=== PATIENT | female | born 1940 | race Caucasian/White ===

== ENCOUNTER → 2018-04-24 07:30 | Outpatient (CLI) | payer MEDICARE, OTHER, SELFPAY ==
[2018-04-24 08:28] LABS: Albumin 4.3 g/dL (3.5-5.0); BUN Creatinine Ratio 18.9 (6-22); Blood Urea Nitrogen 17 mg/dL (7-17); Calcium 8.9 mg/dL (8.4-10.2); Carbon Dioxide 27 mmol/L (22-32); Chloride 102 mmol/L (98-107); Cholesterol 194 mg/dL (140-199); Estimated Glomerular Filt Rate > 60.0 mL/min (>60); Glucose 95 mg/dL (80-110); HDL Cholesterol 60 mg/dL (40-60); LDL Cholesterol Calculated 120 mg/dL (<100); Potassium 3.6 mmol/L (3.4-5.1); Sodium 139 mmol/L (137-145); Triglycerides 71 mg/dL (35-150)
[2018-04-24 08:37] LABS: HEMOLYSIS < 15 (0-50); Prealbumin 23.7 mg/dL (17.6-36.0)
[2018-04-24 08:45] LABS: Free T4, Direct Thyroxine 1.16 ng/dL (0.78-2.19)
[2018-04-24 08:51] LABS: Vitamin D 25 Hydroxy (D3) 19.6 ng/mL (30.0-100.0)
[2018-04-24 08:59] LABS: Thyroid Stimulating Hormone 3.78 uIU/mL (0.47-4.68)
[2018-04-27 13:47] LABS: Fecal Immunochemical Test NOT DETECTED (NOT DETECTED)
== END ==
PROVIDERS: PCP Student in an Organized Health Care Education/Training Program; Visit Provider Student in an Organized Health Care Education/Training Program
DX: E03.9 Hypothyroidism, unspecified (principal); E55.9 Vitamin D deficiency, unspecified; Z91.89 Other specified personal risk factors, not elsewhere classified; E78.2 Mixed hyperlipidemia; R63.6 Underweight
CPT/HCPCS: 36415; 80048; 80061; 82040; 82274; 82306; 84134; 84439; 84443

== ENCOUNTER → 2018-05-12 09:43 | Outpatient (CLI) | payer MEDICARE, OTHER, SELFPAY | PROVIDERS: PCP Student in an Organized Health Care Education/Training Program; Visit Provider Student in an Organized Health Care Education/Training Program | DX: Z13.820 Encounter for screening for osteoporosis (principal); M81.0 Age-related osteoporosis without current pathological fracture; Z78.0 Asymptomatic menopausal state; E07.9 Disorder of thyroid, unspecified; Z82.62 Family history of osteoporosis | CPT/HCPCS: 77080 ==

== ENCOUNTER 2018-07-24 09:00 | Outpatient (RCR) | payer MEDICARE, OTHER, SELFPAY ==
--- NOTE | 2018-05-27 12:33 | PT.OTN ---
Current Diagnoses Stiffness of unspecified joint, not elsewhere classified (05/27/18) Low back pain (05/27/18) Muscle weakness (generalized) (05/27/18) Physical Therapy Treatment Note PT-OP-A Visit Information Start: 05/27/18 12:08 Freq: Status: Active Protocol: Document 05/27/18 11:15 DCW (Rec: 05/27/18 12:33 DCW [id number]) Out-Patient Physical Therapy Visit Information Visit Information Visit Type Initial Evaluation Visit Start Time 11:15 Visit Stop Time 12:00 Total Visit Minutes 45 Visit Number 1 Number of DANCE TEACHER Visits 0 Evaluation Information Evaluation Date 05/27/18 PT-OP-B Current Condition Start: 05/27/18 12:08 Freq: Status: Active Protocol: Document 05/27/18 11:15 DCW (Rec: 05/27/18 12:33 DCW [id number]) Current Condition History of Current Condition Onset Date Several year history Current Complaints Low back pain and stiffness, worsening with extended standing History of Current Condition Pt is a 77 year old female presenting with complaints of low back pain, particularly after an extended time standing or walking. 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 Pt notes no radicular symptoms, and reports that her pain reduces greatly when she is able to sit down and let her back flex forward a little. 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 choir PT-OP-C Subjective Start: 05/27/18 12:08 Freq: Status: Active Protocol: Document 05/27/18 11:15 DCW (Rec: 05/27/18 12:33 DCW [id number]) Patient Questionnaires Oswestry Low Back Index Oswestry Score 32% Oswestry Impairment 20 to 39% Impaired (Score 20- 39) OP-PT Pain Assessment Pain Assessment Grid Paper Pain Assessment Grid Completed Yes Location Bilateral Lower Back Intensity 8 Scale Used Numeric (1 - 10) Pain Aggravating Factors Standing Walking Pain Alleviating Factors Sitting PT-OP-F Manual Assessment Start: 05/27/18 12:08 Freq: Status: Active Protocol: Document 05/27/18 11:15 DCW (Rec: 05/27/18 12:33 DCW [id number]) Manual Assessments Joint Mobility Assessment Joint Mobility Assessment Minimal to no joint mobility along T10-L5 vertebrae in prone PT-OP-K Range of Motion Start: 05/27/18 12:08 Freq: Status: Active Protocol: Document 05/27/18 11:15 DCW (Rec: 05/27/18 12:33 DCW [id number]) Lumbar Spine Range of Motion Lumbar Spine Active Degrees Testing Position Standing Flexion 32 Extension 5 Lateral Flexion Left 44 Lateral Flexion Right 50 ROM Limitations Bony Restriction Pain Comments Lateral flexion measured in cm from fingertips to floor PT-OP-L Special Tests Start: 05/27/18 12:08 Freq: Status: Active Protocol: Document 05/27/18 11:15 DCW (Rec: 05/27/18 12:33 DCW [id number]) Special Tests Lumbar Spine Special Tests Slump Test Results Negative Vertical Spine Loading Test Results Negative Lateral SI compression Test Results Negative LENNY Test Results Negative Straight Leg Raise Test Results HS tightness at 80? L, 74? R PT-OP-M Strength Start: 05/27/18 12:08 Freq: Status: Active Protocol: Document 05/27/18 11:15 DCW (Rec: 05/27/18 12:33 DCW [id number]) Trunk Strength Trunk Manual Muscle Testing Core Stabilization TrA strength poor, 3-/5: Pt unable to voluntarily contract abdominal muscles in PPT position Hip Strength Hip Manual Muscle Testing Right Flexion (L2) 5 Normal Abduction 4+ Good+ Adduction 5 Normal External Rotation 5 Normal Internal Rotation 5 Normal Left Flexion (L2) 5 Normal Abduction 4+ Good+ Adduction 5 Normal External Rotation 5 Normal Internal Rotation 5 Normal Knee Strength Knee Manual Muscle Testing Right Flexion (S2) 5 Normal Extension (L3) 5 Normal Left Flexion (S2) 4+ Good+ Extension (L3) 5 Normal PT-OP-Q Treatments Start: 05/27/18 12:08 Freq: Status: Active Protocol: Document 05/27/18 11:15 DCW (Rec: 05/27/18 12:33 DC [id number]) Therapeutic Exercises Supine Exercises PPT /c TrA Supine Exercise Name PPT /c TrA activation Reps/Minutes 5 hold Comments verbal and tactile cues for core contraction Hamstring Stretch Supine Exercise Name HS stretch /c strap Side bilateral PT-OP-T Assessment and Plan Start: 05/27/18 12:08 Freq: Status: Active Protocol: Document 05/27/18 11:15 DCW (Rec: 05/27/18 12:33 [facility] [id number]) Physical Therapy Assessment Rehab Potential Rehabilitation Potential Excellent Evaluation Complexity Number of Personal Factors/Comorbidities 1-2 Number of Body Systems Impaired 3 Clinical Presentation at Evaluation Stable Impairments Impairments Activity Tolerance Functional Activities Pain Posture ROM Strength Goals Four Impairment Core weakness Short Term Goal (STG) Pt to properly perform TrA contraction with no verbal or tactile cues STG Duration 06/26/18 Fdc Goal (LTG) Pt core MMT to 4/5 LTG Duration 07/27/18 Three Impairment Lumbar spine ROM limited Short Term Goal (STG) Active lumbar lateral flexion to 40 cm fingertips->floor bilaterally STG Duration 06/26/18 Advisory Application Developer Goal (LTG) Active lumbar ROM to 50? flexion and 15? 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 Pt will likely experience decrease in pain when standing and walking with improving hamstring flexibility, increasing lumbar mobility, and strengthening her core musculature. Pt given an initial HEP in order to begin to work toward improving flexibility and strength, and during the course of her rehab, should benefit from building on these techniques. Pt may also benefit from pain-control modalities to limit negative reaction to increased activity levels. Physical Therapy Plan Frequency and Duration Frequency of Treatment 2x/Week Duration of Treatment 8 weeks Plan of Care Start Date 05/27/18 Plan of Care End Date 07/22/18 Therapeutic Interventions Therapeutic Interventions Aquatic Therapy Home Exercise Program Joint Mobilizations Manual Therapy Patient/Caregiver Education Self-Care/Home Management Soft Tissue Mobilization Therapeutic Activities Therapeutic Exercises Modalities Cold Pack/Ice Massage Electric Stimulation Hot Packs Next Visit Focus/Plan Next Note Type Treatment Note Next Visit Plan Core strengthening, lumbar joint mobilizations, hamstring stretching
--- NOTE | 2018-05-27 12:34 | PT.OPPOC ---
Current Diagnoses Stiffness of unspecified joint, not elsewhere classified (05/27/18) Low back pain (05/27/18) Muscle weakness (generalized) (05/27/18) Provider Visit Care Team Role Provider Type Mateusz Bonilla MD Attending Provider Physician Primary Care Provider Specialty: Internal Medicine Address: [address] [place] [address], [id number] Email: Plan Of Care PT-OP-T Assessment and Plan Start: 05/27/18 12:08 Freq: Status: Active Protocol: Document 05/27/18 11:15 DCW (Rec: 05/27/18 12:33 DCW [id number]) Physical Therapy Assessment Rehab Potential Rehabilitation Potential Excellent Evaluation Complexity Number of Personal Factors/Comorbidities 1-2 Number of Body Systems Impaired 3 Clinical Presentation at Evaluation Stable Impairments Impairments Activity Tolerance Functional Activities Pain Posture ROM Strength Goals Four Impairment Core weakness Short Term Goal (STG) Pt to properly perform TrA contraction with no verbal or tactile cues STG Duration 06/26/18 Tactical Debriefer Goal (LTG) Pt core MMT to 4/5 LTG Duration 07/27/18 Three Impairment Lumbar spine ROM limited Short Term Goal (STG) Active lumbar lateral flexion to 40 cm fingertips->floor bilaterally STG Duration 06/26/18 Fci Goal (LTG) Active lumbar ROM to 50? flexion and 15? extension LTG Duration 07/27/18 Two Impairment Pt unable to participate in ADLs and hobbies Short Term Goal (STG) Pt to tolerate cleaning house (vacuuming, sweeping, or mopping) for 20 minutes without increase in pain STG Duration 06/26/18 Tactical Debriefer Goal (LTG) Pt able to tolerate standing for require time while singing with [employer] choir LTG Duration 07/27/18 One Impairment Pt does not have an appropriate home exercise program Short Term Goal (STG) Pt to be independent and complaint with an appropriate HEP STG Duration 06/26/18 Assessment Summary Assessment Pt presents with signs and symptoms 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 Pt will likely experience decrease in pain when standing and walking with improving hamstring flexibility, increasing lumbar mobility, and strengthening her core musculature. Pt given an initial HEP in order to begin to work toward improving flexibility and strength, and during the course of her rehab, should benefit from building on these techniques. Pt may also benefit from pain- control modalities to limit negative reaction to increased activity levels. Physical Therapy Plan Frequency and Duration Frequency of Treatment 2x/Week Duration of Treatment 8 weeks Plan of Care Start Date 05/27/18 Plan of Care End Date 07/22/18 Therapeutic Interventions Therapeutic Interventions Aquatic Therapy Home Exercise Program Joint Mobilizations Manual Therapy Patient/Caregiver Education Self-Care/Home Management Soft Tissue Mobilization Therapeutic Activities Therapeutic Exercises Modalities Cold Pack/Ice Massage Electric Stimulation Hot Packs Next Visit Focus/Plan Next Note Type Treatment Note Next Visit Plan Core strengthening, lumbar joint mobilizations, hamstring stretching Plan of Care Dates Plan of Care Start Date 05/27/18 Plan of Care End Date 07/22/18 Please Sign and Return: I have reviewed this Plan of Care and certify that the skilled therapy services above are required to meet the patient?s needs. Physician Signature Date Printed Name and Credentials Clinical Instructor Signature Printed Name and Credentials
--- NOTE | 2018-05-29 14:34 | PT.OTN ---
Current Diagnoses Low back pain (05/29/18) Physical Therapy Treatment Note PT-OP-A Visit Information Start: 05/27/18 12:08 Freq: Status: Active Protocol: Document 05/29/18 14:22 SA (Rec: 05/29/18 14:34 [email or web address]) Out-Patient Physical Therapy Visit Information Visit Information Visit Type Treatment Note Visit Start Time 10:30 Visit Stop Time 11:15 Total Visit Minutes 45 Visit Number 2 PT-OP-B Current Condition Start: 05/27/18 12:08 Freq: Status: Active Protocol: Document 05/27/18 11:15 DCW (Rec: 05/27/18 12:33 DCW [id number]) Current Condition History of Current Condition Onset Date Several year history Current Complaints Low back pain and stiffness, worsening with extended standing History of Current Condition Pt is a 77 year old female presenting with complaints of low back pain, particularly after an extended time standing or walking. 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 Pt notes no radicular symptoms, and reports that her pain reduces greatly when she is able to sit down and let her back flex forward a little. 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 PT-OP-F Manual Assessment Start: 05/27/18 12:08 Freq: Status: Active Protocol: Document 05/27/18 11:15 DCW (Rec: 05/27/18 12:33 DCW [id number]) Manual Assessments Joint Mobility Assessment Joint Mobility Assessment Minimal to no joint mobility along T10-L5 vertebrae in prone PT-OP-K Range of Motion Start: 05/27/18 12:08 Freq: Status: Active Protocol: Document 05/27/18 11:15 DCW (Rec: 05/27/18 12:33 DCW [id number]) Lumbar Spine Range of Motion Lumbar Spine Active Degrees Testing Position Standing Flexion 32 Extension 5 Lateral Flexion Left 44 Lateral Flexion Right 50 ROM Limitations Bony Restriction Pain Comments Lateral flexion measured in cm from fingertips to floor PT-OP-L Special Tests Start: 05/27/18 12:08 Freq: Status: Active Protocol: Document 05/27/18 11:15 DCW (Rec: 05/27/18 12:33 DCW [id number]) Special Tests Lumbar Spine Special Tests Slump Test Results Negative Vertical Spine Loading Test Results Negative Lateral SI compression Test Results Negative LENNY Test Results Negative Straight Leg Raise Test Results HS tightness at 80? L, 74? R PT-OP-M Strength Start: 05/27/18 12:08 Freq: Status: Active Protocol: Document 05/27/18 11:15 DCW (Rec: 05/27/18 12:33 DCW [id number]) Trunk Strength Trunk Manual Muscle Testing Core Stabilization TrA strength poor, 3-/5: Pt unable to voluntarily contract abdominal muscles in PPT position Hip Strength Hip Manual Muscle Testing Right Flexion (L2) 5 Normal Abduction 4+ Good+ Adduction 5 Normal External Rotation 5 Normal Internal Rotation 5 Normal Left Flexion (L2) 5 Normal Abduction 4+ Good+ Adduction 5 Normal External Rotation 5 Normal Internal Rotation 5 Normal Knee Strength Knee Manual Muscle Testing Right Flexion (S2) 5 Normal Extension (L3) 5 Normal Left Flexion (S2) 4+ Good+ Extension (L3) 5 Normal PT-OP-Q Treatments Start: 05/27/18 12:08 Freq: Status: Active Protocol: Document 05/29/18 14:22 SA (Rec: 05/29/18 14:34 SA [email or web address]) Therapeutic Exercises Supine Exercises Piriformis stretch Side bilateral Reps/Minutes 30 x 2 bridging Side bilateral Reps/Minutes 15x Comments focus on engaging core PPT /c TrA Supine Exercise Name PPT /c TrA activation Reps/Minutes 5 x 10 Hamstring Stretch Supine Exercise Name HS stretch /c strap Side bilateral Reps/Minutes 30 x 3 Sidelying Exercises Clamshells Side bilateral Reps/Minutes 15 x each Comments core engagement Manual Therapy Treatment Soft Tissue Mobilization STM/MFR Body Location Lumbar paraspinals Mobilization Type Myofascial Release Rolling Sustained Pressure Intensity/Depth Moderate Body Position Sidelying Comments Pt tolerated well PT-OP-R Modalities Start: 05/27/18 12:08 Freq: Status: Active Protocol: Document 05/29/18 14:22 SA (Rec: 05/29/18 14:34 [email or web address]) Electric Stimulation Electric Stimulation IFC Body Location lumbar spine Duration (Minutes) 15 Intensity 12 Patient Position Sidelying Combined With Heat/Cold Hot Pack Comments Pt prefers heat vs cold PT-OP-T Assessment and Plan Start: 05/27/18 12:08 Freq: Status: Active Protocol: Document 05/29/18 14:22 SA (Rec: 05/29/18 14:34 [email or web address]) Physical Therapy Assessment Assessment Summary Assessment Focused on core engagement and TrA activation with PPT, bridging and clamshells. Pt with initial difficulty activating but was able to perform by end of session. Directions for self stretching HS at home. Physical Therapy Plan Next Visit Focus/Plan Next Note Type Treatment Note Next Visit Plan Core strengthening, lumbar joint mobilizations, hamstring stretching
--- NOTE | 2018-06-03 16:15 | PT.OTN ---
Current Diagnoses Low back pain (06/03/18) Physical Therapy Treatment Note PT-OP-A Visit Information Start: 05/27/18 12:08 Freq: Status: Active Protocol: Document 06/03/18 14:00 BS (Rec: 06/03/18 15:42 BS [id number]) Out-Patient Physical Therapy Visit Information Visit Information Visit Type Treatment Note Visit Start Time 13:00 Visit Stop Time 13:55 Total Visit Minutes 55 Visit Number 3 PT-OP-B Current Condition Start: 05/27/18 12:08 Freq: Status: Active Protocol: Document 05/27/18 11:15 DCW (Rec: 05/27/18 12:33 DCW [id number]) Current Condition History of Current Condition Onset Date Several year history Current Complaints Low back pain and stiffness, worsening with extended standing History of Current Condition Pt is a 77 year old female presenting with complaints of low back pain, particularly after an extended time standing or walking. 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 Pt notes no radicular symptoms, and reports that her pain reduces greatly when she is able to sit down and let her back flex forward a little. Treatment Goals Patient/Caregiver Goals Reduce back pain, allow her to stand to better participate in her shinto choir Prior Functional Status Baseline Function- ADL's Independent Baseline Function- Mobility Independent Current Functional Impairments (Reported) Functional Limitations- ADL's Limited ability to clean due to low back pain Functional Limitations- Mobility/Gait Requires a cart to lean on while walking around [employer] Functional Limitations- Recreation/ Unable to remain standing as Hobbies long as required while singing in her shinto choir PT-OP-C Subjective Start: 05/27/18 12:08 Freq: Status: Active Protocol: Document 06/03/18 14:00 BS (Rec: 06/03/18 15:42 BS [id number]) OP-PT Subjective Patient Comments Patient Comments Pt states that bending over increases her central low back pain. She denies any problems with HEP for hamstring stretch and bridges. PT-OP-F Manual Assessment Start: 05/27/18 12:08 Freq: Status: Active Protocol: Document 05/27/18 11:15 DCW (Rec: 05/27/18 12:33 DCW [id number]) Manual Assessments Joint Mobility Assessment Joint Mobility Assessment Minimal to no joint mobility along T10-L5 vertebrae in prone PT-OP-K Range of Motion Start: 05/27/18 12:08 Freq: Status: Active Protocol: Document 05/27/18 11:15 DCW (Rec: 05/27/18 12:33 DCW [id number]) Lumbar Spine Range of Motion Lumbar Spine Active Degrees Testing Position Standing Flexion 32 Extension 5 Lateral Flexion Left 44 Lateral Flexion Right 50 ROM Limitations Bony Restriction Pain Comments Lateral flexion measured in cm from fingertips to floor PT-OP-L Special Tests Start: 05/27/18 12:08 Freq: Status: Active Protocol: Document 05/27/18 11:15 DCW (Rec: 05/27/18 12:33 DCW [id number]) Special Tests Lumbar Spine Special Tests Slump Test Results Negative Vertical Spine Loading Test Results Negative Lateral SI compression Test Results Negative LENNY Test Results Negative Straight Leg Raise Test Results HS tightness at 80? L, 74? R PT-OP-M Strength Start: 05/27/18 12:08 Freq: Status: Active Protocol: Document 05/27/18 11:15 DCW (Rec: 05/27/18 12:33 DCW [id number]) Trunk Strength Trunk Manual Muscle Testing Core Stabilization TrA strength poor, 3-/5: Pt unable to voluntarily contract abdominal muscles in PPT position Hip Strength Hip Manual Muscle Testing Right Flexion (L2) 5 Normal Abduction 4+ Good+ Adduction 5 Normal External Rotation 5 Normal Internal Rotation 5 Normal Left Flexion (L2) 5 Normal Abduction 4+ Good+ Adduction 5 Normal External Rotation 5 Normal Internal Rotation 5 Normal Knee Strength Knee Manual Muscle Testing Right Flexion (S2) 5 Normal Extension (L3) 5 Normal Left Flexion (S2) 4+ Good+ Extension (L3) 5 Normal PT-OP-Q Treatments Start: 05/27/18 12:08 Freq: Status: Active Protocol: Document 06/03/18 14:00 BS (Rec: 06/03/18 15:42 BS [id number]) Therapeutic Exercises Supine Exercises 1 Supine Exercise Name Roll in/out Equipment Used #2 band, small ball between knees Reps/Minutes x15 each Comments VCs for TA contraction Piriformis stretch Side bilateral Reps/Minutes 30 x 2 Comments manual assistance for stretch. bridging Side bilateral Reps/Minutes 15x Comments focus on engaging core Hamstring Stretch Supine Exercise Name HS stretch /c strap Side bilateral Reps/Minutes 30 x 3 Comments VCs to maintain knee ext. Sidelying Exercises Clamshells Side bilateral Reps/Minutes 15 x each Comments performed supine today Manual Therapy Treatment Joint Mobilizations 1 Joint L1-L5 Central PAs Direction PA Grade III Body Position Rsidelying Comments grade II progressing to grade III. PT-OP-R Modalities Start: 05/27/18 12:08 Freq: Status: Active Protocol: Document 06/03/18 14:00 BS (Rec: 06/03/18 15:42 BS [id number]) Electric Stimulation Electric Stimulation IFC Body Location lumbar spine Duration (Minutes) 15 Intensity 16 Patient Position Sidelying Combined With Heat/Cold Hot Pack Comments Pt prefers heat vs cold PT-OP-T Assessment and Plan Start: 05/27/18 12:08 Freq: Status: Active Protocol: Document 06/03/18 14:00 BS (Rec: 06/03/18 15:42 BS [id number]) Physical Therapy Assessment Assessment Summary Assessment Added supine roll in/out with theraband and ball between knees with emphasis on TA contraction. Continued with HS and piriformis stretch. No exercises added to HEP today. Physical Therapy Plan Next Visit Focus/Plan Next Note Type Treatment Note Next Visit Plan Lumbar and core stabilization exercises, continue with alligator shear operator to lumbar spine and HS/ piriformis stretching. Addition of roll in/out to HEP .
--- NOTE | 2018-06-05 12:37 | PT.OTN ---
Current Diagnoses Low back pain (06/05/18) Physical Therapy Treatment Note PT-OP-A Visit Information Start: 05/27/18 12:08 Freq: Status: Active Protocol: Document 06/05/18 12:00 DCW (Rec: 06/05/18 12:37 DCW [id number]) Out-Patient Physical Therapy Visit Information Visit Information Visit Type Treatment Note Visit Start Time 12:00 Visit Stop Time 12:50 Total Visit Minutes 50 Visit Number 4 Evaluation Information Evaluation Date 05/27/18 PT-OP-B Current Condition Start: 05/27/18 12:08 Freq: Status: Active Protocol: Document 05/27/18 11:15 DCW (Rec: 05/27/18 12:33 DCW [id number]) Current Condition History of Current Condition Onset Date Several year history Current Complaints Low back pain and stiffness, worsening with extended standing History of Current Condition Pt is a 77 year old female presenting with complaints of low back pain, particularly after an extended time standing or walking. 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 Pt notes no radicular symptoms, and reports that her pain reduces greatly when she is able to sit down and let her back flex forward a little. 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 PT-OP-F Manual Assessment Start: 05/27/18 12:08 Freq: Status: Active Protocol: Document 05/27/18 11:15 DCW (Rec: 05/27/18 12:33 DCW [id number]) Manual Assessments Joint Mobility Assessment Joint Mobility Assessment Minimal to no joint mobility along T10-L5 vertebrae in prone PT-OP-K Range of Motion Start: 05/27/18 12:08 Freq: Status: Active Protocol: Document 05/27/18 11:15 DCW (Rec: 05/27/18 12:33 DCW [id number]) Lumbar Spine Range of Motion Lumbar Spine Active Degrees Testing Position Standing Flexion 32 Extension 5 Lateral Flexion Left 44 Lateral Flexion Right 50 ROM Limitations Bony Restriction Pain Comments Lateral flexion measured in cm from fingertips to floor PT-OP-L Special Tests Start: 05/27/18 12:08 Freq: Status: Active Protocol: Document 05/27/18 11:15 DCW (Rec: 05/27/18 12:33 DCW [id number]) Special Tests Lumbar Spine Special Tests Slump Test Results Negative Vertical Spine Loading Test Results Negative Lateral SI compression Test Results Negative LENNY Test Results Negative Straight Leg Raise Test Results HS tightness at 80? L, 74? R PT-OP-M Strength Start: 05/27/18 12:08 Freq: Status: Active Protocol: Document 05/27/18 11:15 DCW (Rec: 05/27/18 12:33 DCW [id number]) Trunk Strength Trunk Manual Muscle Testing Core Stabilization TrA strength poor, 3-/5: Pt unable to voluntarily contract abdominal muscles in PPT position Hip Strength Hip Manual Muscle Testing Right Flexion (L2) 5 Normal Abduction 4+ Good+ Adduction 5 Normal External Rotation 5 Normal Internal Rotation 5 Normal Left Flexion (L2) 5 Normal Abduction 4+ Good+ Adduction 5 Normal External Rotation 5 Normal Internal Rotation 5 Normal Knee Strength Knee Manual Muscle Testing Right Flexion (S2) 5 Normal Extension (L3) 5 Normal Left Flexion (S2) 4+ Good+ Extension (L3) 5 Normal PT-OP-Q Treatments Start: 05/27/18 12:08 Freq: Status: Active Protocol: Document 06/05/18 12:00 DCW (Rec: 06/05/18 12:37 DCW [id number]) Therapeutic Exercises Supine Exercises PPT /c Marching Supine Exercise Name PPT /c TrA - Marching Side bilateral Piriformis stretch Side bilateral Reps/Minutes 30 x 2 Comments manual assistance for stretch. bridging Side bilateral Reps/Minutes x10 Comments focus on engaging core PPT /c TrA Supine Exercise Name PPT /c TrA activation Reps/Minutes 5 x 10 Hamstring Stretch Supine Exercise Name HS stretch Side bilateral Reps/Minutes 30 x 3 Comments manual stretch Sidelying Exercises Clamshells Side bilateral Resistance Lv 2 Equipment Used T-band Reps/Minutes 15 x each Comments performed supine today Manual Therapy Treatment Soft Tissue Mobilization STM/MFR Body Location Lumbar paraspinals Mobilization Type Myofascial Release Rolling Sustained Pressure Intensity/Depth Moderate Body Position Sidelying Comments Pt tolerated well Joint Mobilizations 1 Joint L1-L5 Central PAs Direction PA Grade III Body Position Rsidelying Comments grade II progressing to grade III. PT-OP-R Modalities Start: 05/27/18 12:08 Freq: Status: Active Protocol: Document 06/05/18 12:00 DCW (Rec: 06/05/18 12:37 DCW [id number]) Electric Stimulation Electric Stimulation IFC Body Location lumbar spine Duration (Minutes) 15 Intensity 14 Patient Position Sidelying Combined With Heat/Cold Hot Pack Comments Pt prefers heat vs cold PT-OP-T Assessment and Plan Start: 05/27/18 12:08 Freq: Status: Active Protocol: Document 06/05/18 12:00 DCW (Rec: 06/05/18 12:37 DCW [id number]) Physical Therapy Assessment Impairments Impairments Activity Tolerance Functional Activities Pain Posture ROM Strength Goals Four Impairment Core weakness Short Term Goal (STG) Pt to properly perform TrA contraction with no verbal or tactile cues STG Duration 06/26/18 Online Content Developer Goal (LTG) Pt core MMT to 4/5 LTG Duration 07/27/18 Three Impairment Lumbar spine ROM limited Short Term Goal (STG) Active lumbar lateral flexion to 40 cm fingertips->floor bilaterally STG Duration 06/26/18 Online Content Developer Goal (LTG) Active lumbar ROM to 50? flexion and 15? extension LTG Duration 07/27/18 Two Impairment Pt unable to participate in ADLs and hobbies Short Term Goal (STG) Pt to tolerate cleaning house (vacuuming, sweeping, or mopping) for 20 minutes without increase in pain STG Duration 06/26/18 Fpc Goal (LTG) Pt able to tolerate standing for require time while singing with [employer] LTG Duration 07/27/18 One Impairment Pt does not have an appropriate home exercise program Short Term Goal (STG) Pt to be independent and complaint with an appropriate HEP STG Duration 06/26/18 Assessment Summary Assessment Pt continues to struggle to properly contract TrA during PPT, even with verbal and tactile cues, however was able to contract it much better with addition of supine marching. Physical Therapy Plan Frequency and Duration Frequency of Treatment 2x/Week Duration of Treatment 8 weeks Plan of Care Start Date 05/27/18 Plan of Care End Date 07/22/18 Therapeutic Interventions Therapeutic Interventions Aquatic Therapy Home Exercise Program Joint Mobilizations Manual Therapy Patient/Caregiver Education Self-Care/Home Management Soft Tissue Mobilization Therapeutic Activities Therapeutic Exercises Modalities Cold Pack/Ice Massage Electric Stimulation Hot Packs Next Visit Focus/Plan Next Note Type Treatment Note Next Visit Plan Lumbar and core stabilization exercises, continue with oil program compliance specialist to lumbar spine and HS/ piriformis stretching. Addition of roll in/out to HEP .
--- NOTE | 2018-06-09 11:34 | PT.OTN ---
Current Diagnoses Low back pain (06/09/18) Physical Therapy Treatment Note PT-OP-A Visit Information Start: 05/27/18 12:08 Freq: Status: Active Protocol: Document 06/09/18 11:29 SA (Rec: 06/09/18 11:34 SA [id number]) Out-Patient Physical Therapy Visit Information Visit Information Visit Type Treatment Note Visit Start Time 10:30 Visit Stop Time 11:19 Total Visit Minutes 49 Visit Number 5 Number of ORACLE TECHNICAL ARCHITECT Visits 1 PT-OP-B Current Condition Start: 05/27/18 12:08 Freq: Status: Active Protocol: Document 05/27/18 11:15 DCW (Rec: 05/27/18 12:33 DCW [id number]) Current Condition History of Current Condition Onset Date Several year history Current Complaints Low back pain and stiffness, worsening with extended standing History of Current Condition Pt is a 77 year old female presenting with complaints of low back pain, particularly after an extended time standing or walking. 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 Pt notes no radicular symptoms, and reports that her pain reduces greatly when she is able to sit down and let her back flex forward a little. 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 PT-OP-F Manual Assessment Start: 05/27/18 12:08 Freq: Status: Active Protocol: Document 05/27/18 11:15 DCW (Rec: 05/27/18 12:33 DCW [id number]) Manual Assessments Joint Mobility Assessment Joint Mobility Assessment Minimal to no joint mobility along T10-L5 vertebrae in prone PT-OP-K Range of Motion Start: 05/27/18 12:08 Freq: Status: Active Protocol: Document 05/27/18 11:15 DCW (Rec: 05/27/18 12:33 DCW [id number]) Lumbar Spine Range of Motion Lumbar Spine Active Degrees Testing Position Standing Flexion 32 Extension 5 Lateral Flexion Left 44 Lateral Flexion Right 50 ROM Limitations Bony Restriction Pain Comments Lateral flexion measured in cm from fingertips to floor PT-OP-L Special Tests Start: 05/27/18 12:08 Freq: Status: Active Protocol: Document 05/27/18 11:15 DCW (Rec: 05/27/18 12:33 DCW [id number]) Special Tests Lumbar Spine Special Tests Slump Test Results Negative Vertical Spine Loading Test Results Negative Lateral SI compression Test Results Negative LENNY Test Results Negative Straight Leg Raise Test Results HS tightness at 80? L, 74? R PT-OP-M Strength Start: 05/27/18 12:08 Freq: Status: Active Protocol: Document 05/27/18 11:15 DCW (Rec: 05/27/18 12:33 DCW [id number]) Trunk Strength Trunk Manual Muscle Testing Core Stabilization TrA strength poor, 3-/5: Pt unable to voluntarily contract abdominal muscles in PPT position Hip Strength Hip Manual Muscle Testing Right Flexion (L2) 5 Normal Abduction 4+ Good+ Adduction 5 Normal External Rotation 5 Normal Internal Rotation 5 Normal Left Flexion (L2) 5 Normal Abduction 4+ Good+ Adduction 5 Normal External Rotation 5 Normal Internal Rotation 5 Normal Knee Strength Knee Manual Muscle Testing Right Flexion (S2) 5 Normal Extension (L3) 5 Normal Left Flexion (S2) 4+ Good+ Extension (L3) 5 Normal PT-OP-Q Treatments Start: 05/27/18 12:08 Freq: Status: Active Protocol: Document 06/09/18 11:29 SA (Rec: 06/09/18 11:34 SA [id number]) Therapeutic Exercises Supine Exercises PPT /c Marching Supine Exercise Name PPT /c TrA - Marching Side bilateral Reps/Minutes 15x each 1 Supine Exercise Name Roll in/out Equipment Used #2 band, small ball between knees Reps/Minutes x15 each Comments VCs for TA contraction Piriformis stretch Side bilateral Reps/Minutes 30 x 2 Comments manual assistance for stretch. bridging Side bilateral Reps/Minutes 3 x 12 Comments focus on engaging core PPT /c TrA Supine Exercise Name PPT /c TrA activation Reps/Minutes 5 x 10 Hamstring Stretch Supine Exercise Name HS stretch Side bilateral Reps/Minutes 30 x 3 Comments manual stretch Sidelying Exercises Clamshells Side bilateral Resistance Lv 2 Equipment Used T-band Reps/Minutes 15 x each Manual Therapy Treatment Soft Tissue Mobilization STM/MFR Body Location Lumbar paraspinals Mobilization Type Myofascial Release Rolling Sustained Pressure Intensity/Depth Moderate Body Position Sidelying Comments Pt tolerated well PT-OP-R Modalities Start: 05/27/18 12:08 Freq: Status: Active Protocol: Document 06/09/18 11:29 SA (Rec: 06/09/18 11:34 SA [id number]) Electric Stimulation Electric Stimulation IFC Body Location lumbar spine Duration (Minutes) 15 Intensity 15 Patient Position Sidelying Combined With Heat/Cold Hot Pack Comments Pt prefers heat vs cold PT-OP-T Assessment and Plan Start: 05/27/18 12:08 Freq: Status: Active Protocol: Document 06/09/18 11:29 SA (Rec: 06/09/18 11:34 SA [email or web address]) Physical Therapy Assessment Assessment Summary Assessment Pt with improving PPT and able to engage TRA with verbal/ tactile cues, decreasing LB sx overall. Physical Therapy Plan Next Visit Focus/Plan Next Note Type Treatment Note Next Visit Plan Lumbar and core stabilization exercises, continue with commercial development manager to lumbar spine and HS/ piriformis stretching.
--- NOTE | 2018-06-12 11:54 | PT.OTN ---
Current Diagnoses Low back pain (06/12/18) Physical Therapy Treatment Note PT-OP-A Visit Information Start: 05/27/18 12:08 Freq: Status: Active Protocol: Document 06/12/18 11:15 DCW (Rec: 06/12/18 11:54 DCW [id number]) Out-Patient Physical Therapy Visit Information Visit Information Visit Type Treatment Note Visit Start Time 11:15 Visit Stop Time 12:05 Total Visit Minutes 50 Visit Number 6 Number of ROUTEMAN Visits 0 Evaluation Information Evaluation Date 05/27/18 PT-OP-B Current Condition Start: 05/27/18 12:08 Freq: Status: Active Protocol: Document 05/27/18 11:15 DCW (Rec: 05/27/18 12:33 DCW [id number]) Current Condition History of Current Condition Onset Date Several year history Current Complaints Low back pain and stiffness, worsening with extended standing History of Current Condition Pt is a 77 year old female presenting with complaints of low back pain, particularly after an extended time standing or walking. 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 Pt notes no radicular symptoms, and reports that her pain reduces greatly when she is able to sit down and let her back flex forward a little. 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 PT-OP-F Manual Assessment Start: 05/27/18 12:08 Freq: Status: Active Protocol: Document 05/27/18 11:15 DCW (Rec: 05/27/18 12:33 DCW [id number]) Manual Assessments Joint Mobility Assessment Joint Mobility Assessment Minimal to no joint mobility along T10-L5 vertebrae in prone PT-OP-K Range of Motion Start: 05/27/18 12:08 Freq: Status: Active Protocol: Document 05/27/18 11:15 DCW (Rec: 05/27/18 12:33 DCW [id number]) Lumbar Spine Range of Motion Lumbar Spine Active Degrees Testing Position Standing Flexion 32 Extension 5 Lateral Flexion Left 44 Lateral Flexion Right 50 ROM Limitations Bony Restriction Pain Comments Lateral flexion measured in cm from fingertips to floor PT-OP-L Special Tests Start: 05/27/18 12:08 Freq: Status: Active Protocol: Document 05/27/18 11:15 DCW (Rec: 05/27/18 12:33 DCW [id number]) Special Tests Lumbar Spine Special Tests Slump Test Results Negative Vertical Spine Loading Test Results Negative Lateral SI compression Test Results Negative LENNY Test Results Negative Straight Leg Raise Test Results HS tightness at 80? L, 74? R PT-OP-M Strength Start: 05/27/18 12:08 Freq: Status: Active Protocol: Document 05/27/18 11:15 DCW (Rec: 05/27/18 12:33 DCW [id number]) Trunk Strength Trunk Manual Muscle Testing Core Stabilization TrA strength poor, 3-/5: Pt unable to voluntarily contract abdominal muscles in PPT position Hip Strength Hip Manual Muscle Testing Right Flexion (L2) 5 Normal Abduction 4+ Good+ Adduction 5 Normal External Rotation 5 Normal Internal Rotation 5 Normal Left Flexion (L2) 5 Normal Abduction 4+ Good+ Adduction 5 Normal External Rotation 5 Normal Internal Rotation 5 Normal Knee Strength Knee Manual Muscle Testing Right Flexion (S2) 5 Normal Extension (L3) 5 Normal Left Flexion (S2) 4+ Good+ Extension (L3) 5 Normal PT-OP-Q Treatments Start: 05/27/18 12:08 Freq: Status: Active Protocol: Document 06/12/18 11:15 DCW (Rec: 06/12/18 11:54 DCW [id number]) Gym Equipment Shuttle Recovery Unilateral Squats Resistance 25# Shuttle Recovery Platform Stable Bilateral Squats Resistance 50# Shuttle Recovery Platform Stable Therapeutic Ball Bridging Exercise Details Bridging /c feet on T-ball Ball Size/Color Blue - 45 cm Low Trunk Rotations Exercise Details Trunk Rotations /c feet on T- ball Ball Size/Color Blue - 45 cm Therapeutic Exercises Supine Exercises PPT /c SLR Supine Exercise Name PPT /c SLR Side bilateral Reps/Minutes 5 hold PPT /c Marching Supine Exercise Name PPT /c TrA - Marching Side bilateral Reps/Minutes 15x each Piriformis stretch Side bilateral Reps/Minutes 30 x 2 Comments manual assistance for stretch. bridging Side bilateral Reps/Minutes 3 x 12 Comments focus on engaging core PPT /c TrA Supine Exercise Name PPT /c TrA activation Reps/Minutes 5 x 10 Hamstring Stretch Supine Exercise Name HS stretch Side bilateral Reps/Minutes 30 x 3 Comments manual stretch PT-OP-R Modalities Start: 05/27/18 12:08 Freq: Status: Active Protocol: Document 06/12/18 11:15 DCW (Rec: 06/12/18 11:54 DCW [id number]) Electric Stimulation Electric Stimulation IFC Body Location lumbar spine Duration (Minutes) 15 Intensity 22 Patient Position Sidelying Combined With Heat/Cold Hot Pack Comments Pt prefers heat vs cold PT-OP-T Assessment and Plan Start: 05/27/18 12:08 Freq: Status: Active Protocol: Document 06/12/18 11:15 DCW (Rec: 06/12/18 11:54 DCW [id number]) Physical Therapy Assessment Impairments Impairments Activity Tolerance Functional Activities Pain Posture ROM Strength Goals Four Impairment Core weakness Short Term Goal (STG) Pt to properly perform TrA contraction with no verbal or tactile cues STG Duration 06/26/18 Snf Goal (LTG) Pt core MMT to 4/5 LTG Duration 07/27/18 Three Impairment Lumbar spine ROM limited Short Term Goal (STG) Active lumbar lateral flexion to 40 cm fingertips->floor bilaterally STG Duration 06/26/18 Snf Goal (LTG) Active lumbar ROM to 50? flexion and 15? extension LTG Duration 07/27/18 Two Impairment Pt unable to participate in ADLs and hobbies Short Term Goal (STG) Pt to tolerate cleaning house (vacuuming, sweeping, or mopping) for 20 minutes without increase in pain STG Duration 06/26/18 Snf Goal (LTG) Pt able to tolerate standing for require time while singing with scientologist choir LTG Duration 07/27/18 One Impairment Pt does not have an appropriate home exercise program Short Term Goal (STG) Pt to be independent and complaint with an appropriate HEP STG Duration 06/26/18 Assessment Summary Assessment Pt performing HEP regularly, beginning to show improved contraction of TrA and increased LE strength. Pt tolerated new exercises well today. Physical Therapy Plan Frequency and Duration Frequency of Treatment 2x/Week Duration of Treatment 8 weeks Plan of Care Start Date 05/27/18 Plan of Care End Date 07/22/18 Therapeutic Interventions Therapeutic Interventions Aquatic Therapy Home Exercise Program Joint Mobilizations Manual Therapy Patient/Caregiver Education Self-Care/Home Management Soft Tissue Mobilization Therapeutic Activities Therapeutic Exercises Modalities Cold Pack/Ice Massage Electric Stimulation Hot Packs Next Visit Focus/Plan Next Note Type Treatment Note Next Visit Plan Lumbar and core stabilization exercises, continue with security guard supervisor to lumbar spine and HS/ piriformis stretching. Addition of roll in/out to HEP .
--- NOTE | 2018-06-16 11:37 | PT.OTN ---
Current Diagnoses Low back pain (06/16/18) Physical Therapy Treatment Note PT-OP-A Visit Information Start: 05/27/18 12:08 Freq: Status: Active Protocol: Document 06/16/18 11:21 SA (Rec: 06/16/18 11:37 SA [id number]) Out-Patient Physical Therapy Visit Information Visit Information Visit Type Treatment Note Visit Start Time 10:25 Visit Stop Time 11:19 Total Visit Minutes 54 Visit Number 7 Number of STORE STOCK HELP Visits 1 PT-OP-B Current Condition Start: 05/27/18 12:08 Freq: Status: Active Protocol: Document 05/27/18 11:15 DCW (Rec: 05/27/18 12:33 DCW [id number]) Current Condition History of Current Condition Onset Date Several year history Current Complaints Low back pain and stiffness, worsening with extended standing History of Current Condition Pt is a 77 year old female presenting with complaints of low back pain, particularly after an extended time standing or walking. 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 Pt notes no radicular symptoms, and reports that her pain reduces greatly when she is able to sit down and let her back flex forward a little. 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 Patient Reported Progress Improving PT-OP-F Manual Assessment Start: 05/27/18 12:08 Freq: Status: Active Protocol: Document 05/27/18 11:15 DCW (Rec: 05/27/18 12:33 DCW [id number]) Manual Assessments Joint Mobility Assessment Joint Mobility Assessment Minimal to no joint mobility along T10-L5 vertebrae in prone PT-OP-K Range of Motion Start: 05/27/18 12:08 Freq: Status: Active Protocol: Document 05/27/18 11:15 DCW (Rec: 05/27/18 12:33 DCW [id number]) Lumbar Spine Range of Motion Lumbar Spine Active Degrees Testing Position Standing Flexion 32 Extension 5 Lateral Flexion Left 44 Lateral Flexion Right 50 ROM Limitations Bony Restriction Pain Comments Lateral flexion measured in cm from fingertips to floor PT-OP-L Special Tests Start: 05/27/18 12:08 Freq: Status: Active Protocol: Document 05/27/18 11:15 DCW (Rec: 05/27/18 12:33 DCW [id number]) Special Tests Lumbar Spine Special Tests Slump Test Results Negative Vertical Spine Loading Test Results Negative Lateral SI compression Test Results Negative LENNY Test Results Negative Straight Leg Raise Test Results HS tightness at 80? L, 74? R PT-OP-M Strength Start: 05/27/18 12:08 Freq: Status: Active Protocol: Document 05/27/18 11:15 DCW (Rec: 05/27/18 12:33 DCW [id number]) Trunk Strength Trunk Manual Muscle Testing Core Stabilization TrA strength poor, 3-/5: Pt unable to voluntarily contract abdominal muscles in PPT position Hip Strength Hip Manual Muscle Testing Right Flexion (L2) 5 Normal Abduction 4+ Good+ Adduction 5 Normal External Rotation 5 Normal Internal Rotation 5 Normal Left Flexion (L2) 5 Normal Abduction 4+ Good+ Adduction 5 Normal External Rotation 5 Normal Internal Rotation 5 Normal Knee Strength Knee Manual Muscle Testing Right Flexion (S2) 5 Normal Extension (L3) 5 Normal Left Flexion (S2) 4+ Good+ Extension (L3) 5 Normal PT-OP-Q Treatments Start: 05/27/18 12:08 Freq: Status: Active Protocol: Document 06/16/18 11:21 SA (Rec: 06/16/18 11:37 SA [email or web address]) Gym Equipment Shuttle Recovery Unilateral Squats Resistance 25# Shuttle Recovery Platform Stable Bilateral Squats Resistance 62# Shuttle Recovery Platform Stable Therapeutic Ball Bridging Exercise Details Bridging /c feet on T-ball Ball Size/Color Blue - 45 cm Reps/Duration 20x Comments Cues for control Low Trunk Rotations Exercise Details Trunk Rotations /c feet on T- ball Ball Size/Color Blue - 45 cm Reps/Duration 20x Comments Cues for control Therapeutic Exercises Supine Exercises PPT /c SLR Supine Exercise Name PPT /c SLR Side bilateral Reps/Minutes 5 hold PPT /c Marching Supine Exercise Name PPT /c TrA - Marching Side bilateral Reps/Minutes 15x each Piriformis stretch Side bilateral Reps/Minutes 30 x 2 Comments manual assistance for stretch. PPT /c TrA Supine Exercise Name PPT /c TrA activation Reps/Minutes 5 x 10 Hamstring Stretch Supine Exercise Name HS stretch Side bilateral Reps/Minutes 30 x 3 Comments manual stretch Sidelying Exercises Clamshells Side bilateral Resistance Lv 2 Equipment Used T-band Reps/Minutes 20 x each Manual Therapy Treatment Soft Tissue Mobilization STM/MFR Body Location Lumbar paraspinals Mobilization Type Myofascial Release Rolling Sustained Pressure Intensity/Depth Moderate Body Position Sidelying Comments Pt tolerated well Joint Mobilizations 1 Joint L1-L5 Central PAs Direction PA Grade III Body Position Rsidelying Comments grade II progressing to grade III. PT-OP-R Modalities Start: 05/27/18 12:08 Freq: Status: Active Protocol: Document 06/16/18 11:21 SA (Rec: 06/16/18 11:37 SA [email or web address]) Electric Stimulation Electric Stimulation IFC Body Location lumbar spine Duration (Minutes) 12 Intensity 22 Patient Position Sidelying Combined With Heat/Cold Hot Pack Comments Pt prefers heat vs cold PT-OP-T Assessment and Plan Start: 05/27/18 12:08 Freq: Status: Active Protocol: Document 06/16/18 11:21 SA (Rec: 06/16/18 11:37 SA [email or web address]) Physical Therapy Assessment Assessment Summary Assessment Pt tolerating ther ex progressions wel with improving standing tolerance, consistent with HEP, improving core awareness and engagement . Physical Therapy Plan Next Visit Focus/Plan Next Note Type Treatment Note Next Visit Plan Cont to progress core stability and hip flexibility.
--- NOTE | 2018-06-19 11:49 | PT.OTN ---
Current Diagnoses Low back pain (06/19/18) Physical Therapy Treatment Note PT-OP-A Visit Information Start: 05/27/18 12:08 Freq: Status: Active Protocol: Document 06/19/18 11:15 DCW (Rec: 06/19/18 11:49 DCW [id number]) Out-Patient Physical Therapy Visit Information Visit Information Visit Type Treatment Note Visit Start Time 11:15 Visit Stop Time 12:05 Total Visit Minutes 50 Visit Number 8 Number of FORDER OPERATOR Visits 0 Evaluation Information Evaluation Date 05/27/18 PT-OP-B Current Condition Start: 05/27/18 12:08 Freq: Status: Active Protocol: Document 05/27/18 11:15 DCW (Rec: 05/27/18 12:33 DCW [id number]) Current Condition History of Current Condition Onset Date Several year history Current Complaints Low back pain and stiffness, worsening with extended standing History of Current Condition Pt is a 77 year old female presenting with complaints of low back pain, particularly after an extended time standing or walking. 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 Pt notes no radicular symptoms, and reports that her pain reduces greatly when she is able to sit down and let her back flex forward a little. Treatment Goals Patient/Caregiver Goals Reduce back pain, allow her to stand to better participate in her [employer]oro[employer]rian choir Prior Functional Status Baseline Function- ADL's Independent Baseline Function- Mobility Independent Current Functional Impairments (Reported) Functional Limitations- ADL's Limited ability to clean due to low back pain Functional Limitations- Mobility/Gait Requires a cart to lean on while walking around [employer] Functional Limitations- Recreation/ Unable to remain standing as Hobbies long as required while singing in her [employer]oro[employer]rian choir PT-OP-C Subjective Start: 05/27/18 12:08 Freq: Status: Active Protocol: Document 06/19/18 11:15 DCW (Rec: 06/19/18 11:49 DCW [id number]) OP-PT Subjective Patient Comments Patient Comments Pt feels like her back is continuing to improve. Patient Reported Progress Improving PT-OP-F Manual Assessment Start: 05/27/18 12:08 Freq: Status: Active Protocol: Document 05/27/18 11:15 DCW (Rec: 05/27/18 12:33 DCW [id number]) Manual Assessments Joint Mobility Assessment Joint Mobility Assessment Minimal to no joint mobility along T10-L5 vertebrae in prone PT-OP-K Range of Motion Start: 05/27/18 12:08 Freq: Status: Active Protocol: Document 05/27/18 11:15 DCW (Rec: 05/27/18 12:33 DCW [id number]) Lumbar Spine Range of Motion Lumbar Spine Active Degrees Testing Position Standing Flexion 32 Extension 5 Lateral Flexion Left 44 Lateral Flexion Right 50 ROM Limitations Bony Restriction Pain Comments Lateral flexion measured in cm from fingertips to floor PT-OP-L Special Tests Start: 05/27/18 12:08 Freq: Status: Active Protocol: Document 05/27/18 11:15 DCW (Rec: 05/27/18 12:33 DCW [id number]) Special Tests Lumbar Spine Special Tests Slump Test Results Negative Vertical Spine Loading Test Results Negative Lateral SI compression Test Results Negative LENNY Test Results Negative Straight Leg Raise Test Results HS tightness at 80? L, 74? R PT-OP-M Strength Start: 05/27/18 12:08 Freq: Status: Active Protocol: Document 05/27/18 11:15 DCW (Rec: 05/27/18 12:33 DCW [id number]) Trunk Strength Trunk Manual Muscle Testing Core Stabilization TrA strength poor, 3-/5: Pt unable to voluntarily contract abdominal muscles in PPT position Hip Strength Hip Manual Muscle Testing Right Flexion (L2) 5 Normal Abduction 4+ Good+ Adduction 5 Normal External Rotation 5 Normal Internal Rotation 5 Normal Left Flexion (L2) 5 Normal Abduction 4+ Good+ Adduction 5 Normal External Rotation 5 Normal Internal Rotation 5 Normal Knee Strength Knee Manual Muscle Testing Right Flexion (S2) 5 Normal Extension (L3) 5 Normal Left Flexion (S2) 4+ Good+ Extension (L3) 5 Normal PT-OP-Q Treatments Start: 05/27/18 12:08 Freq: Status: Active Protocol: Document 06/19/18 11:15 DCW (Rec: 06/19/18 11:49 DCW [id number]) Gym Equipment Shuttle Recovery Unilateral Squats Resistance 37# Shuttle Recovery Platform Stable Bilateral Squats Resistance 62# Shuttle Recovery Platform Stable Therapeutic Exercises Supine Exercises PPT /c SLR Supine Exercise Name PPT /c SLR Side bilateral Reps/Minutes 5 hold PPT /c Marching Supine Exercise Name PPT /c TrA - Marching Side bilateral Reps/Minutes 15x each Piriformis stretch Side bilateral Reps/Minutes 30 x 2 Comments manual assistance for stretch. Hamstring Stretch Supine Exercise Name HS stretch Side bilateral Reps/Minutes 30 x 3 Comments manual stretch Other Exercises Resister Side-stepping Other Exercise Name Resister Side-stepping Resistance Yellow Equipment Used T-band Reps/Minutes x1 lap Manual Therapy Treatment Soft Tissue Mobilization STM/MFR Body Location Lumbar paraspinals Mobilization Type Myofascial Release Rolling Sustained Pressure Intensity/Depth Moderate Body Position Sidelying Comments Pt tolerated well Joint Mobilizations 1 Joint L1-L5 Central PAs Direction PA Grade III Body Position Rsidelying Comments grade II progressing to grade III. PT-OP-R Modalities Start: 05/27/18 12:08 Freq: Status: Active Protocol: Document 06/19/18 11:15 DCW (Rec: 06/19/18 11:49 DCW [id number]) Electric Stimulation Electric Stimulation IFC Body Location lumbar spine Duration (Minutes) 15 Patient Position Sidelying Combined With Heat/Cold Hot Pack Comments Pt prefers heat vs cold PT-OP-T Assessment and Plan Start: 05/27/18 12:08 Freq: Status: Active Protocol: Document 06/19/18 11:15 DCW (Rec: 06/19/18 11:49 DCW [id number]) Physical Therapy Assessment Impairments Impairments Activity Tolerance Functional Activities Pain Posture ROM Strength Goals Four Impairment Core weakness Short Term Goal (STG) Pt to properly perform TrA contraction with no verbal or tactile cues STG Duration 06/26/18 Fdc Goal (LTG) Pt core MMT to 4/5 LTG Duration 07/27/18 Three Impairment Lumbar spine ROM limited Short Term Goal (STG) Active lumbar lateral flexion to 40 cm fingertips->floor bilaterally STG Duration 06/26/18 Cash Accounting Clerk Goal (LTG) Active lumbar ROM to 50? flexion and 15? extension LTG Duration 07/27/18 Two Impairment Pt unable to participate in ADLs and hobbies Short Term Goal (STG) Pt to tolerate cleaning house (vacuuming, sweeping, or mopping) for 20 minutes without increase in pain STG Duration 06/26/18 Cash Accounting Clerk Goal (LTG) Pt able to tolerate standing for require time while singing with zoro[employer]rian choir LTG Duration 07/27/18 One Impairment Pt does not have an appropriate home exercise program Short Term Goal (STG) Pt to be independent and complaint with an appropriate HEP STG Duration 06/26/18 Assessment Summary Assessment Pt continuing to show improvement, reporting increased ability to stand for extended periods of time, including during long hymns at [employer]. Physical Therapy Plan Frequency and Duration Frequency of Treatment 2x/Week Duration of Treatment 8 weeks Plan of Care Start Date 05/27/18 Plan of Care End Date 07/22/18 Therapeutic Interventions Therapeutic Interventions Aquatic Therapy Home Exercise Program Joint Mobilizations Manual Therapy Patient/Caregiver Education Self-Care/Home Management Soft Tissue Mobilization Therapeutic Activities Therapeutic Exercises Modalities Cold Pack/Ice Massage Electric Stimulation Hot Packs Next Visit Focus/Plan Next Note Type Treatment Note Next Visit Plan Cont to progress core stability and hip flexibility.
--- NOTE | 2018-06-23 11:12 | PT.OTN ---
Current Diagnoses Low back pain (06/23/18) Physical Therapy Treatment Note PT-OP-A Visit Information Start: 05/27/18 12:08 Freq: Status: Active Protocol: Document 06/23/18 10:30 DCW (Rec: 06/23/18 11:12 DCW [id number]) Out-Patient Physical Therapy Visit Information Visit Information Visit Type Treatment Note Visit Start Time 10:30 Visit Stop Time 11:25 Total Visit Minutes 55 Visit Number 9 Number of PIPE CONNECTOR Visits 0 Evaluation Information Evaluation Date 05/27/18 PT-OP-B Current Condition Start: 05/27/18 12:08 Freq: Status: Active Protocol: Document 05/27/18 11:15 DCW (Rec: 05/27/18 12:33 DCW [id number]) Current Condition History of Current Condition Onset Date Several year history Current Complaints Low back pain and stiffness, worsening with extended standing History of Current Condition Pt is a 77 year old female presenting with complaints of low back pain, particularly after an extended time standing or walking. Pt reports pain limits her ability to walk around [employer], do house cleaning like vacuuming, sweeping, or mopping, and she struggles to remain standing while singing in her [employer]. Pt notes no radicular symptoms, and reports that her pain reduces greatly when she is able to sit down and let her back flex forward a little. Treatment Goals Patient/Caregiver Goals Reduce back pain, allow her to stand to better participate in her [employer] choir Prior Functional Status Baseline Function- ADL's Independent Baseline Function- Mobility Independent Current Functional Impairments (Reported) Functional Limitations- ADL's Limited ability to clean due to low back pain Functional Limitations- Mobility/Gait Requires a cart to lean on while walking around [employer] Functional Limitations- Recreation/ Unable to remain standing as Hobbies long as required while singing in her [employer] PT-OP-C Subjective Start: 05/27/18 12:08 Freq: Status: Active Protocol: Document 06/23/18 10:30 DCW (Rec: 06/23/18 11:12 DCW [id number]) OP-PT Subjective Patient Comments Patient Comments Pt notes she is doing a bit better. PT-OP-F Manual Assessment Start: 05/27/18 12:08 Freq: Status: Active Protocol: Document 05/27/18 11:15 DCW (Rec: 05/27/18 12:33 DCW [id number]) Manual Assessments Joint Mobility Assessment Joint Mobility Assessment Minimal to no joint mobility along T10-L5 vertebrae in prone PT-OP-K Range of Motion Start: 05/27/18 12:08 Freq: Status: Active Protocol: Document 05/27/18 11:15 DCW (Rec: 05/27/18 12:33 DCW [id number]) Lumbar Spine Range of Motion Lumbar Spine Active Degrees Testing Position Standing Flexion 32 Extension 5 Lateral Flexion Left 44 Lateral Flexion Right 50 ROM Limitations Bony Restriction Pain Comments Lateral flexion measured in cm from fingertips to floor PT-OP-L Special Tests Start: 05/27/18 12:08 Freq: Status: Active Protocol: Document 05/27/18 11:15 DCW (Rec: 05/27/18 12:33 DCW [id number]) Special Tests Lumbar Spine Special Tests Slump Test Results Negative Vertical Spine Loading Test Results Negative Lateral SI compression Test Results Negative LENNY Test Results Negative Straight Leg Raise Test Results HS tightness at 80? L, 74? R PT-OP-M Strength Start: 05/27/18 12:08 Freq: Status: Active Protocol: Document 05/27/18 11:15 DCW (Rec: 05/27/18 12:33 DCW [id number]) Trunk Strength Trunk Manual Muscle Testing Core Stabilization TrA strength poor, 3-/5: Pt unable to voluntarily contract abdominal muscles in PPT position Hip Strength Hip Manual Muscle Testing Right Flexion (L2) 5 Normal Abduction 4+ Good+ Adduction 5 Normal External Rotation 5 Normal Internal Rotation 5 Normal Left Flexion (L2) 5 Normal Abduction 4+ Good+ Adduction 5 Normal External Rotation 5 Normal Internal Rotation 5 Normal Knee Strength Knee Manual Muscle Testing Right Flexion (S2) 5 Normal Extension (L3) 5 Normal Left Flexion (S2) 4+ Good+ Extension (L3) 5 Normal PT-OP-Q Treatments Start: 05/27/18 12:08 Freq: Status: Active Protocol: Document 06/23/18 10:30 DCW (Rec: 06/23/18 11:12 DCW [id number]) Gym Equipment Shuttle Recovery Unilateral Squats Resistance 37# Shuttle Recovery Platform Stable Bilateral Squats Resistance 62# Shuttle Recovery Platform Stable Therapeutic Ball Bridging Exercise Details Bridging /c feet on T-ball Ball Size/Color Blue - 45 cm Reps/Duration 20x Comments Cues for control Low Trunk Rotations Exercise Details Trunk Rotations /c feet on T- ball Ball Size/Color Blue - 45 cm Reps/Duration 20x Comments Cues for control Therapeutic Exercises Supine Exercises Piriformis stretch Side bilateral Reps/Minutes 30 x 2 Comments manual assistance for stretch. Hamstring Stretch Supine Exercise Name HS stretch Side bilateral Reps/Minutes 30 x 3 Comments manual stretch Sitting Exercises Long Arc Quads Sitting Exercise Name LAQ Side bilateral Resistance 4# Standing Exercises Squats Standing Exercise Name Chair Squats Manual Therapy Treatment Soft Tissue Mobilization STM/MFR Body Location Lumbar paraspinals Mobilization Type Myofascial Release Rolling Sustained Pressure Intensity/Depth Moderate Body Position Sidelying Comments Pt tolerated well Joint Mobilizations 1 Joint L1-L5 Central PAs Direction PA Grade III Body Position Rsidelying Comments grade II progressing to grade III. PT-OP-R Modalities Start: 05/27/18 12:08 Freq: Status: Active Protocol: Document 06/23/18 10:30 DCW (Rec: 06/23/18 11:12 DCW [id number]) Electric Stimulation Electric Stimulation IFC Body Location lumbar spine Duration (Minutes) 15 Patient Position Sidelying Combined With Heat/Cold Hot Pack Comments Pt prefers heat vs cold PT-OP-T Assessment and Plan Start: 05/27/18 12:08 Freq: Status: Active Protocol: Document 06/23/18 10:30 DCW (Rec: 06/23/18 11:12 DCW [id number]) Physical Therapy Assessment Impairments Impairments Activity Tolerance Functional Activities Pain Posture ROM Strength Goals Four Impairment Core weakness Short Term Goal (STG) Pt to properly perform TrA contraction with no verbal or tactile cues STG Duration 06/26/18 Yard Caller Goal (LTG) Pt core MMT to 4/5 LTG Duration 07/27/18 Three Impairment Lumbar spine ROM limited Short Term Goal (STG) Active lumbar lateral flexion to 40 cm fingertips->floor bilaterally STG Duration 06/26/18 Correction Goal (LTG) Active lumbar ROM to 50? flexion and 15? extension LTG Duration 07/27/18 Two Impairment Pt unable to participate in ADLs and hobbies Short Term Goal (STG) Pt to tolerate cleaning house (vacuuming, sweeping, or mopping) for 20 minutes without increase in pain STG Duration 06/26/18 Yard Caller Goal (LTG) Pt able to tolerate standing for require time while singing with [employer] LTG Duration 07/27/18 One Impairment Pt does not have an appropriate home exercise program Short Term Goal (STG) Pt to be independent and complaint with an appropriate HEP STG Duration 06/26/18 Assessment Summary Assessment Pt worried about how long Medicare will approve therapy, because she would also like to work on stopping my knees from wobbling so much. Pt does have some quad weakness that is likely impacting her standing tolerance and mobility, and it would be appropriate to include some LE strengthening with her current POC. Physical Therapy Plan Frequency and Duration Frequency of Treatment 2x/Week Duration of Treatment 8 weeks Plan of Care Start Date 05/27/18 Plan of Care End Date 07/22/18 Therapeutic Interventions Therapeutic Interventions Aquatic Therapy Home Exercise Program Joint Mobilizations Manual Therapy Patient/Caregiver Education Self-Care/Home Management Soft Tissue Mobilization Therapeutic Activities Therapeutic Exercises Modalities Cold Pack/Ice Massage Electric Stimulation Hot Packs Next Visit Focus/Plan Next Note Type Treatment Note Next Visit Plan Cont to progress core stability and hip flexibility.
--- NOTE | 2018-06-26 11:45 | PT.OTN ---
Current Diagnoses Low back pain (06/26/18) Physical Therapy Treatment Note PT-OP-A Visit Information Start: 05/27/18 12:08 Freq: Status: Active Protocol: Document 06/26/18 11:39 SA (Rec: 06/26/18 11:45 SA [email or web address]) Out-Patient Physical Therapy Visit Information Visit Information Visit Type Treatment Note Visit Start Time 10:30 Visit Stop Time 11:20 Total Visit Minutes 50 Visit Number 10 Number of CONTROL OPERATOR FLOW COAT Visits 1 PT-OP-B Current Condition Start: 05/27/18 12:08 Freq: Status: Active Protocol: Document 05/27/18 11:15 DCW (Rec: 05/27/18 12:33 DCW [id number]) Current Condition History of Current Condition Onset Date Several year history Current Complaints Low back pain and stiffness, worsening with extended standing History of Current Condition Pt is a 77 year old female presenting with complaints of low back pain, particularly after an extended time standing or walking. Pt reports pain limits her ability to walk around [place], do house cleaning like vacuuming, sweeping, or mopping, and she struggles to remain standing while singing in her [employer] choir. Pt notes no radicular symptoms, and reports that her pain reduces greatly when she is able to sit down and let her back flex forward a little. Treatment Goals Patient/Caregiver Goals Reduce back pain, allow her to stand to better participate in her [employer] choir Prior Functional Status Baseline Function- ADL's Independent Baseline Function- Mobility Independent Current Functional Impairments (Reported) Functional Limitations- ADL's Limited ability to clean due to low back pain Functional Limitations- Mobility/Gait Requires a cart to lean on while walking around [place] Functional Limitations- Recreation/ Unable to remain standing as Hobbies long as required while singing in her [employer] choir PT-OP-C Subjective Start: 05/27/18 12:08 Freq: Status: Active Protocol: Document 06/26/18 11:39 SA (Rec: 06/26/18 11:45 SA [email or web address]) OP-PT Subjective Patient Comments Patient Comments Pt reports tolerating prolonged standing better. PT-OP-F Manual Assessment Start: 05/27/18 12:08 Freq: Status: Active Protocol: Document 05/27/18 11:15 DCW (Rec: 05/27/18 12:33 DCW [id number]) Manual Assessments Joint Mobility Assessment Joint Mobility Assessment Minimal to no joint mobility along T10-L5 vertebrae in prone PT-OP-K Range of Motion Start: 05/27/18 12:08 Freq: Status: Active Protocol: Document 05/27/18 11:15 DCW (Rec: 05/27/18 12:33 DCW [id number]) Lumbar Spine Range of Motion Lumbar Spine Active Degrees Testing Position Standing Flexion 32 Extension 5 Lateral Flexion Left 44 Lateral Flexion Right 50 ROM Limitations Bony Restriction Pain Comments Lateral flexion measured in cm from fingertips to floor PT-OP-L Special Tests Start: 05/27/18 12:08 Freq: Status: Active Protocol: Document 05/27/18 11:15 DCW (Rec: 05/27/18 12:33 DCW [id number]) Special Tests Lumbar Spine Special Tests Slump Test Results Negative Vertical Spine Loading Test Results Negative Lateral SI compression Test Results Negative LENNY Test Results Negative Straight Leg Raise Test Results HS tightness at 80? L, 74? R PT-OP-M Strength Start: 05/27/18 12:08 Freq: Status: Active Protocol: Document 05/27/18 11:15 DCW (Rec: 05/27/18 12:33 DCW [id number]) Trunk Strength Trunk Manual Muscle Testing Core Stabilization TrA strength poor, 3-/5: Pt unable to voluntarily contract abdominal muscles in PPT position Hip Strength Hip Manual Muscle Testing Right Flexion (L2) 5 Normal Abduction 4+ Good+ Adduction 5 Normal External Rotation 5 Normal Internal Rotation 5 Normal Left Flexion (L2) 5 Normal Abduction 4+ Good+ Adduction 5 Normal External Rotation 5 Normal Internal Rotation 5 Normal Knee Strength Knee Manual Muscle Testing Right Flexion (S2) 5 Normal Extension (L3) 5 Normal Left Flexion (S2) 4+ Good+ Extension (L3) 5 Normal PT-OP-Q Treatments Start: 05/27/18 12:08 Freq: Status: Active Protocol: Document 06/26/18 11:39 SA (Rec: 06/26/18 11:45 SA [email or web address]) Gym Equipment Shuttle Recovery Unilateral Squats Resistance 37# Shuttle Recovery Platform Stable Reps/Time 30x Bilateral Squats Resistance 62# Shuttle Recovery Platform Stable Reps/Time 30x Therapeutic Ball Bridging Exercise Details Bridging /c feet on T-ball Ball Size/Color Blue - 45 cm Reps/Duration 20x Comments Cues for control Low Trunk Rotations Exercise Details Trunk Rotations /c feet on T- ball Ball Size/Color Blue - 45 cm Reps/Duration 20x Comments Cues for control Therapeutic Exercises Supine Exercises PPT /c SLR Supine Exercise Name PPT /c SLR Side bilateral Reps/Minutes 5 hold PPT /c Marching Supine Exercise Name PPT /c TrA - Marching Side bilateral Reps/Minutes 15x each Piriformis stretch Side bilateral Reps/Minutes 30 x 2 Comments manual assistance for stretch. Hamstring Stretch Supine Exercise Name HS stretch Side bilateral Reps/Minutes 30 x 3 Comments manual stretch Sidelying Exercises Clamshells Side bilateral Resistance Lv 2 Equipment Used T-band Reps/Minutes 20 x each Sitting Exercises Long Arc Quads Sitting Exercise Name LAQ Side bilateral Resistance 4# Standing Exercises Squats Standing Exercise Name Chair Squats Manual Therapy Treatment Soft Tissue Mobilization STM/MFR Body Location Lumbar paraspinals Mobilization Type Myofascial Release Rolling Sustained Pressure Intensity/Depth Moderate Body Position Sidelying Comments Pt tolerated well PT-OP-R Modalities Start: 05/27/18 12:08 Freq: Status: Active Protocol: Document 06/26/18 11:39 SA (Rec: 06/26/18 11:45 SA [email or web address]) Electric Stimulation Electric Stimulation IFC Body Location lumbar spine Duration (Minutes) 15 Intensity 22 Patient Position Sidelying Combined With Heat/Cold Hot Pack Comments Pt prefers heat vs cold PT-OP-T Assessment and Plan Start: 05/27/18 12:08 Freq: Status: Active Protocol: Document 06/26/18 11:39 SA (Rec: 06/26/18 11:45 SA [email or web address]) Physical Therapy Assessment Assessment Summary Assessment Pt tolerating quad strengthening well, fatigues rapidly, consistant with HEP and overall decreasing symptoms. Physical Therapy Plan Next Visit Focus/Plan Next Note Type Treatment Note Next Visit Plan Cont to progress core stability and hip flexibility. Assess tolerance and quad/LE strengthening.
--- NOTE | 2018-06-30 11:19 | PT.OTN ---
Current Diagnoses Low back pain (06/30/18) Physical Therapy Treatment Note PT-OP-A Visit Information Start: 05/27/18 12:08 Freq: Status: Active Protocol: Document 06/30/18 10:30 DCW (Rec: 06/30/18 11:18 DCW [id number]) Out-Patient Physical Therapy Visit Information Visit Information Visit Type Treatment Note Visit Start Time 10:30 Visit Stop Time 11:20 Total Visit Minutes 50 Visit Number 11 Number of ELECTRICIAN MAINTENANCE Visits 0 Evaluation Information Evaluation Date 05/27/18 PT-OP-B Current Condition Start: 05/27/18 12:08 Freq: Status: Active Protocol: Document 05/27/18 11:15 DCW (Rec: 05/27/18 12:33 DCW [id number]) Current Condition History of Current Condition Onset Date Several year history Current Complaints Low back pain and stiffness, worsening with extended standing History of Current Condition Pt is a 77 year old female presenting with complaints of low back pain, particularly after an extended time standing or walking. Pt reports pain limits her ability to walk around [place], do house cleaning like vacuuming, sweeping, or mopping, and she struggles to remain standing while singing in her [employer] choir. Pt notes no radicular symptoms, and reports that her pain reduces greatly when she is able to sit down and let her back flex forward a little. 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 PT-OP-F Manual Assessment Start: 05/27/18 12:08 Freq: Status: Active Protocol: Document 05/27/18 11:15 DCW (Rec: 05/27/18 12:33 DCW [id number]) Manual Assessments Joint Mobility Assessment Joint Mobility Assessment Minimal to no joint mobility along T10-L5 vertebrae in prone PT-OP-K Range of Motion Start: 05/27/18 12:08 Freq: Status: Active Protocol: Document 05/27/18 11:15 DCW (Rec: 05/27/18 12:33 DCW [id number]) Lumbar Spine Range of Motion Lumbar Spine Active Degrees Testing Position Standing Flexion 32 Extension 5 Lateral Flexion Left 44 Lateral Flexion Right 50 ROM Limitations Bony Restriction Pain Comments Lateral flexion measured in cm from fingertips to floor PT-OP-L Special Tests Start: 05/27/18 12:08 Freq: Status: Active Protocol: Document 05/27/18 11:15 DCW (Rec: 05/27/18 12:33 DCW [id number]) Special Tests Lumbar Spine Special Tests Slump Test Results Negative Vertical Spine Loading Test Results Negative Lateral SI compression Test Results Negative LENNY Test Results Negative Straight Leg Raise Test Results HS tightness at 80? L, 74? R PT-OP-M Strength Start: 05/27/18 12:08 Freq: Status: Active Protocol: Document 05/27/18 11:15 DCW (Rec: 05/27/18 12:33 DCW [id number]) Trunk Strength Trunk Manual Muscle Testing Core Stabilization TrA strength poor, 3-/5: Pt unable to voluntarily contract abdominal muscles in PPT position Hip Strength Hip Manual Muscle Testing Right Flexion (L2) 5 Normal Abduction 4+ Good+ Adduction 5 Normal External Rotation 5 Normal Internal Rotation 5 Normal Left Flexion (L2) 5 Normal Abduction 4+ Good+ Adduction 5 Normal External Rotation 5 Normal Internal Rotation 5 Normal Knee Strength Knee Manual Muscle Testing Right Flexion (S2) 5 Normal Extension (L3) 5 Normal Left Flexion (S2) 4+ Good+ Extension (L3) 5 Normal PT-OP-Q Treatments Start: 05/27/18 12:08 Freq: Status: Active Protocol: Document 06/30/18 10:30 DCW (Rec: 06/30/18 11:18 DCW [id number]) Gym Equipment Shuttle Recovery Unilateral Squats Resistance 37# Shuttle Recovery Platform Stable Bilateral Squats Resistance 75# Shuttle Recovery Platform Stable Therapeutic Ball Bridging Exercise Details Bridging /c feet on T-ball Ball Size/Color Blue - 45 cm Reps/Duration 20x Comments Cues for control Low Trunk Rotations Exercise Details Trunk Rotations /c feet on T- ball Ball Size/Color Blue - 45 cm Reps/Duration 20x Comments Cues for control Therapeutic Exercises Supine Exercises Piriformis stretch Side bilateral Reps/Minutes 30 x 2 Comments manual assistance for stretch. Hamstring Stretch Supine Exercise Name HS stretch Side bilateral Reps/Minutes 30 x 3 Comments manual stretch Other Exercises Resister Side-stepping Other Exercise Name Resisted Side-stepping Resistance Yellow Equipment Used T-band Reps/Minutes x1 lap Manual Therapy Treatment Soft Tissue Mobilization STM/MFR Body Location Lumbar paraspinals Mobilization Type Myofascial Release Rolling Sustained Pressure Intensity/Depth Moderate Body Position Sidelying Comments Pt tolerated well Joint Mobilizations 1 Joint L1-L5 Central PAs Direction PA Grade III Body Position Rsidelying Comments grade II progressing to grade III. PT-OP-R Modalities Start: 05/27/18 12:08 Freq: Status: Active Protocol: Document 06/30/18 10:30 DCW (Rec: 06/30/18 11:18 DCW [id number]) Electric Stimulation Electric Stimulation IFC Body Location lumbar spine Duration (Minutes) 15 Intensity 24 Patient Position Sidelying Combined With Heat/Cold Hot Pack Comments Pt prefers heat vs cold PT-OP-T Assessment and Plan Start: 05/27/18 12:08 Freq: Status: Active Protocol: Document 06/30/18 10:30 DCW (Rec: 06/30/18 11:18 DCW [id number]) Physical Therapy Assessment Impairments Impairments Activity Tolerance Functional Activities Pain Posture ROM Strength Goals Four Impairment Core weakness Short Term Goal (STG) Pt to properly perform TrA contraction with no verbal or tactile cues STG Duration 06/26/18 Long-Term Goal (LTG) Pt core MMT to 4/5 LTG Duration 07/27/18 Three Impairment Lumbar spine ROM limited Short Term Goal (STG) Active lumbar lateral flexion to 40 cm fingertips->floor bilaterally STG Duration 06/26/18 Long-Term Goal (LTG) Active lumbar ROM to 50? flexion and 15? 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 Physical Therapy Plan Frequency and Duration Frequency of Treatment 2x/Week Duration of Treatment 8 weeks Plan of Care Start Date 05/27/18 Plan of Care End Date 07/22/18 Therapeutic Interventions Therapeutic Interventions Aquatic Therapy Home Exercise Program Joint Mobilizations Manual Therapy Patient/Caregiver Education Self-Care/Home Management Soft Tissue Mobilization Therapeutic Activities Therapeutic Exercises Modalities Cold Pack/Ice Massage Electric Stimulation Hot Packs Next Visit Focus/Plan Next Note Type Treatment Note Next Visit Plan Cont to progress core stability and hip flexibility.
--- NOTE | 2018-07-03 11:40 | PT.OTN ---
Current Diagnoses Low back pain (07/03/18) Physical Therapy Treatment Note PT-OP-A Visit Information Start: 05/27/18 12:08 Freq: Status: Active Protocol: Document 07/03/18 11:34 SA (Rec: 07/03/18 11:40 SA [email or web address]) Out-Patient Physical Therapy Visit Information Visit Information Visit Type Treatment Note Visit Start Time 10:30 Visit Stop Time 11:24 Total Visit Minutes 54 Visit Number 12 Number of BLUE SPLIT TRIMMER Visits 1 PT-OP-B Current Condition Start: 05/27/18 12:08 Freq: Status: Active Protocol: Document 05/27/18 11:15 DCW (Rec: 05/27/18 12:33 DCW [id number]) Current Condition History of Current Condition Onset Date Several year history Current Complaints Low back pain and stiffness, worsening with extended standing History of Current Condition Pt is a 77 year old female presenting with complaints of low back pain, particularly after an extended time standing or walking. Pt reports pain limits her ability to walk around [place], do house cleaning like vacuuming, sweeping, or mopping, and she struggles to remain standing while singing in her [employer] choir. Pt notes no radicular symptoms, and reports that her pain reduces greatly when she is able to sit down and let her back flex forward a little. Treatment Goals Patient/Caregiver Goals Reduce back pain, allow her to stand to better participate in her [employer] choir Prior Functional Status Baseline Function- ADL's Independent Baseline Function- Mobility Independent Current Functional Impairments (Reported) Functional Limitations- ADL's Limited ability to clean due to low back pain Functional Limitations- Mobility/Gait Requires a cart to lean on while walking around [place] Functional Limitations- Recreation/ Unable to remain standing as Hobbies long as required while singing in her [employer] choir PT-OP-C Subjective Start: 05/27/18 12:08 Freq: Status: Active Protocol: Document 07/03/18 11:34 SA (Rec: 07/03/18 11:40 SA [email or web address]) OP-PT Subjective Patient Comments Patient Comments Pt reports LE muscle soreness from exercise but also that she is tolerating standing in [employer] for longer periods. PT-OP-F Manual Assessment Start: 05/27/18 12:08 Freq: Status: Active Protocol: Document 05/27/18 11:15 DCW (Rec: 05/27/18 12:33 DCW [id number]) Manual Assessments Joint Mobility Assessment Joint Mobility Assessment Minimal to no joint mobility along T10-L5 vertebrae in prone PT-OP-K Range of Motion Start: 05/27/18 12:08 Freq: Status: Active Protocol: Document 05/27/18 11:15 DCW (Rec: 05/27/18 12:33 DCW [id number]) Lumbar Spine Range of Motion Lumbar Spine Active Degrees Testing Position Standing Flexion 32 Extension 5 Lateral Flexion Left 44 Lateral Flexion Right 50 ROM Limitations Bony Restriction Pain Comments Lateral flexion measured in cm from fingertips to floor PT-OP-L Special Tests Start: 05/27/18 12:08 Freq: Status: Active Protocol: Document 05/27/18 11:15 DCW (Rec: 05/27/18 12:33 DCW [id number]) Special Tests Lumbar Spine Special Tests Slump Test Results Negative Vertical Spine Loading Test Results Negative Lateral SI compression Test Results Negative LENNY Test Results Negative Straight Leg Raise Test Results HS tightness at 80? L, 74? R PT-OP-M Strength Start: 05/27/18 12:08 Freq: Status: Active Protocol: Document 05/27/18 11:15 DCW (Rec: 05/27/18 12:33 DCW [id number]) Trunk Strength Trunk Manual Muscle Testing Core Stabilization TrA strength poor, 3-/5: Pt unable to voluntarily contract abdominal muscles in PPT position Hip Strength Hip Manual Muscle Testing Right Flexion (L2) 5 Normal Abduction 4+ Good+ Adduction 5 Normal External Rotation 5 Normal Internal Rotation 5 Normal Left Flexion (L2) 5 Normal Abduction 4+ Good+ Adduction 5 Normal External Rotation 5 Normal Internal Rotation 5 Normal Knee Strength Knee Manual Muscle Testing Right Flexion (S2) 5 Normal Extension (L3) 5 Normal Left Flexion (S2) 4+ Good+ Extension (L3) 5 Normal PT-OP-Q Treatments Start: 05/27/18 12:08 Freq: Status: Active Protocol: Document 07/03/18 11:34 SA (Rec: 07/03/18 11:40 SA [email or web address]) Gym Equipment Shuttle Recovery Unilateral Squats Resistance 37# Shuttle Recovery Platform Stable Reps/Time to fatigue Bilateral Squats Resistance 75# Shuttle Recovery Platform Stable Reps/Time to fatigue Therapeutic Ball Bridging Exercise Details Bridging /c feet on T-ball Ball Size/Color Blue - 45 cm Reps/Duration 20x Comments Cues for control Low Trunk Rotations Exercise Details Trunk Rotations /c feet on T- ball Ball Size/Color Blue - 45 cm Reps/Duration 20x Comments Cues for control Therapeutic Exercises Supine Exercises PPT /c SLR Supine Exercise Name PPT /c SLR Side bilateral Equipment Used 2 # cuff Reps/Minutes 5 hold PPT /c Marching Supine Exercise Name PPT /c TrA - Marching Side bilateral Reps/Minutes 15x each Piriformis stretch Side bilateral Reps/Minutes 30 x 2 Comments manual assistance for stretch. Hamstring Stretch Supine Exercise Name HS stretch Side bilateral Reps/Minutes 30 x 3 Comments manual stretch Sidelying Exercises Clamshells Side bilateral Resistance Lv 2 Equipment Used T-band Reps/Minutes 20 x each Sitting Exercises Long Arc Quads Sitting Exercise Name LAQ Side bilateral Resistance 4# Standing Exercises Squats Standing Exercise Name Chair Squats Equipment Used Yellow TB at thighs Reps/Minutes 15x Other Exercises Resister Side-stepping Other Exercise Name Resisted Side-stepping Resistance Yellow Equipment Used T-band Reps/Minutes x1 lap Manual Therapy Treatment Soft Tissue Mobilization STM/MFR Body Location Lumbar paraspinals Mobilization Type Myofascial Release Rolling Sustained Pressure Intensity/Depth Moderate Body Position Sidelying Comments Pt tolerated well Joint Mobilizations 1 Joint L1-L5 Central PAs Direction PA Grade III Body Position Rsidelying Comments grade II progressing to grade III. PT-OP-R Modalities Start: 05/27/18 12:08 Freq: Status: Active Protocol: Document 07/03/18 11:34 (Rec: 07/03/18 11:40 [email or web address]) Electric Stimulation Electric Stimulation IFC Body Location lumbar spine Duration (Minutes) 15 Intensity 24 Patient Position Sidelying Combined With Heat/Cold Hot Pack Comments Pt prefers heat vs cold PT-OP-T Assessment and Plan Start: 05/27/18 12:08 Freq: Status: Active Protocol: Document 07/03/18 11:34 SA (Rec: 07/03/18 11:40 SA [email or web address]) Physical Therapy Assessment Assessment Summary Assessment Pt making gains with standing and walking tolerance, gradual LE strength gains. Physical Therapy Plan Next Visit Focus/Plan Next Note Type Treatment Note Next Visit Plan Cont to progress core stability and hip flexibility and LE strengthening.
--- NOTE | 2018-07-07 10:35 | PT.OTN ---
Current Diagnoses Low back pain (07/07/18) Physical Therapy Treatment Note PT-OP-A Visit Information Start: 05/27/18 12:08 Freq: Status: Active Protocol: Document 07/07/18 10:35 DLM (Rec: 07/07/18 13:33 DLM [id number]) Out-Patient Physical Therapy Visit Information Visit Information Visit Type Treatment Note Visit Start Time 10:35 Visit Stop Time 11:30 Total Visit Minutes 55 Number of FILTERER Visits 0 Evaluation Information Evaluation Date 05/27/18 PT-OP-B Current Condition Start: 05/27/18 12:08 Freq: Status: Active Protocol: Document 05/27/18 11:15 DCW (Rec: 05/27/18 12:33 DCW [id number]) Current Condition History of Current Condition Onset Date Several year history Current Complaints Low back pain and stiffness, worsening with extended standing History of Current Condition Pt is a 77 year old female presenting with complaints of low back pain, particularly after an extended time standing or walking. 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 Pt notes no radicular symptoms, and reports that her pain reduces greatly when she is able to sit down and let her back flex forward a little. 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 Her knees start to shake with extended standing. She gets a little sore after walking 10 laps in the [place]. OP-PT Pain Assessment Location Bilateral Lower Back Intensity 0 Scale Used Numeric (1 - 10) PT-OP-F Manual Assessment Start: 05/27/18 12:08 Freq: Status: Active Protocol: Document 05/27/18 11:15 DCW (Rec: 05/27/18 12:33 DCW [id number]) Manual Assessments Joint Mobility Assessment Joint Mobility Assessment Minimal to no joint mobility along T10-L5 vertebrae in prone PT-OP-K Range of Motion Start: 05/27/18 12:08 Freq: Status: Active Protocol: Document 05/27/18 11:15 DCW (Rec: 05/27/18 12:33 DCW [id number]) Lumbar Spine Range of Motion Lumbar Spine Active Degrees Testing Position Standing Flexion 32 Extension 5 Lateral Flexion Left 44 Lateral Flexion Right 50 ROM Limitations Bony Restriction Pain Comments Lateral flexion measured in cm from fingertips to floor PT-OP-L Special Tests Start: 05/27/18 12:08 Freq: Status: Active Protocol: Document 05/27/18 11:15 DCW (Rec: 05/27/18 12:33 DCW [id number]) Special Tests Lumbar Spine Special Tests Slump Test Results Negative Vertical Spine Loading Test Results Negative Lateral SI compression Test Results Negative LENNY Test Results Negative Straight Leg Raise Test Results HS tightness at 80? L, 74? R PT-OP-M Strength Start: 05/27/18 12:08 Freq: Status: Active Protocol: Document 05/27/18 11:15 DCW (Rec: 05/27/18 12:33 DCW [id number]) Trunk Strength Trunk Manual Muscle Testing Core Stabilization TrA strength poor, 3-/5: Pt unable to voluntarily contract abdominal muscles in PPT position Hip Strength Hip Manual Muscle Testing Right Flexion (L2) 5 Normal Abduction 4+ Good+ Adduction 5 Normal External Rotation 5 Normal Internal Rotation 5 Normal Left Flexion (L2) 5 Normal Abduction 4+ Good+ Adduction 5 Normal External Rotation 5 Normal Internal Rotation 5 Normal Knee Strength Knee Manual Muscle Testing Right Flexion (S2) 5 Normal Extension (L3) 5 Normal Left Flexion (S2) 4+ Good+ Extension (L3) 5 Normal PT-OP-Q Treatments Start: 05/27/18 12:08 Freq: Status: Active Protocol: Document 07/07/18 10:35 DLM (Rec: 07/07/18 13:33 DLM [id number]) Gym Equipment Shuttle Recovery Unilateral Squats Resistance 37# Shuttle Recovery Platform Stable Reps/Time to fatigue, cuing for full knee extension Bilateral Squats Resistance 75# Shuttle Recovery Platform Stable Reps/Time to fatigue Therapeutic Ball Bridging Exercise Details Bridging /c feet on T-ball Ball Size/Color Blue - 45 cm Reps/Duration 20x Comments Cues for control Low Trunk Rotations Exercise Details Trunk Rotations /c feet on T- ball Ball Size/Color Blue - 45 cm Reps/Duration 20x Comments Cues for control Therapeutic Exercises Supine Exercises PPT /c SLR Supine Exercise Name PPT /c SLR Side bilateral Reps/Minutes 5 hold Comments cuing to decrease extensor lag PPT /c Marching Supine Exercise Name PPT /c TrA - Marching Side bilateral Reps/Minutes 15x each Piriformis stretch Side bilateral Reps/Minutes 30 x 2 Hamstring Stretch Supine Exercise Name HS stretch Side bilateral Reps/Minutes 30 x 3 Comments manual stretch Sidelying Exercises Clamshells Side bilateral Resistance Level 2 Equipment Used T-band Reps/Minutes 20 x each PT-OP-R Modalities Start: 05/27/18 12:08 Freq: Status: Active Protocol: Document 07/07/18 10:35 DLM (Rec: 07/07/18 13:33 [facility] [id number]) Electric Stimulation Electric Stimulation IFC Body Location lumbar spine Duration (Minutes) 15 Intensity 24 Patient Position Sidelying Combined With Heat/Cold Hot Pack Comments Pt prefers heat vs cold PT-OP-T Assessment and Plan Start: 05/27/18 12:08 Freq: Status: Active Protocol: Document 07/07/18 10:35 DLM (Rec: 07/07/18 13:33 [facility] [id number]) Physical Therapy Assessment Goals Four Impairment Core weakness Short Term Goal (STG) Pt to properly perform TrA contraction with no verbal or tactile cues STG Duration 06/26/18 Defense Attorney Goal (LTG) Pt core MMT to 4/5 LTG Duration 07/27/18 Three Impairment Lumbar spine ROM limited Short Term Goal (STG) Active lumbar lateral flexion to 40 cm fingertips->floor bilaterally STG Duration 06/26/18 Defense Attorney Goal (LTG) Active lumbar ROM to 50? flexion and 15? extension LTG Duration 07/27/18 Two Impairment Pt unable to participate in ADLs and hobbies Short Term Goal (STG) Pt to tolerate cleaning house (vacuuming, sweeping, or mopping) for 20 minutes without increase in pain STG Duration 06/26/18 Mcfp Goal (LTG) Pt able to tolerate standing for require time while singing with spiritism choir LTG Duration 07/27/18 One Impairment Pt does not have an appropriate home exercise program Short Term Goal (STG) Pt to be independent and complaint with an appropriate HEP STG Duration 06/26/18 Progress Towards Goals Progress Towards Goals Progressing Toward Goals Assessment Summary Assessment She reports she is tolerating her exercises well. Her pain has improved. She feels the Estim is still helping her. Noted decreased quad control during her exercises that may be contributing to her LE fatigue during standing. Physical Therapy Plan Frequency and Duration Frequency of Treatment 2x/Week Duration of Treatment 8 weeks Plan of Care Start Date 05/27/18 Plan of Care End Date 07/22/18 Therapeutic Interventions Therapeutic Interventions Home Exercise Program Joint Mobilizations Manual Therapy Patient/Caregiver Education Self-Care/Home Management Soft Tissue Mobilization Therapeutic Activities Therapeutic Exercises Modalities Electric Stimulation Hot Packs Next Visit Focus/Plan Next Note Type Treatment Note Next Visit Plan progress core stabilization, focus on full knee extension during ex for improved quad control
--- NOTE | 2018-07-09 11:16 | PT.OTN ---
Current Diagnoses Low back pain (07/09/18) Physical Therapy Treatment Note PT-OP-A Visit Information Start: 05/27/18 12:08 Freq: Status: Active Protocol: Document 07/09/18 10:30 DCW (Rec: 07/09/18 11:16 DCW [id number]) Out-Patient Physical Therapy Visit Information Visit Information Visit Type Treatment Note Visit Start Time 10:30 Visit Stop Time 11:20 Total Visit Minutes 50 Visit Number 14 Number of FUR MIXER OPERATOR Visits 0 Evaluation Information Evaluation Date 05/27/18 PT-OP-B Current Condition Start: 05/27/18 12:08 Freq: Status: Active Protocol: Document 05/27/18 11:15 DCW (Rec: 05/27/18 12:33 DCW [id number]) Current Condition History of Current Condition Onset Date Several year history Current Complaints Low back pain and stiffness, worsening with extended standing History of Current Condition Pt is a 77 year old female presenting with complaints of low back pain, particularly after an extended time standing or walking. 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 Pt notes no radicular symptoms, and reports that her pain reduces greatly when she is able to sit down and let her back flex forward a little. 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 PT-OP-F Manual Assessment Start: 05/27/18 12:08 Freq: Status: Active Protocol: Document 05/27/18 11:15 DCW (Rec: 05/27/18 12:33 DCW [id number]) Manual Assessments Joint Mobility Assessment Joint Mobility Assessment Minimal to no joint mobility along T10-L5 vertebrae in prone PT-OP-K Range of Motion Start: 05/27/18 12:08 Freq: Status: Active Protocol: Document 05/27/18 11:15 DCW (Rec: 05/27/18 12:33 DCW [id number]) Lumbar Spine Range of Motion Lumbar Spine Active Degrees Testing Position Standing Flexion 32 Extension 5 Lateral Flexion Left 44 Lateral Flexion Right 50 ROM Limitations Bony Restriction Pain Comments Lateral flexion measured in cm from fingertips to floor PT-OP-L Special Tests Start: 05/27/18 12:08 Freq: Status: Active Protocol: Document 05/27/18 11:15 DCW (Rec: 05/27/18 12:33 DCW [id number]) Special Tests Lumbar Spine Special Tests Slump Test Results Negative Vertical Spine Loading Test Results Negative Lateral SI compression Test Results Negative LENNY Test Results Negative Straight Leg Raise Test Results HS tightness at 80? L, 74? R PT-OP-M Strength Start: 05/27/18 12:08 Freq: Status: Active Protocol: Document 05/27/18 11:15 DCW (Rec: 05/27/18 12:33 DCW [id number]) Trunk Strength Trunk Manual Muscle Testing Core Stabilization TrA strength poor, 3-/5: Pt unable to voluntarily contract abdominal muscles in PPT position Hip Strength Hip Manual Muscle Testing Right Flexion (L2) 5 Normal Abduction 4+ Good+ Adduction 5 Normal External Rotation 5 Normal Internal Rotation 5 Normal Left Flexion (L2) 5 Normal Abduction 4+ Good+ Adduction 5 Normal External Rotation 5 Normal Internal Rotation 5 Normal Knee Strength Knee Manual Muscle Testing Right Flexion (S2) 5 Normal Extension (L3) 5 Normal Left Flexion (S2) 4+ Good+ Extension (L3) 5 Normal PT-OP-Q Treatments Start: 05/27/18 12:08 Freq: Status: Active Protocol: Document 07/09/18 10:30 DCW (Rec: 07/09/18 11:16 DCW [id number]) Gym Equipment Shuttle Recovery Unilateral Squats Resistance 37# Shuttle Recovery Platform Stable Reps/Time to fatigue, cuing for full knee extension Bilateral Squats Resistance 75# Shuttle Recovery Platform Stable Reps/Time to fatigue Therapeutic Ball Bridging Exercise Details Bridging /c feet on T-ball Ball Size/Color Blue - 45 cm Reps/Duration 20x Low Trunk Rotations Exercise Details Trunk Rotations /c feet on T- ball Ball Size/Color Blue - 45 cm Reps/Duration 20x Comments Cues for control Therapeutic Exercises Supine Exercises PPT /c Marching Supine Exercise Name PPT /c TrA - Marching Side bilateral Reps/Minutes 15x each Piriformis stretch Side bilateral Reps/Minutes 30 x 2 Comments manual assistance for stretch. Hamstring Stretch Supine Exercise Name HS stretch Side bilateral Reps/Minutes 30 x 3 Comments manual stretch Other Exercises Resister Side-stepping Other Exercise Name Resisted Side-stepping Resistance Green Equipment Used T-band Reps/Minutes x1 lap Manual Therapy Treatment Soft Tissue Mobilization STM/MFR Body Location Lumbar paraspinals Mobilization Type Myofascial Release Rolling Sustained Pressure Intensity/Depth Moderate Body Position Sidelying Comments Pt tolerated well Joint Mobilizations 1 Joint L1-L5 Central PAs Direction PA Grade III Body Position Rsidelying Comments grade II progressing to grade III. PT-OP-R Modalities Start: 05/27/18 12:08 Freq: Status: Active Protocol: Document 07/09/18 10:30 DCW (Rec: 07/09/18 11:16 DCW [id number]) Electric Stimulation Electric Stimulation IFC Body Location lumbar spine Duration (Minutes) 15 Patient Position Sidelying Combined With Heat/Cold Hot Pack Comments Pt prefers heat vs cold PT-OP-T Assessment and Plan Start: 05/27/18 12:08 Freq: Status: Active Protocol: Document 07/09/18 10:30 DCW (Rec: 07/09/18 11:16 DCW [id number]) Physical Therapy Assessment Impairments Impairments Activity Tolerance Functional Activities Pain Posture ROM Strength Goals Four Impairment Core weakness Short Term Goal (STG) Pt to properly perform TrA contraction with no verbal or tactile cues STG Duration 06/26/18 Appointment Scheduler Goal (LTG) Pt core MMT to 4/5 LTG Duration 07/27/18 Three Impairment Lumbar spine ROM limited Short Term Goal (STG) Active lumbar lateral flexion to 40 cm fingertips->floor bilaterally STG Duration 06/26/18 Half-Way Goal (LTG) Active lumbar ROM to 50? flexion and 15? extension LTG Duration 07/27/18 Two Impairment Pt unable to participate in ADLs and hobbies Short Term Goal (STG) Pt to tolerate cleaning house (vacuuming, sweeping, or mopping) for 20 minutes without increase in pain STG Duration 06/26/18 Half-Way Goal (LTG) Pt able to tolerate standing for require time while singing with druze choir LTG Duration 07/27/18 One Impairment Pt does not have an appropriate home exercise program Short Term Goal (STG) Pt to be independent and complaint with an appropriate HEP STG Duration 06/26/18 Assessment Summary Assessment Pt continuing to improve with skilled therapy, tolerates treatment and standing for extended time better than she had been earlier in therapy. Physical Therapy Plan Frequency and Duration Frequency of Treatment 2x/Week Duration of Treatment 8 weeks Plan of Care Start Date 05/27/18 Plan of Care End Date 07/22/18 Therapeutic Interventions Therapeutic Interventions Home Exercise Program Joint Mobilizations Manual Therapy Patient/Caregiver Education Self-Care/Home Management Soft Tissue Mobilization Therapeutic Activities Therapeutic Exercises Modalities Electric Stimulation Hot Packs Next Visit Focus/Plan Next Note Type Treatment Note Next Visit Plan progress core stabalization, focus on full knee extension during ex for improved quad control
--- NOTE | 2018-07-14 12:31 | PT.OTN ---
Current Diagnoses Low back pain (07/14/18) Physical Therapy Treatment Note PT-OP-A Visit Information Start: 05/27/18 12:08 Freq: Status: Active Protocol: Document 07/14/18 12:24 [facility] (Rec: 07/14/18 12:31 [facility] [id number]) Out-Patient Physical Therapy Visit Information Visit Information Visit Type Treatment Note Visit Start Time 09:45 Visit Stop Time 10:30 Total Visit Minutes 45 Visit Number 15 Number of CHARGE LOADER Visits 0 PT-OP-B Current Condition Start: 05/27/18 12:08 Freq: Status: Active Protocol: Document 05/27/18 11:15 DCW (Rec: 05/27/18 12:33 DCW [id number]) Current Condition History of Current Condition Onset Date Several year history Current Complaints Low back pain and stiffness, worsening with extended standing History of Current Condition Pt is a 77 year old female presenting with complaints of low back pain, particularly after an extended time standing or walking. 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 Pt notes no radicular symptoms, and reports that her pain reduces greatly when she is able to sit down and let her back flex forward a little. 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 choir PT-OP-C Subjective Start: 05/27/18 12:08 Freq: Status: Active Protocol: Document 07/14/18 12:24 [facility] (Rec: 07/14/18 12:31 [facility] [id number]) OP-PT Subjective Patient Comments Patient Comments pt reports she gets pain with long standing duration PT-OP-F Manual Assessment Start: 05/27/18 12:08 Freq: Status: Active Protocol: Document 05/27/18 11:15 DCW (Rec: 05/27/18 12:33 DCW [id number]) Manual Assessments Joint Mobility Assessment Joint Mobility Assessment Minimal to no joint mobility along T10-L5 vertebrae in prone PT-OP-K Range of Motion Start: 05/27/18 12:08 Freq: Status: Active Protocol: Document 05/27/18 11:15 DCW (Rec: 05/27/18 12:33 DCW [id number]) Lumbar Spine Range of Motion Lumbar Spine Active Degrees Testing Position Standing Flexion 32 Extension 5 Lateral Flexion Left 44 Lateral Flexion Right 50 ROM Limitations Bony Restriction Pain Comments Lateral flexion measured in cm from fingertips to floor PT-OP-L Special Tests Start: 05/27/18 12:08 Freq: Status: Active Protocol: Document 05/27/18 11:15 DCW (Rec: 05/27/18 12:33 DCW [id number]) Special Tests Lumbar Spine Special Tests Slump Test Results Negative Vertical Spine Loading Test Results Negative Lateral SI compression Test Results Negative LENNY Test Results Negative Straight Leg Raise Test Results HS tightness at 80? L, 74? R PT-OP-M Strength Start: 05/27/18 12:08 Freq: Status: Active Protocol: Document 05/27/18 11:15 DCW (Rec: 05/27/18 12:33 DCW [id number]) Trunk Strength Trunk Manual Muscle Testing Core Stabilization TrA strength poor, 3-/5: Pt unable to voluntarily contract abdominal muscles in PPT position Hip Strength Hip Manual Muscle Testing Right Flexion (L2) 5 Normal Abduction 4+ Good+ Adduction 5 Normal External Rotation 5 Normal Internal Rotation 5 Normal Left Flexion (L2) 5 Normal Abduction 4+ Good+ Adduction 5 Normal External Rotation 5 Normal Internal Rotation 5 Normal Knee Strength Knee Manual Muscle Testing Right Flexion (S2) 5 Normal Extension (L3) 5 Normal Left Flexion (S2) 4+ Good+ Extension (L3) 5 Normal PT-OP-Q Treatments Start: 05/27/18 12:08 Freq: Status: Active Protocol: Document 07/14/18 12:24 [facility] (Rec: 07/14/18 12:31 [facility] [id number]) Gym Equipment Shuttle Recovery Unilateral Squats Resistance 37# Shuttle Recovery Platform Stable Reps/Time to fatigue, cuing for full knee extension Bilateral Squats Resistance 75# Shuttle Recovery Platform Stable Reps/Time to fatigue Therapeutic Ball Bridging Exercise Details Bridging /c feet on T-ball Ball Size/Color Blue - 45 cm Reps/Duration 20x Low Trunk Rotations Exercise Details Trunk Rotations /c feet on T- ball Ball Size/Color Blue - 45 cm Reps/Duration 20x Comments Cues for control Therapeutic Exercises Supine Exercises 2 Supine Exercise Name pectoralis stretch with active arm movement sliding arms up the table Reps/Minutes x 10 reps PPT /c Marching Supine Exercise Name PPT /c TrA - Marching Side bilateral Reps/Minutes 15x each Hamstring Stretch Supine Exercise Name HS stretch Side bilateral Reps/Minutes 30 x 3 Comments manual stretch Sidelying Exercises Clamshells Side bilateral Resistance Lv 2 Equipment Used T-band Reps/Minutes 20 x each Standing Exercises 1 Standing Exercise Name standing wall slides for posture Reps/Minutes x 10 reps PT-OP-R Modalities Start: 05/27/18 12:08 Freq: Status: Active Protocol: Document 07/14/18 12:24 [facility] (Rec: 07/14/18 12:31 [facility] [id number]) Electric Stimulation Electric Stimulation IFC Body Location lumbar spine Duration (Minutes) 15 Patient Position Sidelying Combined With Heat/Cold Hot Pack Comments Pt prefers heat vs cold PT-OP-T Assessment and Plan Start: 05/27/18 12:08 Freq: Status: Active Protocol: Document 07/14/18 12:24 [facility] (Rec: 07/14/18 12:31 [facility] [id number]) Physical Therapy Assessment Assessment Summary Assessment added in wall postural exercises including wall slides and supine arm slides to help with anterior chest as she tends to lean forward from the waist. Improved knee extension today, still tends to roll her hips into hip IR Physical Therapy Plan Frequency and Duration Frequency of Treatment 2x/Week Duration of Treatment 8 weeks Plan of Care Start Date 05/27/18 Plan of Care End Date 07/22/18 Therapeutic Interventions Therapeutic Interventions Home Exercise Program Joint Mobilizations Manual Therapy Patient/Caregiver Education Self-Care/Home Management Soft Tissue Mobilization Therapeutic Activities Therapeutic Exercises Modalities Electric Stimulation Hot Packs Next Visit Focus/Plan Next Note Type Treatment Note Next Visit Plan continue to progress core, work on hip abduction and anterior chest flexibility to decrease forward lean in standing
--- NOTE | 2018-07-21 11:15 | PT.OTN ---
Current Diagnoses Low back pain (07/21/18) Physical Therapy Treatment Note PT-OP-A Visit Information Start: 05/27/18 12:08 Freq: Status: Active Protocol: Document 07/21/18 11:15 DLM (Rec: 07/21/18 18:28 DLM [id number]) Out-Patient Physical Therapy Visit Information Visit Information Visit Type Treatment Note Visit Start Time 11:15 Visit Stop Time 12:10 Total Visit Minutes 55 Visit Number 16 Number of METAL SPRAYER Visits 0 Evaluation Information Evaluation Date 05/27/18 PT-OP-B Current Condition Start: 05/27/18 12:08 Freq: Status: Active Protocol: Document 05/27/18 11:15 DCW (Rec: 05/27/18 12:33 DCW [id number]) Current Condition History of Current Condition Onset Date Several year history Current Complaints Low back pain and stiffness, worsening with extended standing History of Current Condition Pt is a 77 year old female presenting with complaints of low back pain, particularly after an extended time standing or walking. Pt reports pain limits her ability to walk around [employer], do house cleaning like vacuuming, sweeping, or mopping, and she struggles to remain standing while singing in her [employer] choir. Pt notes no radicular symptoms, and reports that her pain reduces greatly when she is able to sit down and let her back flex forward a little. Treatment Goals Patient/Caregiver Goals Reduce back pain, allow her to stand to better participate in her [employer] choir Prior Functional Status Baseline Function- ADL's Independent Baseline Function- Mobility Independent Current Functional Impairments (Reported) Functional Limitations- ADL's Limited ability to clean due to low back pain Functional Limitations- Mobility/Gait Requires a cart to lean on while walking around [employer] Functional Limitations- Recreation/ Unable to remain standing as Hobbies long as required while singing in her [employer] choir PT-OP-C Subjective Start: 05/27/18 12:08 Freq: Status: Active Protocol: Document 07/21/18 11:15 DLM (Rec: 07/21/18 13:02 DLM [id number]) OP-PT Subjective Patient Comments Patient Comments She can stand for about 10 min then her right leg starts to shake. She reports fatigue makes her sit before the back pain does. She has back pain when bending over to towel off after the shower. She continues to have back pain with extended walking. Patient Reported Progress Improving Patient Questionnaires Oswestry Low Back Index Oswestry Score 24% Oswestry Impairment 20 to 39% Impaired (Score 20- 39) OP-PT Pain Assessment Location Bilateral Lower Back Intensity 6 Scale Used Numeric (1 - 10) Description Aching Frequency Intermittent Pain Alleviating Factors Heat Rest PT-OP-F Manual Assessment Start: 05/27/18 12:08 Freq: Status: Active Protocol: Document 05/27/18 11:15 DCW (Rec: 05/27/18 12:33 DCW [id number]) Manual Assessments Joint Mobility Assessment Joint Mobility Assessment Minimal to no joint mobility along T10-L5 vertebrae in prone PT-OP-K Range of Motion Start: 05/27/18 12:08 Freq: Status: Active Protocol: Document 05/27/18 11:15 DCW (Rec: 05/27/18 12:33 DCW [id number]) Lumbar Spine Range of Motion Lumbar Spine Active Degrees Testing Position Standing Flexion 32 Extension 5 Lateral Flexion Left 44 Lateral Flexion Right 50 ROM Limitations Bony Restriction Pain Comments Lateral flexion measured in cm from fingertips to floor PT-OP-L Special Tests Start: 05/27/18 12:08 Freq: Status: Active Protocol: Document 05/27/18 11:15 DCW (Rec: 05/27/18 12:33 DCW [id number]) Special Tests Lumbar Spine Special Tests Slump Test Results Negative Vertical Spine Loading Test Results Negative Lateral SI compression Test Results Negative LENNY Test Results Negative Straight Leg Raise Test Results HS tightness at 80? L, 74? R PT-OP-M Strength Start: 05/27/18 12:08 Freq: Status: Active Protocol: Document 05/27/18 11:15 DCW (Rec: 05/27/18 12:33 DCW [id number]) Trunk Strength Trunk Manual Muscle Testing Core Stabilization 4-/5 Hip Strength Hip Manual Muscle Testing Right Flexion (L2) 5 Normal Abduction 4+ Good+ Adduction 5 Normal External Rotation 5 Normal Internal Rotation 5 Normal Left Flexion (L2) 5 Normal Abduction 4+ Good+ Adduction 5 Normal External Rotation 5 Normal Internal Rotation 5 Normal Knee Strength Knee Manual Muscle Testing Right Flexion (S2) 5 Normal Extension (L3) 5 Normal Left Flexion (S2) 4+ Good+ Extension (L3) 5 Normal PT-OP-Q Treatments Start: 05/27/18 12:08 Freq: Status: Active Protocol: Document 07/21/18 11:15 DLM (Rec: 07/21/18 18:28 DLM [id number]) Gym Equipment Shuttle Recovery Unilateral Squats Resistance 37# Shuttle Recovery Platform Stable Reps/Time to fatigue, cuing for full knee extension Bilateral Squats Resistance 75# Shuttle Recovery Platform Stable Reps/Time to fatigue Therapeutic Ball Bridging Exercise Details Bridging /c feet on T-ball Ball Size/Color Blue - 45 cm Body Position Hooklying Reps/Duration 20x Low Trunk Rotations Exercise Details Trunk Rotations /c feet on T- ball Ball Size/Color Blue - 45 cm Body Position Hooklying Reps/Duration 20x Comments Cues for control Therapeutic Exercises Supine Exercises PPT /c Marching Supine Exercise Name PPT /c TrA - Marching Side bilateral Reps/Minutes 15 reps each 1 Supine Exercise Name hip ABduction Side bilateral Resistance L2 exercise band Reps/Minutes x 15 reps Comments hooklying Piriformis stretch Supine Exercise Name hooklying Side bilateral Reps/Minutes 30 x 2 reps Comments manual assistance for stretch. Hamstring Stretch Supine Exercise Name HS stretch Side bilateral Reps/Minutes 30 x 3 Comments active Standing Exercises 4 Standing Exercise Name hands behind head and elbows back Side bilateral Reps/Minutes 30 sec hold x 2 Comments standing w/back to wall 3 Standing Exercise Name scapular retraction with back to wall Side bilateral Reps/Minutes 10 reps 2 Standing Exercise Name chin tucks with back to wall Reps/Minutes 10 reps 1 Standing Exercise Name standing wall slides for posture Reps/Minutes x 10 reps Squats Standing Exercise Name Chair Squats Reps/Minutes 15 reps Comments no UE support PT-OP-R Modalities Start: 05/27/18 12:08 Freq: Status: Active Protocol: Document 07/21/18 11:15 DLM (Rec: 07/21/18 18:28 DLM [id number]) Electric Stimulation Electric Stimulation IFC Body Location lumbar spine Duration (Minutes) 15 Patient Position Hooklying Combined With Heat/Cold Hot Pack Comments Pt prefers heat vs cold PT-OP-T Assessment and Plan Start: 05/27/18 12:08 Freq: Status: Active Protocol: Document 07/21/18 11:15 DLM (Rec: 07/21/18 18:28 DLM [id number]) Physical Therapy Assessment Goals Four Impairment Core weakness Short Term Goal (STG) Met- Pt to properly perform TrA contraction with no verbal or tactile cues STG Duration 06/26/18 Detention Goal (LTG) Progressed- Pt core MMT to 4/5 LTG Duration 07/27/18 Three Impairment Lumbar spine ROM limited Short Term Goal (STG) Met- Active lumbar lateral flexion to 40 cm fingertips-> floor bilaterally STG Duration 06/26/18 Detention Goal (LTG) Progressing- Active lumbar ROM to 50? flexion and 15? extension LTG Duration 07/27/18 Two Impairment Pt unable to participate in ADLs and hobbies Short Term Goal (STG) Met- Pt to tolerate cleaning house (vacuuming, sweeping, or mopping) for 20 minutes without increase in pain STG Duration 06/26/18 Equipment Processor Goal (LTG) Not Met- Pt able to tolerate standing for require time while singing with [employer] choir LTG Duration 07/27/18 One Impairment Pt does not have an appropriate home exercise program Short Term Goal (STG) Progressing- Pt to be independent and complaint with an appropriate HEP STG Duration 06/26/18 Progress Towards Goals Progress Towards Goals Progressing Toward Goals Progress Comments pt has not returned to singing in the choir. Her ROM and strength have improved. Assessment Summary Assessment Pt likes the new postural exercises against the wall. She tolerated her exercises well today. She feels the Estim helps with her pain. She feels she needs one more visit to go over her HEP before discharge. Physical Therapy Plan Frequency and Duration Frequency of Treatment one more visit Duration of Treatment 1 week Plan of Care Start Date 07/21/18 Plan of Care End Date 07/31/18 Therapeutic Interventions Therapeutic Interventions Home Exercise Program Patient/Caregiver Education Self-Care/Home Management Therapeutic Exercises Modalities Electric Stimulation Hot Packs Next Visit Focus/Plan Next Note Type Treatment Note Next Visit Plan Finalize HEP then discharge
--- NOTE | 2018-07-21 12:00 | PT.OPPOC ---
Current Diagnoses Low back pain (07/21/18) Provider Visit Care Team Role Provider Type Mateusz Bonilla MD Attending Provider Physician Primary Care Provider Specialty: Internal Medicine Address: [address] [place] [address], [id number] Email: Plan Of Care PT-OP-T Assessment and Plan Start: 05/27/18 12:08 Freq: Status: Active Protocol: Document 07/21/18 11:15 DLM (Rec: 07/21/18 18:28 DLM [id number]) Physical Therapy Assessment Goals Four Impairment Core weakness Short Term Goal (STG) Met- Pt to properly perform TrA contraction with no verbal or tactile cues STG Duration 06/26/18 Forest Examiner Goal (LTG) Progressed- Pt core MMT to 4/5 LTG Duration 07/27/18 Three Impairment Lumbar spine ROM limited Short Term Goal (STG) Met- Active lumbar lateral flexion to 40 cm fingertips-> floor bilaterally STG Duration 06/26/18 Longterm Goal (LTG) Progressing- Active lumbar ROM to 50? flexion and 15? extension LTG Duration 07/27/18 Two Impairment Pt unable to participate in ADLs and hobbies Short Term Goal (STG) Met- Pt to tolerate cleaning house (vacuuming, sweeping, or mopping) for 20 minutes without increase in pain STG Duration 06/26/18 Longterm Goal (LTG) Not Met- Pt able to tolerate standing for require time while singing with [employer] choir LTG Duration 07/27/18 One Impairment Pt does not have an appropriate home exercise program Short Term Goal (STG) Progressing- Pt to be independent and complaint with an appropriate HEP STG Duration 06/26/18 Progress Towards Goals Progress Towards Goals Progressing Toward Goals Progress Comments pt has not returned to singing in the choir. Her ROM and strength have improved. Assessment Summary Assessment Over-all she shows good progress in therapy. She has met some goals and has made progress with the remaining goals. She feels she needs another visit to finalize her HEP before discharge. Will extend her physical therapy one more visit. Physical Therapy Plan Frequency and Duration Frequency of Treatment one more visit Duration of Treatment 1 week Plan of Care Start Date 07/21/18 Plan of Care End Date 07/31/18 Therapeutic Interventions Therapeutic Interventions Home Exercise Program Patient/Caregiver Education Self-Care/Home Management Therapeutic Exercises Modalities Electric Stimulation Hot Packs Next Visit Focus/Plan Next Note Type Treatment Note Next Visit Plan Finalize HEP then discharge Plan of Care Dates Plan of Care Start Date 07/21/18 Plan of Care End Date 07/31/18 Please Sign and Return: I have reviewed this Plan of Care and certify that the skilled therapy services above are required to meet the patient?s needs. Physician Signature Date Printed Name and Credentials
--- NOTE | 2018-07-21 12:00 | PT.OPPN ---
Current Diagnoses Low back pain (07/21/18) Physical Therapy Progress Note PT-OP-A Visit Information Start: 05/27/18 12:08 Freq: Status: Active Protocol: Document 07/21/18 11:15 DLM (Rec: 07/21/18 18:28 DLM [id number]) Out-Patient Physical Therapy Visit Information Visit Information Visit Type Treatment Note/Progress Note Visit Start Time 11:15 Visit Stop Time 12:10 Total Visit Minutes 55 Visit Number 16 Number of LOCKSMITH HELPER Visits 0 Evaluation Information Evaluation Date 05/27/18 PT-OP-B Current Condition Start: 05/27/18 12:08 Freq: Status: Active Protocol: Document 05/27/18 11:15 DCW (Rec: 05/27/18 12:33 DCW [id number]) Current Condition History of Current Condition Onset Date Several year history Current Complaints Low back pain and stiffness, worsening with extended standing History of Current Condition Pt is a 77 year old female presenting with complaints of low back pain, particularly after an extended time standing or walking. 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 Pt notes no radicular symptoms, and reports that her pain reduces greatly when she is able to sit down and let her back flex forward a little. 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 She reports fatigue makes her sit before the back pain does. She has back pain when bending over to towel off after the shower. She continues to have back pain with extended walking. Patient Reported Progress Improving Patient Questionnaires Oswestry Low Back Index Oswestry Score 24% Oswestry Impairment 20 to 39% Impaired (Score 20- 39) OP-PT Pain Assessment Location Bilateral Lower Back Intensity 6 Scale Used Numeric (1 - 10) Description Aching Frequency Intermittent Pain Alleviating Factors Heat Rest PT-OP-F Manual Assessment Start: 05/27/18 12:08 Freq: Status: Active Protocol: Document 05/27/18 11:15 DCW (Rec: 05/27/18 12:33 DCW [id number]) Manual Assessments Joint Mobility Assessment Joint Mobility Assessment Minimal to no joint mobility along T10-L5 vertebrae in prone PT-OP-K Range of Motion Start: 05/27/18 12:08 Freq: Status: Active Protocol: Document 07/21/18 12:00 DLM (Rec: 07/21/18 18:34 DLM [id number]) Lumbar Spine Range of Motion Lumbar Spine Active Degrees Testing Position Standing Extension 8 Comments flexion- 40 cm fingers to floor PT-OP-L Special Tests Start: 05/27/18 12:08 Freq: Status: Active Protocol: Document 05/27/18 11:15 DCW (Rec: 05/27/18 12:33 DCW [id number]) Special Tests Lumbar Spine Special Tests Slump Test Results Negative Vertical Spine Loading Test Results Negative Lateral SI compression Test Results Negative LENNY Test Results Negative Straight Leg Raise Test Results HS tightness at 80? L, 74? R PT-OP-M Strength Start: 05/27/18 12:08 Freq: Status: Active Protocol: Document 07/21/18 12:00 DLM (Rec: 07/21/18 18:34 DLM [id number]) Trunk Strength Trunk Manual Muscle Testing Core Stabilization 4-/5, able to contract abdominal muscles in PPT position PT-OP-T Assessment and Plan Start: 05/27/18 12:08 Freq: Status: Active Protocol: Document 07/21/18 11:15 DLM (Rec: 07/21/18 18:28 DLM [id number]) Physical Therapy Assessment Goals Four Impairment Core weakness Short Term Goal (STG) Met- Pt to properly perform TrA contraction with no verbal or tactile cues STG Duration 06/26/18 Halfway Goal (LTG) Progressed- Pt core MMT to 4/5 LTG Duration 07/27/18 Three Impairment Lumbar spine ROM limited Short Term Goal (STG) Met- Active lumbar lateral flexion to 40 cm fingertips-> floor bilaterally STG Duration 06/26/18 Lead Java Programmer Goal (LTG) Progressing- Active lumbar ROM to 50? flexion and 15? extension LTG Duration 07/27/18 Two Impairment Pt unable to participate in ADLs and hobbies Short Term Goal (STG) Met- Pt to tolerate cleaning house (vacuuming, sweeping, or mopping) for 20 minutes without increase in pain STG Duration 06/26/18 Lead Java Programmer Goal (LTG) Not Met- Pt able to tolerate standing for require time while singing with gnosticist choir LTG Duration 07/27/18 One Impairment Pt does not have an appropriate home exercise program Short Term Goal (STG) Progressing- Pt to be independent and complaint with an appropriate HEP STG Duration 06/26/18 Progress Towards Goals Progress Towards Goals Progressing Toward Goals Progress Comments pt has not returned to singing in the choir. Her ROM and strength have improved. Assessment Summary Assessment Over-all she shows good progress in therapy. She has met some goals and has made progress with the remaining goals. She feels she needs another visit to finalize her HEP before discharge. Will extend her physical therapy one more visit. Physical Therapy Plan Frequency and Duration Frequency of Treatment one more visit Duration of Treatment 1 week Plan of Care Start Date 07/21/18 Plan of Care End Date 07/31/18 Therapeutic Interventions Therapeutic Interventions Home Exercise Program Patient/Caregiver Education Self-Care/Home Management Therapeutic Exercises Modalities Electric Stimulation Hot Packs Next Visit Focus/Plan Next Note Type Treatment Note Next Visit Plan Finalize HEP then discharge
--- NOTE | 2018-07-24 11:25 | PT.OTN ---
Current Diagnoses Low back pain (07/24/18) Physical Therapy Treatment Note PT-OP-A Visit Information Start: 05/27/18 12:08 Freq: Status: Active Protocol: Document 07/24/18 11:18 SA (Rec: 07/24/18 11:25 SA [id number]) Out-Patient Physical Therapy Visit Information Visit Information Visit Type Treatment Note Visit Start Time 09:00 Visit Stop Time 09:45 Total Visit Minutes 45 Visit Number 17 Number of STAFF APPRAISER Visits 1 PT-OP-B Current Condition Start: 05/27/18 12:08 Freq: Status: Active Protocol: Document 05/27/18 11:15 DCW (Rec: 05/27/18 12:33 DCW [id number]) Current Condition History of Current Condition Onset Date Several year history Current Complaints Low back pain and stiffness, worsening with extended standing History of Current Condition Pt is a 77 year old female presenting with complaints of low back pain, particularly after an extended time standing or walking. 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 Pt notes no radicular symptoms, and reports that her pain reduces greatly when she is able to sit down and let her back flex forward a little. 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 Doing HEP fairly consistently. PT-OP-F Manual Assessment Start: 05/27/18 12:08 Freq: Status: Active Protocol: Document 05/27/18 11:15 DCW (Rec: 05/27/18 12:33 DCW [id number]) Manual Assessments Joint Mobility Assessment Joint Mobility Assessment Minimal to no joint mobility along T10-L5 vertebrae in prone PT-OP-K Range of Motion Start: 05/27/18 12:08 Freq: Status: Active Protocol: Document 07/21/18 12:00 DLM (Rec: 07/21/18 18:34 DLM [id number]) Lumbar Spine Range of Motion Lumbar Spine Active Degrees Testing Position Standing Extension 8 Comments flexion- 40 cm fingers to floor PT-OP-L Special Tests Start: 05/27/18 12:08 Freq: Status: Active Protocol: Document 05/27/18 11:15 DCW (Rec: 05/27/18 12:33 DCW [id number]) Special Tests Lumbar Spine Special Tests Slump Test Results Negative Vertical Spine Loading Test Results Negative Lateral SI compression Test Results Negative LENNY Test Results Negative Straight Leg Raise Test Results HS tightness at 80? L, 74? R PT-OP-M Strength Start: 05/27/18 12:08 Freq: Status: Active Protocol: Document 07/21/18 12:00 DLM (Rec: 07/21/18 18:34 DLM [id number]) Trunk Strength Trunk Manual Muscle Testing Core Stabilization 4-/5, able to contract abdominal muscles in PPT position PT-OP-Q Treatments Start: 05/27/18 12:08 Freq: Status: Active Protocol: Document 07/24/18 11:18 SA (Rec: 07/24/18 11:25 SA [id number]) Gym Equipment Shuttle Recovery Unilateral Squats Resistance 37# Shuttle Recovery Platform Stable Reps/Time to fatigue, cuing for full knee extension Bilateral Squats Resistance 75# Shuttle Recovery Platform Stable Reps/Time to fatigue Therapeutic Ball Bridging Exercise Details Bridging /c feet on T-ball Ball Size/Color Blue - 45 cm Body Position Hooklying Reps/Duration 20x Low Trunk Rotations Exercise Details Trunk Rotations /c feet on T- ball Ball Size/Color Blue - 45 cm Body Position Hooklying Reps/Duration 20x Comments Cues for control Therapeutic Exercises Supine Exercises PPT /c Marching Supine Exercise Name PPT /c TrA - Marching Side bilateral Reps/Minutes 15 reps each 1 Supine Exercise Name hip ABduction Side bilateral Resistance L2 exercise band Reps/Minutes x 15 reps Comments hooklying Sidelying Exercises Clamshells Side bilateral Resistance Lv 2 Equipment Used T-band Reps/Minutes 20 x each Standing Exercises 4 Standing Exercise Name hands behind head and elbows back Side bilateral Reps/Minutes 30 sec hold x 2 Comments standing w/back to wall 3 Standing Exercise Name scapular retraction with back to wall Side bilateral Reps/Minutes 10 reps 2 Standing Exercise Name chin tucks with back to wall Reps/Minutes 10 reps 1 Standing Exercise Name standing wall slides for posture Reps/Minutes x 10 reps Squats Standing Exercise Name Chair Squats Reps/Minutes 15 reps Comments no UE support PT-OP-R Modalities Start: 05/27/18 12:08 Freq: Status: Active Protocol: Document 07/21/18 11:15 DLM (Rec: 07/21/18 18:28 DLM [id number]) Electric Stimulation Electric Stimulation IFC Body Location lumbar spine Duration (Minutes) 15 Patient Position Hooklying Combined With Heat/Cold Hot Pack Comments Pt prefers heat vs cold PT-OP-T Assessment and Plan Start: 05/27/18 12:08 Freq: Status: Active Protocol: Document 07/24/18 11:18 SA (Rec: 07/24/18 11:25 SA [id number]) Physical Therapy Assessment Assessment Summary Assessment Treatment focused on HEP with review and questions answered, pt feels confident to continue at home, hand out provided and TB given. Pt plans to obtain a PT ball. Physical Therapy Plan Next Visit Focus/Plan Next Note Type Treatment Note Next Visit Plan Pt ready for discharge.
--- NOTE | 2018-07-24 11:34 | PT.OPDS ---
Current Diagnoses Low back pain (07/24/18) Provider Visit Care Team Role Provider Type Mateusz Bonilla MD Attending Provider Physician Primary Care Provider Specialty: Internal Medicine Address: [address] [place] [address], [facility] Email: Visit Number Visit Number 17 Discharge Summary PT-OP-B Current Condition Start: 05/27/18 12:08 Freq: Status: Active Protocol: Document 05/27/18 11:15 DCW (Rec: 05/27/18 12:33 DCW [id number]) Current Condition History of Current Condition Onset Date Several year history Current Complaints Low back pain and stiffness, worsening with extended standing History of Current Condition Pt is a 77 year old female presenting with complaints of low back pain, particularly after an extended time standing or walking. 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 Pt notes no radicular symptoms, and reports that her pain reduces greatly when she is able to sit down and let her back flex forward a little. 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 Doing HEP fairly consistently. PT-OP-F Manual Assessment Start: 05/27/18 12:08 Freq: Status: Active Protocol: Document 05/27/18 11:15 DCW (Rec: 05/27/18 12:33 DCW [id number]) Manual Assessments Joint Mobility Assessment Joint Mobility Assessment Minimal to no joint mobility along T10-L5 vertebrae in prone PT-OP-K Range of Motion Start: 05/27/18 12:08 Freq: Status: Active Protocol: Document 07/21/18 12:00 DLM (Rec: 07/21/18 18:34 DLM [id number]) Lumbar Spine Range of Motion Lumbar Spine Active Degrees Testing Position Standing Extension 8 Comments flexion- 40 cm fingers to floor PT-OP-L Special Tests Start: 05/27/18 12:08 Freq: Status: Active Protocol: Document 05/27/18 11:15 DCW (Rec: 05/27/18 12:33 DCW [id number]) Special Tests Lumbar Spine Special Tests Slump Test Results Negative Vertical Spine Loading Test Results Negative Lateral SI compression Test Results Negative LENNY Test Results Negative Straight Leg Raise Test Results HS tightness at 80? L, 74? R PT-OP-M Strength Start: 05/27/18 12:08 Freq: Status: Active Protocol: Document 07/21/18 12:00 DLM (Rec: 07/21/18 18:34 DLM [id number]) Trunk Strength Trunk Manual Muscle Testing Core Stabilization 4-/5, able to contract abdominal muscles in PPT position PT-OP-T Assessment and Plan Start: 05/27/18 12:08 Freq: Status: Active Protocol: Document 07/24/18 11:29 DLM (Rec: 07/24/18 11:34 DLM [id number]) Physical Therapy Assessment Goals Four Impairment Core weakness Short Term Goal (STG) Met- Pt to properly perform TrA contraction with no verbal or tactile cues STG Duration 06/26/18 Stock Letterer Goal (LTG) Progressed- Pt core MMT to 4/5 LTG Duration 07/27/18 Three Impairment Lumbar spine ROM limited Short Term Goal (STG) Met- Active lumbar lateral flexion to 40 cm fingertips-> floor bilaterally STG Duration 06/26/18 Skilled Nursing Goal (LTG) Progressing- Active lumbar ROM to 50? flexion and 15? extension LTG Duration 07/27/18 Two Impairment Pt unable to participate in ADLs and hobbies Short Term Goal (STG) Met- Pt to tolerate cleaning house (vacuuming, sweeping, or mopping) for 20 minutes without increase in pain STG Duration 5/10/19 Stock Letterer Goal (LTG) Progressing per pt- Pt able to tolerate standing for require time while singing with confucianist choir LTG Duration 07/27/18 One Impairment Pt does not have an appropriate home exercise program Short Term Goal (STG) Met- Pt to be independent and complaint with an appropriate HEP STG Duration 06/26/18 Progress Towards Goals Progress Towards Goals Progressing Toward Goals Progress Comments pt has not returned to singing in the choir. Her ROM and strength have improved. Assessment Summary Assessment Discharge. Pt has written HEP that has been reviewed and questions addressed. Physical Therapy Plan Discharge Physical Therapy Discharge Reasons Plateau in Progress Discharge Comments good progress toward goals
== END 2018-08-14 10:42 | disposition home or self-care (01) ==
LOC: PHYS 09:00
PROVIDERS: PCP Student in an Organized Health Care Education/Training Program; Visit Provider Student in an Organized Health Care Education/Training Program
DX: M54.5 Low back pain (principal)
CPT/HCPCS: 97014; 97110; 97140; 97161; G0283

== ENCOUNTER 2019-03-15 08:53 | Inpatient (IN) | payer MEDICARE, OTHER, SELFPAY ==
[2019-03-15] VITALS (12 sets, daily range): BP systolic 122–160; BP diastolic 73–99; PULSE 61–84; RESP 16–18; TEMP 36.4–36.8; O2SAT 96–100; BMI 22.6
[2019-03-15 09:43] LABS: Add Manual Diff / Slide Review NO; Basophils Absolute Auto 0 /uL (0-100); Basophils Percent Auto 0.1 % (0-2); Eosinophils Absolute Auto 0 /uL (0-450); Eosinophils Percent Auto 0.1 % (2-4); Hematocrit 33.8 % (36-46); Hemoglobin 11.2 g/dL (12.0-16.0); Lymphocytes Absolute Auto 1000 /uL (1100-4500); Lymphocytes Percent Auto 7.4 % (25-40); Mean Corpuscular Hemoglobin 31.9 PG (26-34); Mean Corpuscular Volume 96.5 fL (80-100); Monocytes Absolute Auto 1200 /uL (0-900); Monocytes Percent Auto 8.3 % (3-14); Neutrophils Absolute Auto 11800 /uL (1500-7000); Neutrophils Percent Auto 84.1 % (50-75); Platelet Count 233 X10^3/uL (150-400); Red Cell Distribution Width 13.8 % (11.6-14.8)
[2019-03-15] MEDS: PANTOPRAZOLE 40 MG VIAL 80 MG IV (09:44)
[2019-03-15 09:53] LABS: Prothrombin Time 11.1 SECONDS (10.1-12.7)
[2019-03-15 09:59] LABS: Alanine Aminotransferase 12 IU/L (<35); Albumin 4.1 g/dL (3.5-5.0); Albumin Globulin Ratio 1.3 (1.0-2.8); Alkaline Phosphatase 46 U/L (38-126); Aspartate Aminotransferase 28 IU/L (14-36); BUN Creatinine Ratio 27.8 (6-22); Bilirubin Total 0.5 mg/dL (0.2-1.3); Blood Urea Nitrogen 25 mg/dL (7-17); Calcium 8.8 mg/dL (8.4-10.2); Carbon Dioxide 24 mmol/L (22-32); Chloride 101 mmol/L (98-107); Estimated Glomerular Filt Rate > 60.0 mL/min (>60); Globulin 3.1 g/dL (1.7-4.1); Glucose 107 mg/dL (80-110); HEMOLYSIS 17 (0-50); Lactate (Lactic Acid) 3.4 mmol/L (0.7-2.1); Potassium 4.2 mmol/L (3.4-5.1); Sodium 136 mmol/L (137-145); Total Protein 7.2 g/dL (6.3-8.2)
--- NOTE | 2019-03-15 10:22 | DI.CT.S_ITS ---
PROCEDURE: CT ABDOMEN PELVIS W CON INDICATIONS: lower GI bleed, bloody stool TECHNIQUE: After the administration of intravenous contrast, 5 mm thick sections acquired from the diaphragm to the symphysis. 5 mm coronal and sagittal reformats were acquired. For radiation dose reduction, the following was used: automated exposure control, adjustment of mA and/or kV according to patient size. COMPARISON: None. FINDINGS: Image quality: Excellent. ABDOMEN: Lung bases: Lung bases are clear. Heart size is normal. Solid organs: Hepatic steatosis. Gallbladder contains numerous gallstones although no definite wall thickening or pericholecystic inflammatory appearance. Biliary system is non dilated. Pancreas enhances normally. Spleen is normal in size and enhancement. No adrenal nodules. Bilateral renal cortical atrophy and scarring. Presumed left parapelvic cysts. No definite right hydronephrosis. Peritoneum and bowel: Incidental colonic diverticulosis. No evidence of bowel obstruction. There are some areas of possible colonic wall thickening raising possibility of colitis although suboptimal evaluation given decompressed state The rectum is unremarkable. Appendix is not clearly identified however no suspicious pericecal inflammatory changes are seen. No free fluid or air. Nodes and vessels: No retroperitoneal or mesenteric adenopathy by size criteria. Aorta and inferior vena cava are normal in size. Scattered vascular calcifications seen in the aorta. Miscellaneous: No ventral hernias. PELVIS: Genitourinary: Bladder wall thickness is normal. Miscellaneous: No inguinal hernias or adenopathy. Bones: No suspicious bony lesions. No vertebral body compression fractures. Scoliosis and multilevel spondylosis noted. Diffuse facet arthropathy IMPRESSION: Hepatic steatosis. Cholelithiasis although no other CT evidence of acute cholecystitis Left parapelvic cysts. Appendix is not clearly identified however no suspicious pericecal inflammatory changes are seen. Possible low-grade colonic mural thickening raising possibility of mild nonspecific colitis however limited evaluation given collapsed state at the time of study. Elsewhere, no acute process seen Dictated by: Samy Jang M.D. on 03/15/2019 at 10:53 Approved by: Samy Jang M.D. on 03/15/2019 at 11:00
[2019-03-15 10:42] LABS: PTT Partial Thromboplastin Tim 25 SECONDS (26.4-36.2)
--- NOTE | 2019-03-15 12:35 | ED.GIBLEED ---
HPI - GI Bleed General Chief complaint: GI Bleed Stated complaint: bleeding, shaky Time Seen by Provider: 03/15/19 09:43 Source: patient Mode of arrival: Wheelchair Limitations: no limitations History of Present Illness HPI Narrative: The patient is a 78-year-old female came into the emergency department because she has been having rectal bleeding. She states that she has been passing bright red blood per rectum. She has had no pain or discomfort. She states that her last colonoscopy was approximately 2 years ago at which time they removed 2 polyps. She denies any abdominal pain but has been dizzy lightheaded with shaking and feeling faint. She however has not passed out. She denies any chest pain. She has had some mild back pain. She denies a history of a previous myocardial infarction hypertension or diabetes mellitus. She denies peptic ulcer disease, Crohn's disease ulcerative colitis irritable bowel syndrome. She has had no recent fever chills or sweats. She denies a history of diverticulitis. She has had no nasal drainage sinus congestion shortness of breath or cough. She has had no palpitations. She denies any nausea vomiting coffee-ground emesis hematemesis or diarrhea. She has had no urinary symptoms. Related Data Home Medications Medication Instructions Recorded Confirmed Disabled Parking Permit 1 ea MISCELLANEOUS DIRECTED 03/15/19 03/15/19 Previous Rx's Medication Instructions Recorded vit C 250 mg-E 200 unit-zinc 40 1 tab PO BID #30 cap 08/07/17 mg-copper 1 es-iavpfu-tesomy capsule carbidopa ER 50 mg-levodopa 200 mg 1 tab PO TID #270 tab 06/15/18 tablet,extended release levothyroxine 25 mcg tablet 25 mcg PO QAM #90 tab 10/27/18 Allergies Allergy/AdvReac Type Severity Reaction Status Date / Time No Known Drug Allergies Allergy Verified 04/22/18 10:16 Review of Systems Review of Systems Narrative: Her review of systems were negative except for those mentioned in the history of present illness. Patient History Medical History Chicken pox (Resolved) Chronic back pain (Chronic ~2013) Essential tremor (Chronic 06/26/15) Fatigue (Chronic 08/29/15) Hypothyroidism (acquired) (Chronic) Macular degeneration (Chronic) Measles (Resolved) Parkinson disease (Chronic) Rosacea (Chronic) Rubella (Resolved) Shoulder pain (Chronic ~1988) Surgical History Anesthesia (Resolved) History of tonsillectomy (~194) S/P cataract extraction (Chronic) Status post colonoscopy (~2007) Family History Grandfather Heart disease Grandmother Heart disease Mother Mental health problem Grandfather Stroke Grandmother Cancer Father Cancer Social History marital status: household members: none lives independently: Yes Smoking Status: Never smoker alcohol intake: former substance use type: does not use Smoking Status: Never smoker alcohol intake frequency: 0-2 drinks per day Substance Use Type: does not use Exam Narrative Exam Narrative: PHYSICAL EXAM: CONSTITUTIONAL: Awake, Alert, Oriented, Coherent, Cooperative in NAD. Does not appear toxic or ill. She appears mildly pale. HEAD: AT/NC EENT: PERRL, FROM of eyes, no discharge, Oral mucosa is moist and pink, posterior pharynx is without erythema or exudate. NECK: Supple, no obvious JVD, Trachea is midline without stridor, no palpable LN or masses. SPINE: No gross deformity, no palpable tenderness of the cervical, thoracic, lumbar or sacral spine. No CVA tenderness. THORAX: No deformity, retractions, chest wall tenderness, subcutaneous air or crepitice. LUNGS: Clear with symmetrical breath sounds without respiratory distress HEART: Normal heart tones, regular rhythm and rate without murmur. ABDOMEN: Soft, non-tender, normal bowel sounds without guarding, rebound, rigidity or palpable mass . Rectal exam revealed dark red blood that tested positive for occult blood.. There was no rectal mass or tenderness. EXTREMITIES: No edema, cyanosis, deformity or tenderness. SKIN: No rash, bruising, petechiae or purpura. NEURO: Awake, alert, oriented, conversive, cranial nerves II-XII are symmetrical and normal, moves all 4 extremities and is ambulatory Initial Vital Signs Initial Vital Signs: Vital Signs Temperature 97.9 F 03/15/19 09:10 Pulse Rate 61 03/15/19 09:10 Respiratory Rate 18 03/15/19 09:10 Blood Pressure 139/88 03/15/19 09:10 Pulse Oximetry 100 03/15/19 09:10 Course Course Course Narrative: 1235 the patient is seen by Dr. Bonilla. I spoke with Dr. Read who states that the patient gets admitted to the hospitalist. The patient's CT scan of the abdomen revealed that she had thickening of the colon consistent with a colitis. After admitting the patient to the hospitalist I discussed the patient with Dr. oSler who agreed to consult and perform a colonoscopy as necessary. Dr. Mao he requested a stool panel. Orders Ordered: ED Orders 03/15/19 13:59 GI Panel (Film Array) Stat 03/15/19 17:28 Education, smoking cessation ONGOING Acetaminophen (Tylenol) 650 mg PO Q6HR PRN PRN Reason: Fever/Mild Pain (1-3) Carbidopa/Levodopa (Sinemet Er 50-200 Tab) 1 each PO TID SONY Last Admin: 03/15/19 19:31 Dose: 1 each Documented by: CONSUELO Ciprofloxacin (Cipro) 400 mg in 200 mls @ 200 mls/hr IV NOW FORMERLY [facility], [facility]1983 Last Infusion: 03/15/19 15:30 Dose: 0 mls/hr Documented by: Admin: 03/15/19 14:17 Dose: 200 mls/hr Documented by: GILBERTO Sodium Chloride (Normal Saline 0.9%) 1,000 mls @ 100 mls/hr IV CONT FORMERLY [facility], 1928–1983 Last Admin: 03/15/19 19:30 Dose: 100 mls/hr Documented by: CONSUELO Metronidazole (Flagyl) 500 mg in 100 mls @ 100 mls/hr IV Q8H FORMERLY [facility], [facility]–1983 Last Admin: 03/15/19 19:33 Dose: 100 mls/hr Documented by: CONSUELO Levothyroxine Sodium (Synthroid) 25 mcg PO 0600 FORMERLY [facility], [facility]–1983 Naloxone HCl (Narcan) 0.2 mg IV Q2MIN PRN PRN Reason: Opiate Reversal Ondansetron HCl (Zofran) 4 mg IV Q4HR PRN PRN Reason: Nausea And Vomiting Sodium Chloride (Normal Saline 0.9% Flush) 10 ml IV NOW PRN PRN Reason: flush Last Admin: 03/15/19 19:33 Dose: 10 ml Documented by: CONSUELO Discontinued Medications Carbidopa/Levodopa (Sinemet Er 50-200 Tab) 1 each PO NOW ONE Stop: 03/15/19 12:18 Last Admin: 03/15/19 13:04 Dose: 1 each Documented by: GILBERTO Metronidazole (Flagyl) 500 mg in 100 mls @ 100 mls/hr IV NOW ONE Stop: 03/15/19 12:54 Last Infusion: 03/15/19 14:17 Dose: 0 mls/hr Documented by: Admin: 03/15/19 13:04 Dose: 100 mls/hr Documented by: GILBERTO Sodium Chloride (Normal Saline 0.9%) 1,000 mls @ 150 mls/hr IV BOLUS ONE Stop: 03/15/19 18:54 Last Infusion: 03/15/19 16:43 Dose: 0 mls/hr Documented by: Admin: 03/15/19 13:04 Dose: 150 mls/hr Documented by: GILBERTO Pantoprazole Sodium (Protonix) 80 mg IV NOW ONE Stop: 03/15/19 09:16 Last Admin: 03/15/19 09:44 Dose: 80 mg Documented by: GILBERTO Vital Signs Vital signs: Vital Signs - 8 hr 03/15/19 13:00 03/15/19 15:05 Pulse Rate 68 70 Respiratory Rate 17 18 Blood Pressure [Left Arm] 133/86 122/76 Pulse Oximetry 98 MDM - GI Bleed Lab Data Result diagrams: 03/15/19 09:30 03/15/19 09:30 Labs: Lab Results 03/15/19 03/15/19 03/15/19 Range/Units 09:30 09:30 09:30 WBC 14.0 H (4.5-11.0) X10^3/uL RBC 3.50 L (4.0-5.2) X10^6/uL Hgb 11.2 L (12.0-16.0) g/dL Hct 33.8 L (36-46) % MCV 96.5 (80-100) fL MCH 31.9 (26-34) PG MCHC 33.0 (30-36) % RDW 13.8 (11.6-14.8) % Plt Count 233 (150-400) X10^3/uL Neut % (Auto) 84.1 H (50-75) % Lymph % (Auto) 7.4 L (25-40) % [place] % (Auto) 8.3 (3-14) % Eos % (Auto) 0.1 L (2-4) % Baso % (Auto) 0.1 (0-2) % Neut # (Auto) 94713 H (7260-2654) /uL Lymph # (Auto) 1000 L (5867-0441) /uL [place] # (Auto) 1200 H (0-900) /uL Eos # (Auto) 0 (0-450) /uL Baso # (Auto) 0 (0-100) /uL PT (10.1-12.7) SECONDS INR (0.9-1.3) APTT (26.4-36.2) SECONDS Sodium 136 L (137-145) mmol/L Potassium 4.2 (3.4-5.1) mmol/L Chloride 101 (98-107) mmol/L Carbon Dioxide 24 (22-32) mmol/L BUN 25 H (7-17) mg/dL Creatinine 0.90 (0.52-1.04) mg/dL Estimated GFR > 60.0 (>60) mL/min BUN/Creatinine Ratio 27.8 H (6-22) Glucose 107 (80-110) mg/dL Lactate (0.7-2.1) mmol/L Calcium 8.8 (8.4-10.2) mg/dL Total Bilirubin 0.5 (0.2-1.3) mg/dL AST 28 (14-36) IU/L ALT 12 (<35) IU/L Alkaline Phosphatase 46 (38-126) U/L Total Protein 7.2 (6.3-8.2) g/dL Albumin 4.1 (3.5-5.0) g/dL Globulin 3.1 (1.7-4.1) g/dL Albumin/Globulin Ratio 1.3 (1.0-2.8) Blood Type A Positive Antibody Screen Negative 03/15/19 03/15/19 Range/Units 09:30 10:30 WBC (4.5-11.0) X10^3/uL RBC (4.0-5.2) X10^6/uL Hgb (12.0-16.0) g/dL Hct (36-46) % MCV (80-100) fL MCH (26-34) PG MCHC (30-36) % RDW (11.6-14.8) % Plt Count (150-400) X10^3/uL Neut % (Auto) (50-75) % Lymph % (Auto) (25-40) % [place] % (Auto) (3-14) % Eos % (Auto) (2-4) % Baso % (Auto) (0-2) % Neut # (Auto) (4779-1054) /uL Lymph # (Auto) (5702-9921) /uL [place] # (Auto) (0-900) /uL Eos # (Auto) (0-450) /uL Baso # (Auto) (0-100) /uL PT 11.1 (10.1-12.7) SECONDS INR 1.0 (0.9-1.3) APTT 25 L (26.4-36.2) SECONDS Sodium (137-145) mmol/L Potassium (3.4-5.1) mmol/L Chloride (98-107) mmol/L Carbon Dioxide (22-32) mmol/L BUN (7-17) mg/dL Creatinine (0.52-1.04) mg/dL Estimated GFR (>60) mL/min BUN/Creatinine Ratio (6-22) Glucose (80-110) mg/dL Lactate 3.4 H (0.7-2.1) mmol/L Calcium (8.4-10.2) mg/dL Total Bilirubin (0.2-1.3) mg/dL AST (14-36) IU/L ALT (<35) IU/L Alkaline Phosphatase (38-126) U/L Total Protein (6.3-8.2) g/dL Albumin (3.5-5.0) g/dL Globulin (1.7-4.1) g/dL Albumin/Globulin Ratio (1.0-2.8) Blood Type Antibody Screen Urine Dip Bedside Urine Glucose Negative Bedside Urine Bilirubin - Negative Bedside Urine Ketone - Negative Urine Specific [place] 1.010 Bedside Urine Occult Blood ++ Bedside Urine pH 6.5 Bedside Urine Protein - Negative Bedside Urine Urobilinogen - Negative Bedside Urine Nitrite - Negative Bedside Urine Leukocytes - Negative Esterase Discharge Plan Departure Patient Disposition: Admitted as Observation Clinical Impression: GI (gastrointestinal bleed), Colitis Discharge Date/Time: 03/15/19 16:46 Referrals: Mateusz Bonilla MD [Primary Care Provider] - Admit Date/Time: 03/15/19 16:32 Admit Provider: Barbara Mohr
[2019-03-15] MEDS: SODIUM CHLORIDE 0.9% 1,000 ML 150 ML IV (13:04)
[2019-03-15] MEDS: metroNIDAZOLE 500 MG/100 ML PIGGYBACK 100 MG IV ×2 (13:04→19:33)
[2019-03-15] MEDS: CARBIDOPA-LEVODOPA ER 50/200 TABLET 1 EACH PO ×2 (13:04→19:31)
[2019-03-15] MEDS: CIPROFLOXACIN 400 MG/200 ML PIGGYBACK 200 MG IV (14:17)
--- NOTE | 2019-03-15 15:06 | PC.NURSE ---
Pt concerned about observation status and co pays. Called admission counselor. Sara speaking to her by phone.
--- NOTE | 2019-03-15 16:37 | PM.CN ---
History of Present Illness Consult details Date Patient Seen: 03/15/19 Time Patient Seen: 16:10 Chief complaint: bleeding, shaky Reason for consult: GI bleed Requesting provider: Barbara Mohr Narrative: The patient is a woman who had 3 bloody bowel movements beginning yesterday in through the night. None during today. She denies any abdominal pain. No prior history of bleeding like this. She has had no nausea or vomiting. She ate breakfast. She has been on no blood thinners aspirin Motrin etc. Meds Home Medications and Allergies Home Medications Medication Instructions Recorded Confirmed Type vit C 250 mg-E 200 unit-zinc 40 1 tab PO BID #30 cap 08/07/17 03/15/19 Rx mg-copper 1 ts-zqkkyr-wlqjvj capsule carbidopa ER 50 mg-levodopa 200 mg 1 tab PO TID #270 tab 06/15/18 03/15/19 Rx tablet,extended release levothyroxine 25 mcg tablet 25 mcg PO QAM #90 tab 10/27/18 03/15/19 Rx Disabled Parking Permit 1 ea MISCELLANEOUS DIRECTED 03/15/19 03/15/19 History Allergies Allergy/AdvReac Type Severity Reaction Status Date / Time No Known Drug Allergies Allergy Verified 04/22/18 10:16 Review of Systems Review of Systems Narrative: Patient has macular degeneration but recently saw her house mover helper and was given clean exam without any worsening. It according to her has not affected her vision terribly. She wears glasses. No trouble swallowing no tooth aches. No cough cold or asthma. No heart problems chest pain. No black bowel movements. No abdominal surgery. No complaints of her abdomen. No dysuria hematuria problem with kidney stones. No seizures or blackouts. No anxiety or depression. She has been healthy most of her life. Exam Vital Signs (past 8 hours): - 03/15/19 09:10 03/15/19 09:32 03/15/19 10:00 Temperature 97.9 F Pulse Rate 61 84 77 Respiratory Rate 18 17 18 Blood Pressure 139/88 Blood Pressure [Left Arm] 135/81 138/84 Pulse Oximetry 100 100 100 03/15/19 11:02 03/15/19 11:30 03/15/19 12:03 Temperature Pulse Rate 74 72 73 Respiratory Rate 16 18 17 Blood Pressure Blood Pressure [Left Arm] 154/86 H 150/89 H 133/82 Pulse Oximetry 100 99 99 03/15/19 12:30 03/15/19 13:00 03/15/19 15:05 Temperature Pulse Rate 74 68 70 Respiratory Rate 18 17 18 Blood Pressure Blood Pressure [Left Arm] 128/73 133/86 122/76 Pulse Oximetry 98 98 Oxygen Delivery Method Room Air Narrative Exam Narrative: Cooperative pleasant woman in no apparent distress. Her eyes are nonicteric pupils are equal round reactive to like conjunctivae pink heart hears without lesion neck is supple no nodes neck supraclavicular areas lungs are clear to auscultation without rales or rhonchi could percussion heart regular rate and rhythm without murmur gallop no bruit in the neck. Abdomen is scaphoid soft hyperactive bowel sounds nontender no hernias appreciated no masses appreciated. Alert and oriented x3. Speech rate and content are appropriate. Affect appropriate. Objective Imaging CT scan - abdomen: My impression: No free air. Extensive colonic diverticulosis. Large gallstones in a normal walled gallbladder. No free fluid. A question was raised about colitis by the radiologist. I'm not sure that I see evidence of that especially combined with her physical exam which the radiologist of course is not privy to Labs Result Diagrams: 03/15/19 09:30 03/15/19 09:30 Labs: Laboratory Results - last 24 hr 03/15/19 03/15/19 03/15/19 09:30 09:30 09:30 WBC 14.0 H RBC 3.50 L Hgb 11.2 L Hct 33.8 L MCV 96.5 MCH 31.9 MCHC 33.0 RDW 13.8 Plt Count 233 Neut % (Auto) 84.1 H Lymph % (Auto) 7.4 L [place] % (Auto) 8.3 Eos % (Auto) 0.1 L Baso % (Auto) 0.1 Neut # (Auto) 72179 H Lymph # (Auto) 1000 L [place] # (Auto) 1200 H Eos # (Auto) 0 Baso # (Auto) 0 PT INR APTT Sodium 136 L Potassium 4.2 Chloride 101 Carbon Dioxide 24 BUN 25 H Creatinine 0.90 Estimated GFR > 60.0 BUN/Creatinine Ratio 27.8 H Glucose 107 Lactate Calcium 8.8 Total Bilirubin 0.5 AST 28 ALT 12 Alkaline Phosphatase 46 Total Protein 7.2 Albumin 4.1 Globulin 3.1 Albumin/Globulin Ratio 1.3 Blood Type A Positive Antibody Screen Negative 03/15/19 03/15/19 09:30 10:30 WBC RBC Hgb Hct MCV MCH MCHC RDW Plt Count Neut % (Auto) Lymph % (Auto) [place] % (Auto) Eos % (Auto) Baso % (Auto) Neut # (Auto) Lymph # (Auto) [place] # (Auto) Eos # (Auto) Baso # (Auto) PT 11.1 INR 1.0 APTT 25 L Sodium Potassium Chloride Carbon Dioxide BUN Creatinine Estimated GFR BUN/Creatinine Ratio Glucose Lactate 3.4 H Calcium Total Bilirubin AST ALT Alkaline Phosphatase Total Protein Albumin Globulin Albumin/Globulin Ratio Blood Type Antibody Screen Assessment & Plan Assessment & Plan narrative: Patient is a woman with new onset lower GI bleeding. Given her CT exam most likely source is diverticular. She did have a large polyp removed about 10 years ago when she had her last colonoscopy. It is possible this could be from a polyp though I think it's much less likely given the way she bled. I would recommend resuscitation and probably starting tomorrow once her bleeding has ceased begin a bowel prep and perform a colonoscopy on Friday. I've discussed this with the patient. Will review with her tomorrow.
[2019-03-15] MEDS: SODIUM CHLORIDE 0.9% 1,000 ML 100 ML IV (19:30)
[2019-03-15] MEDS: SODIUM CHLORIDE 0.9% FLUSH 10 ML IV (19:33)
--- NOTE | 2019-03-15 19:42 | PC.NURSE ---
ANDREY Shift. pt AO and receptive to care. NS infusing to L forearm PIV with intermittent ABX. Tolerating clear liquid diet. Denying pain. States she is using a pose pad for rectal bleeding, although only having to chance it once a day. No complaints when voiding or passing a BM. Last BM is stated to be yesterday in the middle of the night, liquid. pt takes medications for essential tremors which are mildly present to right leg and left arm, able to eat IND. patient states she doesn't use assistive device at home for transfers and was able to transfer from to bed at arrival (around 1700).
[2019-03-16] VITALS (19 sets, daily range): BP systolic 68–154; BP diastolic 37–105; PULSE 70–101; RESP 16–20; TEMP 36.3–36.8; O2SAT 98–100; BMI 22.7
[2019-03-16] MEDS: metroNIDAZOLE 500 MG/100 ML PIGGYBACK 100 MG IV (01:19)
--- NOTE | 2019-03-16 01:48 | P.HP_ITS ---
History of Present Illness History of Present Illness Date Patient Seen: 03/15/19 Time Patient Seen: 21:40 Chief complaint: bleeding, shaky Narrative: Ms. Shirlene Calvo is an 78-year-old female with a history of essential tremor for which she takes carbidopa levodopa and denies history of parkinsonism, hypothyroidism, chronic back pain and macular degeneration who presents to the ER for passing bloody stools. The patient states she began having bloody stools with passing of blood and clots beginning yesterday and through the night. She reports no bloody bowel movements today. She reports associated symptom of dizziness making it difficult for her to get dressed today. She has had no previous episodes of intestinal bleeding. She had a col onoscopy 10-11 years ago and reports she had a polyp removed to that time. She has had no other prodromal symptoms. She denies nausea vomiting, no heartburn, abdominal pain or cramping. She reports no recent complaints of fevers or chills, chest pain or palpitations, shortness of breath cough or wheezing. Upon arrival to the ER the patient is afebrile with a temperature 97.9?, heart rate of 61, blood pressure 139/88, respirations 18 saturating 100% on room air. Abdominal pelvis CT was obtained finding hepatic steatosis, gallbladder with with stones but no inflammation, no ductal dilatation, colonic diverticulosis with low-grade colonic thickening. On laboratory analysis the patient has elevated white count of 14.0, hemoglobin 11.2, hematocrit 33.8, platelets 233. Her PT is 11.1 with an INR of 1.0 and PTT of 25. Her electrolytes are within normal range and has a BUN of 25 and creatinine of 0.9 and nonfasting glucose of 107. LFTs are within normal limits. She does have an elevated lactate at 3.4. In the ER the patient received ciprofloxacin 400 mg and metronidazole [address] Soler general surgery is consulted and will evaluate. The patient is admitted to the medicine service for lower GI bleed. Patient History Medical History Chicken pox (Resolved) Chronic back pain (Chronic ~2013) Essential tremor (Chronic 06/26/15) Fatigue (Chronic 08/29/15) Hypothyroidism (acquired) (Chronic) Macular degeneration (Chronic) Measles (Resolved) Parkinson disease (Chronic) Rosacea (Chronic) Rubella (Resolved) Shoulder pain (Chronic ~1988) Surgical History Anesthesia (Resolved) History of tonsillectomy (~194) S/P cataract extraction (Chronic) Status post colonoscopy (~2007) Family & Social History Family History Grandfather Heart disease Grandmother Heart disease Mother Mental health problem Grandfather Stroke Grandmother Cancer Father Cancer Social History: household members none Prior Living Arrangements Apartment/Condo lives independently Yes Safety & Behavioral: Feels Safe in Current Yes Environment Been Physically Hurt or No Threatened By a Person Suicidal Ideation Description None Suicide Plan Description No Plan Tobacco & Substance use: Smoking Status Never smoker alcohol intake former alcohol intake frequency holiday/special occasion Substance Use Type does not use Comment: The patient lives alone in her apartment. She is since 2012. Smoking: The patient denies using tobacco products. Alcohol: Patient has rare alcohol intake on special occasions. Substance use: The patient denies recreation pharmaceuticals herbal or cannabis products. Advanced directives: The patient states she has formal advanced directives stat es her wish to be DO NOT RESUSCITATE. She designates her son to be her surrogate decision maker. Meds Home Medications and Allergies Home Medications Medication Instructions Recorded Confirmed Type vit C 250 mg-E 200 unit-zinc 40 1 tab PO BID #30 cap 08/07/17 03/15/19 Rx mg-copper 1 [id number] capsule carbidopa ER 50 mg-levodopa 200 mg 1 tab PO TID #270 tab 06/15/18 03/15/19 Rx tablet,extended release levothyroxine 25 mcg tablet 25 mcg PO QAM #90 tab 10/27/18 03/15/19 Rx Disabled Parking Permit 1 ea MISCELLANEOUS DIRECTED 03/15/19 03/15/19 History Allergies Allergy/AdvReac Type Severity Reaction Status Date / Time No Known Drug Allergies Allergy Verified 04/22/18 10:16 Review of Systems Review of Systems Narrative: All systems reviewed and found unremarkable under discussed in the HPI above. Exam Vital Signs (past 8 hours): - 03/15/19 19:04 03/16/19 01:33 Temperature 98.3 F Pulse Rate 70 Respiratory Rate 17 Blood Pressure 144/96 H Pulse Oximetry 98 98 Oxygen Delivery Method Room Air Oxygen Flow Rate 0 Narrative Exam Narrative: GENERAL APPEARANCE: well developed, well nourished, in no acute distress. HEENT: Normocephalic, PERRLA, conjunctiva clear, EOMs intact without nystagmus, no sinus tenderness to percussion, mucous membranes are moist and pink without lesions or exudate. NECK/THYROID: neck supple, no JVD, no carotid bruit, no thyromegaly, trachea midline. LYMPH NODES: no cervical or supraclavicular lymphadenopathy. SKIN: [place], warm and dry, no visible lesions, rashes, ulcerations or petechiae. HEART: regular rate and rhythm, S1-S2, no murmur, no rubs or gallops, brisk capillary refill, no edema LUNGS: clear to auscultation bilaterally, no coarseness crackles or wheezing, no cough present CHEST: Symmetrical movement, no accessory muscle use, good tidal volume. ABDOMEN: Soft, no distention, no abdominal tenderness on palpation,, no guarding or peritoneal signs, no organomegaly, no flank or suprapubic tend erness, active bowel tones. BACK: Normal curvature, nontender to palpation, no CVA tenderness on percussion EXTREMITIES: moves all extremities, strength is 5/5 and symmetrical, no deformities or joint effusions. NEUROLOGIC: AAO x4, good recall, no focal neurologic deficits, sensation intact to light touch, very slight tremor. PSYCH: cooperative, appropriate with stable behavior Objective Labs Result Diagrams: 03/15/19 09:30 03/15/19 09:30 Labs: Laboratory Results - last 24 hr 03/15/19 03/15/19 03/15/19 09:30 09:30 09:30 WBC 14.0 H RBC 3.50 L Hgb 11.2 L Hct 33.8 L MCV 96.5 MCH 31.9 MCHC 33.0 RDW 13.8 Plt Count 233 Neut % (Auto) 84.1 H Lymph % (Auto) 7.4 L [place] % (Auto) 8.3 Eos % (Auto) 0.1 L Baso % (Auto) 0.1 Neut # (Auto) 61819 H Lymph # (Auto) 1000 L [place] # (Auto) 1200 H Eos # (Auto) 0 Baso # (Auto) 0 PT INR APTT Sodium 136 L Potassium 4.2 Chloride 101 Carbon Dioxide 24 BUN 25 H Creatinine 0.90 Estimated GFR > 60.0 BUN/Creatinine Ratio 27.8 H Glucose 107 Lactate Calcium 8.8 Total Bilirubin 0.5 AST 28 ALT 12 Alkaline Phosphatase 46 Total Protein 7.2 Albumin 4.1 Globulin 3.1 Albumin/Globulin Ratio 1.3 Blood Type A Positive Antibody Screen Negative 03/15/19 03/15/19 09:30 10:30 WBC RBC Hgb Hct MCV MCH MCHC RDW Plt Count Neut % (Auto) Lymph % (Auto) [place] % (Auto) Eos % (Auto) Baso % (Auto) Neut # (Auto) Lymph # (Auto) [place] # (Auto) Eos # (Auto) Baso # (Auto) PT 11.1 INR 1.0 APTT 25 L Sodium Potassium Chloride Carbon Dioxide BUN Creatinine Estimated GFR BUN/Creatinine Ratio Glucose Lactate 3.4 H Calcium Total Bilirubin AST ALT Alkaline Phosphatase Total Protein Albumin Globulin Albumin/Globulin Ratio Blood Type Antibody Screen Assessment & Plan Assessment & Plan narrative: This is an 78 year old female patient presents to the ER for lower GI bleeding passing blood clots. Patient has had no further bleeding today and has been evaluated by Dr. Soler. The patient denies complaints of abdominal pain nausea vomiting has had no further bleeding today. 1. Acute Lower GI bleed, present on admission, active -patient with rectal bleeding with clots, onset yesterday continue through the night, no further bloody bowel movements today, associated symptom dizziness. -patient with guaiac positive rectal exam in the emergency department. -CT exam finds hepatic steatosis with normal gallbladder with stones no ductal dilatation or inflammation, colonic diverticulosis with low-grade colonic t hickening. -hemoglobin is 11.2 with a hematocrit of 33.8. No coagulopathy, elevated BUN at 25 with a creatinine 0.9. Patient has been typed and screened. -Dr. Soler has agreed to consult we appreciate his evaluation, treatment and recommendations. -will monitor CBC, guaiac stool as needed. 2. Possible colitis, present on admission, active -patient is afebrile, with no pain and no further bleeding, there is no strong compelling reason to continue antibiotic therapy. -will monitor CBC and procalcitonin. 3. Essential tremor, chronic, stable -very subtle tremor on exam. -patient denies diagnosis of Parkinson's, continue home regimen of carbidopa levodopa 3 times daily. 4. Hypothyroidism, acquired, stable. -will continue patient's home regimen of levothyroxine 25 mcg daily. 5. Macular degeneration, stable -patient is recently evaluated by forensic computer examiner reports no change in vision for the last 2 years. -continue patient's home regimen of PreserVision vitamins. VTE prophylaxis: SCDs, chemical prophylaxis contraindicated. Diet: Clear liquids IV fluid: Normal saline 50 cc/hour The patient is admitted to the hospital related to the severity of her symptoms and risk for complications and adverse events. The patient will be admitted observation with expected length of stay to be less than 2 midnights. Scores GCS Chris coma scale eye opening: Spontaneous [place] coma scale verbal response: Orientated [place] coma scale motor response: Obey commands [place] coma scale total score: 15 Quality VTE Deep Vein Thrombosis/Pulmonary Embolism Present on Admission: No
--- NOTE | 2019-03-16 04:17 | PC.NURSE ---
0120, patient was up to the bathroom had large bloody BM. She relayed to me that when she went to the bathroom she felt dizzy and light headed. BP at this time was 143/91. Stool sample was also Guaiaced at this time and the guaiac was positive. Results were relayed to Hector ALMAZAN. Hector ordered Orthostatic BP's for the next time she woke up, and increased fluids to 100ml/hr. 0400, patient asked to get up to go to the bathroom, orthostatic vitals were done. Pt dropped BP's with Orthostatics. Results were relayed to Hector ALMAZAN, Hector put in orders for 500ml bolus of NS at 250ml/hr.
[2019-03-16] MEDS: SODIUM CHLORIDE 0.9% 500 ML 250 ML IV (04:27)
[2019-03-16] MEDS: LEVOTHYROXINE 25 MCG TABLET PO (05:25)
[2019-03-16 06:20] LABS: Add Manual Diff / Slide Review NO; Basophils Absolute Auto 0 /uL (0-100); Basophils Percent Auto 0.4 % (0-2); Eosinophils Absolute Auto 0 /uL (0-450); Eosinophils Percent Auto 0.3 % (2-4); Hemoglobin 10.3 g/dL (12.0-16.0); Lymphocytes Absolute Auto 1100 /uL (1100-4500); Lymphocytes Percent Auto 15.9 % (25-40); Mean Corpuscular HGB Conc 33.4 % (30-36); Mean Corpuscular Hemoglobin 32.4 PG (26-34); Mean Corpuscular Volume 96.9 fL (80-100); Monocytes Absolute Auto 600 /uL (0-900); Monocytes Percent Auto 8.7 % (3-14); Neutrophils Absolute Auto 5000 /uL (1500-7000); Neutrophils Percent Auto 74.7 % (50-75); Platelet Count 214 X10^3/uL (150-400); Red Cell Distribution Width 13.5 % (11.6-14.8); White Blood Cell Count 6.7 X10^3/uL (4.5-11.0)
[2019-03-16 06:28] LABS: BUN Creatinine Ratio 17.5 (6-22); Blood Urea Nitrogen 14 mg/dL (7-17); Calcium 8.3 mg/dL (8.4-10.2); Carbon Dioxide 26 mmol/L (22-32); Chloride 107 mmol/L (98-107); Estimated Glomerular Filt Rate > 60.0 mL/min (>60); Glucose 94 mg/dL (80-110); HEMOLYSIS < 15 (0-50); Potassium 3.8 mmol/L (3.4-5.1); Sodium 139 mmol/L (137-145)
[2019-03-16 06:47] LABS: Procalcitonin < 0.05 ng/mL (<0.5)
[2019-03-16] MEDS: CARBIDOPA-LEVODOPA ER 50/200 TABLET 1 EACH PO ×3 (08:45→21:46)
[2019-03-16] MEDS: PANTOPRAZOLE 40 MG VIAL IV (08:46)
[2019-03-16] MEDS: SODIUM CHLORIDE 0.9% FLUSH 10 ML IV (08:46)
[2019-03-16] MEDS: SODIUM CHLORIDE 0.9% 1,000 ML 100 ML IV ×2 (08:46→20:22)
--- NOTE | 2019-03-16 09:05 | PC.NURSE ---
Patient alert, oriented denies pain, shortness of breath and nausea. Ortho static BP's done. Patient became ortho static while standing and c/o dizziness. BP 77/57 HR 101 with standing. See charting for other BP's. Patient assisted to BSC had 250cc mixed bloody stool.
--- NOTE | 2019-03-16 09:06 | CM.DANOTE ---
DCP: Case received, EMR reviewed and met with patient. Introduced self and role. Was able to meet briefly with patient to obtain baseline history and health information, along with activity level. DCP assessment completed with information currently available. Patient is a 78 year old female who admitted yesterday afternoon to the care of the hospitalist team. PCP: Dr. Bonilla. Payer: confirmed: Medicare/[employer]. Patient came to the hospital via private vehicle secondary to rectal bleeding. Patient holds diagnosis of GI bleed. She had a colonoscopy approximately 2 years ago, and stated that they had found 2 polyps. Met with patient in her room. She was laying in bed. She is alert and oriented. She resides here in [place]. She lives alone, her passed in 2012. She has a sister that also lives in [place]. Patient is independent, and drives. P: DCP to continue to follow closely. Patient should be able to go home when she is medically stable. Soniya Timmons RN/Business Planning Analyst
[2019-03-16] MEDS: VIT C/E/ZN/COPPR/LUTEIN/ZEAXAN CAPSULE 1 CAP PO ×2 (12:11→21:46)
--- NOTE | 2019-03-16 12:58 | DIET.PN ---
Dietary Progress Note Assessment: 78y F admitted for lower GI bleed suspecting diverticulitis referred to nutrition for same. Pt reports waking up to no px but noticing blood in stool, came to ER. Pt , living in subsidized housing, does not cook much for herself but has a helpful sister who brings meals over in addition to going on [employer]. Pt reports her mom had diverticulosis and avoided nuts/seeds/skins etc. HT: 157.4cm WT: 56.4kg BMI: 22.8 Labs: Hgb 10.3 L MNA: 13 Severo: 22 Nutrition Diagnosis: altered GI function (rectal bleeding) r/t suspected flare of diverticulitis aeb pt sx rectal bleeding c/o px, pts mother had diverticulosis, pt does not cook so diet lower than goal amount in fiber. Interventions: 1. Discussed pt's diet progression in the hospital after her colonoscopy from clears to fulls to low residue diet which she will likely be discharged on. 2. Gave pt handout and educated on following low fiber diet for 2 weeks after discharge and slowly incorporating more fiber until following high fiber diet of 25g/d per age and sex appropriate reccs using handout. Diet Order: clears EER: 1500kcal, 55g PRO (1g/kg per elder), 2L fluids Monitoring/Evaluations: following results of colonoscopy, diet advancement, labs
--- NOTE | 2019-03-16 14:15 | PM.PN.1 ---
Subjective Subjective Date Patient Seen: 03/16/19 Interval history: Patient is generally healthy 78-year-old female admitted with acute lower GI bleed. She has had several more bowel movements today. She is severely orthostatic with standing BP dropping to 70 systolic range. Exam Vital Signs (past 8 hours): - 03/16/19 07:00 03/16/19 08:00 03/16/19 09:05 Temperature 98.3 F Pulse Rate 93 H Pulse Rate [Orthostatic Lying] 84 Pulse Rate [Orthostatic Sitting] 93 H Pulse Rate [Orthostatic Standing] 101 H Respiratory Rate 18 Blood Pressure 135/74 Blood Pressure [Orthostatic Lying] 145/100 H Blood Pressure [Orthostatic Sitting] 135/74 Blood Pressure [Orthostatic Standing] 77/57 L Pulse Oximetry 100 100 03/16/19 11:07 03/16/19 12:09 03/16/19 13:00 Temperature 98 F Pulse Rate 70 Pulse Rate [Orthostatic Lying] Pulse Rate [Orthostatic Sitting] Pulse Rate [Orthostatic Standing] Respiratory Rate 18 Blood Pressure 138/88 114/74 Blood Pressure [Orthostatic Lying] 138/88 Blood Pressure [Orthostatic Sitting] 107/75 Blood Pressure [Orthostatic Standing] 68/37 L Pulse Oximetry 98 98 Oxygen Delivery Method Room Air Oxygen Flow Rate 0 Narrative Exam Narrative: General very pleasant alert female in no acute distress Lungs clear to auscultation Heart regular rhythm Abdomen soft and nontender Extremities no edema Neurological conversationally cognitively intact, nonfocal Objective Labs Result Diagrams: 03/16/19 05:49 03/16/19 05:49 Labs: Laboratory Results - last 24 hr 03/16/19 03/16/19 03/16/19 05:49 05:49 05:49 WBC 6.7 D RBC 3.20 L Hgb 10.3 L Hct 31.0 L MCV 96.9 MCH 32.4 MCHC 33.4 RDW 13.5 Plt Count 214 Neut % (Auto) 74.7 Lymph % (Auto) 15.9 L [place] % (Auto) 8.7 Eos % (Auto) 0.3 L Baso % (Auto) 0.4 Neut # (Auto) 5000 Lymph # (Auto) 1100 [place] # (Auto) 600 Eos # (Auto) 0 Baso # (Auto) 0 Sodium 139 Potassium 3.8 Chloride 107 Carbon Dioxide 26 BUN 14 Creatinine 0.80 Estimated GFR > 60.0 BUN/Creatinine Ratio 17.5 Glucose 94 Calcium 8.3 L Magnesium 2.0 Procalcitonin < 0.05 Assessment & Plan Assessment & Plan narrative: This is an 78 year old female patient admitted due to acute lower GI bleed. 1. Acute blood loss anemia due to lower GI bleed, present on admission, active -etiology likely diverticular or polyp versus colitis -patient with continued rectal bleeding and severe orthostasis -CT exam finds hepatic steatosis with normal gallbladder with stones no ductal dilatation or inflammation, colonic diverticulosis with low-grade colonic thickening. -getting GoLYTELY prep, on clear liquid diet, scheduled for colonoscopy tomorrow, Friday with Dr. Soler -hemoglobin and hematocrit pending for this afternoon -continue normal saline 100 cc/hour 2. Essential tremor, chronic, stable -very subtle tremor on exam. -patient denies diagnosis of Parkinson's, continue home regimen of carbidopa levodopa 3 times daily. 3. Hypothyroidism, acquired, stable. -continue patient's home regimen of levothyroxine 25 mcg daily. 4. Macular degeneration, stable -patient is recently evaluated by asset protection detective reports no change in vision for the last 2 years. -continue patient's home regimen of PreserVision vitamins. VTE prophylaxis: SCDs, chemical prophylaxis contraindicated. Continue acute inpatient management due to severe orthostasis associated with persistent lower GI bleeding and blood-loss anemia. Quality VTE Deep Vein Thrombosis/Pulmonary Embolism Present on Admission: No
[2019-03-16] MEDS: PEG3350/SOD SULF,BICARB,CL/KCL 4,000 ML SOLUTION 4000 ML PO (17:22)
--- NOTE | 2019-03-16 17:28 | PM.PN.1 ---
Subjective Subjective Date Patient Seen: 03/16/19 Time Patient Seen: 17:28 Interval history: Bleeding has slowed. No longer passing clots. Hematocrit is above 30. Exam Vital Signs (past 8 hours): - 03/16/19 11:07 03/16/19 12:09 03/16/19 13:00 Temperature 98 F Pulse Rate 70 Pulse Rate [Orthostatic Lying] Pulse Rate [Orthostatic Sitting] Pulse Rate [Orthostatic Standing] Respiratory Rate 18 Blood Pressure 138/88 114/74 Blood Pressure [Orthostatic Lying] 138/88 Blood Pressure [Orthostatic Sitting] 107/75 Blood Pressure [Orthostatic Standing] 68/37 L Pulse Oximetry 98 98 03/16/19 15:46 03/16/19 15:55 Temperature 98.2 F Pulse Rate 82 Pulse Rate [Orthostatic Lying] 77 Pulse Rate [Orthostatic Sitting] 85 Pulse Rate [Orthostatic Standing] 89 Respiratory Rate 20 Blood Pressure 150/105 H Blood Pressure [Orthostatic Lying] 140/96 H Blood Pressure [Orthostatic Sitting] 109/74 Blood Pressure [Orthostatic Standing] 79/50 L Pulse Oximetry 99 Oxygen Delivery Method Room Air Oxygen Flow Rate 0 Objective Labs Result Diagrams: 03/16/19 05:49 03/16/19 05:49 Labs: Laboratory Results - last 24 hr 03/16/19 03/16/19 03/16/19 05:49 05:49 05:49 WBC 6.7 D RBC 3.20 L Hgb 10.3 L Hct 31.0 L MCV 96.9 MCH 32.4 MCHC 33.4 RDW 13.5 Plt Count 214 Neut % (Auto) 74.7 Lymph % (Auto) 15.9 L [place] % (Auto) 8.7 Eos % (Auto) 0.3 L Baso % (Auto) 0.4 Neut # (Auto) 5000 Lymph # (Auto) 1100 [place] # (Auto) 600 Eos # (Auto) 0 Baso # (Auto) 0 Sodium 139 Potassium 3.8 Chloride 107 Carbon Dioxide 26 BUN 14 Creatinine 0.80 Estimated GFR > 60.0 BUN/Creatinine Ratio 17.5 Glucose 94 Calcium 8.3 L Magnesium 2.0 Procalcitonin < 0.05 Assessment & Plan Assessment & Plan narrative: The patient for a colonoscopy. I have discussed the procedure with them. Risks of bleeding, perforation which would necessitate major operation, failure to find remove all lesions, the potential tattoo were all discussed. All questions were answered. They wished to proceed. Scheduled for early tomorrow morning Quality VTE Deep Vein Thrombosis/Pulmonary Embolism Present on Admission: No
[2019-03-16 17:59] LABS: Hematocrit 29.6 % (36-46); Hemoglobin 10.1 g/dL (12.0-16.0)
--- NOTE | 2019-03-16 22:45 | PC.NURSE ---
Bowel prep Patient's bowel movements initially were dark red, brown soft stool. Frequency every 15 to 30 minutes patient having bowel movements. Presently 2250, last bowel was light brown to clear in color. GOLITELY prep left to consume is about 1000 mL to complete. Patient tolerating GOLITELY prep without any complaints of dizziness, nausea or vomitting.
--- NOTE | 2019-03-16 23:11 | PC.NURSE ---
A&OX3. 99%RA. denied any pain. denied any dizziness w/ambulation. orthostatic BP, 79mmHg systolic when standing up. pt has approximately 1000cc left in GoLytely container. pt had several bloody stools, but now has turned to liquid brown stool. Pt will be picked up at 0630 for a scope tomorrow. NPO at midnight. call light in reach. bed alarm active. IVF.
[2019-03-17] VITALS (15 sets, daily range): BP systolic 101–172; BP diastolic 59–105; PULSE 72–91; RESP 15–18; TEMP 36.1–37.1; O2SAT 98–100; BMI 22.7
--- NOTE | 2019-03-17 | PATH_ITS ---
[facility] Accession Number: [id number] . 01 Material submitted: . PART A: colon - ASCENDING COLON POLYP PART B: colon - POLYP AT 50 CM PART C: rectum - RECTAL POLYP . 01 Clinical history: . BLEEDING, SHAKY . 02 Diagnosis: A. Ascending Colon, Polyp, Biopsy: Tubulovillous adenoma. No evidence of malignancy or high-grade dysplasia. . B. Colon, Polyp at 50 cm, Biopsy: Tubular adenoma. . C. Rectum, Polyp, Biopsy: Hyperplastic polyp. MRV 03/18/2019 1237 Local . 02 Electronically signed: . Adriana Reza MD, Pathologist NPI- [id number] . 01 Gross description: . Part A: ASCENDING COLON POLYP: Received in formalin are multiple fragment(s) of abdalla, soft tissue measuring 0.1 x 0.1 x 0.1 cm to 0.5 x 0.5 x 0.4 cm submitted entirely in 1 cassette(s) Part B: POLYP AT 50 CM: Received in formalin are 3 fragment(s) of abdalla, soft tissue measuring 0.3 x 0.2 x 0.2 cm to 0.6 x 0.5 x 0.5 cm submitted entirely in 1 cassette(s) Part C: RECTAL POLYP: Received in formalin is 1 fragment(s) of abdalla, soft tissue measuring 0.3 x 0.2 x 0.2 cm submitted entirely in 1 cassette(s) /[facility] 03/17/2019 1859 Local . 02 Pathologist provided ICD-10: D12.2, D12.6 . 02 CPT . 113649, 295401, [id number] Performed at: 01 [facility] [address] [place] [address] [facility] [place] [place], [place] [id number] MD Les Dumont MD Phone: [phone] Performed at: 02 [facility] [address] [place] [id number] MD Adriana Reza MD Phone: [phone]
[2019-03-17] MEDS: LEVOTHYROXINE 25 MCG TABLET PO (05:58)
[2019-03-17] MEDS: SODIUM CHLORIDE 0.9% 1,000 ML 100 ML IV (06:06)
[2019-03-17 06:26] LABS: BUN Creatinine Ratio 11.7 (6-22); Blood Urea Nitrogen 7 mg/dL (7-17); Calcium 7.9 mg/dL (8.4-10.2); Carbon Dioxide 25 mmol/L (22-32); Chloride 107 mmol/L (98-107); Estimated Glomerular Filt Rate > 60.0 mL/min (>60); Glucose 94 mg/dL (80-110); HEMOLYSIS < 15 (0-50); Potassium 3.2 mmol/L (3.4-5.1); Sodium 140 mmol/L (137-145)
[2019-03-17 06:29] LABS: Add Manual Diff / Slide Review NO; Basophils Absolute Auto 0 /uL (0-100); Basophils Percent Auto 0.5 % (0-2); Eosinophils Absolute Auto 100 /uL (0-450); Eosinophils Percent Auto 0.7 % (2-4); Hematocrit 30.3 % (36-46); Hemoglobin 10.3 g/dL (12.0-16.0); Lymphocytes Absolute Auto 1600 /uL (1100-4500); Lymphocytes Percent Auto 20.8 % (25-40); Mean Corpuscular Hemoglobin 32.6 PG (26-34); Monocytes Absolute Auto 1000 /uL (0-900); Monocytes Percent Auto 12.8 % (3-14); Neutrophils Absolute Auto 5100 /uL (1500-7000); Neutrophils Percent Auto 65.2 % (50-75); Platelet Count 222 X10^3/uL (150-400); Red Blood Cell Count 3.16 X10^6/uL (4.0-5.2); Red Cell Distribution Width 13.6 % (11.6-14.8); White Blood Cell Count 7.8 X10^3/uL (4.5-11.0)
--- NOTE | 2019-03-17 07:20 | PC.NURSE ---
Patient off floor for procedure at 0630 with OR BAT PERSON via wheelchair, saline locked IV, fluids paused in APR.
[2019-03-17] MEDS: MIDAZOLAM 5 MG/5 ML VIAL IV (07:21)
[2019-03-17] MEDS: fentaNYL 250 MCG/5 ML INJ IV (07:22)
--- NOTE | 2019-03-17 07:22 | PM.PREOP ---
Pre-operative Note Interval Note History & Physical reviewed/Exam performed by Physician: Yes Changes to H&P: No ASA Class (for procedural sedation): II
--- NOTE | 2019-03-17 07:48 | PC.NURSE ---
Addendum entered by Ce Smith R.N. 03/17/19 13:53: Spoke with Dr. Arriola and reported Orthostatic BP/Pulse taken by CMS EXPERT around 1315. Lye BP 127/76, p-82, sit BP 128/79, P 85, stand BP 108/69, P-90. Plan to discharge pt today. Addendum entered by Ce Smith R.N. 03/17/19 09:53: Report rec'd from Naila in PACU at 0825. Pt arrived back to room 209 at 0835, up to BSC then settled into bed, call light within reach. On arrival BP elevated due to pt being up to BSC then to bed, BP taken shortly after, 2nd BP check upon rest WNL, comparable to pre-op. Pt A&OX4, denies abd pain, bloating, discomfort. States discomfort to PIV site to right FA, no S/S of infection, infiltration noted. Pt given water and apple sauce to start and cream of wheat ordered. Pt denies nausea. Original Note: Day SHift- Per nightclub manager RN, pt left unit at 0630 for Colonoscopy.
--- NOTE | 2019-03-17 08:04 | PM.OP.ENDO ---
Operative Date/Time/Diagnoses Date of procedure: 03/17/19 Time of procedure: 08:05 Pre-op diagnosis: Rectal bleeding lower GI bleed Post-op diagnosis: same (Three polyps not the source of bleeding. Large internal hemorrhoids. Extensive diverticulosis principally sigmoid most likely source of bleeding) Procedure & Clinicians Study performed: Colonoscopy with hot snare polypectomy and cold biopsy Same procedure as scheduled: Yes Indications: Determine source of lower GI bleed Surgeon: Sudhir Soler Procedure Notes SCOAP/Timeout: Performed Procedure in detail: The patient was placed in the left lateral decubitus position and underwent IV sedation directed by the surgeon consisting of fentanyl and Versed. Digital exam was remarkable for visible external hemorrhoids somewhat swollen most likely because of frequent bowel movements from her bowel prep. No masses were felt.. The scope was inserted and advanced through the rectum into the sigmoid, descending, transverse, and ascending colon. Extensive sigmoid diverticulosis and diverticuli scattered elsewhere was identified.. The cecum was reached identified by the ileocecal valve and the appendiceal opening. The scope was gradually brought out. Polyps were found at the ascending colon, 50 cm from the anal verge and in the rectum. The 1st 2 polyps were large enough to snare with a hot snare and appeared to be completely removed. The last polyp in the rectum was very small and it was biopsied and completely removed.. The scope ultimately was retroflexed in the rectum. The appearance was significant for large internal hemorrhoids. There was no active ulceration the there was some irritation again, most likely from the bowel prep. The scope was removed and the patient tolerated the procedure well. The prep was excellent. There was no blood in the colon. Scope withdrawal time: 10 minutes(20 total) Sedation minutes: 33 Findings: diverticulosis (Carvalho colonic but principally in the sigmoid) Specimen(s): other (Three polyps) Complications: none Post-procedure Recommendations: Colonscopy in 5 years (If in good health) Follow up: as needed Disposition: PACU
--- NOTE | 2019-03-17 08:32 | SUR.PHASEII ---
Pt bypassed PACU and came directly to PHASE II from completion of endo procedure. Report called to LAURA Encinas on acute care floor. Pt being transferred to acute care floor at this time. pt alert and talking to RN, denies any pain or discomfort at this time. VSS.
[2019-03-17] MEDS: CARBIDOPA-LEVODOPA ER 50/200 TABLET 1 EACH PO ×2 (08:52→15:42)
[2019-03-17] MEDS: VIT C/E/ZN/COPPR/LUTEIN/ZEAXAN CAPSULE 1 CAP PO (08:52)
[2019-03-17] MEDS: POTASSIUM CHLORIDE 40 MEQ in SODIUM CHLORIDE 0.9% 500 ML 130 ML IV (09:03)
--- NOTE | 2019-03-17 15:39 | PM.DS.1 ---
History of Present Illness History of Present Illness Chief complaint: bleeding, shaky Narrative: Ms. Shirlene Calvo is an 78-year-old female with a history of essential tremor for which she takes carbidopa levodopa and denies history of parkinsonism, hypothyroidism, chronic back pain and macular degeneration who presents to the ER for passing bloody stools. The patient states she began having bloody stools with passing of blood and clots beginning yesterday and through the night. She reports no bloody bowel movements today. She reports associated symptom of dizziness making it difficult for her to get dressed today. She has had no previous episodes of intestinal bleeding. She had a colonoscopy 10-11 years ago and reports she had a polyp removed to that time. She has had no other prodromal symptoms. She denies nausea vomiting, no heartburn, abdominal pain or cramping. She reports no recent complaints of fevers or chills, chest pain or palpitations, shortness of breath cough or wheezing. Upon arrival to the ER the patient is afebrile with a temperature 97.9?, heart rate of 61, blood pressure 139/88, respirations 18 saturating 100% on room air. Abdominal pelvis CT was obtained finding hepatic steatosis, gallbladder with with stones but no inflammation, no ductal dilatation, colonic diverticulosis with low-grade colonic thickening. On laboratory analysis the patient has elevated white count of 14.0, hemoglobin 11.2, hematocrit 33.8, platelets 233. Her PT is 11.1 with an INR of 1.0 and PTT of 25. Her electrolytes are within normal range and has a BUN of 25 and creatinine of 0.9 and nonfasting glucose of 107. LFTs are within normal limits. She does have an elevated lactate at 3.4. In the ER the patient received ciprofloxacin 400 mg and metronidazole [address] Soler general surgery is consulted and will evaluate. The patient is admitted to the medicine service for lower GI bleed. Discharge Providers Provider Date of admission: 03/16/19 10:56 Discharge Date: 03/17/19 Primary care physician: Mateusz Bonilla MD Consults: 03/15/19 22:46 Consult to Dietitian, Adult Routine Comment: Reason For Exam: Diverticulitis, lower GI bleed 03/15/19 22:47 Consult to Discharge Planning Routine Comment: Discharge provider: Tyler Arriola MD Summary Hospital Course Discharge Diagnosis: 1. Acute lower GI bleed likely secondary to diverticulosis 2. Acute blood loss anemia 3. Pancolonic diverticulosis 4. Colon polyps x 3, presumed benign 5. Orthostatic hypotension Hospital Course: Patient admitted for GI bleed with blood-loss anemia. She did not require transfusion but was very orthostatic. Her hemoglobin did not drop below 10. She had colonoscopy with Dr. Soler showing extensive diverticulosis most prominent in the sigmoid colon and 3 colon polyps were removed. There was no active bleeding noted at time of colonoscopy. Prior to discharge patient had orthostatic BP recheck and she was mildly orthostatic with BP dropping to 108/69 upon standing but patient was not having severe dizziness. She also tolerated regular diet for lunch. [facility] will follow-up with her on polyp pathology results. Status at Discharge Cognitive/behavioral status at discharge: oriented Functional status at discharge: independent ambulation Overall status at discharge: patient is progressing back to baseline Exam Vital Signs (past 8 hours): - 03/17/19 08:07 03/17/19 08:17 03/17/19 08:26 Temperature 97.8 F 97.0 F L 98 F Pulse Rate 85 79 77 Pulse Rate [Orthostatic Lying] Pulse Rate [Orthostatic Sitting] Pulse Rate [Orthostatic Standing] Respiratory Rate 15 15 15 Blood Pressure 154/84 H 152/85 H 154/88 H Blood Pressure [Orthostatic Lying] Blood Pressure [Orthostatic Sitting] Blood Pressure [Orthostatic Standing] Pulse Oximetry 100 100 100 03/17/19 08:40 03/17/19 09:10 03/17/19 09:17 Temperature 98.0 F 98.0 F Pulse Rate 91 H 77 Pulse Rate [Orthostatic Lying] Pulse Rate [Orthostatic Sitting] Pulse Rate [Orthostatic Standing] Respiratory Rate 18 18 Blood Pressure 164/105 H 159/85 H Blood Pressure [Orthostatic Lying] Blood Pressure [Orthostatic Sitting] Blood Pressure [Orthostatic Standing] Pulse Oximetry 98 98 99 03/17/19 09:47 03/17/19 10:47 03/17/19 11:47 Temperature 97.5 F L 97.5 F L Pulse Rate 87 83 79 Pulse Rate [Orthostatic Lying] Pulse Rate [Orthostatic Sitting] Pulse Rate [Orthostatic Standing] Respiratory Rate 18 18 18 Blood Pressure 151/87 H 130/64 101/59 L Blood Pressure [Orthostatic Lying] Blood Pressure [Orthostatic Sitting] Blood Pressure [Orthostatic Standing] Pulse Oximetry 99 100 99 03/17/19 13:05 Temperature Pulse Rate Pulse Rate [Orthostatic Lying] 82 Pulse Rate [Orthostatic Sitting] 85 Pulse Rate [Orthostatic Standing] 90 Respiratory Rate Blood Pressure Blood Pressure [Orthostatic Lying] 127/76 Blood Pressure [Orthostatic Sitting] 128/79 Blood Pressure [Orthostatic Standing] 108/69 Pulse Oximetry Oxygen Delivery Method Room Air Oxygen Flow Rate 0 Objective Labs Result Diagrams: 03/17/19 05:54 03/17/19 05:54 Labs: Laboratory Results - last 24 hr 03/16/19 03/17/19 03/17/19 17:50 05:54 05:54 WBC 7.8 RBC 3.16 L Hgb 10.1 L 10.3 L Hct 29.6 L 30.3 L MCV 96.0 MCH 32.6 MCHC 34.0 RDW 13.6 Plt Count 222 Neut % (Auto) 65.2 Lymph % (Auto) 20.8 L [place] % (Auto) 12.8 Eos % (Auto) 0.7 L Baso % (Auto) 0.5 Neut # (Auto) 5100 Lymph # (Auto) 1600 [place] # (Auto) 1000 H Eos # (Auto) 100 Baso # (Auto) 0 Sodium 140 Potassium 3.2 L Chloride 107 Carbon Dioxide 25 BUN 7 Creatinine 0.60 Estimated GFR > 60.0 BUN/Creatinine Ratio 11.7 Glucose 94 Calcium 7.9 L Discharge Plan Discharge Plan Patient Disposition: Home Discharge comment: You were admitted due to lower GI bleed. Colonoscopy showed extensive diverticulosis and 3 polyps were removed. [facility] will call you with biopsy results. Advance diet as tolerated Discharge orders & Medications Prescriptions: Continued vit C,H-Li-ulgvl-lutein-zeaxan [PreserVision AREDS-2] [id number] xx-dhdu-es-mg capsule 1 tab PO BID Qty: 30 RF: 0 carbidopa-levodopa 50-200 mg tablet extended release 1 tab PO TID Qty: 270 RF: 3 levothyroxine 25 mcg tablet 25 mcg PO QAM Qty: 90 RF: 1 Disabled Parking Permit 1 ea miscellaneous DIRECTED RF: 0 Follow up/Referrals: Mateusz Bonilla MD [Primary Care Provider] - Diet/Activity/Treatments Diet: Diet as Tolerated Discharge Data Primary Care Provider: Mateusz Bonilla VTE Deep Vein Thrombosis/Pulmonary Embolism Present on Admission: No
== END 2019-03-17 16:26 | disposition home or self-care (01) | DRG 378 ==
LOC: ED 13:31 → AC 16:32
PROVIDERS: Internal Medicine; Nurse Practitioner Adult Health; Specialist; Admitting Provider Internal Medicine; Emergency Provider Emergency Medicine; PCP Student in an Organized Health Care Education/Training Program; Visit Provider Internal Medicine
PROC: 0DJD8ZZ Inspection of Lower Intestinal Tract, Via Natural or Artificial Opening Endoscopic (ICD-10-PCS; CPT 45378; principal; 2019-03-17 07:30)
DX: K57.31 Diverticulosis of large intestine without perforation or abscess with bleeding (principal); D62 Acute posthemorrhagic anemia; K63.5 Polyp of colon; K64.8 Other hemorrhoids; G25.0 Essential tremor; E03.9 Hypothyroidism, unspecified; H35.30 Unspecified macular degeneration; I95.1 Orthostatic hypotension
CPT/HCPCS: 36415; 45380; 74177; 80048; 80053; 81003; 83605; 83735; 84145; 85014; 85018; 85025; 85610; 85730; 86850; 86900; 86901; 93005; 96361; 96365; 96367; 96375; 99152; 99153; 99231; 99284; G0378; C9113; J0744; J2250; J3010; J3480; Q9967

== ENCOUNTER → 2019-03-31 14:38 | Outpatient (CLI) | payer MEDICARE, OTHER, SELFPAY ==
[2019-03-15 17:28] VITALS: BMI 22.6
[2019-03-31 15:20] LABS: Hematocrit 30.6 % (36-46); Hemoglobin 10.3 g/dL (12.0-16.0); Mean Corpuscular HGB Conc 33.7 % (30-36); Mean Corpuscular Hemoglobin 32.8 PG (26-34); Mean Corpuscular Volume 97.1 fL (80-100); Platelet Count 272 X10^3/uL (150-400); Red Blood Cell Count 3.15 X10^6/uL (4.0-5.2); Red Cell Distribution Width 13.6 % (11.6-14.8); White Blood Cell Count 6.8 X10^3/uL (4.5-11.0)
[2019-03-31 15:26] LABS: Reticulocyte Count, Percent 1.6 % (1.06-2.63)
[2019-03-31 15:42] LABS: HEMOLYSIS < 15 (0-50); Iron 45 ug/dL (37-170)
[2019-03-31 15:53] LABS: Percent Iron Saturation 15 % (15-50); Total Iron Binding Capacity 295 ug/dL (265-497); Transferrin 239 mg/dL (206-381)
[2019-04-01 10:11] LABS: Ferritin 19.2 ng/mL (11.1-264)
== END ==
PROVIDERS: PCP Student in an Organized Health Care Education/Training Program; Referring Provider Student in an Organized Health Care Education/Training Program; Visit Provider Student in an Organized Health Care Education/Training Program
DX: D62 Acute posthemorrhagic anemia (principal); K92.2 Gastrointestinal hemorrhage, unspecified
CPT/HCPCS: 36415; 82728; 83540; 83550; 85027; 85045

== ENCOUNTER 2019-04-23 10:15 | Outpatient (RCR) | payer MEDICARE, OTHER, SELFPAY ==
[2019-03-15 17:28] VITALS: BMI 22.6
[2019-04-23 10:33] VITALS: BP 104/80; BP 142/100
--- NOTE | 2019-04-23 16:15 | PT.OIE ---
Current Diagnoses Muscle weakness (generalized) (04/23/19) Other symptoms and signs involving the musculoskeletal system (04/23/19) Urgency of urination (04/23/19) Past Medical History (Last Updated 03/31/19 @ 14:38 by Mateusz Bonilla MD) Chicken pox (Resolved) Chronic back pain (Chronic ~2013) Colitis (Inactive) Essential tremor (Chronic 06/26/15) Fatigue (Chronic 08/29/15) GI (gastrointestinal bleed) (Inactive) Hypothyroidism (acquired) (Chronic) Macular degeneration (Chronic) Measles (Resolved) Parkinson disease (Chronic) Rosacea (Chronic) Rubella (Resolved) Shoulder pain (Chronic ~1988) Past Surgical History (Last Reviewed 03/16/19 @ 02:00 by THA Faust) Anesthesia (Resolved) History of tonsillectomy (~1944) S/P cataract extraction (Chronic) Status post colonoscopy (~2007) Visit Care Team Role Provider Type Mateusz Bonilla MD Attending Provider Physician Primary Care Provider Referring Provider Specialty: Internal Medicine Address: [address] [place] [address], [address], [facility] Email: [email or web address] Physical Therapy Initial Evaluation PT-OP-A Visit Information Start: 04/20/19 08:49 Freq: Status: Active Protocol: Document 04/23/19 10:33 LRN (Rec: 04/23/19 11:25 LRN [id number]) Out-Patient Physical Therapy Visit Information Visit Information Visit Type Initial Evaluation Visit Start Time 10:33 Visit Stop Time 11:25 Total Visit Minutes 52 Visit Number 1 Evaluation Information Evaluation Date 04/23/19 Precautions Precautions Parkinsons Lives alone in housing appt Chronic back pain Macular degeneration Dizzy on standing. PT-OP-B Current Condition Start: 04/20/19 08:49 Freq: Status: Active Protocol: Document 04/23/19 10:33 LRN (Rec: 04/23/19 11:25 LRN [id number]) Current Condition History of Current Condition Onset Date 3 yrs Current Complaints Getting up often in the middle of the night to urinate, causing fatigue. History of Current Condition Pt attends today with younger sister (1 yr younger). Pt c/o not being able to sleep through the night because she is getting up 2-5 x/night. She reports not safety issues getting to the bathroom, just that it is tiring and troublesome to have to get up so many times during the night . Daytime is not really an issue for her. Her condition worsened with onset of essential tremors of her hands and knee in 2013, and she was placed on medication for the tremors. The pt verbally reports sometimes having to really push to start urination , but on questionnaire form she indicates not having to strain to urinate. She has had physical therapy previously for lower back pain in 2018, and found it helpful in increasing her walking distance. Developmental History Developmental History Was dizzy in hospital after colonoscopy, 03/16/19, and had to urinate a lot; therefore was referred to therapy. Treatment Goals Patient/Caregiver Goals Pt goal is to maximize sleep. Prior Functional Status Baseline Function- ADL's Modified Independent Baseline Function- Mobility Independent Baseline Function- Gait Walked with walker due to tremors from Parkinson's. Baseline Function- Other Doesn't cook Current Functional Impairments (Reported) Functional Limitations- ADL's Increased voiding during the night 2-5 times, interfering with restful sleep. Functional Limitations- Mobility/Gait Ambulates slowly without use of an assistive device. Walks laps in appt complex hallway. Personal Factors Other Personal Factors That May Effect Lives alone Therapy/Recovery Parkinsons Gets dizzy upon standing PT-OP-C Subjective Start: 04/20/19 08:49 Freq: Status: Active Protocol: Document 04/23/19 10:33 LRN (Rec: 04/23/19 11:25 LRN [id number]) Patient Questionnaires Pelvic Pain and Urgency/Frequency Patient Symptom Scale Pelvic Pain Score 6 OP-PT Pain Assessment Location low back Pain Location Details Across low back Intensity 3 Scale Used Numeric (1 - 10) Description Aching PT-OP-H Neuro Start: 04/20/19 08:49 Freq: Status: Active Protocol: Document 04/23/19 10:33 LRN (Rec: 04/23/19 13:08 LRN [id number]) Vital Signs Blood Pressure Standing Blood Pressure (90/60-120/80 mmHg) 104/80 Blood Pressure Source Manual Cuff,Left Upper Extremity Sitting Blood Pressure (90/60-120/80 mmHg) 142/100 H Blood Pressure Source Manual Cuff,Left Upper Extremity Comments Vital Signs Comments Pt had no complaints of dizziness with transition of movement. PT-OP-I Pelvic Floor Start: 04/20/19 08:49 Freq: Status: Active Protocol: Document 04/23/19 10:33 LRN (Rec: 04/23/19 13:08 LRN [id number]) Pelvic Floor Assessment Urine Pelvic Floor Surgery No Urinary Symptoms Urge Sensation Leakage Size Small Leakage Cause Cough,Sneeze,Urge Other Leakage Causes Ability to delay urination 1-2 minutes. Voiding Frequency 6-7 Nocturia Verbally reports 2-5 Urine Pad Type Panty Liner Pelvic Clock Pelvic Clock 12-3 Atrophy Pelvic Clock 3-6 Atrophy Pelvic Clock Other Mild atrophy and weakness Perineal Descent Resting Absent Bearing Absent Contraction Ability Voluntary Contraction Moderate Voluntary Relaxation Moderate Manual Muscle Testing Left 2 Manual Muscle Testing Right 3 Manual Muscle Testing Posterior 3 Muscle Endurance (Seconds) 5 Number of Quick Contractions In 10 7 Seconds Comments Pelvic Floor Comments Skin Assessment: External PF is red in color and dry tissues. PT-OP-J Posture/Palpation/Skin Start: 04/20/19 08:49 Freq: Status: Active Protocol: Document 04/23/19 10:33 LRN (Rec: 04/23/19 13:11 LRN [id number]) Posture Evaluation Position Standing Evaluation View Lateral & Posterior Head/C-Spine Posture Forward Head T-Spine Posture Fixed Scoliosis on (R), Increased Kyphosis L-Spine Posture Decreased Lordosis Pelvis Posture Posterior Tilted Weight Distribution Weight Shifted Anterior Hip Posture (L) Flexed,(R) Flexed Comments Posture Comments Flexed at hips 15 deg's. Level @ [employer] PT-OP-K Range of Motion Start: 04/20/19 08:49 Freq: Status: Active Protocol: Document 04/23/19 10:33 LRN (Rec: 04/23/19 11:25 LRN [id number]) Hip Goniometric Range of Motion Hip Right Passive Testing Position Supine Abduction 35 Internal Rotation 40 External Rotation 30 Left Passive Testing Position Supine Abduction 30 Internal Rotation 40 External Rotation 60 PT-OP-M Strength Start: 04/20/19 08:49 Freq: Status: Active Protocol: Document 04/23/19 10:33 LRN (Rec: 04/23/19 11:25 LRN [id number]) Hip Strength Hip Manual Muscle Testing Right Flexion (L2) 4+ Good+ Abduction 5 Normal Adduction 5 Normal External Rotation 5 Normal Internal Rotation 5 Normal Left Flexion (L2) 5 Normal Abduction 3+ Fair+ Adduction 2+ Poor+ External Rotation 5 Normal Internal Rotation 5 Normal PT-OP-Q Treatments Start: 04/20/19 08:49 Freq: Status: Active Protocol: Document 04/23/19 10:33 LRN (Rec: 04/23/19 11:25 LRN [id number]) Self-Care/Home Management Treatment Education Patient Education Home Exercise Program Caregiver Education Pt sister was present throughout the evaluation. Other Education Educated pt in filling out of bladder diary and discussed components of the diary. Activities Self-Care/Home Management Activities Issued and reviewed HEP: Kegels for primarily Quick Flicks. Training in Kegels was done during PF assessment. PT-OP-T Assessment and Plan Start: 04/20/19 08:49 Freq: Status: Active Protocol: Document 04/23/19 10:33 LRN (Rec: 04/23/19 11:25 LRN [id number]) Physical Therapy Assessment Rehab Potential Rehabilitation Potential Good Evaluation Complexity Number of Personal Factors/Comorbidities 3 or More Number of Body Systems Impaired 4 or More Clinical Presentation at Evaluation Evolving Impairments Impairments Functional Mobility,Posture, ROM,Strength Goals Four Impairment Posture Short Term Goal (STG) Pt will improve symmetry of hip mobility (R hip ER to 60 deg's, AB L 30 deg's) STG Duration 07/07/19 Senior Living Goal (LTG) Pt will demonstrate improved standing posture with hip flexion no greater than 5 deg' s. LTG Duration 07/22/19 Three Impairment Decreased PF strength (L wall 2/5, R wall 3/5) Short Term Goal (STG) Improve PF strength to 3/5 of L & R palafox. STG Duration 07/07/19 Fleet Service Clerk Goal (LTG) Pt will be able to hold a PF contraction for 10 secs prior to fatigue LTG Duration 07/22/19 Two Impairment Increased urinary voiding frequency at nighttime Short Term Goal (STG) Pt will be educated in delay urinary technique STG Duration 06/07/19 Senior Living Goal (LTG) Pt will be able to reduce nighttime voiding to no more than 1x/night. LTG Duration 07/22/19 One Impairment Pt does not have an appropriate home exercise program Short Term Goal (STG) Pt will be independent in hip strengthening HEP to improve L hip AB/AD and perry hip flex. STG Duration 06/07/19 Fleet Service Clerk Goal (LTG) Pt to be independent and complaint with an appropriate HEP LTG Duration 07/22/19 Assessment Summary Assessment Pt presents with urge urinary frequency that is most bothersome for the patient at nighttime due to waking 2-5 times a night. The pt feels her lack of good sleep is the biggest problem. The pt doesn 't indicate she has balance deficits but it is a little concerning that she presents with orthostatic hypotension per blood pressure readings; although she didn't report onset of dizziness upon supine to sit and sit to stand today . This will be monitored for safety. The pt has mechanical dysfunction of the low back and pelvis and soft tissue dysfunction of weakness of the pelvic floor, primarily on the left side (1-5 of the PF Clock). The pt's new Parkinson's medication for her tremors may also contribute to her increased frequency of urination. The pt will benefit from skilled physical therapy for education of the pelvic floor, strengthening exercises, hip mobility and strengthening and reduction in voiding times during the night. Physical Therapy Plan Frequency and Duration Frequency of Treatment 1x/Week Plan of Care Start Date 04/23/19 Plan of Care End Date 07/22/19 Therapeutic Interventions Therapeutic Interventions Home Exercise Program,Manual Therapy,Neuromuscular Re- education,Patient/Caregiver Education,Self-Care/Home Management,Soft Tissue Mobilization,Therapeutic Activities,Therapeutic Exercises Modalities Biofeedback,Cold Pack/Ice Massage Next Visit Focus/Plan Next Note Type Treatment Note Next Visit Plan Review Bladder Diary and make recommendations as appropriate . Educate pt in delay technique. Initiate HEP exs: hip strengthening L hip AB/AD and perry hip flex; & hip mobility ex's (R hip ER to 60 deg's and L hip AB to 35 deg's ). Start Deep breathing education & ex, Progress PF strengthening starting with LE roll in/outs & progress with breathing training, transfer training with proper breathing . Pt may need bladder retraining.
--- NOTE | 2019-06-16 16:07 | PT-OP ANOTE ---
Per telephone conversation, pt was notified of reopening the clinic soon while following CDC guidelines. Discussed rules for social distancing, wearing of mask and hand washing, & limiting number of patients and PT?s in open areas. Pt prefers to wait maybe a couple more months. She understands she will need a new referral to return to therapy.
--- NOTE | 2019-06-21 16:33 | PT.OPDS ---
Current Diagnoses Muscle weakness (generalized) (04/23/19) Other symptoms and signs involving the musculoskeletal system (04/23/19) Urgency of urination (04/23/19) Visit Care Team Role Provider Type Mateusz Bonilla MD Attending Provider Physician Primary Care Provider Referring Provider Specialty: Internal Medicine Address: [address] [place] [address], [address], [address] Email: [email or web address] Visit Number Visit Number 1 Discharge Summary PT-OP-B Current Condition Start: 04/20/19 08:49 Freq: Status: Active Protocol: Document 04/23/19 10:33 LRN (Rec: 04/23/19 11:25 LRN [id number]) Current Condition History of Current Condition Onset Date 3 yrs Current Complaints Getting up often in the middle of the night to urinate, causing fatigue. History of Current Condition Pt attends today with younger sister (1 yr younger). Pt c/o not being able to sleep through the night because she is getting up 2-5 x/night. She reports not safety issues getting to the bathroom, just that it is tiring and troublesome to have to get up so many times during the night . Daytime is not really an issue for her. Her condition worsened with onset of essential tremors of her hands and knee in 2013, and she was placed on medication for the tremors. The pt verbally reports sometimes having to really push to start urination , but on questionnaire form she indicates not having to strain to urinate. She has had physical therapy previously for lower back pain in 2018, and found it helpful in increasing her walking distance. Developmental History Developmental History Was dizzy in hospital after colonoscopy, 03/16/19, and had to urinate a lot; therefore was referred to therapy. Treatment Goals Patient/Caregiver Goals Pt goal is to maximize sleep. Prior Functional Status Baseline Function- ADL's Modified Independent Baseline Function- Mobility Independent Baseline Function- Gait Walked with walker due to tremors from Parkinson's. Baseline Function- Other Doesn't cook Current Functional Impairments (Reported) Functional Limitations- ADL's Increased voiding during the night 2-5 times, interfering with restful sleep. Functional Limitations- Mobility/Gait Ambulates slowly without use of an assistive device. Walks laps in appt complex hallway. Personal Factors Other Personal Factors That May Effect Lives alone Therapy/Recovery Parkinsons Gets dizzy upon standing PT-OP-C Subjective Start: 04/20/19 08:49 Freq: Status: Active Protocol: Document 06/21/19 16:32 LRN (Rec: 06/21/19 16:33 LRN [id number]) OP-PT Subjective Patient Comments Patient Comments Per telephone conversation pt is agreeable to discharge from physical therapy due to concerns of Covid-19. Pt understands she will need a new referral to return to physical therapy. PT-OP-H Neuro Start: 04/20/19 08:49 Freq: Status: Active Protocol: Document 04/23/19 10:33 LRN (Rec: 04/23/19 13:08 LRN [id number]) Vital Signs Blood Pressure Standing Blood Pressure (90/60-120/80 mmHg) 104/80 Blood Pressure Source Manual Cuff,Left Upper Extremity Sitting Blood Pressure (90/60-120/80 mmHg) 142/100 H Blood Pressure Source Manual Cuff,Left Upper Extremity Comments Vital Signs Comments Pt had no complaints of dizziness with transition of movement. PT-OP-I Pelvic Floor Start: 04/20/19 08:49 Freq: Status: Active Protocol: Document 04/23/19 10:33 LRN (Rec: 04/23/19 13:08 LRN [id number]) Pelvic Floor Assessment Urine Pelvic Floor Surgery No Urinary Symptoms Urge Sensation Leakage Size Small Leakage Cause Cough,Sneeze,Urge Other Leakage Causes Ability to delay urination 1-2 minutes. Voiding Frequency 6-7 Nocturia Verbally reports 2-5 Urine Pad Type Panty Liner Pelvic Clock Pelvic Clock 12-3 Atrophy Pelvic Clock 3-6 Atrophy Pelvic Clock Other Mild atrophy and weakness Perineal Descent Resting Absent Bearing Absent Contraction Ability Voluntary Contraction Moderate Voluntary Relaxation Moderate Manual Muscle Testing Left 2 Manual Muscle Testing Right 3 Manual Muscle Testing Posterior 3 Muscle Endurance (Seconds) 5 Number of Quick Contractions In 10 7 Seconds Comments Pelvic Floor Comments Skin Assessment: External PF is red in color and dry tissues. PT-OP-J Posture/Palpation/Skin Start: 04/20/19 08:49 Freq: Status: Active Protocol: Document 04/23/19 10:33 LRN (Rec: 04/23/19 13:11 LRN [id number]) Posture Evaluation Position Standing Evaluation View Lateral & Posterior Head/C-Spine Posture Forward Head T-Spine Posture Fixed Scoliosis on (R), Increased Kyphosis L-Spine Posture Decreased Lordosis Pelvis Posture Posterior Tilted Weight Distribution Weight Shifted Anterior Hip Posture (L) Flexed,(R) Flexed Comments Posture Comments Flexed at hips 15 deg's. Level @ [employer] PT-OP-K Range of Motion Start: 04/20/19 08:49 Freq: Status: Active Protocol: Document 04/23/19 10:33 LRN (Rec: 04/23/19 11:25 LRN [id number]) Hip Goniometric Range of Motion Hip Right Passive Testing Position Supine Abduction 35 Internal Rotation 40 External Rotation 30 Left Passive Testing Position Supine Abduction 30 Internal Rotation 40 External Rotation 60 PT-OP-M Strength Start: 04/20/19 08:49 Freq: Status: Active Protocol: Document 04/23/19 10:33 LRN (Rec: 04/23/19 11:25 LRN [id number]) Hip Strength Hip Manual Muscle Testing Right Flexion (L2) 4+ Good+ Abduction 5 Normal Adduction 5 Normal External Rotation 5 Normal Internal Rotation 5 Normal Left Flexion (L2) 5 Normal Abduction 3+ Fair+ Adduction 2+ Poor+ External Rotation 5 Normal Internal Rotation 5 Normal PT-OP-T Assessment and Plan Start: 04/20/19 08:49 Freq: Status: Active Protocol: Document 06/21/19 16:24 LRN (Rec: 06/21/19 16:31 LRN [id number]) Physical Therapy Assessment Goals Four Impairment Posture Short Term Goal (STG) Pt will improve symmetry of hip mobility (R hip ER to 60 deg's, AB L 30 deg's). (06/21/19: Pt unavailable for final assessment due to Covid- 19 restrictions). STG Duration 07/07/19 Longterm Goal (LTG) Pt will demonstrate improved standing posture with hip flexion no greater than 5 deg' s. (06/21/19: Pt unavailable for final assessment due to Covid- 19 restrictions). LTG Duration 07/22/19 Three Impairment Decreased PF strength (L wall 2/5, R wall 3/5) Short Term Goal (STG) Improve PF strength to 3/5 of L & R palafox. (06/21/19: Pt unavailable for final assessment due to Covid- 19 restrictions). STG Duration 07/07/19 Longterm Goal (LTG) Pt will be able to hold a PF contraction for 10 secs prior to fatigue. (06/21/19: Pt unavailable for final assessment due to Covid- 19 restrictions). LTG Duration 07/22/19 Two Impairment Increased urinary voiding frequency at nighttime Short Term Goal (STG) Pt will be educated in delay urinary technique. (06/21/19: Pt unavailable for final assessment due to Covid- 19 restrictions). STG Duration 06/07/19 Cabinetmaker Apprentice Goal (LTG) Pt will be able to reduce nighttime voiding to no more than 1x/night. (06/21/19: Pt unavailable for final assessment due to Covid- 19 restrictions). LTG Duration 07/22/19 One Impairment Pt does not have an appropriate home exercise program Short Term Goal (STG) Pt will be independent in hip strengthening HEP to improve L hip AB/AD and perry hip flex. (06/21/19: Pt unavailable for final assessment due to Covid- 19 restrictions). STG Duration 06/07/19 Cabinetmaker Apprentice Goal (LTG) Pt to be independent and complaint with an appropriate HEP. (06/21/19: Pt unavailable for final assessment due to Covid- 19 restrictions). LTG Duration 07/22/19 Assessment Summary Assessment Pt was last seen 8 weeks ago on 04/23/19. Physical therapy was interrupted due to Covid- 19 concerns; therefore the pt was not available for further therapy and final assessment. Due to the pt's high risk status she is being discharged from physical therapy. Pt would benefit from further physical therapy, but understands she will need a new referral to return to therapy at a more appropriate time. Physical Therapy Plan Discharge Physical Therapy Discharge Comments The pt is being discharged from physical therapy at this time due to Covid-19 concerns. The pt is not ready to return to therapy at this time . The pt understands she will need a new referral to return to therapy.
== END 2019-07-01 10:06 ==
LOC: PHYS 10:15
PROVIDERS: PCP Student in an Organized Health Care Education/Training Program; Referring Provider Student in an Organized Health Care Education/Training Program; Visit Provider Student in an Organized Health Care Education/Training Program
DX: R39.15 Urgency of urination (principal); M62.81 Muscle weakness (generalized); R29.898 Other symptoms and signs involving the musculoskeletal system
CPT/HCPCS: 97162

== ENCOUNTER 2019-08-19 10:37 | Inpatient (IN) | payer MEDICARE, OTHER, SELFPAY ==
[2019-03-15 17:28] VITALS: BMI 22.6
[2019-08-19] VITALS (9 sets, daily range): BP systolic 140–184; BP diastolic 83–112; PULSE 76–84; RESP 17–24; TEMP 36.4–36.8; O2SAT 97–99; BMI 16.9
--- NOTE | 2019-08-19 10:52 | DI.RAD.S_ITS ---
PROCEDURE: XR SHOULDER LT MIN 2V INDICATIONS: fall pain TECHNIQUE: 3 views of the shoulder were acquired. COMPARISON: None. FINDINGS: Bones: No fractures or dislocations. No suspicious bony lesions. Visualized ribs appear intact. Soft tissues: No suspicious soft tissue calcifications. IMPRESSION: No acute osseous abnormality of the left shoulder. Dictated by: Uzair Gillette M.D. on 08/19/2019 at 10:36 Approved by: Uzair Gillette M.D. on 08/19/2019 at 10:37
--- NOTE | 2019-08-19 11:02 | DI.RAD.S_ITS ---
PROCEDURE: XR KNEE RT 3V INDICATIONS: fall injury TECHNIQUE: 3 views of the knee were acquired. COMPARISON: None. FINDINGS: Bones: No fractures or dislocations. No suspicious bony lesions. Scattered degenerative subchondral sclerosis and spurring. Joint spaces appear grossly preserved. Soft tissues: No joint effusion. No suspicious soft tissue calcifications. IMPRESSION: No fracture. If the patient's symptoms do not improve recommend followup radiographs in 10 days to assess for healing sclerosis/occult injury. Dictated by: Samy Jang M.D. on 08/19/2019 at 11:42 Approved by: Samy Jang M.D. on 08/19/2019 at 11:44
--- NOTE | 2019-08-19 11:08 | DI.CT.S_ITS ---
PROCEDURE: CT HEAD/BRAIN WO CON INDICATIONS: fall TECHNIQUE: Noncontrast 4.5 mm thick angled axial sections acquired from the foramen magnum to the vertex, with coronal and sagittal reformats. For radiation dose reduction, the following was used: automated exposure control, adjustment of mA and/or kV according to patient size. COMPARISON: [facility], CT, HEAD WITHOUT CONTRAST, 09/02/2014, 9:21. FINDINGS: Image quality: Diagnostic. CSF spaces: Basal cisterns are patent. No extra-axial fluid collections. Ventricles are prominent with corresponding parenchymal volume loss. Brain: No midline shift. No intracranial masses or hemorrhage. Cerrato-white matter interface is normal. Confluent areas of low attenuation are identified within the periventricular and deep white matter of the supratentorial brain. The degree of white matter changes have progressed in the interim. Skull and face: Calvarium and visualized facial bones are intact, without suspicious lesions. Incidental note is made of torus maxilar, Sinuses: Visualized sinuses and mastoids are clear. IMPRESSION: 1. No acute intracranial hemorrhage. 2. Chronic small vessel ischemic changes and parenchymal volume loss are slightly more pronounced on the current study. Dictated by: Uzair Gillette M.D. on 08/19/2019 at 10:29 Approved by: Uzair Gillette M.D. on 08/19/2019 at 10:31
[2019-08-19 11:13] LABS: Add Manual Diff / Slide Review NO; Basophils Absolute Auto 0 /uL (0-100); Basophils Percent Auto 0.1 % (0-2); Eosinophils Absolute Auto 0 /uL (0-450); Hematocrit 35.9 % (36-46); Hemoglobin 12.5 g/dL (12.0-16.0); Lymphocytes Absolute Auto 400 /uL (1100-4500); Lymphocytes Percent Auto 3.1 % (25-40); Mean Corpuscular HGB Conc 34.9 % (30-36); Mean Corpuscular Hemoglobin 32.9 PG (26-34); Mean Corpuscular Volume 94.1 fL (80-100); Monocytes Absolute Auto 1100 /uL (0-900); Monocytes Percent Auto 8.2 % (3-14); Neutrophils Absolute Auto 11500 /uL (1500-7000); Neutrophils Percent Auto 88.6 % (50-75); Platelet Count 282 X10^3/uL (150-400); Red Blood Cell Count 3.82 X10^6/uL (4.0-5.2); Red Cell Distribution Width 13.2 % (11.6-14.8)
--- NOTE | 2019-08-19 11:16 | ED_ITS ---
HPI - Fall General Chief Complaint: Fall Stated Complaint: Confused, Fell out of bed Time Seen by Provider: 08/19/19 10:52 Source: patient Mode of arrival: EMS History of Present Illness HPI Narrative: The patient is an 79-year-old female who was found on the floor. She apparently has been having multiple fainting like episodes she was actually seen evaluated by her PCP last week on 08/11/2019. Today she again ended up on the floor and now complaining of left shoulder pain. She denies dizziness she says she feels a little shaky they have been taking her blood pressure readings because they thought it might be due to hypotension however the sister states that her blood pressure seems normal it is not low. Looks as though she is has a Holter monitor set up. She denies hitting her head today she is not on any antiplatelet or coagulation medication MD complaint: fall Related Data Home Medications Medication Instructions Recorded Confirmed ferrous sulfate 325 mg PO DAILY 08/19/19 08/19/19 Previous Rx's Medication Instructions Recorded vit C 250 mg-E 200 unit-zinc 40 1 tab PO BID #30 cap 08/07/17 mg-copper 1 cm-ekfuce-cesido capsule levothyroxine 25 mcg tablet 25 mcg PO QAM #90 tab 04/28/19 carbidopa ER 50 mg-levodopa 200 mg 1 tab PO TID #270 tab 06/02/19 tablet,extended release Allergies Allergy/AdvReac Type Severity Reaction Status Date / Time No Known Drug Allergies Allergy Verified 08/11/19 13:54 Review of Systems Review of Systems ROS Unobtainable: All systems reviewed & are unremarkable except as noted in HPI and below Constitutional Constitutional: Denies chills, Denies fever(s), Reports frequent falls, Denies lethargy and Denies weakness Eyes Eyes: Denies change in vision, Denies eye discharge, Denies irritation and Denies loss of vision ENT Ears, Nose, Mouth, and Throat: Denies change in voice, Denies neck pain and Denies sore throat Cardiovascular Cardiovascular: Denies chest pain, Reports syncope, Denies edema, Denies dyspnea, Denies dyspnea on exertion and Denies orthopnea Respiratory Respiratory: Denies cough, Denies dyspnea, Denies dyspnea on exertion and Denies wheezing Gastrointestinal Gastrointestinal: Denies abdominal pain, Denies change in bowel habits, Denies diarrhea, Denies nausea and Denies vomiting Musculoskeletal Musculoskeletal: Reports as per HPI and Denies neck pain Integumentary/Breasts Comments: skin tear left arm Neurologic Neurologic: Reports syncope, Reports frequent falls, Denies loss of vision and Denies weakness Allergic/Immunologic Allergic/Immunologic: Denies wheezing Patient History Medical History (Updated 08/19/19 @ 13:57 by Tyler Arriola MD) Chicken pox (Resolved) Chronic back pain (Chronic ~2013) Colitis (Inactive) Essential tremor (Chronic 06/26/15) Fatigue (Chronic 08/29/15) GI (gastrointestinal bleed) (Inactive) Hypothyroidism (acquired) (Chronic) Macular degeneration (Chronic) Measles (Resolved) Rosacea (Chronic) Rubella (Resolved) Shoulder pain (Chronic ~1988) Surgical History Anesthesia (Resolved) History of tonsillectomy (~1944) S/P cataract extraction (Chronic) Status post colonoscopy (~2007) Family History Grandfather Heart disease Grandmother Heart disease Mother Mental health problem Grandfather Stroke Grandmother Cancer Father Cancer Social History marital status: household members: none lives independently: Yes Smoking Status: Never smoker alcohol intake: former substance use type: does not use Smoking Status: Never smoker alcohol intake frequency: holidays/special occasions only Substance Use Type: does not use Exam Initial Vital Signs Initial Vital Signs: Vital Signs Temperature 98.2 F 08/19/19 10:46 Pulse Rate 78 08/19/19 10:46 Respiratory Rate 24 08/19/19 10:46 Blood Pressure 158/98 H 08/19/19 10:46 Pulse Oximetry 98 08/19/19 10:46 GENERAL: Alert elderly female HEENT: Head atraumatic,EOMI, pupils reactive, face symmetric CARDIOVASCULAR: Regular rate and rhythm without murmurs, rubs or gallops. RESPIRATORY: Breath sounds equal bilaterally, no wheezes rales or rhonchi. ABDOMEN: Soft, nontender. Normoactive bowel sounds all 4 quadrants. No guarding or rebound. BACK: No sign of injury no vertebral tenderness no step-offs EXTREMITIES: Normal range of motion, no clubbing or edema. Neurovascularly intact Right knee is swollen but she is able to flex and extended Left shoulder tender to touch but no gross bony deformity NEUROLOGICAL: Alert and oriented x4.Cranial nerves II through XII grossly intact. SKIN: Warm, dry, no laceration, no petechiae, no rashes or lesions. Course Orders Ordered: ED Orders 08/19/19 10:52 XR shoulder LT min 2V Stat 08/19/19 11:02 XR knee RT 3V Stat EKG-12 Lead Stat 08/19/19 11:05 Complete Blood Count AUTO DIFF Stat Comprehensive Metabolic Panel Stat Creatine Kinase Stat Thyroid Stimulating Hormone Stat Troponin & CK Cardiac Panel Stat 08/19/19 11:08 CT head/brain wo con Stat 08/19/19 14:00 Urinalysis and Microscopic Stat Acetaminophen (Tylenol) 650 mg PO Q6HR PRN PRN Reason: Fever/Mild Pain (1-3) Carbidopa/Levodopa (Sinemet Er 50-200 Tab) 1 each PO TID [facility] Last Admin: 08/19/19 15:05 Dose: 1 each Documented by: ANDREW Enoxaparin Sodium (Lovenox) 40 mg SUBCUT DAILY [facility] Ferrous Sulfate (Ferrous Sulfate) 325 mg PO DAILY [facility] Sodium Chloride (Normal Saline 0.9%) 1,000 mls @ 100 mls/hr IV CONT [facility] Last Admin: 08/19/19 14:31 Dose: Not Given Documented by: ARELY Levothyroxine Sodium (Synthroid) 25 mcg PO 0600 [facility] Last Admin: 08/19/19 15:05 Dose: 25 mcg Documented by: ANDREW Magnesium Hydroxide (Milk Of Magnesia) 30 ml PO DAILY PRN PRN Reason: Constipation Ondansetron HCl (Zofran) 4 mg IV Q8HR PRN PRN Reason: Nausea And Vomiting Discontinued Medications Sodium Chloride (Normal Saline 0.9%) 1,000 mls @ 100 mls/hr IV CONT [facility] Last Infusion: 08/19/19 12:52 Dose: 100 mls/hr Documented by: Admin: 08/19/19 11:56 Dose: 100 mls/hr Documented by: JAMI Sodium Chloride (Normal Saline 0.9%) 1,000 mls @ 1,000 mls/hr IV BOLUS ONE Stop: 08/19/19 14:45 Last Admin: 08/19/19 14:28 Dose: Not Given Documented by: ARELY Vital Signs Vital signs: Vital Signs - 8 hr 08/19/19 10:46 08/19/19 11:00 Temperature 98.2 F Pulse Rate 78 Respiratory Rate 24 Blood Pressure 158/98 H 166/97 H Pulse Oximetry 98 - Fall Lab Data Attestation: I reviewed the patient's lab results. Result diagrams: 08/19/19 11:05 08/19/19 11:05 Labs: Lab Results 08/19/19 08/19/19 08/19/19 Range/Units 11:05 11:05 11:05 WBC 13.0 H (4.5-11.0) X10^3/uL RBC 3.82 L (4.0-5.2) X10^6/uL Hgb 12.5 (12.0-16.0) g/dL Hct 35.9 L (36-46) % MCV 94.1 (80-100) fL MCH 32.9 (26-34) PG MCHC 34.9 (30-36) % RDW 13.2 (11.6-14.8) % Plt Count 282 (150-400) X10^3/uL Neut % (Auto) 88.6 H (50-75) % Lymph % (Auto) 3.1 L (25-40) % [place] % (Auto) 8.2 (3-14) % Eos % (Auto) 0.0 L (2-4) % Baso % (Auto) 0.1 (0-2) % Neut # (Auto) 97985 H (7121-9967) /uL Lymph # (Auto) 400 L (2077-4511) /uL [place] # (Auto) 1100 H (0-900) /uL Eos # (Auto) 0 (0-450) /uL Baso # (Auto) 0 (0-100) /uL Sodium 123 L (137-145) mmol/L Potassium 3.8 (3.4-5.1) mmol/L Chloride 86 L (98-107) mmol/L Carbon Dioxide 24 (22-32) mmol/L BUN 22 H (7-17) mg/dL Creatinine 0.82 (0.52-1.04) mg/dL Estimated GFR > 60.0 (>60) mL/min BUN/Creatinine Ratio 26.8 H (6-22) Glucose 148 H (80-110) mg/dL Calcium 9.4 (8.4-10.2) mg/dL Total Bilirubin 1.6 H (0.2-1.3) mg/dL AST 78 H (14-36) IU/L ALT 25 (<35) IU/L Alkaline Phosphatase 74 (38-126) U/L Total Creatine Kinase 2351 H (30-135) U/L CK-MB (CK-2) (<2.37) ng/mL CK-MB (CK-2) Rel Index (1.5-5.0) % Troponin I (0.01-0.034) ng/mL Total Protein 8.0 (6.3-8.2) g/dL Albumin 4.8 (3.5-5.0) g/dL Globulin 3.2 (1.7-4.1) g/dL Albumin/Globulin Ratio 1.5 (1.0-2.8) TSH 2.05 (0.47-4.68) uIU/mL 08/19/19 Range/Units 11:05 WBC (4.5-11.0) X10^3/uL RBC (4.0-5.2) X10^6/uL Hgb (12.0-16.0) g/dL Hct (36-46) % MCV (80-100) fL MCH (26-34) PG MCHC (30-36) % RDW (11.6-14.8) % Plt Count (150-400) X10^3/uL Neut % (Auto) (50-75) % Lymph % (Auto) (25-40) % [place] % (Auto) (3-14) % Eos % (Auto) (2-4) % Baso % (Auto) (0-2) % Neut # (Auto) (0915-1166) /uL Lymph # (Auto) (8083-8219) /uL [place] # (Auto) (0-900) /uL Eos # (Auto) (0-450) /uL Baso # (Auto) (0-100) /uL Sodium (137-145) mmol/L Potassium (3.4-5.1) mmol/L Chloride (98-107) mmol/L Carbon Dioxide (22-32) mmol/L BUN (7-17) mg/dL Creatinine (0.52-1.04) mg/dL Estimated GFR (>60) mL/min BUN/Creatinine Ratio (6-22) Glucose (80-110) mg/dL Calcium (8.4-10.2) mg/dL Total Bilirubin (0.2-1.3) mg/dL AST (14-36) IU/L ALT (<35) IU/L Alkaline Phosphatase (38-126) U/L Total Creatine Kinase 2281 H (30-135) U/L CK-MB (CK-2) 15.80 H (<2.37) ng/mL CK-MB (CK-2) Rel Index 0.7 L (1.5-5.0) % Troponin I 0.081 H (0.01-0.034) ng/mL Total Protein (6.3-8.2) g/dL Albumin (3.5-5.0) g/dL Globulin (1.7-4.1) g/dL Albumin/Globulin Ratio (1.0-2.8) TSH (0.47-4.68) uIU/mL Imaging Data CT scan - head: Radiologist's Impression: PROCEDURE: CT HEAD/BRAIN WO CON INDICATIONS: fall TECHNIQUE: Noncontrast 4.5 mm thick angled axial sections acquired from the foramen magnum to the vertex, with coronal and sagittal reformats. For radiation dose reduction, the following was used: automated exposure control, adjustment of mA and/or kV according to patient size. COMPARISON: [facility], CT, HEAD WITHOUT CONTRAST, 09/02/2014, 9:21. FINDINGS: Image quality: Diagnostic. CSF spaces: Basal cisterns are patent. No extra-axial fluid collections. Ventricles are prominent with corresponding parenchymal volume loss. Brain: No midline shift. No intracranial masses or hemorrhage. Cerrato-white matter interface is normal. Confluent areas of low attenuation are identified within the periventricular and deep white matter of the supratentorial brain. The degree of white matter changes have progressed in the interim. Skull and face: Calvarium and visualized facial bones are intact, without suspicious lesions. Incidental note is made of torus maxilar, Sinuses: Visualized sinuses and mastoids are clear. IMPRESSION: 1. No acute intracranial hemorrhage. 2. Chronic small vessel ischemic changes and parenchymal volume loss are slightly more pronounced on the current study. Dictated by: Uzair Gillette M.D. on 08/19/2019 at 10:29 Approved by: Uzair Gillette M.D. on 08/19/2019 at 10:31 Chest x-ray: Radiologist's Impression: PROCEDURE: XR CHEST 1V INDICATIONS: syncope TECHNIQUE: One view of the chest was acquired. COMPARISON: None. FINDINGS: Surgical changes and devices: None. Lungs and pleura: Lungs are clear. No pleural effusions or pneumothorax. Mediastinum: Mediastinal contours appear normal. Heart size is normal. Bones and chest wall: No suspicious bony lesions. Overlying soft tissues appear unremarkable. IMPRESSION: No acute cardiopulmonary pathology. Dictated by: Ming López M.D. on 08/19/2019 at 14:18 Extremity x-ray #1: Radiologist's Impression: PROCEDURE: XR KNEE RT 3V INDICATIONS: fall injury TECHNIQUE: 3 views of the knee were acquired. COMPARISON: None. FINDINGS: Bones: No fractures or dislocations. No suspicious bony lesions. Scattered degenerative subchondral sclerosis and spurring. Joint spaces appear grossly preserved. Soft tissues: No joint effusion. No suspicious soft tissue calcifications. IMPRESSION: No fracture. If the patient's symptoms do not improve recommend followup radiographs in 10 days to assess for healing sclerosis/occult injury. Dictated by: Samy Jang M.D. on 08/19/2019 at 11:42 Approved by: Samy Jang M.D. on 08/19/2019 at 11:44 Extremity x-ray #2: Radiologist's Impression: PROCEDURE: XR SHOULDER LT MIN 2V INDICATIONS: fall pain TECHNIQUE: 3 views of the shoulder were acquired. COMPARISON: None. FINDINGS: Bones: No fractures or dislocations. No suspicious bony lesions. Visualized ribs appear intact. Soft tissues: No suspicious soft tissue calcifications. IMPRESSION: No acute osseous abnormality of the left shoulder. Dictated by: Uzair Gillette M.D. on 08/19/2019 at 10:36 Approved by: Uzair Gillette M.D. on 08/19/2019 at 10:37 ECG Data Attestation: I personally reviewed and interpreted this ECG as follows: Prior ECG tracings: available for review Interpretation: Normal sinus rhythm rate 78 year interval 124 QRS [address] elevation depression or T-wave inversions similar to prior EKGs MDM Narrative Medical decision making narrative: Patient has had multiple falls and recurrent episodes of syncope unclear what the cause is. She is found to have be slightly hyponatremic with a sodium of 123 and elevated CPK of 2200. She is unsafe to be at home and clearly needs hydration and correction of her sodium. Dr. Arriola in ED to see and evaluate accepts for admission Discharge Plan Departure Patient Disposition: Admitted as Observation Clinical Impression: Acute hyponatremia, Elevated CPK Syncope Qualifiers: Syncope type: unspecified Qualified Code(s): R55 - Syncope and collapse Discharge Date/Time: 08/19/19 12:53 Referrals: Mateusz Bonilla MD [Primary Care Provider] - Admit Date/Time: 08/19/19 12:09 Admit Provider: Tyler Arriola
[2019-08-19 11:28] LABS: Alanine Aminotransferase 25 IU/L (<35); Albumin 4.8 g/dL (3.5-5.0); Albumin Globulin Ratio 1.5 (1.0-2.8); Alkaline Phosphatase 74 U/L (38-126); Aspartate Aminotransferase 78 IU/L (14-36); BUN Creatinine Ratio 26.8 (6-22); Bilirubin Total 1.6 mg/dL (0.2-1.3); Blood Urea Nitrogen 22 mg/dL (7-17); Calcium 9.4 mg/dL (8.4-10.2); Carbon Dioxide 24 mmol/L (22-32); Chloride 86 mmol/L (98-107); Estimated Glomerular Filt Rate > 60.0 mL/min (>60); Globulin 3.2 g/dL (1.7-4.1); Glucose 148 mg/dL (80-110); HEMOLYSIS < 15 (0-50); Potassium 3.8 mmol/L (3.4-5.1); Sodium 123 mmol/L (137-145)
[2019-08-19 11:36] LABS: Creatine Kinase 2351 U/L (30-135)
[2019-08-19 11:39] LABS: Creatine Kinase 2281 U/L (30-135)
[2019-08-19 11:40] LABS: Troponin I 0.081 ng/mL (0.01-0.034)
[2019-08-19] MEDS: SODIUM CHLORIDE 0.9% 1,000 ML 100 ML IV ×2 (11:56→14:29)
[2019-08-19 11:59] LABS: Thyroid Stimulating Hormone 2.05 uIU/mL (0.47-4.68)
[2019-08-19 13:05] LABS: CKMB % Relative Index 0.7 % (1.5-5.0)
--- NOTE | 2019-08-19 13:45 | DI.RAD.S_ITS ---
PROCEDURE: XR CHEST 1V INDICATIONS: syncope TECHNIQUE: One view of the chest was acquired. COMPARISON: None. FINDINGS: Surgical changes and devices: None. Lungs and pleura: Lungs are clear. No pleural effusions or pneumothorax. Mediastinum: Mediastinal contours appear normal. Heart size is normal. Bones and chest wall: No suspicious bony lesions. Overlying soft tissues appear unremarkable. IMPRESSION: No acute cardiopulmonary pathology. Dictated by: Ming López M.D. on 08/19/2019 at 14:18 Approved by: Ming López M.D. on 08/19/2019 at 14:19
--- NOTE | 2019-08-19 13:47 | P.HP_ITS ---
History of Present Illness History of Present Illness Date Patient Seen: 08/19/19 Time Patient Seen: 13:00 Chief complaint: Confused, Fell out of bed Narrative: Patient is 79-year-old female with history of essential tremor for which she takes carbidopa levodopa and denies history of parkinsonism, GI bleed secondary to diverticulosis, hypothyroidism, chronic back pain and macular degeneration who presents to the ER due to recurrent syncope. Sister is present at time of exam and provides helpful corroborative history. About 3 weeks ago patient began to experience episodes of sudden syncope. It seems the episodes are fairly frequent. She saw her PCP a week ago and is supposed to get Holter monitoring arranged. Patient's sister found her on the floor when she came to check on her this morning as she was supposed to drive her to the bank. Patient has no recollection of when she passed out and how long she has been on the floor. She was found to have bruises on extremities and a CK level of 2200 on ER evaluation. Also her serum sodium was 123 verses baseline of 140 in February of this year. Patient does feel these episodes coming on where she feels like she is going to faint and also feels dizzy right before she passes out. Her sister has witnessed a number of these episodes. She states that patient has some slurring of speech and confusion for up to 5 minutes after these episodes until she is able to lie down. Patient's blood pressure has not been low before or after these episodes. Patient has also not been eating well over the past few weeks though claims she is maintaining fluid intake. She states she can not taste anything. She has lost about 20 lb since February of this year. She admits to significant depression which she attributes to news events but denies suicidal ideation. She denies chest pain, dyspnea, sensation of racing or irregular heartbeats. Sister has not observed seizure-like activity associated with these episodes. Patient has not had fever, chills, nausea, vomiting, abdominal pain, constipation, diarrhea but has had some urinary incontinence as of late. ER evaluation also included EKG which showed sinus rhythm and no acute findings, and no signs of fracture on shoulder or knee x-rays. Also head CT showed chronic small vessel ischemic change and volume loss but no acute findings. Patient History Medical History (Updated 08/19/19 @ 13:57 by Tyler Arriola MD) Chicken pox (Resolved) Chronic back pain (Chronic ~2013) Colitis (Inactive) Essential tremor (Chronic 06/26/15) Fatigue (Chronic 08/29/15) GI (gastrointestinal bleed) (Inactive) Hypothyroidism (acquired) (Chronic) Macular degeneration (Chronic) Measles (Resolved) Rosacea (Chronic) Rubella (Resolved) Shoulder pain (Chronic ~1988) Surgical History Anesthesia (Resolved) History of tonsillectomy (~194) S/P cataract extraction (Chronic) Status post colonoscopy (~2007) Family & Social History Family History Grandfather Heart disease Grandmother Heart disease Mother Mental health problem Grandfather Stroke Grandmother Cancer Father Cancer Social History: household members none lives independently Yes Safety & Behavioral: Feels Safe in Current Yes Environment Been Physically Hurt or No Threatened By a Person Tobacco & Substance use: Smoking Status Never smoker alcohol intake former alcohol intake frequency holiday/special occasion Substance Use Type does not use Meds Home Medications and Allergies Home Medications Medication Instructions Recorded Confirmed Type vit C 250 mg-E 200 unit-zinc 40 1 tab PO BID #30 cap 08/07/17 08/19/19 Rx mg-copper 1 [id number] capsule levothyroxine 25 mcg tablet 25 mcg PO QAM #90 tab 04/28/19 08/19/19 Rx carbidopa ER 50 mg-levodopa 200 mg 1 tab PO TID #270 tab 06/02/19 08/19/19 Rx tablet,extended release ferrous sulfate 325 mg PO DAILY 08/19/19 08/19/19 History Allergies Allergy/AdvReac Type Severity Reaction Status Date / Time No Known Drug Allergies Allergy Verified 08/11/19 13:54 Review of Systems Review of Systems ROS: Yes All systems reviewed with the patient and are negative except as otherwise documented Exam Vital Signs (past 8 hours): - 08/19/19 10:46 08/19/19 11:00 08/19/19 12:26 Temperature 98.2 F Pulse Rate 78 81 Respiratory Rate 24 17 Blood Pressure 158/98 H 166/97 H Pulse Oximetry 98 99 Oxygen Delivery Method Room Air Narrative Exam Narrative: General: Alert female with significantly depressed affect HEENT: Nontraumatic, pupils equal, oropharynx with own dentition Neck: No lymphadenopathy Lungs: Clear to auscultation Heart: Normal S1 and S2 regular rate and rhythm without murmur, gallop or rub Abdomen: Soft, nontender, no HSM, no abdominal mass Extremities: Warm, dry, no edema, there is bruising on the left arm and lower legs Neurological: Alert, flat depressed affect, no aphasia although there is paucity of speech which seems voluntary, upper and lower extremity strength intact bilaterally Skin: There is facial eczema and bruising on extremities as noted above Objective Labs Result Diagrams: 08/19/19 11:05 08/19/19 11:05 Labs: Laboratory Results - last 24 hr 08/19/19 08/19/19 08/19/19 11:05 11:05 11:05 WBC 13.0 H RBC 3.82 L Hgb 12.5 Hct 35.9 L MCV 94.1 MCH 32.9 MCHC 34.9 RDW 13.2 Plt Count 282 Neut % (Auto) 88.6 H Lymph % (Auto) 3.1 L Adams % (Auto) 8.2 Eos % (Auto) 0.0 L Baso % (Auto) 0.1 Neut # (Auto) 40196 H Lymph # (Auto) 400 L Adams # (Auto) 1100 H Eos # (Auto) 0 Baso # (Auto) 0 Sodium 123 L Potassium 3.8 Chloride 86 L Carbon Dioxide 24 BUN 22 H Creatinine 0.82 Estimated GFR > 60.0 BUN/Creatinine Ratio 26.8 H Glucose 148 H Calcium 9.4 Total Bilirubin 1.6 H AST 78 H ALT 25 Alkaline Phosphatase 74 Total Creatine Kinase 2351 H CK-MB (CK-2) CK-MB (CK-2) Rel Index Troponin I Total Protein 8.0 Albumin 4.8 Globulin 3.2 Albumin/Globulin Ratio 1.5 TSH 2.05 08/19/19 11:05 WBC RBC Hgb Hct MCV MCH MCHC RDW Plt Count Neut % (Auto) Lymph % (Auto) Adams % (Auto) Eos % (Auto) Baso % (Auto) Neut # (Auto) Lymph # (Auto) Adams # (Auto) Eos # (Auto) Baso # (Auto) Sodium Potassium Chloride Carbon Dioxide BUN Creatinine Estimated GFR BUN/Creatinine Ratio Glucose Calcium Total Bilirubin AST ALT Alkaline Phosphatase Total Creatine Kinase 2281 H CK-MB (CK-2) 15.80 H CK-MB (CK-2) Rel Index 0.7 L Troponin I 0.081 H Total Protein Albumin Globulin Albumin/Globulin Ratio TSH Assessment & Plan Assessment & Plan narrative: Patient is 79-year-old female with history of essential tremor for which she takes carbidopa levodopa and denies history of parkinsonism, GI bleed secondary to diverticulosis, hypothyroidism, chronic back pain and macular degeneration who presents to the ER due to recurrent syncope. Patient reports decreased p.o. intake in recent weeks and 20 lb weight loss since February of this year. Labs showed moderate hyponatremia. 1. Recurrent syncope, present on admission, active -etiology unclear but seems associated with lack oral intake and significant weight loss resulting in generalized weakness, differential diagnosis includes cardiogenic etiology and less likely atypical seizures -EKG: NSR, mild LVH, no acute findings; head CT: No acute findings -obtain orthostatics, attempted in ER but could not stand up patient but will try on medical floor -telemetry -transthoracic echo -IV hydration 2. Hyponatremia, probably acute, present on admission, active -serum sodium 123 versus 140 in February -patient appears euvolemic on exam or at least not super volume depleted -differential includes malnutrition with poor solute intake (low urine sodium and osmolarity), SIADH or reset Osmo stat -obtain urine sodium and osmolarity -normal saline at 100 cc/hour and avoid rapid correction of sodium -repeat serum sodium after initial 500 cc NS -obtain chest x-ray 3. Mild rhabdomyolysis, present on admission, active -CK 2281, without evidence of acute renal failure -address with IV fluids 4. Depression, without SI, present on admission -patient with severely flat affect, admits depression -consider psych consult and initiating SSRI 5. Leukocytosis, present on admit -patient is mild leukocytosis likely reactive, does not have fever or other signs of systemic infection -obtain urinalysis -check procalcitonin -repeat CBC in a.m. 6. Elevated bilirubin, present on admission -total bili 1.6, AST 78, ALT 25, alk-phos 74 -likely not significant in patient without abdominal complaints -check direct bilirubin 7. Elevated troponin, present on admission -troponin 0.081 intermediate elevated likely not significant inpatient without c hest pain or EKG changes -repeat 8 hour troponin 8. Hypothyroidism, chronic -TSH in normal range -continue levothyroxine 25 mcg daily 9. Essential tremor, chronic -patient denies diagnosis of Parkinson's and is followed by neurologist -continue carbidopa levodopa 50-200 mg ER t.i.d. 10. Chronic iron deficiency anemia -hemoglobin improved from prior levels -continue patient's iron sulfate 325 mg daily DVT prophylaxis: Lovenox Admit status: Observation although patient will likely need more extended inpatient stay Code status: DNR, sister confirms this is patient has longstanding wishes. Patient has poles which sister will try to bring from home. Surrogate decision maker: Sister
--- NOTE | 2019-08-19 14:00 | PT.IPTN ---
Physical Therapy Treatment Note M3 PT-IP Subjective Start: 08/19/19 16:01 Freq: NEEDED Status: Active Protocol: Document 08/19/19 14:00 AB (Rec: 08/19/19 16:06 AB [id number]) Subjective Physical Therapy Visit Type Notes Attempted PT eval and PLOF and home set up obtained. nurses in room with pt to do admissions. BP checked: 184/ 112 after 2 attempts of getting BP reading but both are high. informed nurse that PT will hold eval for today until BP is more stable. Nurse agreed and stated that they will talk to the doctor for the high BP. will f/u tomorrow.
--- NOTE | 2019-08-19 14:56 | PC.NURSE ---
Addendum entered by Ce Smith R.N. 08/19/19 15:11: At 1500, Dr. Arriola made aware of last BP 184/112, pulse 82. Monitor routine for now and perform Orthostatic BP/Pulse CHI. Original Note: Day Shift- Pt report from ED taken by LAURA Thrasher coordinator. Pt arrived to unit room 217 at 1310. LAURA Thrasher Coordinator completed admit and med list, settled pt. Pt oriented to call light and within reach, Calf SCD's placed to BLE per order. Bed alarm on.
[2019-08-19] MEDS: CARBIDOPA-LEVODOPA ER 50/200 TABLET 1 EACH PO ×2 (15:05→21:09)
[2019-08-19] MEDS: LEVOTHYROXINE 25 MCG TABLET PO (15:05)
[2019-08-19 15:10] LABS: Troponin I 0.086 ng/mL (0.01-0.034)
[2019-08-19 15:27] LABS: Procalcitonin < 0.05 ng/mL (<0.5)
[2019-08-19 19:52] LABS: Appearance Urine UA CLEAR; Bilirubin Urine UA NEGATIVE (NEGATIVE); Color Urine UA YELLOW; Glucose Urine UA TRACE g/dL (Negative); Ketones Urine UA 1+ (NEGATIVE); Leukocyte Esterase Urine UA NEGATIVE (NEGATIVE); Nitrite Urine UA NEGATIVE (Negative); Occult Blood Urine UA 3+ (Negative); Protein Urine UA 2+ (Negative); Urobilinogen Urine UA 0.2 E.U./dL (0.2)
[2019-08-19 20:00] LABS: Sodium Urine Random 93 mmol/L (30-90)
[2019-08-19 20:02] LABS: pH Urine UA 6.5 (4.5-8.0)
[2019-08-19 20:03] LABS: Amorphous Sediment Urine 1+; Bacteria Urine Few (2-10); Culture Indicated Urine Specimen Cultured; Mucus Urine 1+ (Negative); RBC Urine 1-5/HPF (0-5/HPF); Squamous Epithelial Cell Urine 1-5 /HPF (0-5/HPF); WBC Urine 5-10/HPF (0-5/HPF)
[2019-08-19 20:58] LABS: Sodium 121 mmol/L (137-145)
[2019-08-19 21:13] LABS: Troponin I 0.067 ng/mL (0.01-0.034)
[2019-08-20] VITALS (12 sets, daily range): BP systolic 77–157; BP diastolic 37–99; PULSE 68–89; RESP 14–18; TEMP 36.7–36.9; O2SAT 94–100
[2019-08-20] MEDS: SODIUM CHLORIDE 0.9% 1,000 ML 125 ML IV ×3 (00:43→20:50)
[2019-08-20] MEDS: LEVOTHYROXINE 25 MCG TABLET PO (05:38)
[2019-08-20 05:39] LABS: Add Manual Diff / Slide Review NO; Basophils Absolute Auto 0 /uL (0-100); Basophils Percent Auto 0.1 % (0-2); Eosinophils Absolute Auto 0 /uL (0-450); Eosinophils Percent Auto 0.1 % (2-4); Hematocrit 32.9 % (36-46); Hemoglobin 11.3 g/dL (12.0-16.0); Lymphocytes Absolute Auto 1200 /uL (1100-4500); Lymphocytes Percent Auto 10.6 % (25-40); Mean Corpuscular HGB Conc 34.4 % (30-36); Mean Corpuscular Hemoglobin 32.4 PG (26-34); Mean Corpuscular Volume 94.3 fL (80-100); Monocytes Absolute Auto 1600 /uL (0-900); Monocytes Percent Auto 13.9 % (3-14); Neutrophils Absolute Auto 8800 /uL (1500-7000); Neutrophils Percent Auto 75.3 % (50-75); Platelet Count 232 X10^3/uL (150-400); Red Blood Cell Count 3.49 X10^6/uL (4.0-5.2); Red Cell Distribution Width 13.2 % (11.6-14.8); White Blood Cell Count 11.7 X10^3/uL (4.5-11.0)
[2019-08-20 05:53] LABS: Alanine Aminotransferase 8 IU/L (<35); Albumin 3.4 g/dL (3.5-5.0); Albumin Globulin Ratio 1.2 (1.0-2.8); Alkaline Phosphatase 48 U/L (38-126); Aspartate Aminotransferase 112 IU/L (14-36); BUN Creatinine Ratio 26.1 (6-22); Bilirubin Total 1.3 mg/dL (0.2-1.3); Blood Urea Nitrogen 18 mg/dL (7-17); Calcium 8.3 mg/dL (8.4-10.2); Carbon Dioxide 26 mmol/L (22-32); Chloride 91 mmol/L (98-107); Estimated Glomerular Filt Rate > 60.0 mL/min (>60); Globulin 2.8 g/dL (1.7-4.1); Glucose 87 mg/dL (80-110); HEMOLYSIS < 15 (0-50); Potassium 3.3 mmol/L (3.4-5.1); Sodium 123 mmol/L (137-145); Total Protein 6.2 g/dL (6.3-8.2)
[2019-08-20] MEDS: POTASSIUM CHLORIDE 20 MEQ in SODIUM CHLORIDE 0.9% 250 ML 130 ML IV (08:01)
[2019-08-20] MEDS: ENOXAPARIN 40 MG/0.4 ML SYRINGE SUBCUT (08:13)
[2019-08-20] MEDS: FERROUS SULFATE 325 MG TABLET PO (08:15)
[2019-08-20] MEDS: CARBIDOPA-LEVODOPA ER 50/200 TABLET 1 EACH PO ×3 (08:15→20:49)
--- NOTE | 2019-08-20 10:07 | PT.IIE ---
Surgical History (Last Reviewed 08/19/19 @ 11:21 by Gita Nieves DO) Anesthesia (Resolved) History of tonsillectomy (~194) S/P cataract extraction (Chronic) Status post colonoscopy (~2007) Medical History (Last Reviewed 08/19/19 @ 11:21 by Gita Nieves DO) Chicken pox (Resolved) Chronic back pain (Chronic ~2013) Colitis (Inactive) Essential tremor (Chronic 06/26/15) Fatigue (Chronic 08/29/15) GI (gastrointestinal bleed) (Inactive) Hypothyroidism (acquired) (Chronic) Macular degeneration (Chronic) Measles (Resolved) Rosacea (Chronic) Rubella (Resolved) Shoulder pain (Chronic ~1988) Physical Therapy Inpatient Evaluation/Re-Eval M1 PT/OT-IP Prior Functional Status Start: 08/19/19 16:01 Freq: NEEDED Status: Active Protocol: Document 08/20/19 10:07 AB (Rec: 08/20/19 12:52 [email or web address] Medical Review Prior Functional Status Medical History Reviewed Yes Communication able to make needs known but with slow responses Mobility and Gait stated that she is modified independent with all mobilities and ambulation using 4WW Social History Household Members none Living Arrangements Apartment/Condo Number of Floors (Floors) One Floor Number of Stairs To Enter/Railing? pt lives on a 3rd floor apartment with an elevator to get to her floor Home Environment Standard Height Toilet,Tub/ Shower Home Equipment Four Wheel Walker,Grab Bars Near Toilet,Grab Bars In Shower Additional Social History Comment pt has R side bed rail M2 PT-IP Current Condition Start: 08/19/19 16:01 Freq: NEEDED Status: Active Protocol: Document 08/20/19 10:07 AB (Rec: 08/20/19 12:52 AB [email or web address]) Physical Therapy Current Condition Current Condition Evaluation Date 08/20/19 Treatment Diagnosis sycope; difficulty in walking Onset Date 08/19/19 Precautions Other Precautions orthostatic BP M3 PT-IP Subjective Start: 08/19/19 16:01 Freq: NEEDED Status: Active Protocol: Document 08/20/19 10:07 AB (Rec: 08/20/19 12:52 AB [email or web address]) Subjective Physical Therapy Visit Type Type Initial Evaluation Visit Start Time 10:07 Visit Stop Time 10:48 Total Visit Minutes 41 Number of [employer] TENDER Visits 0 Physical Therapy Visit Comments Patient Comments pt is agreeable to do PT M4 PT-IP Mobility and Gait Start: 08/19/19 16:01 Freq: NEEDED Status: Active Protocol: Document 08/20/19 10:07 AB (Rec: 08/20/19 12:52 AB [email or web address]) PT-Bed Mobility Assessment Supine to Sit Supine to Sit Maximum Assistance,1 Person Assistance,Head of Bed Elevated Sit to Supine Sit to Supine Maximum Assistance,2 Person Assistance Scooting Scooting to Edge of Bed Dependent PT-Transfer Assessment Sit to and From Stand Sit to and from Stand Maximum Assistance,1 Person Assistance,Use of Upper Extremities Equipment Transfer Assistive Device Gait Belt,Front Wheeled Walker Orthotic/Prosthetic Devices or Brace: No Comments Mobility Comments BP in supine with HOB elevated ~ 30 de/68. pt completed supine to sit max A and max cues. required total A for scooting to EOB and required mod A to maintain sitting balance on EOB. BP in sittin/79. pt without any complaints and tolerated sitting for 2 more minutes and BP checked again: 114/75. completed sit to stand max A and cues and required mod A to maintain standing balance using FWW for supprot. BP cehcedk in standin/37. instructed pt to sit back down . pt stated that she is not dizzy/lightheaded but feels tired and foggy. BP in sittin/74. pt completed sit to stand again from EOB max A and was able to take steps towards the HOB max A using FWW. BP sitting afterwards: 103/68. boiler testing technician requested pt to stay in bed because of ECHO procedure. pt completed sit to supine max A x 2 and max cues. required max A x 1-2 for positioning in bed. BP checked after tx session in supine: 142/91. call light and table placed within reach. bed alarm on. Gait Assessment Gait Gait Assistance Required: Maximum Assistance Distance (Feet) 2 Able to Maintain Weight Bearing Status No During Gait Assistive Devices Assistive Device Gait Belt,Front Wheeled Walker Orthotic/Prosthetic Devices or Brace: No Gait Deviations General Gait Pattern Antalgic,Decreased Stride Length,Decreased Feet Clearance Factors Limiting Gait Function Factors Limiting Gait Function Decreased Activity Tolerance, Decreased Strength,Difficulty Following Directions, Incoordination,Limited Range of Motion,Poor Balance,Poor Safety Awareness Comments Gait Comments able to take steps towards HOB . Pls refer to mobility section for details PT-Balance Assessment Sitting Balance and Reactions Static Sitting Balance Ability Fair Dynamic Sitting Balance Ability Poor Standing Balance and Reactions Static Standing Balance Ability Poor Dynamic Standing Balance Ability Poor Device Used FWW M5 PT-IP Objective Assessments Start: 08/19/19 16:01 Freq: NEEDED Status: Active Protocol: Document 08/20/19 10:07 AB (Rec: 08/20/19 12:52 AB [email or web address]) Orientation Orientation/Cognition Level of Alertness Confusional State Orientation Name Language Function Ability Hard of Hearing Safety Awareness Decreased Safety Awareness Memory Description Short Term Impaired Gross Range of Motion Lower Extremity ROM Impairments increase BLE tightness: ankle DF limited to neutral position Strength Lower Extremity Strength Assessment Bilaterally Impaired Hip 3+/5 Knee 3+/5 M6 PT-IP Treatment Start: 08/19/19 16:01 Freq: NEEDED Status: Active Protocol: Document 08/20/19 10:07 AB (Rec: 08/20/19 12:52 AB [email or web address]) Physical Therapy Treatment Education Education Provided Safety M7 PT-IP Assessment and Plan Start: 08/19/19 16:01 Freq: NEEDED Status: Active Protocol: Document 08/20/19 10:07 AB (Rec: 08/20/19 12:52 AB [email or web address]) PT Summary Assessment and Plan Potential Rehabilitation Potential Good Status of Condition at Evaluation Evolving Summary Impairments Pain,ROM,Strength,Balance, Coordination,Sensation,Tone, Cognition,Bed Mobility, Transfers,Gait,Activity Tolerance Assessment Summary pt requiring max A with mobility and has decrease BP with standing 77/37 affecting activity tolerance and mobility. Pt lives alone and will not have any assistance at home. pt also has other contributing medical issues: parkinson's disease affecting motor control and function. pt will require SNF rehab to improve strength and mobility. Goals Bed Mobility Goal Standby Assistance Transfer Goal Standby Assistance,Front Wheeled Walker Gait Goal Standby Assistance,Front Wheel Walker Gait Distance 50 Days to Meet Goals 5 Frequency of Treatment Frequency Of Treatment Once a Day Treatment Plan Physical Therapy Treatment Plan Bed Mobility Training,Transfer Training,Gait Training, Therapeutic Exercise,Balance Retraining,Post Op Education, Discharge Planning,Hot or Cold Pack,Neuromuscular Re-ed, Coordination Retraining,Manual Therapy Recommendations To Nursing Amount of Assist Needed 1 Person Assist Discharge Recommendations PT Discharge Recommendations SNF Rehab Transportation Needs at Discharge Wheelchair/Cabulance
--- NOTE | 2019-08-20 11:09 | DI.ECHO.S_ITS ---
Echocardiogram Report + + :Name: MICK BOYD Study Date: 08/20/2019 Height: 65 in : :[facility] Weight: 102 lb : : Gender: Female BSA: 1.5 m2 : :: 1940 Age: 79 yrs BP: 132/84 mmHg: :Reason For Study: SYNCOPE : :Ordering Physician: HOSPITALIST : :KODI Performed By: Khadra Casas : :Referring: MARLEN DENT : + + Interpretation Summary Left ventricular systolic function is normal with an estimated ejection fraction of 60 to 65% without any focal wall motion abnormalities. There is a relaxation abnormality with probable normal filling pressures although they may be mildly elevated. The right ventricle appears normal in size and systolic function. There is moderate pulmonary hypertension with right ventricular systolic pressure of at least 39 mmHg, perhaps slightly higher with a CVP of 8 to 15 mmHg. The left atrium is borderline enlarged. There is mild to moderate tricuspid regurgitation but no other significant valvular abnormality. The abdominal aorta has echogenic luminal contours suggestive of calcific atherosclerosis. Procedure: A two-dimensional transthoracic echocardiogram with color flow and Doppler was performed. The study quality was technically adequate. There is no prior echocardiogram noted for this patient. The patient was in sinus rhythm with heart rates between 65-75 bpm during the exam. Left Ventricle: The left ventricle is normal in size, wall thickness, and systolic function without any focal wall motion abnormalities. The ejection fraction is estimated to be 60-65%. Diastolic parameters suggest a relaxation abnormality of the left ventricle, consistent with probable normal filling pressures. Right Ventricle: The right ventricle is normal in size and function. Atria: The left atrium is borderline dilated. The right atrium is normal in size. There is no Doppler evidence for an interatrial shunt. Mitral Valve: There is mild mitral annular calcification. There is trace mitral regurgitation. Aortic Valve: The aortic valve is trileaflet. The aortic valve is slightly calcified. The aortic valve opens well. There is no aortic valve stenosis. No aortic regurgitation is present. Tricuspid Valve: The tricuspid valve is normal in structure and function. There is mild to moderate tricuspid regurgitation. The right ventricular systolic pressure is estimated to be at least 39 mmHg based on an estimated right atrial pressure of 8 mm Hg. Pulmonic Valve: The pulmonic valve is normal in structure and function. There is no pulmonic valvular regurgitation. There is no other significant valvular heart disease. Great Vessels: The aortic root is normal size. The ascending aorta could not be visualized. The IVC is dilated (diameter is greater than 2.1 cm) yet it collapses greater than 50% with a sniff. This suggests a right atrial pressure of 8 mm Hg. Pericardium/ Pleura There is no pericardial effusion. There is no pleural effusion. MMode/2D Measurements & Calculations LVIDd: 4.1 cm LVOT diam: 2.1 cm LVIDs: 2.5 cm Ao root diam: 3.3 cm FS: 39.4 % Ao Arch Diam (Prox Trans): 2.3 cm EPSS: 0.62 cm IVSd: 0.70 cm LVPWd: 0.79 cm LV sorto. diameter/BSA (cm/m^2): 2.8 LV sys. diameter/BSA (cm/m^2): 1.7 LA A2 area: 20.1 cm2 RA long axis: 4.5 cm LA A4 area: 12.7 cm2 RA area: 14.4 cm2 LA length (vol): 4.3 cm RA vol: 39.2 ml LA vol: 49.8 ml RA : 26.4 ml/m2 LA vol index: 33.5 ml/m2 IVC diam: 2.6 cm RVD1 (basal): 3.4 cm TAPSE: 2.5 cm Doppler Measurements & Calculations Ao V2 max: 136.0 cm/sec LVOT Max Javy: 109.1 cm/sec Ao V2 mean: 89.8 cm/sec LV V1 max P.8 mmHg Ao max P.4 mmHg LV V1 VTI: 25.0 cm Ao mean P.8 mmHg JAIMIE(I,D): 2.8 cm2 Ao V2 VTI: 30.1 cm JAIMIE(V,D): 2.7 cm2 sev ratio: 0.83 JAIMIE indexed to BSA (cm^2/m^2): 1.9 MV E max javy: 89.6 cm/sec TR max javy: 276.2 cm/sec MV A max javy: 114.9 cm/sec TR max P.5 mmHg MV E/A: 0.78 PA V2 max: 59.7 cm/sec Med Peak E' Javy: 5.7 cm/sec PA V2 mean: 39.7 cm/sec E/E' med: 15.7 PA mean P.73 mmHg Lat Peak E' Javy: 6.8 cm/sec PA pr(Accel): 32.8 mmHg E/E' lat: 13.1 E/e' average: 14.4 MV dec time: 0.21 sec SV(LVOT): 84.5 ml Reading Physician:PM
--- NOTE | 2019-08-20 13:32 | PC.NURSE ---
Patient removed two gold colored rings and gave them to her friend Jenniffer Rivera.
--- NOTE | 2019-08-20 14:13 | PM.PN.1 ---
Subjective Subjective Date Patient Seen: 08/20/19 Interval history: She is seen today in her room to follow-up her hyponatremia, her neurological disorders, her swallowing problem, her hypokalemia and her hyponatremia. She also has a Alvarez catheter. She says that she has been diagnosed with essential tremor and not Parkinsons but clinically she appears to have either Parkinson's or multi-system atrophy. She is hypotensive in an orthostatic fashion and she speaks very slowly with a waxy/frozen look on her face. She has not been to a neurologist since Dr. Nicolas retired about 3 years ago. Exam Vital Signs (past 8 hours): - 08/20/19 07:25 08/20/19 10:51 Temperature 98.0 F Pulse Rate 77 Pulse Rate [Orthostatic Lying] 77 Pulse Rate [Orthostatic Sitting] 75 Pulse Rate [Orthostatic Standing] 89 Respiratory Rate 14 Blood Pressure 146/99 H Blood Pressure [Orthostatic Lying] 123/68 Blood Pressure [Orthostatic Sitting] 117/79 Blood Pressure [Orthostatic Standing] 77/37 L Pulse Oximetry 98 Oxygen Delivery Method Room Air Oxygen Flow Rate 0 Narrative Exam Narrative: She is alert and oriented x3. She has a slow talker. Her family describes this has been a lifelong character trait. Her facial appearance is waxy/frozen. No apparent distress Heart is regular rate and rhythm without murmur Lungs are clear to auscultation bilaterally Extremities have no ankle edema There is a very mild tremor of her hands which does not appear to be classic for a pill rolling tremor or an intentional tremor. Her movements are very paced and slow. She appears very weak. Objective Labs Result Diagrams: 08/20/19 05:03 08/20/19 05:03 Labs: Laboratory Results - last 24 hr 08/19/19 08/19/19 08/19/19 14:24 14:24 14:24 WBC RBC Hgb Hct MCV MCH MCHC RDW Plt Count Neut % (Auto) Lymph % (Auto) [place] % (Auto) Eos % (Auto) Baso % (Auto) Neut # (Auto) Lymph # (Auto) [place] # (Auto) Eos # (Auto) Baso # (Auto) Sodium Potassium Chloride Carbon Dioxide BUN Creatinine Estimated GFR BUN/Creatinine Ratio Glucose Calcium Total Bilirubin Direct Bilirubin 0.0 AST ALT Alkaline Phosphatase Troponin I 0.086 H Total Protein Albumin Globulin Albumin/Globulin Ratio Procalcitonin < 0.05 Urine Color Urine Appearance Urine pH Ur Specific [place] Urine Protein Urine Glucose (UA) Urine Ketones Urine Occult Blood Urine Nitrate Urine Bilirubin Urine Urobilinogen Ur Leukocyte Esterase Urine RBC Urine WBC Ur Squamous Epith Cells Amorphous Sediment Urine Bacteria Urine Mucus Ur Culture Indicated? Ur Random Sodium 08/19/19 08/19/19 08/19/19 19:35 19:35 20:35 WBC RBC Hgb Hct MCV MCH MCHC RDW Plt Count Neut % (Auto) Lymph % (Auto) [place] % (Auto) Eos % (Auto) Baso % (Auto) Neut # (Auto) Lymph # (Auto) [place] # (Auto) Eos # (Auto) Baso # (Auto) Sodium 121 L Potassium Chloride Carbon Dioxide BUN Creatinine Estimated GFR BUN/Creatinine Ratio Glucose Calcium Total Bilirubin Direct Bilirubin AST ALT Alkaline Phosphatase Troponin I Total Protein Albumin Globulin Albumin/Globulin Ratio Procalcitonin Urine Color Yellow Urine Appearance Clear Urine pH 6.5 Ur Specific [place] 1.020 Urine Protein 2+ H Urine Glucose (UA) Trace H Urine Ketones 1+ H Urine Occult Blood 3+ H Urine Nitrate Negative Urine Bilirubin Negative Urine Urobilinogen 0.2 Ur Leukocyte Esterase Negative Urine RBC 1-5/hpf Urine WBC 5-10/hpf H Ur Squamous Epith Cells 1-5 /hpf Amorphous Sediment 1+ Urine Bacteria Few (2-10) H Urine Mucus 1+ H Ur Culture Indicated? Specimen cultured Ur Random Sodium 93 H 08/19/19 08/20/19 08/20/19 20:35 05:03 05:03 WBC 11.7 H RBC 3.49 L Hgb 11.3 L Hct 32.9 L MCV 94.3 MCH 32.4 MCHC 34.4 RDW 13.2 Plt Count 232 Neut % (Auto) 75.3 H Lymph % (Auto) 10.6 L [place] % (Auto) 13.9 Eos % (Auto) 0.1 L Baso % (Auto) 0.1 Neut # (Auto) 8800 H Lymph # (Auto) 1200 [place] # (Auto) 1600 H Eos # (Auto) 0 Baso # (Auto) 0 Sodium 123 L Potassium 3.3 L Chloride 91 L Carbon Dioxide 26 BUN 18 H Creatinine 0.69 Estimated GFR > 60.0 BUN/Creatinine Ratio 26.1 H Glucose 87 Calcium 8.3 L Total Bilirubin 1.3 Direct Bilirubin AST 112 H ALT 8 Alkaline Phosphatase 48 Troponin I 0.067 H Total Protein 6.2 L Albumin 3.4 L Globulin 2.8 Albumin/Globulin Ratio 1.2 Procalcitonin Urine Color Urine Appearance Urine pH Ur Specific [place] Urine Protein Urine Glucose (UA) Urine Ketones Urine Occult Blood Urine Nitrate Urine Bilirubin Urine Urobilinogen Ur Leukocyte Esterase Urine RBC Urine WBC Ur Squamous Epith Cells Amorphous Sediment Urine Bacteria Urine Mucus Ur Culture Indicated? Ur Random Sodium Assessment & Plan Assessment & Plan narrative: Patient is 79-year-old female with history of essential tremor for which she takes carbidopa levodopa and denies history of parkinsonism, GI bleed secondary to diverticulosis, hypothyroidism, chronic back pain and macular degeneration who presented to the ED due to recurrent syncope. She reports decreased p.o. intake in recent weeks and a 20 lb weight loss since February of this year. Labs showed moderate hyponatremia. 1. Recurrent syncope, present on admission, active -etiology unclear but seems associated with lack oral intake and significant weight loss resulting in generalized weakness, differential diagnosis includes cardiogenic etiology and less likely atypical seizures -EKG: NSR, mild LVH, no acute findings; head CT: No acute findings -obtain orthostatics when she attempts to mobilize with PT and OT -telemetry -transthoracic echo -IV hydration -suspect multi-system atrophy? 2. Hyponatremia, probably acute, present on admission, active -serum sodium 123 versus 140 in February -patient appears euvolemic on exam or at least not super volume depleted -differential includes malnutrition with poor solute intake (low urine sodium and osmolarity), SIADH or reset Osmo stat -obtain urine sodium and osmolarity -normal saline at 100 cc/hour and avoid rapid correction of sodium -repeat serum sodium after initial 500 cc NS is 121 and then 123, infusion rate increased to 125. -Normal chest x-ray -daily BMP 3. Mild rhabdomyolysis, present on admission, active -CK 2281, without evidence of acute renal failure, repeat 08/20 -address with IV fluids 4. Depression, without SI, present on admission -patient with severely flat affect, admits depression -consider psych consult and initiating SSRI, psychiatry not available for consultation on 08/19 -also clinically appears to be possible Parkinson's-atypical or multi-system atrophy. Encourage neurology outpatient consultation. 5. Leukocytosis, present on admit -patient's mild leukocytosis likely reactive, does not have fever or other signs of systemic infection -obtain urinalysis -procalcitonin is normal -repeat CBC 08/19 is 11.7 6. Elevated bilirubin, present on admission -total bili 1.6, AST 78, ALT 25, alk-phos 74 -likely not significant in patient without abdominal complaints -direct bilirubin is 0 7. Elevated troponin, present on admission -troponin 0.081 intermediate elevated likely not significant inpatient without chest pain or EKG changes -repeat 8 hour 0.086 and then 0.067 -EKG on 08/18 with NSR, LVH and mild diffuse ST segment elevations -Repeat EKG and obtain Echo 8. Hypothyroidism, chronic -TSH in normal range -continue levothyroxine 25 mcg daily 9. Essential tremor, chronic -patient denies diagnosis of Parkinson's and was followed by neurologist - Dr. Pino until he retired 3 years ago -She has other stigmata suggestive of Parkinsons or MSA so is strongly advised to f/u with a new neurologist soon. -continue carbidopa levodopa 50-200 mg ER t.i.d. 10. Chronic iron deficiency anemia -hemoglobin improved from prior levels -continue patient's iron sulfate 325 mg daily DVT prophylaxis: Lovenox Admit status: admit to inpatient Code status: DNR, sister confirms this is patient has longstanding wishes. Patient has polst which sister will try to bring from home. Surrogate decision maker: Sister Quality VTE Deep Vein Thrombosis/Pulmonary Embolism Present on Admission: No
--- NOTE | 2019-08-20 14:55 | ST.IPCSEOM ---
Visit Care Team Role Provider Type Mateusz Bonilla MD Primary Care Provider Physician Specialty: Internal Medicine Address: [address] [place] [address], [address], [place], [address] Email: [email or web address] Gita Nieves DO Emergency Provider Physician Referring Provider Specialty: Emergency Medicine Address: [address] [place] [address], [id number] Email: [email or web address] Tyler Arriola MD Admit Provider Physician Attending Provider Specialty: Internal Medicine Address: [address] [place] [address], [address] Email: [email or web address] Past Medical History (Last Reviewed 08/19/19 @ 11:21 by Gita Nieves DO) Chicken pox (Resolved Medical) 1940's Chronic back pain (Chronic Medical ~2013) Colitis (Inactive Medical) Essential tremor (Chronic Medical 06/26/15) Fatigue (Chronic Medical 08/29/15) GI (gastrointestinal bleed) (Inactive Medical) Hypothyroidism (acquired) (Chronic Medical) Macular degeneration (Chronic Medical) Measles (Resolved Medical) 1939's Rosacea (Chronic Medical) 1979's Rubella (Resolved Medical) 194's Shoulder pain (Chronic Medical ~1988) Frozen Speech-Language Pathology Swallow Evaluation CONSUMER AFFAIRS MANAGER Clinical Swallow Evaluation Start: 08/20/19 14:38 Freq: Status: Active Protocol: Document 08/20/19 14:38 MG (Rec: 08/20/19 14:55 MG [id number]) Clinical Swallow Evaluation Session Time Visit Start Time 14:00 Visit Stop Time 14:35 Total Visit Minutes 35 Visit Information Visit Number 1 Setting Assessment Location Acute Care Visit Type Note Type Initial Evaluation Patient Information Identification Type Name,ID Wristband History Patient is 79-year-old female with history of essential tremor for which she takes carbidopa levodopa and denies history of parkinsonism, GI bleed secondary to diverticulosis, hypothyroidism , chronic back pain and macular degeneration who presents to the ER due to recurrent syncope. About 3 weeks ago patient began to experience episodes of sudden syncope. It seems the episodes are fairly frequent. She saw her PCP a week ago and is supposed to get Holter monitoring arranged. Patient' s sister found her on the floor when she came to check on her this morning as she was supposed to drive her to the bank. Patient has no recollection of when she passed out and how long she has been on the floor. She was found to have bruises on extremities and a CK level of 2200 on ER evaluation. Also her serum sodium was 123 verses baseline of 140 in February of this year. Patient does feel these episodes coming on where she feels like she is going to faint and also feels dizzy right before she passes out. Her sister has witnessed a number of these episodes. She states that patient has some slurring of speech and confusion for up to 5 minutes after these episodes until she is able to lie down. Patient's blood pressure has not been low before or after these episodes . Patient has also not been eating well over the past few weeks though claims she is maintaining fluid intake. She states she can not taste anything. She has lost about 20 lb since February of this year. She admits to significant depression which she attributes to news events but denies suicidal ideation. She denies chest pain, dyspnea, sensation of racing or irregular heartbeats. Sister has not observed seizure-like activity associated with these episodes . Patient has not had fever, chills, nausea, vomiting, abdominal pain, constipation, diarrhea but has had some urinary incontinence as of late. ER evaluation also included EKG which showed sinus rhythm and no acute findings, and no signs of fracture on shoulder or knee x -rays. Also head CT showed chronic small vessel ischemic change and volume loss but no acute findings. Subjective Observations Pt was found laying in a fully reclined bed and reseting upon CONSUMER AFFAIRS MANAGER entry. Pt was able to be aroused and was agreeable to a swallow evaluation. Once alerted, pt was oriented. Pt reported the following information: Pt is a slow eater and always has been. Today, 08/20/2019, at lunch pt reported she choked on water and turkey in her sandwich which led to her coughing. Pt reports when food is dry she has a hard time chewing and swallowing it. Evaluation Liquids Trialed Ice Chips,Thin Solids Trialed Puree,Dysphagia Mechanical Administration Type Tea Spoon,Cup Single Sip, Controlled Cup Sip,Dependent Feeding Oral Impairment Mildly Impaired Oral Strategies Upright at 90 degrees,Double Swallow,Lingual Sweep, Controlled Bite/Sip Size, Alternate Liquids/Solids Oral Phase Comments Formal OME was conducted. Results indicate muscular weakness of the oral structure . Pt's tongue strength was reduced with lower range of motion. Cannot observe if base of tongue is also impacted indicating probable posterior spillage into the pharynx, but probable given observed weakness. Poor lip seal was observed on trial of thin liquid. Pt's jaw strength was adequate. On trial of dysphagia mech, pt reported feeling that she still had the food in her oral cavity. Upon observation, moderate residue was noted. Liquid wash appeared to clear the oral cavity and no residue was noted. Pt's dentition is adequate, however on more solid subtances, increased time to masticate was noted. Pharyngeal Impairment Mildly Impaired Pharyngeal Strategies Sitting Upright (90 deg), Double Swallow,Small Bites and Sips,Alternate Liquids/Solids Pharyngeal Phase Comments Laryngeal palpation indicated reduced hyolayrngeal elevation and reduced anterior movement of the hyoid bone. On all trials of liquid and solids, no overt s/sx of aspiration were noted. No wet/gurgly voice was observed after all trials as well. Pt reported she was able to manage the trials. Pt noted sometiems she needs to swallow more than once. Upon multiple swallows, pt can clear oral and pharyngeal structures. Findings Dysphagia Type Oropharyngeal dysphagia Rehabilitation Potential Good Impressions Pt currently presents with oropharyngeal dysphagia secondary to generalized weakness in the oral and pharyngeal structures. Solids that require more chewing result in prolonged mastication and inability to clear oral cavity. Strategies such as sitting upright, alternating between solids/ liquids, and double swallow appeared effective. Diet Recommendations Liquids Order Thin Diet Order Mechanical Soft Medication Recommendations As Tolerated Additional Dietary Needs Single Sips,No Straws, Encourage to Self-Feed Aspiration Precautions Recommended Precautions Upright at 90 Degrees, Alternate Liquids/Solids,Small Bites/Sips,Double Swallow, Lingual Sweep Treatment Plan Placement Recommendations after Care Home Facility Discharge Dysphagia Goals Pt will tolerate least restrictive diet and no show any overt s/sx of aspiration. CONSUMER AFFAIRS MANAGER Follow Up If diet orders need to be modified
--- NOTE | 2019-08-20 15:41 | CM.IDA ---
Initial DCP Assessment Note: Patient is an 79 yo female, resident of [place]. Patient presents after syncopal episode at home, mild rhabdo and h/o essential tremor. Patient admits to decreased po intake and recent 20 lb weight loss since February 2019. Patient also admits to admitting provider depression that is currently untreated, denies SI PCP: Mateusz Bonilla Payer: [employer] Reviewed chart. Met patient during multidisciplinary rounds this morning, then later spoke w/she and her sister Jenniffer at bedside. Dr Munson hopeful this morning that Psychiatry was available for consultation (Flat, slow affect, weight loss: Psych component vs neuro component?) no psych available today or over holiday w/e. According to patient and her sister Jenniffer , patient had been successfully living alone up until two weeks ago when she became increasingly weak, making ADLs difficult. Jenniffer visits patient daily and speaks w/her nightly by phone and admits she has been worried about her sister. Jenniffer lives in an apt complex in [facility], and has multiple sets of stairs to get into her apt, no elevator available, so patient cannot stay w/her. Benjy Morse lives in [place] and is patient's DPOA/decision maker. Patient gives this WAREHOUSE GENERAL LABORER permission to contact son to review DCP. Patient was initially observation status but order has been corrected by UR LAURA Young to reflect Inpatient status from admission 08.19.19. Suggested that patient would likely benefit from SNF stay and Jenniffer agrees w/this. Asked patient if she had lost her appetite recently and she responded that I lost my appetite when my 2 years ago. Not too long after this comment, patient's son Lito called, this WAREHOUSE GENERAL LABORER able to introduce role to benjy Morse, by phone, but stepped out of patient's room soon after. PT recommending SNF. P: DC to SNF is anticipated, will need to review this DCP option and if agreeable, SNF choices, w/patient and benjy Morse Friday08.21.19 Will plan to discuss MH/grieving resources w/patient tomorrow if she seems interested in such. MAMIE Schroeder Discharge Planning/Care Management CM Discharge Assessment Start: 08/20/19 15:31 Freq: Status: Active Protocol: Document 08/20/19 15:32 HARPAL (Rec: 08/20/19 15:41 HARPAL [id number]) Discharge Planning Assessment Assigned Machine Technician MAMIE Rothman/Assigned Designee Name Jenniffer Rivera, sister Lito Calvo, son/DPOA Contact Information Jenniffer: [phone] Lito: [phone] Advance Directives? Yes: POLST Advance Directives on File ASKED SISTER TO BRING IN POLST . History Provided By Patient,Family Member,Medical Record Prior Living Arrangements Apartment/Condo Household Members none Type of transporation used prior to Relies on Others admit Independent with ADL's Yes: Difficulty last two weeks , otherwise indp Is patient alert and oriented? Yes Patient/Family Preference [facility] Facility Barriers to Discharge Yes Comment Lives alone, requiring at least 1 person assist Discharge Plan [facility] Facility Transportation Arrangement Likely w/c jose Additional Comment Need to review DCP options w/ patient
--- NOTE | 2019-08-20 15:54 | OT.IP.TRT ---
Occupational Therapy Treatment Note M3 OT- IP Subjective and Pain Start: 08/20/19 12:55 Freq: Status: Active Protocol: Document 08/20/19 15:51 CGR (Rec: 08/20/19 15:54 CGR [email or web address]) OT- Subjective Occupational Therapy Visit Type Type Administrative Note Notes Per nursing, pt is orthostatic and currently very symptomatic with standing systolic BP in the 70s. Will hold at this time and follow up tomorrow.
--- NOTE | 2019-08-20 18:36 | DIET.PN ---
Dietary Progress Note Assessment: 79y F admitted for recurrent syncope referred to nutrition for low appetite, low serum sodium, and reported weight loss. This RD worked c pt in Feb 2019 during hospitalization for rectal bleeding secondary to diverticulitis. Pt working c SLT who recommend Dysphagia mech soft/thin. Pt having difficulty c self-feeding, RD brought weighted silverware yet pt asked for someone to help feed her. Pt has essential tremor, Pt taking half scoops of food and slowly bringing to mouth. Pt reports she drinks a mug of hot water with all meals to help c swallowing. Feels mug is easier to drink with because of it's heavier weight than drinking out of the tall cup c straw. Pt lives alone, does not cook for self, a sister drops off meals sometimes. Usual Day: B: V8 juice, honey nut cheerios c whole milk and a banana L: microwave meal D: microwave meal or pb&j sandwich, c dessert of fun size Snickers bar Pt reports being 140# most of life but losing weight since of her in 2012. Upon admit pt wt recorded as 46kg which was error as zero'd out bed scale reports pt at current weight. Pt is weight stable since February but please note height discrepancy of 10cm skewing BMI. WT:56.7kg UBW: 56.5kg Labs: Na 123 L, K+ 3.3 L Interventions: 1. Recc feeding assistance in addition to weighted silverware r/t essential tremor and weakness 2. Recc ONS Ensure Enlive bid between meals 3. Consider Meals on Wheels c delivery of ONS Ensure if returning to apartment as pt reliant on microwave meals and having difficulty self feeding. Diet Order: Dysphagia Mech soft/thin, adaptive silverware, feeding assistance please EER: 1500kcal, 55g PRO
--- NOTE | 2019-08-20 19:14 | PC.NURSE ---
Pt was set up with alternative eating utensils which were slightly helpful, but she did not eat much. When she was fed by staff, she ate 100%. Diet is now mechanical soft. Hypertensive when sitting and laying down, hypotensive when standing. Good UO, LS clear, diminished in bases. EKG is NSR with some LVH. +BTs, multiple brusing 2/2 falls. Pt is socialing with staff and sister. Sister Jenniffer and son who is POA were slightly irritated that [facility] did not call them back this afternoon, as that was their expectation.
[2019-08-20] MEDS: ACETAMINOPHEN 325 MG TABLET 650 MG PO (20:52)
--- NOTE | 2019-08-20 22:36 | PC.NURSE ---
Assumed care of this patient @ 1999. Pt lying quietly in bed with eyes closed. Rouses easily to voice. Generalized weakness and requires assistance to turn and reposition in bed. Small superficial open area left flank. PHYSICIST ASTROPHYSICS cleanses this area with soap and water and this song writer placed small allevyn gentle border dressing. No drainage. BL calf scd's in place. Tylenol in carrier for c/o left hand pain 5/10. Head of bed elevated x 15 minutes minimum following oral meds. Swallows slowly, but completely. Alvarez to gravity. Able to make needs and wants known to staff although speech is slow and deliberate.
[2019-08-21] VITALS (9 sets, daily range): BP systolic 120–150; BP diastolic 62–97; PULSE 71–91; RESP 14–18; TEMP 36.7–37.4; O2SAT 96–100
[2019-08-21] MEDS: SODIUM CHLORIDE 0.9% 1,000 ML 125 ML IV (04:42)
[2019-08-21 05:28] LABS: BUN Creatinine Ratio 19.7 (6-22); Blood Urea Nitrogen 13 mg/dL (7-17); Calcium 7.9 mg/dL (8.4-10.2); Carbon Dioxide 25 mmol/L (22-32); Chloride 97 mmol/L (98-107); Estimated Glomerular Filt Rate > 60.0 mL/min (>60); Glucose 89 mg/dL (80-110); HEMOLYSIS < 15 (0-50); Potassium 3.1 mmol/L (3.4-5.1); Sodium 126 mmol/L (137-145)
[2019-08-21 05:36] LABS: Creatine Kinase 2312 U/L (30-135)
[2019-08-21] MEDS: LEVOTHYROXINE 25 MCG TABLET PO (06:22)
[2019-08-21] MEDS: POTASSIUM CHLORIDE 20 MEQ TAB PO (06:22)
[2019-08-21] MEDS: POTASSIUM CHLORIDE 40 MEQ in SODIUM CHLORIDE 0.9% 500 ML 130 ML IV (08:46)
[2019-08-21] MEDS: ENOXAPARIN 40 MG/0.4 ML SYRINGE SUBCUT (08:47)
[2019-08-21] MEDS: CARBIDOPA-LEVODOPA ER 50/200 TABLET 1 EACH PO ×3 (08:48→20:44)
[2019-08-21] MEDS: FERROUS SULFATE 325 MG TABLET PO (08:48)
--- NOTE | 2019-08-21 11:16 | PM.PN.1 ---
Subjective Subjective Date Patient Seen: 08/21/19 Time Patient Seen: 11:17 Interval history: She is seen today in her room to follow-up her hyponatremia, her neurological disorders, her swallowing problem, her hypokalemia and her hyponatremia. She also has a Alvarez catheter. She says that she has been diagnosed with essential tremor and not Parkinsons but clinically she appears to have either Parkinson's or multi-system atrophy. She is hypotensive in an orthostatic fashion and she speaks very slowly with a waxy/frozen look on her face. She has not been to a neurologist since Dr. Nicolas retired about 3 years ago. She is slightly improved today and was able to eat with nursing staff. She complains primarily of L hand stiffness. Exam Vital Signs (past 8 hours): - 08/21/19 04:00 08/21/19 04:10 08/21/19 08:00 Temperature 98.7 F 98.6 F Pulse Rate 73 79 Pulse Rate [Orthostatic Lying] Pulse Rate [Orthostatic Sitting] Respiratory Rate 14 18 Blood Pressure 150/88 H 146/92 H Blood Pressure [Orthostatic Lying] Blood Pressure [Orthostatic Sitting] Pulse Oximetry 100 100 99 08/21/19 09:00 Temperature Pulse Rate Pulse Rate [Orthostatic Lying] 82 Pulse Rate [Orthostatic Sitting] 79 Respiratory Rate Blood Pressure Blood Pressure [Orthostatic Lying] 136/69 Blood Pressure [Orthostatic Sitting] 146/92 H Pulse Oximetry Oxygen Delivery Method Room Air Oxygen Flow Rate 0 Narrative Exam Narrative: She is alert and oriented x3. She has a slow talker. Her family describes this has been a lifelong character trait. Her facial appearance is waxy/frozen. No apparent distress Heart is regular rate and rhythm without murmur Lungs are clear to auscultation bilaterally Extremities have no ankle edema There is a very mild tremor of her hands which does not appear to be classic for a pill rolling tremor or an intentional tremor. Her movements are very paced and slow. She appears very weak. Objective Labs Result Diagrams: 08/20/19 05:03 08/21/19 04:55 Labs: Laboratory Results - last 24 hr 08/21/19 08/21/19 04:55 04:55 Sodium 126 L Potassium 3.1 L Chloride 97 L Carbon Dioxide 25 BUN 13 Creatinine 0.66 Estimated GFR > 60.0 BUN/Creatinine Ratio 19.7 Glucose 89 Calcium 7.9 L Total Creatine Kinase 2312 H Assessment & Plan Assessment & Plan narrative: Patient is 79-year-old female with history of essential tremor for which she takes carbidopa levodopa and denies history of parkinsonism, GI bleed secondary to diverticulosis, hypothyroidism, chronic back pain and macular degeneration who presented to the ED due to recurrent syncope. She reports decreased p.o. intake in recent weeks and a 20 lb weight loss since February of this year who was admitted for hyponatremia. 1. Recurrent syncope, present on admission, active -etiology unclear but seems associated with lack oral intake and significant weight loss resulting in generalized weakness, differential diagnosis includes cardiogenic etiology and less likely atypical seizures. Orthostatics negative. Consider Multi-system atrophy as well -EKG: NSR, mild LVH, no acute findings; head CT: No acute findings -continue PT / OT -telemetry has been unremarkable. -transthoracic echo showing preserved ejection fraction with some diastolic dysfunction. -IV hydration 2. Hyponatremia, probably acute, present on admission, active -serum sodium 123 versus 140 in February, improved to 126 today with fluid hydration. -differential includes malnutrition with poor solute intake (low urine sodium and osmolarity), SIADH or reset Osmo stat -obtain urine sodium of 93 after fluid. May be multifactorial in nature as fluid resuscitation has initially improved. If worsening with fluids consider fluid restriction and repeating urine Na after some time off of fluid resuscitation. -repeat serum sodium after initial 500 cc NS is 121 and then 123, infusion rate increased to 125 with improvement to Na of 126. -Normal chest x-ray -daily BMP 3. Mild rhabdomyolysis, present on admission, active -CK 2281, without evidence of acute renal failure, repeat 08/20 -address with IV fluids 4. Depression, without SI, present on admission -patient with severely flat affect, admits depression -consider psych consult and initiating SSRI, psychiatry not available for consultation over the holiday weekend. -also clinically appears to be possible Parkinson's-atypical or multi-system atrophy. Recommend neurology outpatient consultation. 5. Leukocytosis, present on admit, improved. -patient's mild leukocytosis likely reactive, does not have fever or other signs of systemic infection -UA borderline, awaiting culture. -procalcitonin is normal 6. Elevated bilirubin, present on admission -total bili 1.6, AST 78, ALT 25, alk-phos 74 -likely not significant in patient without abdominal complaints -direct bilirubin is 0 7. Elevated troponin, present on admission, resolved -troponin 0.081 intermediate elevated likely not significant inpatient without chest pain or EKG changes -repeat 8 hour 0.086 and then 0.067 -EKG on 08/18 with NSR, LVH and mild diffuse ST segment elevations -TTE as noted above. 8. Hypothyroidism, chronic -TSH in normal range -continue levothyroxine 25 mcg daily 9. Essential tremor, chronic -patient denies diagnosis of Parkinson's and was followed by neurologist - Dr. Pino until he retired 3 years ago -She has other stigmata suggestive of Parkinsons or MSA so is strongly advised to f/u with a new neurologist soon. -continue carbidopa levodopa 50-200 mg ER t.i.d. 10. Chronic iron deficiency anemia -hemoglobin improved from prior levels -continue patient's iron sulfate 325 mg daily DVT prophylaxis: Lovenox Admit status: admit to inpatient, anticipate discharge in the next 24-48 hours once sodium has improved closer to normal. Code status: DNR, sister confirms this is patient has longstanding wishes. Patient has polst which sister will try to bring from home. Surrogate decision maker: Sister Quality VTE Deep Vein Thrombosis/Pulmonary Embolism Present on Admission: No
--- NOTE | 2019-08-21 12:14 | PT.IPTN ---
Physical Therapy Treatment Note M2 PT-IP Current Condition Start: 08/19/19 16:01 Freq: NEEDED Status: Active Protocol: Document 08/20/19 10:07 AB (Rec: 08/20/19 12:52 AB [email or web address]) Physical Therapy Current Condition Current Condition Evaluation Date 08/20/19 Treatment Diagnosis sycope; difficulty in walking Onset Date 08/19/19 Precautions Other Precautions orthostatic BP M3 PT-IP Subjective Start: 08/19/19 16:01 Freq: NEEDED Status: Active Protocol: Document 08/21/19 09:30 MB (Rec: 08/21/19 12:14 MB [id number]) Subjective Physical Therapy Visit Type Type Treatment Note Visit Start Time 09:30 Visit Stop Time 10:09 Total Visit Minutes 39 Number of PAINTER PLATE Visits 0 Physical Therapy Visit Comments Patient Comments Pt is agreeable to PT. Sister, Jenniffer, in the room. Therapy Pain Assessment Pain When Pain Assessed At Rest Pain Present Pain Present Pain Reported Location Left Finger Scale Used No number given Pain Behaviors Guarding M4 PT-IP Mobility and Gait Start: 08/19/19 16:01 Freq: NEEDED Status: Active Protocol: Document 08/21/19 09:30 MB (Rec: 08/21/19 12:14 MB [id number]) PT-Bed Mobility Assessment Supine to Sit Supine to Sit Contact Guard Assistance,1 Person Assistance,Head of Bed Elevated,Bedrails Scooting Scooting to Edge of Bed Maximum Assistance PT-Transfer Assessment Sit to and From Stand Sit to and from Stand Moderate Assistance,1 Person Assistance,Use of Upper Extremities Equipment Transfer Assistive Device Gait Belt,Front Wheeled Walker Orthotic/Prosthetic Devices or Brace: No Comments Mobility Comments Pt is able to start scooting to EOB and then requires PT assist with pad to help scoot the rest of the way to EOB. Pt presents with edema in left arm, perhaps infiltrated IV site and PT communicates with SALES MANAGEMENT INTERN and PT takes off BP cuff. Her left forearm has gauze on it that is yellow. Cues for sit to stand, WB, hand placement. Few steps from bed to the chair. Gait Assessment Gait Gait Assistance Required: Moderate Assistance Distance (Feet) 1 Assistive Devices Assistive Device Gait Belt,Front Wheeled Walker Orthotic/Prosthetic Devices or Brace: No Gait Deviations General Gait Pattern Antalgic,Decreased Stride Length,Decreased Feet Clearance,Festinating,Flexed Trunk,Step-to Gait Factors Limiting Gait Function Factors Limiting Gait Function Decreased Activity Tolerance, Decreased Strength,Limited Range of Motion,Poor Balance, Poor Safety Awareness Comments Gait Comments Pt with strong posterior lean, has trouble standing upright, scooting steps from the bed to the chair to the right. Pt takes about 6 scooting steps, cues for feet and walker movement. PT supports pt upright with gait belt. PT-Balance Assessment Sitting Balance and Reactions Static Sitting Balance Ability Fair Dynamic Sitting Balance Ability Poor Standing Balance and Reactions Static Standing Balance Ability Poor Dynamic Standing Balance Ability Poor Device Used FWW M5 PT-IP Objective Assessments Start: 08/19/19 16:01 Freq: NEEDED Status: Active Protocol: Document 08/20/19 10:07 AB (Rec: 08/20/19 12:52 AB [email or web address]) Orientation Orientation/Cognition Level of Alertness Confusional State Orientation Name Language Function Ability Hard of Hearing Safety Awareness Decreased Safety Awareness Memory Description Short Term Impaired Gross Range of Motion Lower Extremity ROM Impairments increase BLE tightness: ankle DF limited to neutral position Strength Lower Extremity Strength Assessment Bilaterally Impaired Hip 3+/5 Knee 3+/5 M6 PT-IP Treatment Start: 08/19/19 16:01 Freq: NEEDED Status: Active Protocol: Document 08/21/19 09:30 MB (Rec: 08/21/19 12:14 MB [id number]) Physical Therapy Treatment Education Education Provided Safety Other Treatments Other Treatment Performed Education and self-care: Importance of doing as much as she can with her left arm given edema in left forearm-- pt is then able to brush her hair and wipe her eyes (PT initially performing d/t crusty eyes decrease her opening them), benefits in HS, APs, moving while in chair to help back, educated pt and sister in benefits of SNF, concerns about orthostasis (BP dropping) Orthostatic assessment left UE : supine 136/69, 82; sitting 110/77, 86; once sitting in chair, systolic BP is 121 M7 PT-IP Assessment and Plan Start: 08/19/19 16:01 Freq: NEEDED Status: Active Protocol: Document 08/21/19 09:30 MB (Rec: 08/21/19 12:14 MB [id number]) PT Summary Assessment and Plan Potential Rehabilitation Potential Good Status of Condition at Evaluation Evolving Summary Impairments Pain,ROM,Strength,Balance, Coordination,Bed Mobility, Transfers,Gait,Activity Tolerance Assessment Summary Pt progresses with bed mobility, transfers and taking a few steps today. Dropping BP, left UE edema and left hand pain are barriers to PT. Pt will benefit from skilled PT at d/c. Goals Bed Mobility Goal Independent Transfer Goal Standby Assistance,Front Wheeled Walker Gait Goal Standby Assistance,Front Wheel Walker Gait Distance 50 Days to Meet Goals 10 Frequency of Treatment Frequency Of Treatment Once a Day Treatment Plan Physical Therapy Treatment Plan Bed Mobility Training,Transfer Training,Gait Training, Therapeutic Exercise,Balance Retraining,Discharge Planning, Hot or Cold Pack,Neuromuscular Re-ed,Coordination Retraining ,Manual Therapy Recommendations To Nursing Amount of Assist Needed 1 Person Assist Discharge Recommendations PT Discharge Recommendations SNF Rehab Transportation Needs at Discharge Wheelchair/Cabulance
--- NOTE | 2019-08-21 12:30 | OT.IP.EVAL ---
Past Medical History (Last Reviewed 08/19/19 @ 11:21 by Gita Nieves DO) Chicken pox (Resolved) Chronic back pain (Chronic ~2013) Colitis (Inactive) Essential tremor (Chronic 06/26/15) Fatigue (Chronic 08/29/15) GI (gastrointestinal bleed) (Inactive) Hypothyroidism (acquired) (Chronic) Macular degeneration (Chronic) Measles (Resolved) Rosacea (Chronic) Rubella (Resolved) Shoulder pain (Chronic ~1988) Surgical History (Last Reviewed 08/19/19 @ 11:21 by Gita Nieves DO) Anesthesia (Resolved) History of tonsillectomy (~194) S/P cataract extraction (Chronic) Status post colonoscopy (~2007) Occupational Therapy Inpatient Evaluation/Re-Eval M1 PT/OT-IP Prior Functional Status Start: 08/19/19 16:01 Freq: NEEDED Status: Active Protocol: Document 08/21/19 12:44 CGR (Rec: 08/21/19 13:06 CGR [email or web address]) Medical Review Prior Functional Status Medical History Reviewed Yes Communication able to make needs known but with slow responses Mobility and Gait stated that she is modified independent with all mobilities and ambulation using 4WW for the last 3 weeks . Prior to that she was using walking sticks as needed. Activities of Daily Living and IADL's Pt was IND in all ADLs. Pt states she has not been driving since February and is thinking about selling her car . Social History Household Members none Living Arrangements Apartment/Condo Number of Stairs To Enter/Railing? Pt lives on the 3rd floor with an elevator. No steps. Home Environment High Toilet,Tub/Shower Home Equipment Four Wheel Walker Employment Status Retired Additional Social History Comment Pt states her sister has been helping her with transportation but she can still drive and she has a high bed with 1 step to get into it. Discussion with P.T., pt is inconsitant with some home set up reports. Pt stated no rails for bed to OT, but reported a R rail to P.T. Pt reported 1 step up to bed to OT but not to P.T. M2 OT-IP Current Condition Start: 08/20/19 12:55 Freq: Status: Active Protocol: Document 08/21/19 12:44 CGR (Rec: 08/21/19 13:06 CGR [email or web address]) Occupational Therapy Current Condition Current Condition Evaluation Date 08/21/19 Treatment Diagnosis sudden onset syncope, orthostatic, parkinsons Diagnosis Onset Date 08/19/19 M3 OT- IP Subjective and Pain Start: 08/20/19 12:55 Freq: Status: Active Protocol: Document 08/21/19 12:44 CGR (Rec: 08/21/19 13:06 CGR [email or web address]) OT- Subjective Occupational Therapy Visit Type Type Initial Evaluation Visit Start Time 12:01 Visit Stop Time 12:30 Total Visit Minutes 29 OT Pain Assessment Pain When Pain Assessed At Rest Pain Present Pain Present Pain Reported Location Left Finger Intensity 5 Scale Used Numeric (0 - 10) Management Techniques Modification of Treatment,Re- positioning Left Hand Intensity 5 Scale Used Numeric (0 - 10) Management Techniques Modification of Treatment,Re- positioning M4 OT- IP ADL's Start: 08/20/19 12:55 Freq: Status: Active Protocol: Document 08/21/19 12:44 CGR (Rec: 08/21/19 13:06 CGR [email or web address]) OT [id number] Comments OT Self-Feeding Comments Not meal time OT ADL-Grooming Comments OT Grooming Comments Pt declined, states very fatigued OT ADL-Oral Care Comments Oral Care Comments Pt declined, states very fatigued OT ADL-Dressing General Eval Lower Body Dressing Ability Total Assistance Areas Needing Assistance Underpants/Brief,Socks Comments OT Dressing Comments seated on toielt OT ADL-Toileting General Evaluation Toileting Ability Maximum Assistance Areas Needing Assistance Manage Clothing,Perform Perineal Hygiene Devices Toileting Assistive Devices Commode Comments OT Toileting Comments Pt needed max a for back pericare while standing and clothing management. OT ADL-Bathing Comments OT Bathing Comments Pt not appropriate at this time given orthostatics M5 OT- IP IADL's Start: 08/20/19 12:55 Freq: Status: Active Protocol: Document 08/21/19 12:44 CGR (Rec: 08/21/19 13:06 CGR [email or web address]) OT-Instrumental Activities of Daily Living Deficits IADL Deficits Identified Deficits Home Safety Awareness Awareness of Need for Assistance at Home Decreased Awareness M6 OT- IP Functional Cognition Start: 08/20/19 12:55 Freq: Status: Active Protocol: Document 08/21/19 12:44 CGR (Rec: 08/21/19 13:06 CGR [email or web address]) Cognitive Factors Limiting Selfcare Function Cognitive Ability Level of Alertness Alert Patient Orientation Name,Age,Birthday,Month,Date, Year,Day of Week,Place, Situation Attention Span Ability Capable of Focused Attention, Capable of Sustained Attention Ability to Follow Commands Able to Follow One Step Commands with Increased Time, Able to Follow One Step Commands with Repetition Cognitive Comments Cognitive Assessment Comments Pt is slow with responding and would benefit from a formal cog assessment. OT- Vision and Hearing OT- Hearing Assessment OT- Hearing Assessment WFL OT- Vision Assessment Visual Acuity Glasses All The Time Visual Attentiveness WFL Occular Pursuits WFL Vision Assessment Comments pts eye movement is delayed but WFL for her age. Pt wears trifocals M7 OT- IP Mobility and Balance Start: 08/20/19 12:55 Freq: Status: Active Protocol: Document 08/21/19 12:44 CGR (Rec: 08/21/19 13:06 CGR [email or web address]) OT- Bed Mobility Assessment Rolling Type of Rolling Roll to Left Level of Assistance Minimal Assistance Sit to Supine Sit to Supine Assist Maximum Assistance OT-Transfer Assessment Sit to and From Stand Sit to and from Stand Moderate Assistance Transfers Transfer Ability Moderate Assistance Technique Transfer Destination Bed,Bedside Commode,Chair Transfer Technique Stand Step Pivot Devices Transfer Assistive Devices Gait Belt,Front Wheeled Walker Comments Mobility Comments Pt is slow with all mobility and needs initiation of movement in most instances. OT- Balance Assessment Sitting Balance and Reactions Static Sitting Balance Ability Good Dynamic Sitting Balance Ability Fair M8 OT- IP Objective Assessments Start: 08/20/19 12:55 Freq: Status: Active Protocol: Document 08/21/19 12:44 CGR (Rec: 08/21/19 13:06 CGR [email or web address]) OT Gross Range of Motion Upper Extremity Range of Motion Assessment Left Impaired OT Strength Upper Extremity Strength Assessment Within Functional Limits Comments Strength Comments LUE 3+/5 d/t pain, RUE 4-/5 OT- Coordination Assessment Upper Extremity Finger to Nose Test Within Functional Limits Finger Tapping Test Bilateral UE Impaired OT-Muscle Tone Assessment Muscle Tone WNL Yes OT Sensation Assessment Edema Edema Present Edema Comments LUE swelling noted M9 OT- IP Assessment and Plan Start: 08/20/19 12:55 Freq: Status: Active Protocol: Document 08/21/19 12:44 CGR (Rec: 08/21/19 13:06 CGR [email or web address]) OT Summary Assessment and Plan Potential Rehabilitation Potential Good Analytic Complexity at Evaluation Moderate Summary OT Impairments Pain,Range of Motion,Strength, Balance,Coordination, Functional Cognition, Functional Mobility,Self- Feeding,Grooming,Dressing, Toileting,Bathing,Toilet Transfers,Shower Transfers, Activity Tolerance Progress Towards Goals Slow Progress due to Medical Issues,Slow Progress due to Activity Tolerance Assessment Summary Pt presents as a moderate complexity evaluation s/p admission for sudden and recurrent onset of synope. Pt is orthrostatic and appears to have parkinsons but chart is unclear of formal diagnosis of parkinsons. Pt has had a significant decline in her abilities to care for herself in the last 3 weeks. Pt was living IND prior to admit and today required mod a for mobility and max a for ADLs. Pt will benefit from SNF upon discharge. Goals Self-Feeding Goal Independent Grooming Goal Independent Dressing Goal Independent Toileting Goal Independent Bathing Goal Independent Toilet Transfer Goal Independent Shower Transfer Goal Independent Days to Meet Goals 15 Frequency of Treatment Frequency Of Treatment Once a Day Treatment Plan OT Treatment Plan ADL Training,Functional Cognition Training,Functional Mobility,Therapeutic Exercises ,Patient/Family Education, Discharge Planning Other Treatment Recommendations and Next ADLs standing with chair Treatment Focus behind, shower if pt is feeling up for it. Discharge Recommendations OT Discharge Recommendations SNF Rehab Home Equipment Needs TBD Transportation Needs at Discharge Private Vehicle
--- NOTE | 2019-08-21 13:19 | CM.IDA ---
DCP Cont Spoke w/son Lito this morning, reviewed DCP. Lito had been talking w/patient's sister Jenniffer and both feel patient going to SNF rehab would be the best for DCP; Lito requests [facility]. Discussed residential care briefly and strongly encouraged son to begin the [employer] residential care application on behalf of his mom, it seems she might qualify. Encouraged Lito to look for this online and/or ask the staff at [facility] to assist in this process. Lito understood that his mom will need additional assistance to remain at home and this [employer] G[employer]IN OR L[employer] FARM MANAGER suggested she may even benefit from an GEO/AFH in the near future. Lito admitted that his mom seemed to be struggling w/increased symptoms of depression, he felt it was secondary to isolation and the unknown from the COVID-19 pandemic. Patient and her sister were very active members of their [employer] before events/gatherings were shut down. This [employer] G[employer] LIVEST[employer] FARM MANAGER encouraged Lito to talk about this w/his mom and that patient could discuss this w/PCP and Neurologist... when she establishes w/new neurologist (which has been recommended by hospitalist). Placed call to Esthela at [facility], reviewed referral. Patient has been accepted at [facility], COVID-19 test requested today, DC expected Friday 7.5.20. Patient and sister Jenniffer updated on plan. P: DC expected Friday, to [facility] via w/c MAMIE Eddy
[2019-08-21 14:39] LABS: COVID19 -Nasal RAPID Negative (Negative)
--- NOTE | 2019-08-21 15:22 | PC.NURSE ---
Shift Summary: Patient pleasant, alert and oriented and talkative. Worked with PT and OT. Tolerated chair, and used BSC to have BM today. Dressing to left arm skin tear/rug burn cleansed with saline and re dressed with non adherent foam and kerlex wrap, CDI at this time. Assisted with repositioning, or turning every 2 hours and at patient's request. Currently wanting to nap and laying comfortably on left side. Tolerating her diet with swallowing precautions. VSS. COVID 19 resulted negative. Call light within reach, bed alarm on for safety. [facility] when medically clear.
[2019-08-22 00:01] VITALS: BP 120/71; PULSE 79; RESP 16; TEMP 36.6; O2SAT 97
[2019-08-22 00:05] VITALS: O2SAT 97
[2019-08-22] MEDS: SODIUM CHLORIDE 0.9% 1,000 ML 125 ML IV (03:09)
[2019-08-22 04:52] VITALS: BP 144/85; PULSE 78; RESP 16; TEMP 36.2; O2SAT 98
[2019-08-22 05:13] LABS: Add Manual Diff / Slide Review NO; Basophils Absolute Auto 0 /uL (0-100); Basophils Percent Auto 0.2 % (0-2); Eosinophils Absolute Auto 0 /uL (0-450); Eosinophils Percent Auto 0.4 % (2-4); Hematocrit 28.5 % (36-46); Hemoglobin 9.7 g/dL (12.0-16.0); Lymphocytes Absolute Auto 1300 /uL (1100-4500); Lymphocytes Percent Auto 11.3 % (25-40); Mean Corpuscular HGB Conc 33.9 % (30-36); Mean Corpuscular Hemoglobin 31.9 PG (26-34); Mean Corpuscular Volume 94.3 fL (80-100); Monocytes Absolute Auto 1600 /uL (0-900); Monocytes Percent Auto 14.4 % (3-14); Neutrophils Absolute Auto 8300 /uL (1500-7000); Neutrophils Percent Auto 73.7 % (50-75); Platelet Count 218 X10^3/uL (150-400); Red Blood Cell Count 3.02 X10^6/uL (4.0-5.2); Red Cell Distribution Width 13.2 % (11.6-14.8); White Blood Cell Count 11.2 X10^3/uL (4.5-11.0)
[2019-08-22 05:24] LABS: Blood Urea Nitrogen 13 mg/dL (7-17); Calcium 7.9 mg/dL (8.4-10.2); Carbon Dioxide 26 mmol/L (22-32); Chloride 99 mmol/L (98-107); Estimated Glomerular Filt Rate > 60.0 mL/min (>60); Glucose 98 mg/dL (80-110); HEMOLYSIS < 15 (0-50); Magnesium 1.6 mg/dL (1.6-2.3); Potassium 3.4 mmol/L (3.4-5.1); Sodium 128 mmol/L (137-145)
[2019-08-22] MEDS: LEVOTHYROXINE 25 MCG TABLET PO (06:07)
--- NOTE | 2019-08-22 07:02 | PC.NURSE ---
0700 THA Bush, ordered to discontinue her guerra catheter done. Pt. wearing a pull ups.
[2019-08-22 08:00] VITALS: BP 155/95; PULSE 79; RESP 16; TEMP 36.2; O2SAT 98
[2019-08-22] MEDS: FERROUS SULFATE 325 MG TABLET PO (08:25)
[2019-08-22] MEDS: ENOXAPARIN 40 MG/0.4 ML SYRINGE SUBCUT (08:25)
[2019-08-22] MEDS: CARBIDOPA-LEVODOPA ER 50/200 TABLET 1 EACH PO (08:25)
--- NOTE | 2019-08-22 09:41 | P.DS_ITS ---
History of Present Illness History of Present Illness Date Patient Seen: 08/22/19 Time Patient Seen: 09:41 Chief complaint: Confused, Fell out of bed Narrative: As per Dr. Tamez: Patient is 79-year-old female with history of essential tremor for which she takes carbidopa levodopa and denies history of parkinsonism, GI bleed secondary to diverticulosis, hypothyroidism, chronic back pain and macular degeneration who presents to the ER due to recurrent syncope. Sister is present at time of exam and provides helpful corroborative history. About 3 weeks ago patient began to experience episodes of sudden syncope. It seems the episodes are fairly frequent. She saw her PCP a week ago and is supposed to get Holter monitoring arranged. Patient's sister found her on the floor when she came to check on her this morning as she was supposed to drive her to the bank. Patient has no recollection of when she passed out and how long she has been on the floor. She was found to have bruises on extremities and a CK level of 2200 on ER evaluation. Also her serum sodium was 123 verses baseline of 140 in February of this year. Patient does feel these episodes coming on where she feels like she is going to faint and also feels dizzy right before she passes out. Her sister has witnessed a number of these episodes. She states that patient has some slurring of speech and confusion for up to 5 minutes after these episodes until she is able to lie down. Patient's blood pressure has not been low before or after these episodes. Patient has also not been eating well over the past few weeks though claims she is maintaining fluid intake. She states she can not taste anything. She has lost about 20 lb since February of this year. She admits to significant depression which she attributes to news events but denies suicidal ideation. She denies chest pain, dyspnea, sensation of racing or irregular heartbeats. Sister has not observed seizure-like activity associated with these episodes. Patient has not had fever, chills, nausea, vomiting, abdominal pain, constipation, diarrhea but has had some urinary incontinence as of late. ER evaluation also included EKG which showed sinus rhythm and no acute findings, and no signs of fracture on shoulder or knee x-rays. Also head CT showed chronic small vessel ischemic change and volume loss but no acute findings. Discharge Providers Provider Date of admission: 08/19/19 12:09 Discharge Date: 08/22/19 Primary care physician: Mateusz Bonilla MD Consults: 08/19/19 13:43 Consult to Physical Therapy Evaluate & Treat Comment: Physician Instructions: Evaluate and Treat 08/19/19 14:03 Consult to Dietitian, Adult Routine Comment: Reason For Exam: weight loss 08/19/19 14:26 Consult to Dietitian, Adult Routine Comment: Reason For Exam: WT LOSS, POOR APPETITE, LOW SERUM SODIUM LEVEL Consult to Pastoral Services Routine Comment: PER PATIENT REQUEST 08/20/19 10:50 Consult to Occupational Therapy Evaluate & Treat Comment: Physician Instructions: Evaluate and treat Consult to Speech Therapy Evaluate & Treat Comment: Physician Instructions: Evaluate and treat Discharge provider: Reji Blank DO Summary Hospital Course Discharge Diagnosis: Please see hospital course by problem list noted below. Hospital Course: Patient is 79-year-old female with history of essential tremor for which she takes carbidopa levodopa and denies history of parkinsonism, GI bleed secondary to diverticulosis, hypothyroidism, chronic back pain and macular degeneration who presented to the ED due to recurrent syncope. She reports decreased p.o. intake in recent weeks and a 20 lb weight loss since February of this year who was admitted for hyponatremia. She improved with fluid resuscitation. She was evaluated by Physical therapy and recommended for discharge to correction. 1. Recurrent syncope, present on admission, active -etiology unclear but seems associated with lack oral intake and significant weight loss resulting in generalized weakness, differential diagnosis includes cardiogenic etiology and less likely atypical seizures. No seizure was noted during admission and there were no events on telemetry. Orthostatics negative. Consider Multi-system atrophy as well -EKG: NSR, mild LVH, no acute findings; head CT: No acute findings -continue PT / OT -transthoracic echo showing preserved ejection fraction with some diastolic dysfunction. -IV hydration was continued until adequately rehydrated. 2. Hyponatremia, probably acute, present on admission, active -serum sodium 123 versus 140 in February, improved to 128 today with fluid hydration. Will stop IV hydration as seems to be improving with improved oral in take. -differential includes malnutrition with poor solute intake (low urine sodium and osmolarity), SIADH or reset Osmo stat -obtain urine sodium of 93 after fluid. May be multifactorial in nature as fluid resuscitation has initially improved. If worsening with fluids consider fluid restriction and repeating urine Na after some time off of fluid resuscitation. -- Would repeat sodium in 3-5 days as an outpatient as it has been steadily increasing while admitted. 3. Mild rhabdomyolysis, present on admission, active -CK 2281, without evidence of acute renal failure -treated with IV fluids 4. Depression, without SI, present on admission -patient with severely flat affect, admits depression -consider psych / behavioral health as an outpatient, psychiatry not available for consultation over the holiday weekend. -also clinically appears to be possible Parkinson's-atypical or multi-system atrophy. Recommend neurology outpatient consultation as well. 5. Acute cystitis, present on admission. -patient's mild leukocytosis likely reactive, does not have fever or other signs of systemic infection -UA borderline, with culture growing Corynebacteria Jeikeium. Will treat with 5 days of doxycycline. -procalcitonin is normal 6. Elevated bilirubin, present on admission -total bili 1.6, AST 78, ALT 25, alk-phos 74 -likely not significant in patient without abdominal complaints -direct bilirubin is 0 7. Elevated troponin, present on admission, resolved -troponin 0.081 intermediate elevated likely not significant inpatient without chest pain or EKG changes -repeat 8 hour 0.086 and then 0.067 -EKG on 08/18 with NSR, LVH and mild diffuse ST segment elevations -TTE as noted above. 8. Hypothyroidism, chronic -TSH in normal range -continue levothyroxine 25 mcg daily 9. Essential tremor, chronic -patient denies diagnosis of Parkinson's and was followed by neurologist - Dr. Pino until he retired 3 years ago -She has other stigmata suggestive of Parkinsons or MSA so is strongly advised to f/u with a new neurologist soon. -continue carbidopa levodopa 50-200 mg ER t.i.d. 10. Chronic iron deficiency anemia -hemoglobin improved from prior levels -continue patient's iron sulfate 325 mg daily 11. Acute Severe protein calorie malnutrition - possibly worsened due to difficulties with feeding - rigger apprentice consultation not available over the holiday weekend. - patient is underweight with BMI <22 (20.9). - weight loss of 20 lbs since February as documented in HPI. Evidence of muscle wasting on exam. Time Spent with Patient Time spent: Greater than 30 minutes Exam Vital Signs (past 8 hours): - 08/22/19 04:52 Temperature 97.2 F L Pulse Rate 78 Respiratory Rate 16 Blood Pressure 144/85 H Pulse Oximetry 98 Oxygen Delivery Method Room Air Oxygen Flow Rate 0 Narrative Exam Narrative: GENERAL APPEARANCE: Chronically ill-appearing, thin, elderly female in no acute distress. Talks very slowly. SKIN: Inspection of the skin reveals no rashes, ulcerations or petechiae. There is a slight pallor. HEENT: Normocephalic atraumatic, extraocular muscles are intact, oropharynx is clear and mucous membranes are moist, neck is supple without adenopathy NECK: Supple and symmetric. There was no thyroid enlargement, and no tenderness, or masses were felt. CHEST: Normal AP diameter and normal contour without any kyphoscoliosis. LUNGS: Auscultation of the lungs revealed no wheezes, rhonchi, or rales. CARDIOVASCULAR: There was a regular rate and rhythm without any murmurs, gallops, rubs. Peripheral pulses were 2+ and symmetric. ABDOMEN: Soft and nontender with normal bowel sounds. No ascites was noted. MUSCULOSKELETAL: There was no tenderness or effusions noted. There is some facial muscle wasting. EXTREMITIES: No cyanosis, clubbing or edema. NEUROLOGIC: Alert and oriented x 3. Sensation intact bilaterally to all extremities to light touch, globally weak. Mild tremor bilateral hands, slightly more prominent in the left compared to the right. Objective Labs Result Diagrams: 08/22/19 04:43 08/22/19 04:43 Labs: Laboratory Results - last 24 hr 08/21/19 08/22/19 08/22/19 13:20 04:43 04:43 WBC 11.2 H RBC 3.02 L Hgb 9.7 L Hct 28.5 L MCV 94.3 MCH 31.9 MCHC 33.9 RDW 13.2 Plt Count 218 Neut % (Auto) 73.7 Lymph % (Auto) 11.3 L [place] % (Auto) 14.4 H Eos % (Auto) 0.4 L Baso % (Auto) 0.2 Neut # (Auto) 8300 H Lymph # (Auto) 1300 [place] # (Auto) 1600 H Eos # (Auto) 0 Baso # (Auto) 0 Sodium 128 L Potassium 3.4 Chloride 99 Carbon Dioxide 26 BUN 13 Creatinine 0.62 Estimated GFR > 60.0 BUN/Creatinine Ratio 21.0 Glucose 98 Calcium 7.9 L Magnesium 1.6 COVID-19 PCR Negative Discharge Plan Discharge Plan Patient Disposition: SNF Transfer to: [facility] Discharge comment: Patient is 79-year-old female with history of essential t remor for which she takes carbidopa levodopa and denies history of parkinsonism, GI bleed secondary to diverticulosis, hypothyroidism, chronic back pain and macular degeneration who presented to the ED due to recurrent syncope. She reports decreased p.o. intake in recent weeks and a 20 lb weight loss since February of this year and was admitted for hyponatremia. She improved with fluid resuscitation. She was evaluated by Physical therapy and recommended for discharge to correction. 1. Recurrent syncope, present on admission, active -etiology unclear but seems associated with lack oral intake and significant weight loss resulting in generalized weakness, differential diagnosis includes cardiogenic etiology and less likely atypical seizures. No seizure was noted during admission and there were no events on telemetry. Orthostatics negative. Consider Multi-system atrophy as well -EKG: NSR, mild LVH, no acute findings; head CT: No acute findings -continue PT / OT -transthoracic echo showing preserved ejection fraction with some diastolic dysfunction. -IV hydration was continued until adequately rehydrated. 2. Hyponatremia, probably acute, present on admission, active -serum sodium 123 versus 140 in February, improved to 128 today with fluid hydration. Will stop IV hydration as seems to be improving with improved oral intake. -differential includes malnutrition with poor solute intake (low urine sodium and osmolarity), SIADH or reset Osmo stat -obtain urine sodium of 93 after fluid. May be multifactorial in nature as fluid resuscitation has initially improved. If worsening with fluids consider fluid restriction and repeating urine Na after some time off of fluid resuscitation. -- Would repeat sodium in 3-5 days as an outpatient as it has been steadily i ncreasing while admitted. 3. Mild rhabdomyolysis, present on admission, active -CK 2281, without evidence of acute renal failure -treated with IV fluids 4. Depression, without SI, present on admission -patient with severely flat affect, admits depression -consider psych / behavioral health as an outpatient, psychiatry not available for consultation over the holiday weekend. -also clinically appears to be possible Parkinson's-atypical or multi-system atrophy. Recommend neurology outpatient consultation as well. 5. Acute cystitis, present on admission. -patient's mild leukocytosis likely reactive, does not have fever or other signs of systemic infection -UA borderline, with culture growing Corynebacteria Jeikeium. Will treat with 5 days of doxycycline. -procalcitonin is normal 6. Elevated bilirubin, present on admission -total bili 1.6, AST 78, ALT 25, alk-phos 74 -likely not significant in patient without abdominal complaints -direct bilirubin is 0 7. Elevated troponin, present on admission, resolved -troponin 0.081 intermediate elevated likely not significant inpatient without chest pain or EKG changes -repeat 8 hour 0.086 and then 0.067 -EKG on 08/18 with NSR, LVH and mild diffuse ST segment elevations -TTE as noted above. 8. Hypothyroidism, chronic -TSH in normal range -continue levothyroxine 25 mcg daily 9. Essential tremor, chronic -patient denies diagnosis of Parkinson's and was followed by neurologist - Dr. Pino until he retired 3 years ago -She has other stigmata suggestive of Parkinsons or MSA so is strongly advised to f/u with a new neurologist soon. -continue carbidopa levodopa 50-200 mg ER t.i.d. 10. Chronic iron deficiency anemia -hemoglobin improved from prior levels -continue patient's iron sulfate 325 mg daily 11. Acute Severe protein calorie malnutrition - possibly worsened due to difficulties with feeding - rigger apprentice consultation not available over the holiday weekend. - patient is underweight with BMI <22 (20.9). - weight loss of 20 lbs since February as documented in HPI. Evidence of muscle wasting on exam. Discharge orders & Medications Prescriptions: New acetaminophen 325 mg Tablet 650 mg PO Q6HR PRN (Reason: Fever/Mild Pain (1-3)) 30 Days Qty: 30 RF: 0 doxycycline hyclate 100 mg Tablet 100 mg PO BID 5 Days Qty: 10 RF: 0 Continued vit C,T-[id number]-ylpdw-lutein-zeaxan [PreserVision AREDS-2] [id number] ur-mmdu-cf-mg capsule 1 tab PO BID Qty: 30 RF: 0 levothyroxine 25 mcg tablet 25 mcg PO QAM Qty: 90 RF: 3 carbidopa-levodopa 50-200 mg tablet extended release 1 tab PO TID Qty: 270 RF: 3 ferrous sulfate 325 mg (65 mg iron) Tablet 325 mg PO DAILY RF: 0 Follow up/Referrals: Mateusz Bonilla MD [Primary Care Provider] - Discharge Health Status Multidrug resistant organism: No MDRO Precautions: [place] Diet/Activity/Treatments Diet: Diet as Tolerated Liquid consistency: Normal/Thin Food texture: Soft Diet comment: No straws, continue speech therapy. Activity: As tolerated [facility] Rehab type: Physical therapy, Occupational therapy and Speech therapy Discharge Data Primary Care Provider: Mateusz Bonilla VTE Deep Vein Thrombosis/Pulmonary Embolism Present on Admission: No
--- NOTE | 2019-08-22 09:57 | PC.NURSE ---
Per nightshift LAURA Smith, she discontinued guerra just prior to 7am.
[2019-08-22 10:47] VITALS: BP 136/83; PULSE 78; RESP 16; TEMP 36.6; O2SAT 99
--- NOTE | 2019-08-22 11:03 | CM.DPC ---
DCP Discharge SNF Per MD, pt is medically stable to d/c to SNF today. SW called [facility] and confirmed they can still accept pt today and can meat pickler around 1400. Per RN, pt not on oxygen and guerra cath was d/c'd yesterday and pt able to void independently and wearing briefs. SW met bedside with pt and adult son and explained role and discussed d/c to [facility] around 1400 today and further explained MCR coverage at [facility] and lack of visitors at the facility at this time but efforts for video phone calls or possible window visits. Pt and son both agreeable with d/c plan for today. Son inquired further about previous conversation from yesterday regarding LTC Medicaid application for likely future needs as pt resides in low income subsidized housing and is quite weak and slow currently. SW discussed the purpose of LTC application and provided a copy to review and complete if agreeable but pt and son acknowledge that pt will likely need additional assist after SNF and for future needs. KAPIL updated [employer], [facility], RN and and faxed PAS[facility], signed med rec, no script, d/c MD rudy orders and negative COVID test from yesterday to [facility] efax and nurses station for d/c today at 1400. Plan: Patient to d/c to [facility] SNF today at 1400 via facility van prior to return home. MAMIE Odonnell
--- NOTE | 2019-08-22 11:15 | PT-IP ANOTE ---
Pt just returned from using [facility] with nursing. Refuses PT stating she will d/c today and wants to save her energy for that transport.
[2019-08-22] MEDS: DOXYCYCLINE HYCLATE 100 MG TABLET PO (11:55)
--- NOTE | 2019-08-22 13:25 | PC.NURSE ---
Report given to Dara agarwal nurse at [facility], with opportunity for questions. IV dc'd intact. Patient picked up by facility transport in wheelchair, sent with paperwork packet and all belongings. Glasses on. Son at her side.
[2019-08-23 11:08] LABS: Osmolality Urine 604 mOsmol/kg (.)
== END 2019-08-22 13:30 | DRG 640 ==
LOC: ED 12:09 → AC 13:36
PROVIDERS: Family Medicine; Internal Medicine; Admitting Provider Internal Medicine; Emergency Provider Emergency Medicine; PCP Student in an Organized Health Care Education/Training Program; Referring Provider Emergency Medicine; Visit Provider Internal Medicine
DX: E87.1 Hypo-osmolality and hyponatremia (principal); E43 Unspecified severe protein-calorie malnutrition; M62.82 Rhabdomyolysis; N30.00 Acute cystitis without hematuria; F32.9 Major depressive disorder, single episode, unspecified; E87.6 Hypokalemia; R55 Syncope and collapse; G25.0 Essential tremor; E80.6 Other disorders of bilirubin metabolism; D50.9 Iron deficiency anemia, unspecified; E03.9 Hypothyroidism, unspecified; W06.XXXA Fall from bed, initial encounter; Z11.59 Encounter for screening for other viral diseases
CPT/HCPCS: 36415; 70450; 71045; 73030; 73562; 80048; 80053; 81001; 82248; 82550; 82553; 83735; 83935; 84145; 84295; 84300; 84443; 84484; 85025; 87077; 87086; 87635; 92610; 93005; 93306; 96360; 97162; 97166; 97530; 97535; 99284; J1650; J3480

== ENCOUNTER → 2019-09-01 11:00 | Outpatient (ROUT) | payer SELFPAY ==
[2019-03-15 17:28] VITALS: BMI 22.6
[2019-09-03 11:42] LABS: COVID19 Sendout Not Detected (Not Detect)
== END ==
PROVIDERS: PCP Student in an Organized Health Care Education/Training Program; Visit Provider Internal Medicine
DX: Z11.59 Encounter for screening for other viral diseases (principal)
CPT/HCPCS: 87635

== ENCOUNTER → 2019-09-14 10:58 | Outpatient (ROUT) | payer SELFPAY ==
[2019-03-15 17:28] VITALS: BMI 22.6
[2019-09-14 11:18] LABS: Bilirubin Urine UA NEGATIVE (NEGATIVE); Color Urine UA YELLOW; Glucose Urine UA NEGATIVE (Negative); Ketones Urine UA NEGATIVE (NEGATIVE); Leukocyte Esterase Urine UA 3+ (NEGATIVE); Nitrite Urine UA NEGATIVE (Negative); Occult Blood Urine UA 1+ (Negative); Protein Urine UA TRACE (Negative); Urobilinogen Urine UA 0.2 E.U./dL (0.2)
[2019-09-14 11:25] LABS: Appearance Urine UA CLOUDY; pH Urine UA 6.5 (4.5-8.0)
[2019-09-14 11:28] LABS: Bacteria Urine Many (>30); Culture Indicated Urine Specimen Cultured; RBC Urine 1-5/HPF (0-5/HPF); WBC Urine 5-10/HPF (0-5/HPF)
== END ==
PROVIDERS: PCP Student in an Organized Health Care Education/Training Program; Visit Provider Nurse Practitioner
DX: R35.0 Frequency of micturition (principal); R41.82 Altered mental status, unspecified
CPT/HCPCS: 81001; 87077; 87086; 87186

== ENCOUNTER → 2019-09-19 13:59 | Outpatient (ROUT) | payer MEDICARE, OTHER, SELFPAY ==
[2019-03-15 17:28] VITALS: BMI 22.6
[2019-09-19 14:11] LABS: Alanine Aminotransferase 8 IU/L (<35); Albumin 3.1 g/dL (3.5-5.0); Alkaline Phosphatase 39 U/L (38-126); Aspartate Aminotransferase 44 IU/L (14-36); BUN Creatinine Ratio 24.2 (6-22); Bilirubin Total 0.8 mg/dL (0.2-1.3); Blood Urea Nitrogen 15 mg/dL (7-17); Calcium 8.3 mg/dL (8.4-10.2); Carbon Dioxide 25 mmol/L (22-32); Chloride 88 mmol/L (98-107); Estimated Glomerular Filt Rate > 60.0 mL/min (>60); Globulin 3.1 g/dL (1.7-4.1); Glucose 101 mg/dL (80-110); Sodium 120 mmol/L (137-145); Total Protein 6.2 g/dL (6.3-8.2)
[2019-09-19 14:33] LABS: HEMOLYSIS 111 (0-50)
[2019-09-19 14:35] LABS: Potassium 4.3 mmol/L (3.4-5.1)
== END ==
PROVIDERS: PCP Student in an Organized Health Care Education/Training Program; Visit Provider Internal Medicine
DX: R41.0 Disorientation, unspecified (principal); E87.1 Hypo-osmolality and hyponatremia
CPT/HCPCS: 80053

== ENCOUNTER 2019-09-20 12:35 | Inpatient (IN) | payer MEDICARE, OTHER, SELFPAY ==
[2019-03-15 17:28] VITALS: BMI 22.6
[2019-09-20] VITALS (16 sets, daily range): BP systolic 84–193; BP diastolic 65–104; PULSE 70–85; RESP 14–24; TEMP 36.4–36.7; O2SAT 96–100; BMI 20.1
[2019-09-20 13:18] LABS: Add Manual Diff / Slide Review NO; Basophils Absolute Auto 100 /uL (0-100); Basophils Percent Auto 0.6 % (0-2); Eosinophils Absolute Auto 0 /uL (0-450); Eosinophils Percent Auto 0.3 % (2-4); Hematocrit 33.8 % (36-46); Hemoglobin 11.3 g/dL (12.0-16.0); Lymphocytes Absolute Auto 1300 /uL (1100-4500); Lymphocytes Percent Auto 14.7 % (25-40); Mean Corpuscular HGB Conc 33.4 % (30-36); Mean Corpuscular Hemoglobin 31.2 PG (26-34); Mean Corpuscular Volume 93.5 fL (80-100); Monocytes Absolute Auto 1400 /uL (0-900); Neutrophils Absolute Auto 6400 /uL (1500-7000); Neutrophils Percent Auto 69.4 % (50-75); Platelet Count 320 X10^3/uL (150-400); Red Blood Cell Count 3.61 X10^6/uL (4.0-5.2); Red Cell Distribution Width 13.2 % (11.6-14.8); White Blood Cell Count 9.2 X10^3/uL (4.5-11.0)
[2019-09-20 13:30] LABS: Alanine Aminotransferase 7 IU/L (<35); Albumin 3.8 g/dL (3.5-5.0); Albumin Globulin Ratio 1.3 (1.0-2.8); Alkaline Phosphatase 73 U/L (38-126); Aspartate Aminotransferase 37 IU/L (14-36); BUN Creatinine Ratio 20.3 (6-22); Bilirubin Total 0.6 mg/dL (0.2-1.3); Blood Urea Nitrogen 14 mg/dL (7-17); Carbon Dioxide 29 mmol/L (22-32); Chloride 87 mmol/L (98-107); Estimated Glomerular Filt Rate > 60.0 mL/min (>60); Glucose 93 mg/dL (80-110); HEMOLYSIS < 15 (0-50); Sodium 123 mmol/L (137-145); Total Protein 6.8 g/dL (6.3-8.2)
--- NOTE | 2019-09-20 13:49 | ED_ITS ---
HPI - Recheck/Abnormal Lab/Rx <THA Jorge - Last Filed: 09/20/19 18:51> General Chief Complaint: Recheck/Abnormal Lab/Rx Stated Complaint: Low Sodium Time Seen by Provider: 09/20/19 13:07 Source: patient and EMS Mode of arrival: EMS Limitations: no limitations History of Present Illness HPI narrative: This is a 79 year female, nonsmoker, presents to ED from [facility] facility for recheck on sodium level and treatment. Patient had chemistries drawn yesterday and sodium level as 120 which provider had verify the result today before referring the patient to emergency room. Patient received IV fluid therapy with NaCl, limited oral free fluid intake, has been on p.o. sodium replacement treatments for hyponatremia at [facility] after she was discharged from home Hospital on08/22/19 with new findings of hyponatremia and mild rhabdomyolysis with frequent falls, syncopal episodes, acute cystitis, anemia, malnutrition, elevated troponin, hypothyroidism, and essential tremor. Patient denies nausea, vomiting, diarrhea, constipation, headache, seizures but reports generalize weakness and back pain likely from falls. Patient denies urinary symptoms such as dysuria, urgency, frequency, hematuria but reports it has been difficulty getting used to use Depends. Patient denies fever, chills. Patient had frequent falls and reports they are monitoring this at [facility]. Related Data Home Medications Medication Instructions Recorded Confirmed ferrous sulfate 325 mg PO DAILY 08/19/19 08/19/19 Previous Rx's Medication Instructions Recorded vit C 250 mg-E 200 unit-zinc 40 1 tab PO BID #30 cap 08/07/17 mg-copper 1 [id number]-qlykhi capsule levothyroxine 25 mcg tablet 25 mcg PO QAM #90 tab 04/28/19 carbidopa ER 50 mg-levodopa 200 mg 1 tab PO TID #270 tab 06/02/19 tablet,extended release acetaminophen 650 mg PO Q6HR PRN 30 Days #30 tab 08/22/19 Allergies Allergy/AdvReac Type Severity Reaction Status Date / Time No Known Drug Allergies Allergy Verified 09/20/19 12:53 Review of Systems <THA Jorge - Last Filed: 09/20/19 18:51> Review of Systems Narrative: General: Denies fever, chills, (+) fatigue, malaise, sweats. HEENT: Denies sinus pain, ear pain, sore throat, difficulty swallowing, dizziness. Respiratory: Denies dyspnea, cough, wheezing, hemoptysis, sputum. Cardiovascular: Denies chest pain, palpitations, orthopnea, edema. Gastrointestinal: Denies nausea, vomiting, abdominal pain, diarrhea, constipation, melena. : Denies dysuria, frequency, incontinence, hematuria, urinary retention. Musculoskeletal: Denies weakness, joint pain or bony pain, (+) back pain. Skin: Denies rash, skin lesions, or other. Neurologic: Denies weakness, headache, numbness, change in speech, confusion, seizures, incoordination. Psychiatric: No concerning psychosocial issues. 12-point review of systems is negative except for those stated above. Patient History <THA Jorge - Last Filed: 09/20/19 18:51> Medical History Chicken pox (Resolved) Chronic back pain (Chronic ~2013) Colitis (Inactive) Essential tremor (Chronic 06/26/15) Fatigue (Chronic 08/29/15) GI (gastrointestinal bleed) (Inactive) Hypothyroidism (acquired) (Chronic) Macular degeneration (Chronic) Measles (Resolved) Rosacea (Chronic) Rubella (Resolved) Shoulder pain (Chronic ~1988) Surgical History Anesthesia (Resolved) History of tonsillectomy (~1945) S/P cataract extraction (Chronic) Status post colonoscopy (~2007) Family History Grandfather Heart disease Grandmother Heart disease Mother Mental health problem Grandfather Stroke Grandmother Cancer Father Cancer Social History marital status: household members: none lives independently: Yes Smoking Status: Never smoker alcohol intake: former substance use type: does not use Smoking Status: Never smoker alcohol intake frequency: holidays/special occasions only Substance Use Type: does not use Exam <THA Jorge - Last Filed: 09/20/19 18:51> Narrative Exam Narrative: GEN: Alert, oriented x 3, been appearing and in no acute distress. Head: Normal cephalic, atraumatic. No scalp or temporal tenderness, palpable mass or rash. EYES: Pupils are equal, round, and reactive to light and accommodation. Extraocular muscles are intact bilaterally. There is no subconjunctival hemorrhage, exudate and sclera non-icteric. ENT: Hearing grossly intact. Nose without bleeding, purulent discharge. Turbinate without erythema or swelling. Facial sinuses nontender to palpate. Mucous membrane moist, no mucosal lesion. Throat without erythema, tonsillar hypertrophy or exudate. Uvula in midline, airway patent. Neck: Trachea in midline. No JVD, non-tender without lymphadenopathy. No masses or thyroid megaly. Supple, non-tender and no meningeal signs. CARDIAC: Normal regular rate and rhythm without murmurs, gallops, or rubs. No chest wall tenderness. No peripheral edema, cyanosis or pallor. Capillary refill is less than 2 seconds. RESPIRATORY: Lungs are cleat to auscultate bilaterally. No cough, wheezes, rales, or rhonchi. No stridor, respiratory distress, increase work of breathing, or accessary muscle used. ABD: Abdomen soft, nontender and non-distended. No guarding or rebound tenderness to palpate. Bowel sounds are normal in all 4 quadrants. There is no palpable masses or organomegaly. EXT: Full painless ROM of all extremities with no loss of sensation, strength, effusion or edema. SKIN: Warm, dry, slightly pale color for patient. No erythema, lesions or rash. BACK: Tenderness in back and uses back brace. NEUROLOGICAL: Alert and oriented to place, time and person. No facial droops, dysphasia. CN II-XII intact. Strength and sensation symmetric and intact throughout. PSYCHIATRIC: Good judgement and reason, without hallucinations, abnormal affect or abnormal behaviors during the examination. Patient is not suicidal. Initial Vital Signs Initial Vital Signs: Vital Signs Temperature 98 F 09/20/19 12:41 Pulse Rate 70 09/20/19 12:41 Respiratory Rate 16 09/20/19 12:41 Blood Pressure 146/81 H 09/20/19 12:41 Pulse Oximetry 99 09/20/19 12:41 <Clement Cheney MD - Last Filed: 09/21/19 08:13> Initial Vital Signs Initial Vital Signs: Vital Signs Temperature 98 F 09/20/19 12:41 Pulse Rate 70 09/20/19 12:41 Respiratory Rate 16 09/20/19 12:41 Blood Pressure 146/81 H 09/20/19 12:41 Pulse Oximetry 99 09/20/19 12:41 Scores <[facility] [place] - Last Filed: 09/20/19 18:51> GCS Chris coma scale eye opening: Spontaneous [place] coma scale verbal response: Orientated [place] coma scale motor response: Obey commands Chris coma scale total score: 15 Course <[facility] [place] - Last Filed: 09/20/19 18:51> Orders Ordered: Acetaminophen (Tylenol) 650 mg PO Q6HR PRN PRN Reason: Fever/Mild Pain (1-3) Enoxaparin Sodium (Lovenox) 40 mg SUBCUT DAILY [facility] Ceftriaxone Sodium/Dextrose (Rocephin) 1 gm in 50 mls @ 100 mls/hr IV Q24H [facility] Last Admin: 09/20/19 21:20 Dose: 100 mls/hr Documented by: ABDI Ondansetron HCl (Zofran) 4 mg IV Q8HR PRN PRN Reason: Nausea And Vomiting Discontinued Medications Acetaminophen (Tylenol) 650 mg PO NOW ONE Stop: 09/20/19 13:40 Last Admin: 09/20/19 14:39 Dose: 650 mg Documented by: JEANNINE Sodium Chloride (Normal Saline 0.9%) 500 mls @ 1,000 mls/hr IV BOLUS ONE Stop: 09/20/19 14:08 Last Infusion: 09/20/19 15:41 Dose: 0 mls/hr Documented by: Admin: 09/20/19 14:34 Dose: 999 mls/hr Documented by: HANNA Consultations Consultation #1: Dr. Blank consulted for admission for persistent hyponatremia. It was recommended for urine test for specific gravity, sodium, and osmolarity test to be done before excepting the patient since patient may need [facility] specialty care and transfer out to other acute medical facility. Time: 13:50 Vital Signs Vital signs: Vital Signs - 8 hr 09/20/19 12:41 09/20/19 13:49 09/20/19 13:50 Temperature 98 F Pulse Rate 70 75 74 Respiratory Rate 16 24 19 Blood Pressure 146/81 H 171/92 H Pulse Oximetry 99 99 99 09/20/19 14:00 09/20/19 14:30 09/20/19 15:00 Temperature Pulse Rate 75 77 79 Respiratory Rate 18 17 22 Blood Pressure 178/86 H 193/86 H Pulse Oximetry 100 99 98 09/20/19 15:01 09/20/19 15:30 09/20/19 16:00 Temperature Pulse Rate 80 80 80 Respiratory Rate 20 18 15 Blood Pressure 165/87 H 163/80 H 160/79 H Pulse Oximetry 99 100 99 09/20/19 16:30 Temperature Pulse Rate 81 Respiratory Rate 15 Blood Pressure 167/79 H Pulse Oximetry 98 <Clement Cheney MD - Last Filed: 09/21/19 08:13> Orders Ordered: Acetaminophen (Tylenol) 650 mg PO Q6HR PRN PRN Reason: Fever/Mild Pain (1-3) Enoxaparin Sodium (Lovenox) 40 mg SUBCUT DAILY [facility] Ceftriaxone Sodium/Dextrose (Rocephin) 1 gm in 50 mls @ 100 mls/hr IV Q24H [facility] Last Admin: 09/20/19 21:20 Dose: 100 mls/hr Documented by: ABDI Ondansetron HCl (Zofran) 4 mg IV Q8HR PRN PRN Reason: Nausea And Vomiting Discontinued Medications Acetaminophen (Tylenol) 650 mg PO NOW ONE Stop: 09/20/19 13:40 Last Admin: 09/20/19 14:39 Dose: 650 mg Documented by: JEANNINE Sodium Chloride (Normal Saline 0.9%) 500 mls @ 1,000 mls/hr IV BOLUS ONE Stop: 09/20/19 14:08 Last Infusion: 09/20/19 15:41 Dose: 0 mls/hr Documented by: Admin: 09/20/19 14:34 Dose: 999 mls/hr Documented by: HANNA Vital Signs Vital signs: Vital Signs - 8 hr 09/20/19 12:41 09/20/19 13:49 09/20/19 13:50 Temperature 98 F Pulse Rate 70 75 74 Respiratory Rate 16 24 19 Blood Pressure 146/81 H 171/92 H Pulse Oximetry 99 99 99 09/20/19 14:00 09/20/19 14:30 09/20/19 15:00 Temperature Pulse Rate 75 77 79 Respiratory Rate 18 17 22 Blood Pressure 178/86 H 193/86 H Pulse Oximetry 100 99 98 09/20/19 15:01 09/20/19 15:30 09/20/19 16:00 Temperature Pulse Rate 80 80 80 Respiratory Rate 20 18 15 Blood Pressure 165/87 H 163/80 H 160/79 H Pulse Oximetry 99 100 99 09/20/19 16:30 Temperature Pulse Rate 81 Respiratory Rate 15 Blood Pressure 167/79 H Pulse Oximetry 98 [facility] - Recheck/Abnormal Lab/Rx <Wilman JosiahRichelleIsadoraTHA - Last Filed: 09/20/19 18:51> Differential Diagnosis Differential diagnosis: Likely other (Hyponatremia, dehydration, nephritis syndrome, adrenal insufficiency, SIADH,) Medical Records Attestation: I reviewed the patient's medical records. Lab Data Attestation: I reviewed the patient's lab results. Result diagrams: 09/21/19 06:00 09/21/19 06:00 Labs: Lab Results 09/20/19 09/20/19 09/20/19 Range/Units 13:10 13:10 15:04 WBC 9.2 (4.5-11.0) X10^3/uL RBC 3.61 L (4.0-5.2) X10^6/uL Hgb 11.3 L (12.0-16.0) g/dL Hct 33.8 L (36-46) % MCV 93.5 (80-100) fL MCH 31.2 (26-34) PG MCHC 33.4 (30-36) % RDW 13.2 (11.6-14.8) % Plt Count 320 (150-400) X10^3/uL Neut % (Auto) 69.4 (50-75) % Lymph % (Auto) 14.7 L (25-40) % [place] % (Auto) 15.0 H (3-14) % Eos % (Auto) 0.3 L (2-4) % Baso % (Auto) 0.6 (0-2) % Neut # (Auto) 6400 (1177-2003) /uL Lymph # (Auto) 1300 (7125-9920) /uL [place] # (Auto) 1400 H (0-900) /uL Eos # (Auto) 0 (0-450) /uL Baso # (Auto) 100 (0-100) /uL Sodium 123 L (137-145) mmol/L Potassium 4.0 (3.4-5.1) mmol/L Chloride 87 L (98-107) mmol/L Carbon Dioxide 29 (22-32) mmol/L BUN 14 (7-17) mg/dL Creatinine 0.69 (0.52-1.04) mg/dL Estimated GFR > 60.0 (>60) mL/min BUN/Creatinine Ratio 20.3 (6-22) Glucose 93 (80-110) mg/dL Calcium 9.0 (8.4-10.2) mg/dL Total Bilirubin 0.6 (0.2-1.3) mg/dL AST 37 H (14-36) IU/L ALT 7 (<35) IU/L Alkaline Phosphatase 73 (38-126) U/L Total Protein 6.8 (6.3-8.2) g/dL Albumin 3.8 (3.5-5.0) g/dL Globulin 3.0 (1.7-4.1) g/dL Albumin/Globulin Ratio 1.3 (1.0-2.8) Urine Color Urine Appearance Urine pH (4.5-8.0) Ur Specific [place] (1.000-1.035) Urine Protein (Negative) Urine Glucose (UA) (Negative) g/dL Urine Ketones (NEGATIVE) Urine Occult Blood (Negative) Urine Nitrate (Negative) Urine Bilirubin (NEGATIVE) Urine Urobilinogen (0.2) E.U./dL Ur Leukocyte Esterase (NEGATIVE) Urine RBC (0-5/HPF) Urine WBC (0-5/HPF) Ur Squamous Epith Cells (0-5/HPF) Amorphous Sediment Urine Bacteria (None) Urine Mucus (Negative) Ur Culture Indicated? Ur Random Sodium 53 (30-90) mmol/L 09/20/19 Range/Units 15:04 WBC (4.5-11.0) X10^3/uL RBC (4.0-5.2) X10^6/uL Hgb (12.0-16.0) g/dL Hct (36-46) % MCV (80-100) fL MCH (26-34) PG MCHC (30-36) % RDW (11.6-14.8) % Plt Count (150-400) X10^3/uL Neut % (Auto) (50-75) % Lymph % (Auto) (25-40) % [place] % (Auto) (3-14) % Eos % (Auto) (2-4) % Baso % (Auto) (0-2) % Neut # (Auto) (0874-7225) /uL Lymph # (Auto) (8682-3170) /uL [place] # (Auto) (0-900) /uL Eos # (Auto) (0-450) /uL Baso # (Auto) (0-100) /uL Sodium (137-145) mmol/L Potassium (3.4-5.1) mmol/L Chloride (98-107) mmol/L Carbon Dioxide (22-32) mmol/L BUN (7-17) mg/dL Creatinine (0.52-1.04) mg/dL Estimated GFR (>60) mL/min BUN/Creatinine Ratio (6-22) Glucose (80-110) mg/dL Calcium (8.4-10.2) mg/dL Total Bilirubin (0.2-1.3) mg/dL AST (14-36) IU/L ALT (<35) IU/L Alkaline Phosphatase (38-126) U/L Total Protein (6.3-8.2) g/dL Albumin (3.5-5.0) g/dL Globulin (1.7-4.1) g/dL Albumin/Globulin Ratio (1.0-2.8) Urine Color Yellow Urine Appearance Sl cloudy Urine pH 7.0 (4.5-8.0) Ur Specific [place] 1.010 (1.000-1.035) Urine Protein Negative (Negative) Urine Glucose (UA) Negative (Negative) g/dL Urine Ketones Negative (NEGATIVE) Urine Occult Blood 2+ H (Negative) Urine Nitrate Negative (Negative) Urine Bilirubin Negative (NEGATIVE) Urine Urobilinogen 0.2 (0.2) E.U./dL Ur Leukocyte Esterase 3+ H (NEGATIVE) Urine RBC 1-5/hpf (0-5/HPF) Urine WBC 30-100/hpf H (0-5/HPF) Ur Squamous Epith Cells 1-5 /hpf (0-5/HPF) Amorphous Sediment 2+ Urine Bacteria Moderate (10-30) H (None) Urine Mucus 2+ H (Negative) Ur Culture Indicated? Specimen cultured Ur Random Sodium (30-90) mmol/L MDM Narrative Medical decision making narrative: This is the 79-year-old female who presents to ED from [facility] rehab with know recent history of hyponatremia and recurring hyponatremia despite treatments with IV normal saline infusion, sodium tab, and limited oral fluid intake and had hyponatremia of 120 from yesterday. Today's sodium level is 123 with chloride of 87. Patient is alert, oriented x3. She is symptomatic with generalized weakness. Patient was administered 500 mL of normal saline bolus while in ED. Consulted Dr. Blank for admission for persistent hyponatremia. He was recommended to check volume status before accepting the patient's admission since patient may require [facility] specialty care which requires a transfer to acute hospital. BUN, BUN/creatinine ratio and creatinine level is within normal. Normal calcium. CBC shows mild anemia of H&H of 11.3/33.8. Patient is currently taking iron pills. Cath UA was obtained. Appears to be patient may have another bladder/UTI infection. Urine culture is pending. Urine specific gravity is normal (1.010) and random urine sodium level is 53 (30-90). Urine osmolarity test is pending. kindly accepted patient's care under observation for hyponatremia and possible SIADH and correctional treatment. <Clement Cheney MD - Last Filed: 09/21/19 08:13> Lab Data Labs: Lab Results 09/20/19 09/20/19 09/20/19 Range/Units 13:10 13:10 15:04 WBC 9.2 (4.5-11.0) X10^3/uL RBC 3.61 L (4.0-5.2) X10^6/uL Hgb 11.3 L (12.0-16.0) g/dL Hct 33.8 L (36-46) % MCV 93.5 (80-100) fL MCH 31.2 (26-34) PG MCHC 33.4 (30-36) % RDW 13.2 (11.6-14.8) % Plt Count 320 (150-400) X10^3/uL Neut % (Auto) 69.4 (50-75) % Lymph % (Auto) 14.7 L (25-40) % [place] % (Auto) 15.0 H (3-14) % Eos % (Auto) 0.3 L (2-4) % Baso % (Auto) 0.6 (0-2) % Neut # (Auto) 6400 (0280-0576) /uL Lymph # (Auto) 1300 (6407-0224) /uL [place] # (Auto) 1400 H (0-900) /uL Eos # (Auto) 0 (0-450) /uL Baso # (Auto) 100 (0-100) /uL Sodium 123 L (137-145) mmol/L Potassium 4.0 (3.4-5.1) mmol/L Chloride 87 L (98-107) mmol/L Carbon Dioxide 29 (22-32) mmol/L BUN 14 (7-17) mg/dL Creatinine 0.69 (0.52-1.04) mg/dL Estimated GFR > 60.0 (>60) mL/min BUN/Creatinine Ratio 20.3 (6-22) Glucose 93 (80-110) mg/dL Calcium 9.0 (8.4-10.2) mg/dL Total Bilirubin 0.6 (0.2-1.3) mg/dL AST 37 H (14-36) IU/L ALT 7 (<35) IU/L Alkaline Phosphatase 73 (38-126) U/L Total Protein 6.8 (6.3-8.2) g/dL Albumin 3.8 (3.5-5.0) g/dL Globulin 3.0 (1.7-4.1) g/dL Albumin/Globulin Ratio 1.3 (1.0-2.8) Urine Color Urine Appearance Urine pH (4.5-8.0) Ur Specific [place] (1.000-1.035) Urine Protein (Negative) Urine Glucose (UA) (Negative) g/dL Urine Ketones (NEGATIVE) Urine Occult Blood (Negative) Urine Nitrate (Negative) Urine Bilirubin (NEGATIVE) Urine Urobilinogen (0.2) E.U./dL Ur Leukocyte Esterase (NEGATIVE) Urine RBC (0-5/HPF) Urine WBC (0-5/HPF) Ur Squamous Epith Cells (0-5/HPF) Amorphous Sediment Urine Bacteria (None) Urine Mucus (Negative) Ur Culture Indicated? Ur Random Sodium 53 (30-90) mmol/L 09/20/19 Range/Units 15:04 WBC (4.5-11.0) X10^3/uL RBC (4.0-5.2) X10^6/uL Hgb (12.0-16.0) g/dL Hct (36-46) % MCV (80-100) fL MCH (26-34) PG MCHC (30-36) % RDW (11.6-14.8) % Plt Count (150-400) X10^3/uL Neut % (Auto) (50-75) % Lymph % (Auto) (25-40) % [place] % (Auto) (3-14) % Eos % (Auto) (2-4) % Baso % (Auto) (0-2) % Neut # (Auto) (5710-3481) /uL Lymph # (Auto) (7382-4145) /uL [place] # (Auto) (0-900) /uL Eos # (Auto) (0-450) /uL Baso # (Auto) (0-100) /uL Sodium (137-145) mmol/L Potassium (3.4-5.1) mmol/L Chloride (98-107) mmol/L Carbon Dioxide (22-32) mmol/L BUN (7-17) mg/dL Creatinine (0.52-1.04) mg/dL Estimated GFR (>60) mL/min BUN/Creatinine Ratio (6-22) Glucose (80-110) mg/dL Calcium (8.4-10.2) mg/dL Total Bilirubin (0.2-1.3) mg/dL AST (14-36) IU/L ALT (<35) IU/L Alkaline Phosphatase (38-126) U/L Total Protein (6.3-8.2) g/dL Albumin (3.5-5.0) g/dL Globulin (1.7-4.1) g/dL Albumin/Globulin Ratio (1.0-2.8) Urine Color Yellow Urine Appearance Sl cloudy Urine pH 7.0 (4.5-8.0) Ur Specific [place] 1.010 (1.000-1.035) Urine Protein Negative (Negative) Urine Glucose (UA) Negative (Negative) g/dL Urine Ketones Negative (NEGATIVE) Urine Occult Blood 2+ H (Negative) Urine Nitrate Negative (Negative) Urine Bilirubin Negative (NEGATIVE) Urine Urobilinogen 0.2 (0.2) E.U./dL Ur Leukocyte Esterase 3+ H (NEGATIVE) Urine RBC 1-5/hpf (0-5/HPF) Urine WBC 30-100/hpf H (0-5/HPF) Ur Squamous Epith Cells 1-5 /hpf (0-5/HPF) Amorphous Sediment 2+ Urine Bacteria Moderate (10-30) H (None) Urine Mucus 2+ H (Negative) Ur Culture Indicated? Specimen cultured Ur Random Sodium (30-90) mmol/L Discharge Plan Departure Patient Disposition: Admitted As Inpatient Clinical Impression: Hyponatremia Anemia Qualifiers: Anemia type: unspecified type Qualified Code(s): D64.9 - Anemia, unspecified Discharge Date/Time: 09/20/19 17:50 Admit Date/Time: 09/20/19 16:49 Admit Provider: Reji Blank
[2019-09-20] MEDS: SODIUM CHLORIDE 0.9% 500 ML 999 ML IV (14:34)
[2019-09-20] MEDS: ACETAMINOPHEN 325 MG TABLET 650 MG PO (14:39)
[2019-09-20 15:12] LABS: Appearance Urine UA SL CLOUDY; Bilirubin Urine UA NEGATIVE (NEGATIVE); Color Urine UA YELLOW; Glucose Urine UA NEGATIVE (Negative); Ketones Urine UA NEGATIVE (NEGATIVE); Leukocyte Esterase Urine UA 3+ (NEGATIVE); Nitrite Urine UA NEGATIVE (Negative); Occult Blood Urine UA 2+ (Negative); Protein Urine UA NEGATIVE (Negative); Urobilinogen Urine UA 0.2 E.U./dL (0.2)
[2019-09-20 15:25] LABS: Amorphous Sediment Urine 2+; Bacteria Urine Moderate (10-30); Culture Indicated Urine Specimen Cultured; Mucus Urine 2+ (Negative); RBC Urine 1-5/HPF (0-5/HPF); Squamous Epithelial Cell Urine 1-5 /HPF (0-5/HPF); WBC Urine 30-100/HPF (0-5/HPF)
[2019-09-20 16:41] LABS: Sodium Urine Random 53 mmol/L (30-90)
--- NOTE | 2019-09-20 18:12 | P.HP_ITS ---
History of Present Illness History of Present Illness Date Patient Seen: 09/20/19 Time Patient Seen: 18:12 Chief complaint: Low Sodium Narrative: Patient is 79-year-old female with history of essential tremor for which she takes carbidopa levodopa and denies history of parkinsonism, GI bleed secondary to diverticulosis, hypothyroidism, chronic back pain, macular d egeneration and admission 1 month ago for recurrent syncope and hyponatremia who was sent in from [facility] for an abnormal sodium of 120 on their blood work. Patient has been there for the past month, she states Rehabilitation has gone slowly due to continued dizziness. Patient has low blood pressures in the morning but otherwise has continued to slowly improve. She denies nausea, vomiting, diarrhea, headaches, vision changes, chest pain, shortness of breath, lower extremity edema. She denies any dysuria or urinary frequency, but does have urinary incontinence. According to the ER provider, patient has been intermittently receiving fluids and salt tabs from the nursing facility while managing her hyponatremia. Was unable to contact or discuss with the provider about recent management over the past month. In the emergency room, patient was mildly hypertensive but other vital signs are unremarkable. CBC was unremarkable except for a stable anemia with a hemoglobin of 11.3. Chemistries did show a sodium of 123, improved from 120 the day before. Patient's chloride was 87. Remainder of chemistries were unremarkable. Urinalysis was sent and was grossly positive for infection with a positive leuk esterase, 30-100 white blood cells, and moderate bacteria. Specimen was sent for culture. Urine sodium level was 53, and urine osmolality was sent but is a send out test and is currently pending. Patient was admitted to Medicine under observation status for hyponatremia, likely secondary to SIADH. Patient History Medical History Chicken pox (Resolved) Chronic back pain (Chronic ~2013) Colitis (Inactive) Essential tremor (Chronic 06/26/15) Fatigue (Chronic 08/29/15) GI (gastrointestinal bleed) (Inactive) Hypothyroidism (acquired) (Chronic) Macular degeneration (Chronic) Measles (Resolved) Rosacea (Chronic) Rubella (Resolved) Shoulder pain (Chronic ~1988) Surgical History Anesthesia (Resolved) History of tonsillectomy (~1945) S/P cataract extraction (Chronic) Status post colonoscopy (~2007) Family & Social History Family History Grandfather Heart disease Grandmother Heart disease Mother Mental health problem Grandfather Stroke Grandmother Cancer Father Cancer Social History: household members none lives independently Yes Safety & Behavioral: Feels Safe in Current Yes Environment Been Physically Hurt or No Threatened By a Person Tobacco & Substance use: Smoking Status Never smoker alcohol intake former alcohol intake frequency holiday/special occasion Substance Use Type does not use Meds Home Medications and Allergies Home Medications Medication Instructions Recorded Confirmed Type vit C 250 mg-E 200 unit-zinc 40 1 tab PO BID #30 cap 08/07/17 08/19/19 Rx mg-copper 1 [id number] capsule levothyroxine 25 mcg tablet 25 mcg PO QAM #90 tab 04/28/19 08/19/19 Rx carbidopa ER 50 mg-levodopa 200 mg 1 tab PO TID #270 tab 06/02/19 08/19/19 Rx tablet,extended release ferrous sulfate 325 mg PO DAILY 08/19/19 08/19/19 History acetaminophen 650 mg PO Q6HR PRN 30 Days #30 tab 08/22/19 Rx Allergies Allergy/AdvReac Type Severity Reaction Status Date / Time No Known Drug Allergies Allergy Verified 09/20/19 12:53 Review of Systems Review of Systems Narrative: All other systems reviewed with the patient and are negative unless otherwise stated. Exam Vital Signs (past 8 hours): - 09/20/19 12:41 09/20/19 13:49 09/20/19 13:50 Temperature 98 F Pulse Rate 70 75 74 Respiratory Rate 16 24 19 Blood Pressure 146/81 H 171/92 H Pulse Oximetry 99 99 99 09/20/19 14:00 09/20/19 14:30 09/20/19 15:00 Temperature Pulse Rate 75 77 79 Respiratory Rate 18 17 22 Blood Pressure 178/86 H 193/86 H Pulse Oximetry 100 99 98 09/20/19 15:01 09/20/19 15:30 09/20/19 16:00 Temperature Pulse Rate 80 80 80 Respiratory Rate 20 18 15 Blood Pressure 165/87 H 163/80 H 160/79 H Pulse Oximetry 99 100 99 09/20/19 16:30 09/20/19 17:00 09/20/19 17:30 Temperature Pulse Rate 81 81 80 Respiratory Rate 15 19 14 Blood Pressure 167/79 H 177/81 H 169/97 H Pulse Oximetry 98 97 97 Oxygen Delivery Method Room Air Narrative Exam Narrative: GENERAL APPEARANCE: Chronically ill-appearing, thin, elderly female in no acute distress. Talks very slowly. SKIN: Inspection of the skin reveals no rashes, ulcerations or petechiae. There is a slight pallor. HEENT: Normocephalic atraumatic, extraocular muscles are intact, oropharynx is clear and mucous membranes are moist, neck is supple without adenopathy NECK: Supple and symmetric. There was no thyroid enlargement, and no tenderness, or masses were felt. CHEST: Normal AP diameter and normal contour without any kyphoscoliosis. LUNGS: Auscultation of the lungs revealed no wheezes, rhonchi, or rales. CARDIOVASCULAR: There was a regular rate and rhythm without any murmurs, gallops, rubs. Peripheral pulses were 2+ and symmetric. ABDOMEN: Soft and nontender with normal bowel sounds. No ascites was noted. MUSCULOSKELETAL: There was no tenderness or effusions noted. EXTREMITIES: No cyanosis, clubbing or edema. NEUROLOGIC: Alert and oriented x 3. Sensation intact bilaterally to all extremities to light touch, globally weak. Objective Labs Result Diagrams: 09/20/19 13:10 09/20/19 13:10 Labs: Laboratory Results - last 24 hr 09/20/19 09/20/19 09/20/19 13:10 13:10 15:04 WBC 9.2 RBC 3.61 L Hgb 11.3 L Hct 33.8 L MCV 93.5 MCH 31.2 MCHC 33.4 RDW 13.2 Plt Count 320 Neut % (Auto) 69.4 Lymph % (Auto) 14.7 L Mobile % (Auto) 15.0 H Eos % (Auto) 0.3 L Baso % (Auto) 0.6 Neut # (Auto) 6400 Lymph # (Auto) 1300 Mobile # (Auto) 1400 H Eos # (Auto) 0 Baso # (Auto) 100 Sodium 123 L Potassium 4.0 Chloride 87 L Carbon Dioxide 29 BUN 14 Creatinine 0.69 Estimated GFR > 60.0 BUN/Creatinine Ratio 20.3 Glucose 93 Calcium 9.0 Total Bilirubin 0.6 AST 37 H ALT 7 Alkaline Phosphatase 73 Total Protein 6.8 Albumin 3.8 Globulin 3.0 Albumin/Globulin Ratio 1.3 Urine Color Urine Appearance Urine pH Ur Specific Lititz Urine Protein Urine Glucose (UA) Urine Ketones Urine Occult Blood Urine Nitrate Urine Bilirubin Urine Urobilinogen Ur Leukocyte Esterase Urine RBC Urine WBC Ur Squamous Epith Cells Amorphous Sediment Urine Bacteria Urine Mucus Ur Culture Indicated? Ur Random Sodium 53 09/20/19 15:04 WBC RBC Hgb Hct MCV MCH MCHC RDW Plt Count Neut % (Auto) Lymph % (Auto) Mobile % (Auto) Eos % (Auto) Baso % (Auto) Neut # (Auto) Lymph # (Auto) Mobile # (Auto) Eos # (Auto) Baso # (Auto) Sodium Potassium Chloride Carbon Dioxide BUN Creatinine Estimated GFR BUN/Creatinine Ratio Glucose Calcium Total Bilirubin AST ALT Alkaline Phosphatase Total Protein Albumin Globulin Albumin/Globulin Ratio Urine Color Yellow Urine Appearance Sl cloudy Urine pH 7.0 Ur Specific Lititz 1.010 Urine Protein Negative Urine Glucose (UA) Negative Urine Ketones Negative Urine Occult Blood 2+ H Urine Nitrate Negative Urine Bilirubin Negative Urine Urobilinogen 0.2 Ur Leukocyte Esterase 3+ H Urine RBC 1-5/hpf Urine WBC 30-100/hpf H Ur Squamous Epith Cells 1-5 /hpf Amorphous Sediment 2+ Urine Bacteria Moderate (10-30) H Urine Mucus 2+ H Ur Culture Indicated? Specimen cultured Ur Random Sodium Assessment & Plan Assessment & Plan narrative: Patient is 79-year-old female with history of essential tremor for which she takes carbidopa levodopa and denies history of parkinsonism, GI bleed secondary to diverticulosis, hypothyroidism, chronic back pain, macular degeneration and admission 1 month ago for recurrent syncope and hyponatremia who was sent in from [facility] for an abnormal sodium of 120 on their blood work. She is admitted under observation status for further management of her hyponatremia after repeat sodium showed 123 in the emergency room here. 1. Hyponatremia, acute on chronic, present on admission, active -serum sodium 123 versus 140 in February. Patient's discharge sodium was 128 from her prior admission. 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 -will continue to fluid restrict, no need for salt tabs at this time, but this may allow her to increase her free water intake as an outpatient. -continue to follow BMP, repeat early evening and continue to adjust as necessary. 2. Acute cystitis, present on admission. -patient with grossly positive urinalysis on admission, with 30-100 white blood cells, 3+ leuk esterase, but negative nitrite. Culture was sent. -will start ceftriaxone 1 g every 24 hours pending cultures -previous culture from prior admission grew Corynebacteria Jeikeium. She was treated with 5 days of doxycycline as an outpatient. 3. Hypothyroidism, chronic -TSH in normal range -continue levothyroxine 25 mcg daily 4. Essential tremor, chronic -patient denies diagnosis of Parkinson's and was followed by neurologist - Dr. Pino until he retired 3 years ago -She has other stigmata suggestive of Parkinsons or MSA including orthostatic syncope and tremor. Highly recommend outpatient neurology follow up. -check orthostatics qshift. -continue carbidopa levodopa 50-200 mg ER t.i.d. 5. Chronic iron deficiency anemia -hemoglobin stable from prior levels -continue patient's iron sulfate 325 mg daily Code: DNR, surrogate decision maker is the patient's son. Dispo: Admitted under observation status as her stay is not expected to exceed 2 midnights DVT: Lovenox daily COVID-19 status: pending from today, 09/19
[2019-09-20 19:27] LABS: COVID19 -Nasal RAPID Negative (Negative)
[2019-09-20 21:11] LABS: BUN Creatinine Ratio 21.4 (6-22); Blood Urea Nitrogen 15 mg/dL (7-17); Calcium 8.8 mg/dL (8.4-10.2); Carbon Dioxide 30 mmol/L (22-32); Chloride 90 mmol/L (98-107); Estimated Glomerular Filt Rate > 60.0 mL/min (>60); Glucose 110 mg/dL (80-110); HEMOLYSIS < 15 (0-50); Potassium 3.9 mmol/L (3.4-5.1); Sodium 124 mmol/L (137-145)
[2019-09-20] MEDS: CEFTRIAXONE 1 GM/50 ML FROZ.PIGGY IV (21:20)
--- NOTE | 2019-09-20 22:35 | PC.NURSE ---
Pt arrived @ 1745 from ER to RM 204 alert/oriented. Pt wearing a back brace from the first previous fall at home. Lungs diminished, SpO2 95% RA IVF infusing as per orders w/o incidence. Tele showing NSR/PVC per IVU staff. Call light w/in lor, bed alarm on for pt safety. Continue w/plan of care.
[2019-09-21] VITALS (11 sets, daily range): BP systolic 84–157; BP diastolic 55–101; PULSE 69–94; RESP 16–18; TEMP 36.2–36.8; O2SAT 97–100
--- NOTE | 2019-09-21 00:25 | PC.NURSE ---
Positive orthostatic blood pressure readings, see chart- finds reported to [employer].
[2019-09-21 06:12] LABS: Hematocrit 32.4 % (36-46); Hemoglobin 11.1 g/dL (12.0-16.0); Mean Corpuscular HGB Conc 34.2 % (30-36); Mean Corpuscular Hemoglobin 31.9 PG (26-34); Mean Corpuscular Volume 93.3 fL (80-100); Platelet Count 306 X10^3/uL (150-400); Red Blood Cell Count 3.48 X10^6/uL (4.0-5.2); Red Cell Distribution Width 12.8 % (11.6-14.8); White Blood Cell Count 8.3 X10^3/uL (4.5-11.0)
[2019-09-21 06:13] LABS: Add Manual Diff / Slide Review YES
[2019-09-21 06:22] LABS: BUN Creatinine Ratio 18.3 (6-22); Blood Urea Nitrogen 13 mg/dL (7-17); Calcium 8.8 mg/dL (8.4-10.2); Carbon Dioxide 29 mmol/L (22-32); Chloride 90 mmol/L (98-107); Estimated Glomerular Filt Rate > 60.0 mL/min (>60); Glucose 92 mg/dL (80-110); HEMOLYSIS < 15 (0-50); Potassium 3.8 mmol/L (3.4-5.1); Sodium 124 mmol/L (137-145)
[2019-09-21 06:50] LABS: Neutrophils Absolute Manual 6225 /uL (3000-5900); Total Cells Counted 100
[2019-09-21 06:51] LABS: RBC Morphology Normal Morphology
[2019-09-21 07:14] LABS: TSH w/ Reflex to FT4 5.08 uIU/mL (0.47-4.68)
[2019-09-21] MEDS: ENOXAPARIN 40 MG/0.4 ML SYRINGE SUBCUT (08:24)
[2019-09-21] MEDS: ACETAMINOPHEN 325 MG TABLET 650 MG PO (09:52)
[2019-09-21] MEDS: FERROUS SULFATE 325 MG TABLET PO (09:52)
--- NOTE | 2019-09-21 09:56 | PT.IIE ---
Surgical History (Last Reviewed 09/20/19 @ 17:02 by THA Jorge) Anesthesia (Resolved) History of tonsillectomy (~194) S/P cataract extraction (Chronic) Status post colonoscopy (~2007) Medical History (Last Reviewed 09/20/19 @ 17:02 by THA Jorge) Chicken pox (Resolved) Chronic back pain (Chronic ~2013) Colitis (Inactive) Essential tremor (Chronic 06/26/15) Fatigue (Chronic 08/29/15) GI (gastrointestinal bleed) (Inactive) Hypothyroidism (acquired) (Chronic) Macular degeneration (Chronic) Measles (Resolved) Rosacea (Chronic) Rubella (Resolved) Shoulder pain (Chronic ~1988) Physical Therapy Inpatient Evaluation/Re-Eval M1 PT/OT-IP Prior Functional Status Start: 09/21/19 12:03 Freq: NEEDED Status: Active Protocol: Document 09/21/19 09:56 AB (Rec: 09/21/19 12:28 AB [email or web address]) Medical Review Prior Functional Status Medical History Reviewed Yes Communication able to make needs known Mobility and Gait pt was just hospitalized August 19, 2019 for hyponatremia and syncope and was discharged to [facility] rehab. prior to that, pt was indpeendent with all mobiliites and ambulation using 4WW pt stated that she was not able to do much at [facility] rehab due to continued low BP Social History Household Members none Living Arrangements Apartment/Condo Number of Stairs To Enter/Railing? lives on 3rd floor but has an elevator to get to her floor Home Environment Standard Height Toilet,Tub/ Shower Home Equipment Four Wheel Walker,Grab Bars Near Toilet,Grab Bars In Shower M2 PT-IP Current Condition Start: 09/21/19 12:03 Freq: NEEDED Status: Active Protocol: Document 09/21/19 09:56 AB (Rec: 09/21/19 12:28 AB [email or web address]) Physical Therapy Current Condition Current Condition Evaluation Date 09/21/19 Treatment Diagnosis hyponstremia; difficulty in walking Onset Date 09/20/19 Precautions Other Precautions orthostatic BP M3 PT-IP Subjective Start: 09/21/19 12:03 Freq: NEEDED Status: Active Protocol: Document 09/21/19 09:56 AB (Rec: 09/21/19 12:28 AB [id number]) Subjective Physical Therapy Visit Type Type Initial Evaluation Visit Start Time 09:56 Visit Stop Time 10:38 Total Visit Minutes 42 Number of SCHOLASTIC APTITUDE TEST GRADER Visits 0 Physical Therapy Visit Comments Patient Comments pt is agreeable to do PT Therapy Pain Assessment Pain When Pain Assessed At Rest Pain Present Pain Present Pain Reported Location low back Intensity 2 Scale Used Numeric (0 - 10) Pain Management Techniques Re-positioning,Timing of Activity with Medications M4 PT-IP Mobility and Gait Start: 09/21/19 12:03 Freq: NEEDED Status: Active Protocol: Document 09/21/19 09:56 AB (Rec: 09/21/19 12:28 [email or web address]) PT-Bed Mobility Assessment Supine to Sit Supine to Sit Maximum Assistance,1 Person Assistance,Bedrails Scooting Scooting to Edge of Bed Dependent PT-Transfer Assessment Sit to and From Stand Sit to and from Stand Maximum Assistance,2 Person Assistance,Use of Upper Extremities Equipment Transfer Assistive Device Gait Belt,Front Wheeled Walker Orthotic/Prosthetic Devices or Brace: No Transfers Transfer Destination Chair Transfer Technique Stand Step Pivot Transfer Ability Level of Assist Maximum Assistance,1 Person Assistance,2 Person Assistance ,Use of Upper Extremities Comments Mobility Comments BP supine: 154/101. BP rechecked: 159/98. pt hesitant to get up but agreed to try. completed supine to sit max A and max cues with bed rail use. pt exhibits overall body tightness/ stiffness. pt was able to sit on EOB CGA. BP checked 141/ 85. pt completed sit to stand max A x 1-2 and max cues. pt required mod to max A for steadiness and balance during standing using FWW for support . BP in standing 96/61. c/o dizziness and requested to sit down. BP checked after restin/73. pt agreed to transfer to chair. completed sit to stand max A x 1-2 and max cues and completed step transfer using FWW to chair max A x 1-2 and max cues. positioned on chair. BP after transfers: 91/59. pt rested and BP checked again: 130/88. call light and table placed within reach. NAC in room and assisted with pt care. Gait Assessment Comments Gait Comments unable due to low BP but able to take a few steps during transfers. PT-Balance Assessment Sitting Balance and Reactions Static Sitting Balance Ability Good Dynamic Sitting Balance Ability Fair Standing Balance and Reactions Static Standing Balance Ability Poor Dynamic Standing Balance Ability Poor Device Used FWW M5 PT-IP Objective Assessments Start: 09/21/19 12:03 Freq: NEEDED Status: Active Protocol: Document 09/21/19 09:56 AB (Rec: 09/21/19 12:28 AB [email or web address]) Orientation Orientation/Cognition Level of Alertness Alert Orientation Name Safety Awareness Decreased Safety Awareness Memory Description Short Term Impaired Gross Range of Motion Lower Extremity ROM Assessment Bilaterally Impaired Impairments bilateral ankles decrease DF with both unable to get to neutral Strength Lower Extremity Strength Assessment Bilaterally Impaired Hip 3+/5 Knee 3+/5 Ankle 2+/5 Other Assessments Other Other Assessments pt presents with overall body stiffness and intentional tremors M6 PT-IP Treatment Start: 09/21/19 12:03 Freq: NEEDED Status: Active Protocol: Document 09/21/19 09:56 AB (Rec: 09/21/19 12:28 AB [id number]) Physical Therapy Treatment Education Education Provided Safety M7 PT-IP Assessment and Plan Start: 09/21/19 12:03 Freq: NEEDED Status: Active Protocol: Document 09/21/19 09:56 AB (Rec: 09/21/19 12:28 AB [email or web address]) PT Summary Assessment and Plan Potential Rehabilitation Potential Good Status of Condition at Evaluation Evolving Summary Impairments Pain,ROM,Strength,Balance, Coordination,Sensation,Tone, Cognition,Bed Mobility, Transfers,Gait,Activity Tolerance Assessment Summary pt requiring max Ax 1-2 with all mobilities and continues to present with orthostatic hypotension affecting activity tolerance. pt will require SNF rehab to improve strength and mobility. Goals Bed Mobility Goal Standby Assistance Transfer Goal Standby Assistance,Front Wheeled Walker Gait Goal Standby Assistance,Front Wheel Walker Gait Distance 50 Days to Meet Goals 5 Frequency of Treatment Frequency Of Treatment Once a Day Treatment Plan Physical Therapy Treatment Plan Bed Mobility Training,Transfer Training,Gait Training, Therapeutic Exercise,Balance Retraining,Discharge Planning, Neuromuscular Re-ed, Coordination Retraining Recommendations To Nursing Amount of Assist Needed 2 Person Assist Discharge Recommendations PT Discharge Recommendations SNF Rehab Transportation Needs at Discharge Wheelchair/Cabulance
[2019-09-21] MEDS: LEVOTHYROXINE 25 MCG TABLET PO (10:45)
[2019-09-21] MEDS: CARBIDOPA-LEVODOPA ER 50/200 TABLET 1 EACH PO ×3 (10:45→21:26)
[2019-09-21 11:11] LABS: Osmolality Urine 321 mOsmol/kg (.)
[2019-09-21] MEDS: SODIUM CHLORIDE 1,000 MG TABLET 1000 MG PO ×2 (12:17→21:26)
--- NOTE | 2019-09-21 12:33 | CM.DANOTE ---
Discharge Planning/Care Management DCP: assessment: case received, EMR reviewed and met with pt and her sister Jenniffer during Team Bedside Rounds. Introduced self and role. Pt is an 79 year old female who admitted yesterday late afternoon to care of hospitalist team. She has been at [facility] ([facility]) under her Medicare and for Life snf benefit and she confirms for the team that she expects to return there for continued rehab/recovery when stable for same. [facility] confirms the facility is expecting her back and will have a bed for her when she is stable snf level care. COVID-19 status: - test on 09/19 1724. Admission status: OBS with a change to INPT as of 09/20: confirmed by UR RN Les. P: [facility] C/R when stable for same and as per above. CM Discharge Assessment Start: 09/21/19 12:12 Freq: Status: Active Protocol: Document 09/21/19 12:13 ITV (Rec: 09/21/19 12:33 ITV [id number]) Discharge Planning Assessment Advance Directives? Yes: POLST History Provided By Patient,Family Member,Medical Record Facility Name Admitted From: [facility] Willing to Return to Facility? Yes Is patient alert and oriented? Yes Discharge Plan Residential Facility Transportation Arrangement Likely w/c van Review Status In Process
--- NOTE | 2019-09-21 12:43 | P.PN_ITS ---
Subjective Subjective Date Patient Seen: 09/21/19 Time Patient Seen: 11:00 Interval history: Patient is 79-year-old female with history of essential tremor for which she takes carbidopa levodopa and denies history of parkinsonism, GI bleed secondary to diverticulosis, hypothyroidism, chronic back pain, macular degeneration and admission 1 month ago for recurrent syncope and hyponatremia who was sent in from [facility] for an abnormal sodium of 120 on their blood work. Exam Vital Signs (past 8 hours): - 09/21/19 05:25 09/21/19 06:00 09/21/19 07:11 Temperature 97.8 F Pulse Rate 80 Pulse Rate [Orthostatic Lying] 83 Pulse Rate [Orthostatic Sitting] 82 Pulse Rate [Orthostatic Standing] 94 H Respiratory Rate 18 Blood Pressure 157/92 H Blood Pressure [Orthostatic Lying] 152/101 H Blood Pressure [Orthostatic Sitting] 144/92 H Blood Pressure [Orthostatic Standing] 84/56 L Pulse Oximetry 97 97 09/21/19 09:35 09/21/19 10:00 09/21/19 11:00 Temperature 97.5 F L 98.3 F Pulse Rate 81 85 Pulse Rate [Orthostatic Lying] Pulse Rate [Orthostatic Sitting] Pulse Rate [Orthostatic Standing] Respiratory Rate 16 18 Blood Pressure 157/101 H 138/88 Blood Pressure [Orthostatic Lying] Blood Pressure [Orthostatic Sitting] Blood Pressure [Orthostatic Standing] Pulse Oximetry 99 98 97 Oxygen Delivery Method Room Air Oxygen Flow Rate 0 Narrative Exam Narrative: GENERAL APPEARANCE: Chronically ill-appearing, thin, elderly female in no acute distress. Talks very slowly. SKIN: Inspection of the skin reveals no rashes, ulcerations or petechiae. There is a slight pallor. HEENT: Normocephalic atraumatic, extraocular muscles are intact, oropharynx is clear and mucous membranes are moist, neck is supple without adenopathy NECK: Supple and symmetric. There was no thyroid enlargement, and no tenderness, or masses were felt. CHEST: Normal AP diameter and normal contour without any kyphoscoliosis. LUNGS: Auscultation of the lungs revealed no wheezes, rhonchi, or rales. CARDIOVASCULAR: There was a regular rate and rhythm without any murmurs, gallops, rubs. Peripheral pulses were 2+ and symmetric. ABDOMEN: Soft and nontender with normal bowel sounds. No ascites was noted. MUSCULOSKELETAL: There was no tenderness or effusions noted. EXTREMITIES: No cyanosis, clubbing or edema. NEUROLOGIC: Alert and oriented x 3. Sensation intact bilaterally to all extremit ies to light touch, globally weak. Objective Labs Result Diagrams: 09/21/19 06:00 09/21/19 06:00 Labs: Laboratory Results - last 24 hr 09/20/19 09/20/19 09/20/19 13:10 13:10 15:04 WBC 9.2 RBC 3.61 L Hgb 11.3 L Hct 33.8 L MCV 93.5 MCH 31.2 MCHC 33.4 RDW 13.2 Plt Count 320 Neut % (Auto) 69.4 Lymph % (Auto) 14.7 L Barron % (Auto) 15.0 H Eos % (Auto) 0.3 L Baso % (Auto) 0.6 Neut # (Auto) 6400 Lymph # (Auto) 1300 Barron # (Auto) 1400 H Eos # (Auto) 0 Baso # (Auto) 100 Total Counted Seg Neutrophils % Band Neutrophils % Lymphocytes % (Manual) Monocytes % (Manual) Neutrophils # (Manual) RBC Morphology Sodium 123 L Potassium 4.0 Chloride 87 L Carbon Dioxide 29 BUN 14 Creatinine 0.69 Estimated GFR > 60.0 BUN/Creatinine Ratio 20.3 Glucose 93 Calcium 9.0 Magnesium Total Bilirubin 0.6 AST 37 H ALT 7 Alkaline Phosphatase 73 Total Protein 6.8 Albumin 3.8 Globulin 3.0 Albumin/Globulin Ratio 1.3 TSH Free T4 Urine Color Urine Appearance Urine pH Ur Specific [place] Urine Protein Urine Glucose (UA) Urine Ketones Urine Occult Blood Urine Nitrate Urine Bilirubin Urine Urobilinogen Ur Leukocyte Esterase Urine RBC Urine WBC Ur Squamous Epith Cells Amorphous Sediment Urine Bacteria Urine Mucus Ur Culture Indicated? Urine Osmolality Ur Random Sodium 53 COVID-19 PCR 09/20/19 09/20/19 09/20/19 15:04 15:04 17:25 WBC RBC Hgb Hct MCV MCH MCHC RDW Plt Count Neut % (Auto) Lymph % (Auto) Barron % (Auto) Eos % (Auto) Baso % (Auto) Neut # (Auto) Lymph # (Auto) Barron # (Auto) Eos # (Auto) Baso # (Auto) Total Counted Seg Neutrophils % Band Neutrophils % Lymphocytes % (Manual) Monocytes % (Manual) Neutrophils # (Manual) RBC Morphology Sodium Potassium Chloride Carbon Dioxide BUN Creatinine Estimated GFR BUN/Creatinine Ratio Glucose Calcium Magnesium Total Bilirubin AST ALT Alkaline Phosphatase Total Protein Albumin Globulin Albumin/Globulin Ratio TSH Free T4 Urine Color Yellow Urine Appearance Sl cloudy Urine pH 7.0 Ur Specific [place] 1.010 Urine Protein Negative Urine Glucose (UA) Negative Urine Ketones Negative Urine Occult Blood 2+ H Urine Nitrate Negative Urine Bilirubin Negative Urine Urobilinogen 0.2 Ur Leukocyte Esterase 3+ H Urine RBC 1-5/hpf Urine WBC 30-100/hpf H Ur Squamous Epith Cells 1-5 /hpf Amorphous Sediment 2+ Urine Bacteria Moderate (10-30) H Urine Mucus 2+ H Ur Culture Indicated? Specimen cultured Urine Osmolality 321 Ur Random Sodium COVID-19 PCR Negative 09/20/19 09/21/19 09/21/19 20:55 06:00 06:00 WBC 8.3 RBC 3.48 L Hgb 11.1 L Hct 32.4 L MCV 93.3 MCH 31.9 MCHC 34.2 RDW 12.8 Plt Count 306 Neut % (Auto) Not Reportable Lymph % (Auto) Not Reportable Barron % (Auto) Not Reportable Eos % (Auto) Not Reportable Baso % (Auto) Not Reportable Neut # (Auto) Lymph # (Auto) Not Reportable Barron # (Auto) Not Reportable Eos # (Auto) Baso # (Auto) Not Reportable Total Counted 100 Seg Neutrophils % 67.0 Band Neutrophils % 8.0 H Lymphocytes % (Manual) 7.0 L Monocytes % (Manual) 18.0 H Neutrophils # (Manual) 6225 H RBC Morphology Normal morphology Sodium 124 L 124 L Potassium 3.9 3.8 Chloride 90 L 90 L Carbon Dioxide 30 29 BUN 15 13 Creatinine 0.70 0.71 Estimated GFR > 60.0 > 60.0 BUN/Creatinine Ratio 21.4 18.3 Glucose 110 92 Calcium 8.8 8.8 Magnesium 2.0 Total Bilirubin AST ALT Alkaline Phosphatase Total Protein Albumin Globulin Albumin/Globulin Ratio TSH Free T4 Urine Color Urine Appearance Urine pH Ur Specific [place] Urine Protein Urine Glucose (UA) Urine Ketones Urine Occult Blood Urine Nitrate Urine Bilirubin Urine Urobilinogen Ur Leukocyte Esterase Urine RBC Urine WBC Ur Squamous Epith Cells Amorphous Sediment Urine Bacteria Urine Mucus Ur Culture Indicated? Urine Osmolality Ur Random Sodium COVID-19 PCR 09/21/19 06:00 WBC RBC Hgb Hct MCV MCH MCHC RDW Plt Count Neut % (Auto) Lymph % (Auto) Barron % (Auto) Eos % (Auto) Baso % (Auto) Neut # (Auto) Lymph # (Auto) Barron # (Auto) Eos # (Auto) Baso # (Auto) Total Counted Seg Neutrophils % Band Neutrophils % Lymphocytes % (Manual) Monocytes % (Manual) Neutrophils # (Manual) RBC Morphology Sodium Potassium Chloride Carbon Dioxide BUN Creatinine Estimated GFR BUN/Creatinine Ratio Glucose Calcium Magnesium Total Bilirubin AST ALT Alkaline Phosphatase Total Protein Albumin Globulin Albumin/Globulin Ratio TSH 5.08 H Free T4 1.60 Urine Color Urine Appearance Urine pH Ur Specific [place] Urine Protein Urine Glucose (UA) Urine Ketones Urine Occult Blood Urine Nitrate Urine Bilirubin Urine Urobilinogen Ur Leukocyte Esterase Urine RBC Urine WBC Ur Squamous Epith Cells Amorphous Sediment Urine Bacteria Urine Mucus Ur Culture Indicated? Urine Osmolality Ur Random Sodium COVID-19 PCR Assessment & Plan Assessment & Plan narrative: Patient is 79-year-old female with history of essential tremor for which she takes carbidopa levodopa and denies history of parkinsonism, GI bleed secondary to diverticulosis, hypothyroidism, chronic back pain, macular degeneration and admission 1 month ago for recurrent syncope and hyponatremia who was sent in from [facility] for an abnormal sodium of 120 on their blood work. She is admitted under observation status for further management of her hyponatremia after repeat sodium showed 123 in the emergency room here. 1. Hyponatremia, acute on chronic, present on admission, active -serum sodium 123 versus 140 in February. Patient's discharge sodium was 128 from her prior admission. 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 -started on fluid restriction, will lower from 1.2 L to 1.0 L today. Will add salt tabs as well today and continue to follow Na. Has been stable at 124. -continue to follow BMP, repeat early evening and continue to adjust as necessary. 2. Acute cystitis, present on admission. -patient with grossly positive urinalysis on admission, with 30-100 white blood cells, 3+ leuk esterase, but negative nitrite. Culture was sent but negative. -started on ceftriaxone 1 g every 24 hours, will continue treatment despite negative culture for 3 days. -previous culture from prior admission grew Corynebacteria Jeikeium. She was treated with 5 days of doxycycline as an outpatient. 3. Hypothyroidism, chronic -TSH in normal range -continue levothyroxine 25 mcg daily 4. Essential tremor, chronic -patient denies diagnosis of Parkinson's and was followed by neurologist - Dr. Pino until he retired 3 years ago -She has other stigmata suggestive of Parkinsons or MSA including orthostatic syncope and tremor. Highly recommend outpatient neurology follow up. -check orthostatics qshift. -continue carbidopa levodopa 50-200 mg ER t.i.d. 5. Chronic iron deficiency anemia -hemoglobin stable from prior levels -continue patient's iron sulfate 325 mg daily 6. Orthostatic hypotension - patient continues with positive orthostatics, likely indiciative of parkinson's as discussed above. Patient is asymptomatic when standing. No need for midodrine and she is frequently hypertensive at rest. Code: DNR, surrogate decision maker is the patient's son. Dispo: Admitted under observation status, changed to inpatient today. Anticipate return to [facility] once sodium is improved. DVT: Lovenox daily COVID-19 status: Negative. Quality VTE Deep Vein Thrombosis/Pulmonary Embolism Present on Admission: No
--- NOTE | 2019-09-21 13:45 | OT.IPNOTE ---
Pt just got back in bed and too tired to do OT eval at this time. Therefore check on the pt tomorrow for OTeval.
--- NOTE | 2019-09-21 13:49 | PC.NURSE ---
Day shift note: Alert, oriented, and pleasantly calm. Very fatigued and generalized weakness noted. Up OOB, transfer/pivot to BSC and up in chair for lunch. + Orthostatic hypotension, no dizziness however states is very tired. Dr. Blank made aware. Poor appetite, encouraging meals. Fluid restriction maintained. High fall risk precautions, call light within reach. Calls appropriately for staff assist.
--- NOTE | 2019-09-21 15:24 | DIET.PN ---
Addendum entered by Naila Lewis 09/21/19 15:28: RN/DINING CAR WAITER/WAITRESS to receive ONS and monitor intake as pt is on 1L fluid restriction Original Note: Dietary Progress Note 79y F admitted for fatigue and hyponatremia screened by RD for repeat visits. Pt has 4.4% unintentional weight loss since last visit (08/20/2019) with associated low BMI of 20.1 (low for age). Pt is reporting to diet aids she is too tired to eat making her high risk for PCM. Per last visit, pt requested 1:1 feeding assistance r/t tremor and fatigue, was using weighted silverware, and SLT recommended mechanical soft/thin diet order. RD following POs and weight daily, recc ONS Enlive bid r/t pt reporting being too fatigued to eat.
--- NOTE | 2019-09-21 17:42 | PC.NURSE ---
Addendum entered by Kadi Gomez R.N. 09/21/19 22:53: Uneventful evening. Orthostatic B/P WNL pt tolerated well. Tele shows NSR Call light w/in reach, bed alarm on for pt safety. Continue w/plan of care. Original Note: Pt resting quietly this afternoon. Denies discomfort. Lungs clear, SpO2 95% RA Tele shows NSR per ICU staff. HL LAC intact/patent. Call light w/in reach, bed alarm on for pt safety.
[2019-09-21 19:05] LABS: BUN Creatinine Ratio 24.2 (6-22); Blood Urea Nitrogen 15 mg/dL (7-17); Calcium 8.9 mg/dL (8.4-10.2); Carbon Dioxide 28 mmol/L (22-32); Chloride 92 mmol/L (98-107); Estimated Glomerular Filt Rate > 60.0 mL/min (>60); Glucose 128 mg/dL (80-110); HEMOLYSIS < 15 (0-50); Potassium 3.7 mmol/L (3.4-5.1); Sodium 126 mmol/L (137-145)
[2019-09-21] MEDS: CEFTRIAXONE 1 GM/50 ML FROZ.PIGGY IV (20:00)
[2019-09-22] VITALS (7 sets, daily range): BP systolic 91–152; BP diastolic 52–99; PULSE 72–91; RESP 16–18; TEMP 36.1–36.4; O2SAT 99–100
[2019-09-22] MEDS: LEVOTHYROXINE 25 MCG TABLET PO (06:02)
[2019-09-22 06:08] LABS: BUN Creatinine Ratio 19.4 (6-22); Blood Urea Nitrogen 14 mg/dL (7-17); Calcium 8.9 mg/dL (8.4-10.2); Carbon Dioxide 28 mmol/L (22-32); Chloride 93 mmol/L (98-107); Estimated Glomerular Filt Rate > 60.0 mL/min (>60); Glucose 92 mg/dL (80-110); HEMOLYSIS < 15 (0-50); Magnesium 2.1 mg/dL (1.6-2.3); Potassium 3.8 mmol/L (3.4-5.1); Sodium 127 mmol/L (137-145)
[2019-09-22] MEDS: ENOXAPARIN 40 MG/0.4 ML SYRINGE SUBCUT (08:07)
[2019-09-22] MEDS: SODIUM CHLORIDE 1,000 MG TABLET 1000 MG PO (08:07)
[2019-09-22] MEDS: FERROUS SULFATE 325 MG TABLET PO (08:07)
[2019-09-22] MEDS: CARBIDOPA-LEVODOPA ER 50/200 TABLET 1 EACH PO (08:07)
[2019-09-22] MEDS: ACETAMINOPHEN 325 MG TABLET 650 MG PO (08:08)
[2019-09-22] MEDS: SODIUM CHLORIDE 0.9% FLUSH 10 ML IV (08:08)
--- NOTE | 2019-09-22 10:18 | CM.DPC ---
DCP Cont: Discussed patient during team round. Patient should be able to discharge back to [facility] today. Confirmed pickle maker time of 134[address] [facility]. She is still up to date on her COVID testing. Awaiting discharge orders and signed med sheets. Updated nurse, Lilian, on pickle maker time and gave her number for nurse report at [facility]. P: Patient should be discharged back to [facility] today. Soniya Timmons RN/Life Science Teacher
--- NOTE | 2019-09-22 11:08 | PT.IPTN ---
Current Diagnoses Hypo-osmolality and hyponatremia (09/21/19) Physical Therapy Treatment Note M2 PT-IP Current Condition Start: 09/21/19 12:03 Freq: NEEDED Status: Active Protocol: Document 09/21/19 09:56 AB (Rec: 09/21/19 12:28 AB [email or web address]) Physical Therapy Current Condition Current Condition Evaluation Date 09/21/19 Treatment Diagnosis hyponstremia; difficulty in walking Onset Date 09/20/19 Precautions Other Precautions orthostatic BP M3 PT-IP Subjective Start: 09/21/19 12:03 Freq: NEEDED Status: Active Protocol: Document 09/22/19 11:08 AB (Rec: 09/22/19 12:32 AB [email or web address]) Subjective Physical Therapy Visit Type Type Treatment Note Visit Start Time 11:08 Visit Stop Time 11:40 Total Visit Minutes 32 Number of HEAD TELLER Visits 0 Physical Therapy Visit Comments Patient Comments pt is agreeable to do PT M4 PT-IP Mobility and Gait Start: 09/21/19 12:03 Freq: NEEDED Status: Active Protocol: Document 09/22/19 11:08 AB (Rec: 09/22/19 12:32 AB [email or web address]) PT-Bed Mobility Assessment Supine to Sit Supine to Sit Minimal Assistance,Head of Bed Elevated,Bedrails Sit to Supine Sit to Supine Minimal Assistance,Bedrails PT-Transfer Assessment Sit to and From Stand Sit to and from Stand Maximum Assistance,1 Person Assistance,2 Person Assistance ,Use of Upper Extremities Comments Mobility Comments pt agreed to do PT. BP in supine: 121/72. completed supine to sit min A with use of bed rail and HOB up ~ 15 deg. pt was able to sit on EOB CGA. BP: 103/64. pt was able to sit of ~ 3 more mins and BP checked again: 120/72. completed sit to stand max A x 1-2 and max cues. Pt tolerated ~ 5 min of standing. BP checked but unable to get a reading on first attempt. BP after ~ 5min of standing after 2nd attempt of getting BP:. 83/34. pt assisted to sit. BP checked in sittin/61. pt seated rest on EOB and BP monitored: 97/67 and then 98/61 after 3 min and 91/ 59 after 2 min. pt requested to lay back in bed. completed sit to supine min A for LE elevation. total A for scooting to HOB. BP checked in supine: 134/78. positioned pt in bed. call light and table placed wtihin reach. M5 PT-IP Objective Assessments Start: 09/21/19 12:03 Freq: NEEDED Status: Active Protocol: Document 09/21/19 09:56 AB (Rec: 09/21/19 12:28 AB [id number]) Orientation Orientation/Cognition Level of Alertness Alert Orientation Name Safety Awareness Decreased Safety Awareness Memory Description Short Term Impaired Gross Range of Motion Lower Extremity ROM Assessment Bilaterally Impaired Impairments bilateral ankles decrease DF with both unable to get to neutral Strength Lower Extremity Strength Assessment Bilaterally Impaired Hip 3+/5 Knee 3+/5 Ankle 2+/5 Other Assessments Other Other Assessments pt presents with overall body stiffness and intentional tremors M6 PT-IP Treatment Start: 09/21/19 12:03 Freq: NEEDED Status: Active Protocol: Document 09/22/19 11:08 AB (Rec: 09/22/19 12:32 AB [id number]) Physical Therapy Treatment Exercises Exercises Ankle Pumps Education Education Provided Safety M7 PT-IP Assessment and Plan Start: 09/21/19 12:03 Freq: NEEDED Status: Active Protocol: Document 09/22/19 11:08 AB (Rec: 09/22/19 12:32 AB [email or web address]) PT Summary Assessment and Plan Potential Rehabilitation Potential Fair Summary Impairments Pain,ROM,Strength,Balance, Coordination,Sensation,Tone, Cognition,Bed Mobility, Transfers,Gait,Activity Tolerance Progress Towards Goals Slow Progress due to Medical Issues,Slow Progress due to Activity Tolerance Assessment Summary pt continues to require max A x 1-2 for mobility and has decrease activity tolerance affecting level of assistance. pt continues to have orthostatic hypotension with c /o dizziness during upright activities. pt will require SNF rehab to improve strength and independence. Goals Bed Mobility Goal Standby Assistance Transfer Goal Standby Assistance,Front Wheeled Walker Gait Goal Standby Assistance,Front Wheel Walker Gait Distance 50 Days to Meet Goals 5 Frequency of Treatment Frequency Of Treatment Once a Day Treatment Plan Physical Therapy Treatment Plan Bed Mobility Training,Transfer Training,Gait Training, Therapeutic Exercise,Balance Retraining,Discharge Planning, Neuromuscular Re-ed, Coordination Retraining Recommendations To Nursing Amount of Assist Needed 2 Person Assist Discharge Recommendations PT Discharge Recommendations SNF Rehab Transportation Needs at Discharge Wheelchair/Cabulance
--- NOTE | 2019-09-22 11:09 | P.DS_ITS ---
History of Present Illness History of Present Illness Chief complaint: Low Sodium Narrative: Patient is 79-year-old female with history of essential tremor for which she takes carbidopa levodopa and denies history of parkinsonism, GI bleed secondary to diverticulosis, hypothyroidism, chronic back pain, macular de generation and admission 1 month ago for recurrent syncope and hyponatremia who was sent in from [facility] for an abnormal sodium of 120 on their blood work. Patient has been there for the past month, she states Rehabilitation has gone slowly due to continued dizziness. Patient has low blood pressures in the morning but otherwise has continued to slowly improve. She denies nausea, vomiting, diarrhea, headaches, vision changes, chest pain, shortness of breath, lower extremity edema. She denies any dysuria or urinary frequency, but does have urinary incontinence. According to the ER provider, patient has been intermittently receiving fluids and salt tabs from the nursing facility while managing her hyponatremia. Was unable to contact or discuss with the provider about recent management over the past month. In the emergency room, patient was mildly hypertensive but other vital signs are unremarkable. CBC was unremarkable except for a stable anemia with a hemoglobin of 11.3. Chemistries did show a sodium of 123, improved from 120 the day before. Patient's chloride was 87. Remainder of chemistries were unremarkable. Urinalysis was sent and was grossly positive for infection with a positive leuk esterase, 30-100 white blood cells, and moderate bacteria. Specimen was sent for culture. Urine sodium level was 53, and urine osmolality was sent but is a send out test and is currently pending. Patient was admitted to Medicine under observation status for hyponatremia, likely secondary to SIADH. Discharge Providers Provider Date of admission: 09/21/19 11:23 Discharge Date: 09/22/19 Primary care physician: Mateusz Bonilla MD Consults: 09/20/19 18:11 Consult to Discharge Planning Routine Comment: Consult to Occupational Therapy Evaluate & Treat Comment: Physician Instructions: Evaluate and treat Consult to Physical Therapy Evaluate & Treat Comment: Physician Instructions: Evaluate and Treat Discharge provider: Reji Blank DO Summary Hospital Course Discharge Diagnosis: Please see hospital course by problem list noted below. Hospital Course: Patient is 79-year-old female with history of essential tremor for which she takes carbidopa levodopa and denies history of parkinsonism, GI bleed secondary to diverticulosis, hypothyroidism, chronic back pain, macular degeneration and admission 1 month ago for recurrent syncope and hyponatremia who was sent in from [facility] for an abnormal sodium of 120 on their blood work. 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 1. Hyponatremia, acute on chronic, present on admission, active -serum sodium 123 versus 140 in February. Patient's discharge sodium was 128 from her prior admission. 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 -started on fluid restriction, decreased to 1.0 L total daily. Added salt tablets with improvement to 127 on day of discharge. Recommend repeat BMP in 2-3 days with continued salt tablets and fluid restriction. Can decrease fluid to as little as 800 cc daily if no further improvement or increase salt tabs. 2. Acute cystitis, present on admission. -patient with grossly positive urinalysis on admission, with 30-100 white blood cells, 3+ leuk esterase, but negative nitrite. Culture was sent but negative. -started on ceftriaxone 1 g every 24 hours, will continue treatment despite negative culture for 3 days of total therapy. She completed 2 days of therapy, will require one additional day of antibiotics with cefdinir upon discharge. -previous culture from prior admission grew Corynebacteria Jeikeium. She was treated with 5 days of doxycycline as an outpatient. 3. Hypothyroidism, chronic -TSH in normal range -continue levothyroxine 25 mcg daily 4. Essential tremor, chronic -patient denies diagnosis of Parkinson's and was followed by neurologist - Dr. Pino until he retired 3 years ago. -She has other stigmata suggestive of Parkinsons or MSA including orthostatic syncope and tremor. Highly recommend outpatient neurology follow up. -orthostatics were persistently positive while here. Consider midodrine as an outpatient if resting blood pressures are improved. patient's blood pressures were persistently elevated at rest and unable to start therapy. -continue carbidopa levodopa 50-200 mg ER t.i.d. 5. Chronic iron deficiency anemia -hemoglobin stable from prior levels -continue patient's iron sulfate 325 mg daily 6. Orthostatic hypotension - patient continues with positive orthostatics, likely indiciative of parkinson's as discussed above. Patient is mildly symptomatic when standing. Ideall would start midodrine as noted above but she is frequently hypertensive at rest. Code: DNR, surrogate decision maker is the patient's son. Dispo: Discharged to [facility] COVID 19 : negative 8/3 Time Spent with Patient Time spent: Greater than 30 minutes Exam Vital Signs (past 8 hours): - 09/22/19 05:00 09/22/19 05:55 09/22/19 06:08 Temperature 97.0 F L Pulse Rate 80 Pulse Rate [Orthostatic Lying] 91 H Pulse Rate [Orthostatic Sitting] 85 Pulse Rate [Orthostatic Standing] 91 H Respiratory Rate 16 Blood Pressure 152/99 H Blood Pressure [Orthostatic Lying] 149/95 H Blood Pressure [Orthostatic Sitting] 125/77 Blood Pressure [Orthostatic Standing] 108/52 L Pulse Oximetry 99 99 09/22/19 09:05 09/22/19 10:00 Temperature 97.5 F L Pulse Rate 78 Pulse Rate [Orthostatic Lying] Pulse Rate [Orthostatic Sitting] Pulse Rate [Orthostatic Standing] Respiratory Rate 18 Blood Pressure 100/64 Blood Pressure [Orthostatic Lying] Blood Pressure [Orthostatic Sitting] Blood Pressure [Orthostatic Standing] Pulse Oximetry 99 99 Oxygen Delivery Method Room Air Oxygen Flow Rate 0 Narrative Exam Narrative: GENERAL APPEARANCE: Chronically ill-appearing, thin, elderly female in no acute distress. Talks very slowly. SKIN: Inspection of the skin reveals no rashes, ulcerations or petechiae. There is a slight pallor. HEENT: Normocephalic atraumatic, extraocular muscles are intact, oropharynx is clear and mucous membranes are moist, neck is supple without adenopathy NECK: Supple and symmetric. There was no thyroid enlargement, and no tenderness, or masses were felt. CHEST: Normal AP diameter and normal contour without any kyphoscoliosis. LUNGS: Auscultation of the lungs revealed no wheezes, rhonchi, or rales. CARDIOVASCULAR: There was a regular rate and rhythm without any murmurs, gallops, rubs. Peripheral pulses were 2+ and symmetric. ABDOMEN: Soft and nontender with normal bowel sounds. No ascites was noted. MUSCULOSKELETAL: There was no tenderness or effusions noted. EXTREMITIES: No cyanosis, clubbing or edema. NEUROLOGIC: Alert and oriented x 3. Sensation intact bilaterally to all extremities to light touch, globally weak. Objective Labs Result Diagrams: 09/21/19 06:00 09/22/19 05:40 Labs: Laboratory Results - last 24 hr 09/20/19 09/21/19 09/22/19 15:04 18:33 05:40 Sodium 126 L 127 L Potassium 3.7 3.8 Chloride 92 L 93 L Carbon Dioxide 28 28 BUN 15 14 Creatinine 0.62 0.72 Estimated GFR > 60.0 > 60.0 BUN/Creatinine Ratio 24.2 H 19.4 Glucose 128 H 92 Calcium 8.9 8.9 Magnesium 2.1 Urine Osmolality 321 Discharge Plan Discharge Plan Patient Disposition: SNF Transfer to: [facility] Discharge comment: Patient is 79-year-old female with history of essential tremor for which she takes carbidopa levodopa and denies history of parkinsonism, GI bleed secondary to diverticulosis, hypothyroidism, chronic back pain, macular degeneration and admission 1 month ago for recurrent syncope and hyponatremia who was sent in from [facility] for an abnormal sodium of 120 on their blood work. 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 1. Hyponatremia, acute on chronic, present on admission, active -serum sodium 123 versus 140 in February. Patient's discharge sodium was 128 from her prior admission. 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 -started on fluid restriction, decreased to 1.0 L total daily. Added salt tablets with improvement to 127 on day of discharge. Recommend repeat BMP in 2-3 days with continued salt tablets and fluid restriction. Can decrease fluid to as little as 800 cc daily if no further improvement or increase salt tabs. 2. Acute cystitis, present on admission. -patient with grossly positive urinalysis on admission, with 30-100 white blood cells, 3+ leuk esterase, but negative nitrite. Culture was sent but negative. -started on ceftriaxone 1 g every 24 hours, will continue treatment despite negative culture for 3 days of total therapy. She completed 2 days of therapy, will require one additional day of antibiotics with cefdinir upon discharge. -previous culture from prior admission grew Corynebacteria Jeikeium. She was treated with 5 days of doxycycline as an outpatient. 3. Hypothyroidism, chronic -TSH in normal range -continue levothyroxine 25 mcg daily 4. Essential tremor, chronic -patient denies diagnosis of Parkinson's and was followed by neurologist - Dr. Pino until he retired 3 years ago. -She has other stigmata suggestive of Parkinsons or MSA including orthostatic syncope and tremor. Highly recommend outpatient neurology follow up. -orthostatics were persistently positive while here. Consider midodrine as an outpatient if resting blood pressures are improved. patient's blood pressures were persistently elevated at rest and unable to start therapy. -continue carbidopa levodopa 50-200 mg ER t.i.d. 5. Chronic iron deficiency anemia -hemoglobin stable from prior levels -continue patient's iron sulfate 325 mg daily 6. Orthostatic hypotension - patient continues with positive orthostatics, likely indiciative of park inson's as discussed above. Patient is mildly symptomatic when standing. Ideall would start midodrine as noted above but she is frequently hypertensive at rest. Code: DNR, surrogate decision maker is the patient's son. Dispo: Discharged to [facility] COVID 19 : negative 09/19 Discharge orders & Medications Prescriptions: New sodium chloride 1,000 mg Tablet,Soluble 1,000 mg PO BID 30 Days Qty: 60 RF: 0 cefdinir 300 mg capsule 300 mg PO BID 1 Days Qty: 2 RF: 0 Continued vit C,T-Qp-pdear-lutein-zeaxan [PreserVision AREDS-2] [id number] fs-[id number]-[id number]-mg capsule 1 tab PO BID Qty: 30 RF: 0 levothyroxine 25 mcg tablet 25 mcg PO QAM Qty: 90 RF: 3 carbidopa-levodopa 50-200 mg tablet extended release 1 tab PO TID Qty: 270 RF: 3 ferrous sulfate 325 mg (65 mg iron) Tablet 325 mg PO DAILY RF: 0 acetaminophen 325 mg Tablet 650 mg PO Q6HR PRN (Reason: Fever/Mild Pain (1-3)) 30 Days Qty: 30 RF: 0 Follow up/Referrals: Mateusz Bonilla MD [Primary Care Provider] - Discharge Health Status Health Concerns: Hyponatremia, orthostatic hypotension Precautions: [place] Diet/Activity/Treatments Diet: Diet as Tolerated Liquid consistency: Normal/Thin Diet comment: FLUID RESTRICTION 1.0 L daily total. Activity: As tolerated [facility] Reason for rehabilitation: Recovery r/t decondition Rehab type: Physical therapy and Occupational therapy Discharge Data Primary Care Provider: Mateusz Bonilla VTE Deep Vein Thrombosis/Pulmonary Embolism Present on Admission: No
--- NOTE | 2019-09-22 11:38 | OT.IP.EVAL ---
Current Diagnoses Hypo-osmolality and hyponatremia (09/21/19) Past Medical History (Last Reviewed 09/20/19 @ 17:02 by THA Jorge) Chicken pox (Resolved) Chronic back pain (Chronic ~2013) Colitis (Inactive) Essential tremor (Chronic 06/26/15) Fatigue (Chronic 08/29/15) GI (gastrointestinal bleed) (Inactive) Hypothyroidism (acquired) (Chronic) Macular degeneration (Chronic) Measles (Resolved) Rosacea (Chronic) Rubella (Resolved) Shoulder pain (Chronic ~1988) Surgical History (Last Reviewed 09/20/19 @ 17:02 by THA Jorge) Anesthesia (Resolved) History of tonsillectomy (~1944) S/P cataract extraction (Chronic) Status post colonoscopy (~2007) Occupational Therapy Inpatient Evaluation/Re-Eval M1 PT/OT-IP Prior Functional Status Start: 09/22/19 11:18 Freq: NEEDED Status: Active Protocol: Document 09/22/19 09:00 [facility] (Rec: 09/22/19 11:37 [facility] [id number]) Medical Review Prior Functional Status Medical History Reviewed Yes Communication able to make needs known Mobility and Gait pt was just hospitalized August 19, 2019 for hyponatremia and syncope and was discharged to [facility] rehab. prior to that, pt was indpendent with all mobiliites and ambulation using 4WW pt stated that she was not able to do much at [facility] rehab due to continued low BP Activities of Daily Living and IADL's Pt states overall has been getting weaker and needing more assist with ADL needs. Social History Household Members none Living Arrangements Apartment/Condo Number of Stairs To Enter/Railing? lives on 3rd floor but has an elevator to get to her floor Home Environment Standard Height Toilet,Tub/ Shower Home Equipment Four Wheel Walker,Grab Bars Near Toilet,Grab Bars In Shower M2 OT-IP Current Condition Start: 09/22/19 11:18 Freq: Status: Active Protocol: Document 09/22/19 09:00 [facility] (Rec: 09/22/19 11:37 [facility] [id number]) Occupational Therapy Current Condition Current Condition Evaluation Date 09/22/19 Treatment Diagnosis Hypoatremia, weakness Diagnosis Onset Date 09/20/19 M3 OT- IP Subjective and Pain Start: 09/22/19 11:18 Freq: Status: Active Protocol: Document 09/22/19 09:00 [facility] (Rec: 09/22/19 11:37 [facility] [id number]) OT- Subjective Occupational Therapy Visit Type Type Initial Evaluation Visit Start Time 09:00 Visit Stop Time 09:20 Total Visit Minutes 20 Occupational Therapy Visit Comments Patient Comments Initially pt feeling too tired to get up and then came back after 30 minutes to try to get pt up. Patient/Caregiver Goals To get stronger. OT Pain Assessment Pain When Pain Assessed During Mobility Pain Present Pain Present Denied Pain M4 OT- IP ADL's Start: 09/22/19 11:18 Freq: Status: Active Protocol: Document 09/22/19 09:00 [facility] (Rec: 09/22/19 11:37 [facility] [id number]) OT JOK-Phzb-Aodfxev Comments OT Self-Feeding Comments Aid feeding pt as pt states feeling too weak to do for herself today. OT ADL-Grooming Comments OT Grooming Comments Pt too tired to attempt. OT ADL-Dressing General Eval Lower Body Dressing Ability Maximum Assistance Areas Needing Assistance Socks OT ADL-Toileting Comments OT Toileting Comments Not at this time due to decreased BP. OT ADL-Bathing Comments OT Bathing Comments Not performed. M5 OT- IP IADL's Start: 09/22/19 11:18 Freq: Status: Active Protocol: Document 09/22/19 09:00 [facility] (Rec: 09/22/19 11:37 [facility] [id number]) OT-Instrumental Activities of Daily Living Home Safety Awareness Awareness of Need for Assistance at Home Decreased Awareness Medication Management Medication Management Caregiver Administers Money Management Money Management Comments Continue to assess pt's cognition. M6 OT- IP Functional Cognition Start: 09/22/19 11:18 Freq: Status: Active Protocol: Document 09/22/19 09:00 [facility] (Rec: 09/22/19 11:37 [facility] [id number]) Cognitive Factors Limiting Selfcare Function Cognitive Ability Level of Alertness Alert,Drowsy Patient Orientation Name Attention Span Ability Capable of Focused Attention, Unable to Sustain Attention Ability to Follow Commands Able to Follow One Step Commands with Increased Time, Able to Follow One Step Commands with Repetition Memory Description Short Term Impaired Cognitive Comments Cognitive Assessment Comments Pt very tired and needing step by step commands to follow at this time. Continue to assess pt's cognition when pt more alert and feeling better. OT- Vision and Hearing OT- Hearing Assessment OT- Hearing Assessment WFL OT- Vision Assessment Visual Acuity Glasses All The Time M7 OT- IP Mobility and Balance Start: 09/22/19 11:18 Freq: Status: Active Protocol: Document 09/22/19 09:00 [facility] (Rec: 09/22/19 11:37 [facility] [id number]) OT- Bed Mobility Assessment Rolling Type of Rolling Roll to Right Level of Assistance Minimal Assistance Supine to Sit Supine to Sit Assist Moderate Assistance Sit to Supine Sit to Supine Assist Moderate Assistance Scooting Scooting to Edge of Bed Moderate Assistance,1 Person Assistance OT-Transfer Assessment Sit to and From Stand Sit to and from Stand Moderate Assistance,Maximum Assistance,1 Person Assistance Comments Mobility Comments BP supine 100/64 , sitting 83/ 58, and right after standing up 71/53, nursing aware. Pt assisted back to bed. Pt needing MODA to get upright from side lying and MODA to stand initially and then tiring and increased to MAX A x1. OT- Gait Assessment Comments Gait Ability Comments Pt only stood at this time. OT- Balance Assessment Sitting Balance and Reactions Static Sitting Balance Ability Fair Standing Balance and Reactions Static Standing Balance Ability Poor M8 OT- IP Objective Assessments Start: 09/22/19 11:18 Freq: Status: Active Protocol: Document 09/22/19 09:00 [facility] (Rec: 09/22/19 11:37 [facility] [id number]) OT Gross Range of Motion Upper Extremity Range of Motion ROM Impairments WFL in supine OT Strength Comments Strength Comments BUE decreased strength 3-/5 to 4-/5 from proximal to distal. M9 OT- IP Assessment and Plan Start: 09/22/19 11:18 Freq: Status: Active Protocol: Document 09/22/19 09:00 [facility] (Rec: 09/22/19 11:37 [facility] [id number]) OT Summary Assessment and Plan Potential Rehabilitation Potential Fair Analytic Complexity at Evaluation Low Summary OT Impairments Strength,Functional Cognition, Functional Mobility,Self- Feeding,Grooming,Dressing, Toileting,Bathing,Toilet Transfers,Shower Transfers, Activity Tolerance Progress Towards Goals Slow Progress due to Medical Issues,Slow Progress due to Activity Tolerance,Slow Progress due to Cognition Assessment Summary Pt low complexity and here for hypoatremia which she was here last with the samew diagnosis from 08/19/19- 08/22/19 in [facility] pt was discharged to skilled rehab. Pt poor activity tolerance and haveing orthostatic BP at this time and just able to tolerate standing today. Once pt medically stable will benefit from going back to skilled rehab. Goals Self-Feeding Goal Standby Assistance Grooming Goal Standby Assistance Dressing Goal Standby Assistance Toileting Goal Minimal Assistance Bathing Goal Moderate Assistance Toilet Transfer Goal Minimal Assistance Shower Transfer Goal Minimal Assistance Days to Meet Goals 10 Frequency of Treatment Frequency Of Treatment Once a Day Treatment Plan OT Treatment Plan ADL Training,Functional Cognition Training,Functional Mobility,Patient/Family Education,Discharge Planning Other Treatment Recommendations and Next Transfer to [facility] with FWW MODA. Pt to self feed with arms supported on pillows for 50% of the meal. Treatment Focus Discharge Recommendations OT Discharge Recommendations SNF Rehab Home Equipment Needs Defer to SNF Transportation Needs at Discharge Wheelchair/Cabulance
== END 2019-09-22 14:06 | DRG 641 ==
LOC: ED 13:40 → AC 16:50
PROVIDERS: Emergency Medicine; Admitting Provider Internal Medicine; Emergency Provider Nurse Practitioner Family; PCP Student in an Organized Health Care Education/Training Program; Visit Provider Internal Medicine
DX: E87.1 Hypo-osmolality and hyponatremia (principal); N30.00 Acute cystitis without hematuria; G25.0 Essential tremor; I95.1 Orthostatic hypotension; E03.9 Hypothyroidism, unspecified; G89.29 Other chronic pain; D50.9 Iron deficiency anemia, unspecified; Z66 Do not resuscitate; R41.0 Disorientation, unspecified
CPT/HCPCS: 36415; 80048; 80053; 81001; 83735; 83935; 84300; 84439; 84443; 85025; 87086; 87635; 96360; 97162; 97165; 97530; 99284; G0378; J1650

== ENCOUNTER → 2019-10-02 09:50 | Outpatient (ROUT) | payer SELFPAY ==
[2019-09-20 22:00] VITALS: BMI 20.1
[2019-10-04 09:11] LABS: COVID19 Sendout Not Detected (Not Detected)
== END ==
PROVIDERS: PCP Student in an Organized Health Care Education/Training Program; Visit Provider Internal Medicine
DX: Z11.59 Encounter for screening for other viral diseases (principal)
CPT/HCPCS: 87635

== ENCOUNTER 2020-07-09 13:10 | Emergency (ER) | payer MEDICARE, OTHER, SELFPAY ==
[2019-09-20 22:00] VITALS: BMI 20.1
[2020-07-09] VITALS (7 sets, daily range): BP systolic 120–154; BP diastolic 69–90; PULSE 68–86; RESP 14–15; TEMP 36.6; O2SAT 98–100; BMI 23.0
--- NOTE | 2020-07-09 14:09 | ED.AMS ---
HPI - Altered Mental Status General Chief Complaint: Altered Mental Status Stated Complaint: Hypotension Time Seen by Provider: 07/09/20 14:04 Source: patient, family (Sister at bedside) and EMS Mode of arrival: EMS Limitations: no limitations History of Present Illness HPI narrative: 80-year-old female comes to the emergency department with possible altered mental status. Per EMS they were called back after seeing her earlier this morning. When they arrived patient was not responding to the staff and hypotensive according to staff. She had been sleeping and had her ear plugs in when these were removed patient immediately was responsive and appropriate with the medics and able to answer questions. Patient had a systolic blood pressure in the 100 range at that time. Patient then re-evaluated by medics a 2nd time when they stated the patient had a hypotensive episode and was altered. When medics arrived they states she was appropriate, she did not have any focal deficits that they appreciated. Patient does have a history of Parkinson's. She is on carbidopa levodopa and states that she saw her neurologist in the last week did not have her medications adjusted. She does have autonomic dysfunction and states her blood pressure elevates and drops intermittently. They did give her a dose of midodrine at the care facility today for her lower blood pressure. Patient denies any symptoms currently. She denies any recent trauma or falls. She denies headaches, vision changes, no chest pain or shortness of breath, no nausea or vomiting. She states she had a bowel movement earlier today. She denies any new urinary symptoms. Patient denies any numbness, tingling or weakness in her extremities that are new. She typically moves with some assistance and a wheelchair. Patient states that her roommate had contacted the staff earlier today because she was talking in her sleep which is something she states she is on for many years. Related Data Home Medications Medication Instructions Recorded Confirmed ferrous sulfate 325 mg PO DAILY 08/19/19 09/21/19 Previous Rx's Medication Instructions Recorded vit C 250 mg-vit E 90 mg-zinc 40 1 tab PO BID #30 cap 08/07/17 mg-copper 1 [id number] capsule levothyroxine 25 mcg tablet 25 mcg PO QAM #90 tab 04/28/19 carbidopa ER 50 mg-levodopa 200 mg 1 tab PO TID #270 tab 06/02/19 tablet,extended release Allergies Allergy/AdvReac Type Severity Reaction Status Date / Time No Known Drug Allergies Allergy Verified 07/09/20 13:17 Review of Systems Review of Systems ROS Unobtainable: All systems reviewed & are unremarkable except as noted in HPI and below Patient History Medical History (Updated 07/09/20 @ 16:46 by Brionna Rothman DO) Chicken pox Chronic back pain (~2013) Colitis Essential tremor (06/26/15) Fatigue (08/29/15) GI (gastrointestinal bleed) Hypothyroidism (acquired) Macular degeneration Measles Rosacea Rubella Shoulder pain (~1988) Surgical History Anesthesia History of tonsillectomy (~1944) S/P cataract extraction Status post colonoscopy (~2007) Family History Grandfather Heart disease Grandmother Heart disease Mother Mental health problem Grandfather Stroke Grandmother Cancer Father Cancer Social History marital status: household members: none lives independently: Yes Smoking Status: Never smoker alcohol intake: former substance use type: does not use Smoking Status: Never smoker alcohol intake frequency: holidays/special occasions only Substance Use Type: does not use Exam Narrative Exam Narrative: GEN: well nourished, well appearing female, alert and oriented, patient appears to be in mild distress. HEENT: Atraumatic, pupils are equal round reactive to light, extraocular movements are intact, nares are clear, Throat is clear without any exudates, erythema, tonsillar enlargement or uvular deviation, no facial droop. HEART: Regular rate and rhythm without murmur, clicks, rubs. Pulses are equal in upper extremities. LUNGS:Lungs clear to auscultation, no wheezes, rales, crackles, chest moves symmetrically ABD:bowel sounds normal, soft, non-tender, no guarding, rebound, rigidity, no masses noted, no hepatosplenomegaly :No CVA tenderness MSCL: Non-tender, no muscle atrophy, full range of motion NEURO:CN 2-12 intact, sensation normal, finger nose finger test normal, patient does have mild tremor of right upper extremity. GCS of 15 SKIN: No rash or skin changes noted. Initial Vital Signs Initial Vital Signs: Vital Signs Temperature 97.8 F 07/09/20 13:18 Pulse Rate 71 07/09/20 13:18 Respiratory Rate 14 07/09/20 13:18 Blood Pressure 120/69 07/09/20 13:18 Pulse Oximetry 98 07/09/20 13:18 Scores GCS Chris coma scale eye opening: Spontaneous Chris coma scale verbal response: Orientated Chris coma scale motor response: Obey commands [place] coma scale total score: 15 Course Orders Ordered: ED Orders 07/09/20 14:43 CT head/brain wo con Stat XR chest 1V Stat 07/09/20 14:58 Complete Blood Count AUTO DIFF Stat Comprehensive Metabolic Panel Stat Partial Thromboplastin Time Stat Prothrombin Time INR Stat 07/09/20 15:15 Blood Culture Stat 07/09/20 15:18 EKG-12 Lead Stat 07/09/20 15:50 Urinalysis and Microscopic Stat Urine Culture Stat Urine Drug Screen, Rapid Stat Vital Signs Vital signs: Vital Signs - 8 hr 07/09/20 13:18 07/09/20 13:46 07/09/20 14:00 Temperature 97.8 F Pulse Rate 71 71 68 Respiratory Rate 14 Blood Pressure 120/69 138/79 Pulse Oximetry 98 99 100 07/09/20 14:30 07/09/20 15:11 07/09/20 15:30 Temperature Pulse Rate 73 75 75 Respiratory Rate Blood Pressure 153/90 H Pulse Oximetry 100 98 100 07/09/20 18:20 Temperature Pulse Rate 86 Respiratory Rate 15 Blood Pressure 154/86 H Pulse Oximetry 99 MDM - Altered Mental Status Lab Data Attestation: I reviewed the patient's lab results. Result diagrams: 07/09/20 14:58 07/09/20 14:58 Labs: Lab Results 07/09/20 07/09/20 07/09/20 Range/Units 14:58 14:58 14:58 WBC 7.8 (4.5-11.0) X10^3/uL RBC 3.59 L (4.0-5.2) X10^6/uL Hgb 11.9 L (12.0-16.0) g/dL Hct 35.7 L (36-46) % MCV 99.4 (80-100) fL MCH 33.1 (26-34) PG MCHC 33.3 (30-36) % RDW 12.9 (11.6-14.8) % Plt Count 267 (150-400) X10^3/uL Neut % (Auto) 70.2 (50-75) % Lymph % (Auto) 19.5 L (25-40) % [place] % (Auto) 9.5 (3-14) % Eos % (Auto) 0.3 L (2-4) % Baso % (Auto) 0.5 (0-2) % Neut # (Auto) 5500 (5251-2632) /uL Lymph # (Auto) 1500 (4380-1870) /uL [place] # (Auto) 700 (0-900) /uL Eos # (Auto) 0 (0-450) /uL Baso # (Auto) 0 (0-100) /uL PT 11.2 (10.1-12.7) SECONDS INR 1.0 (0.9-1.3) APTT 28 (26.4-36.2) SECONDS Sodium 136 L (137-145) mmol/L Potassium 4.4 (3.4-5.1) mmol/L Chloride 102 (98-107) mmol/L Carbon Dioxide 27 (22-32) mmol/L BUN 25 H (7-17) mg/dL Creatinine 0.85 (0.52-1.04) mg/dL Estimated GFR > 60.0 (>60) mL/min BUN/Creatinine Ratio 29.4 H (6-22) Glucose 103 (80-110) mg/dL Calcium 9.3 (8.4-10.2) mg/dL Total Bilirubin 0.5 (0.2-1.3) mg/dL AST 33 (14-36) IU/L ALT 6 (<35) IU/L Alkaline Phosphatase 76 (38-126) U/L Total Protein 7.7 (6.3-8.2) g/dL Albumin 4.2 (3.5-5.0) g/dL Globulin 3.5 (1.7-4.1) g/dL Albumin/Globulin Ratio 1.2 (1.0-2.8) Urine Color Urine Appearance Urine pH (4.5-8.0) Ur Specific [place] (1.000-1.035) Urine Protein (Negative) Urine Glucose (UA) (Negative) g/dL Urine Ketones (NEGATIVE) Urine Occult Blood (Negative) Urine Nitrate (Negative) Urine Bilirubin (NEGATIVE) Urine Urobilinogen (0.2) E.U./dL Ur Leukocyte Esterase (NEGATIVE) Urine RBC (0-5/HPF) Urine WBC (0-5/HPF) Urine Bacteria (None) Ur Culture Indicated? U Opiates 300ng/mL cut (Negative) Ur Oxycodone Screen (Negative) Urine Methadone Screen (Negative) Ur Barbiturates Screen (Negative) U Tricyclic Antidepress (Negative) Ur Phencyclidine Scrn (Negative) Ur Amphetamines Screen (Negative) U Methamphetamines Scrn (Negative) Ur MDMA Scrn (Ecstasy) (Negative) U Benzodiazepines Scrn (Negative) Urine Cocaine Screen (Negative) U Marijuana (THC) Screen (Negative) 07/09/20 07/09/20 Range/Units 15:50 15:50 WBC (4.5-11.0) X10^3/uL RBC (4.0-5.2) X10^6/uL Hgb (12.0-16.0) g/dL Hct (36-46) % MCV (80-100) fL MCH (26-34) PG MCHC (30-36) % RDW (11.6-14.8) % Plt Count (150-400) X10^3/uL Neut % (Auto) (50-75) % Lymph % (Auto) (25-40) % [place] % (Auto) (3-14) % Eos % (Auto) (2-4) % Baso % (Auto) (0-2) % Neut # (Auto) (5157-2321) /uL Lymph # (Auto) (0118-3729) /uL [place] # (Auto) (0-900) /uL Eos # (Auto) (0-450) /uL Baso # (Auto) (0-100) /uL PT (10.1-12.7) SECONDS INR (0.9-1.3) APTT (26.4-36.2) SECONDS Sodium (137-145) mmol/L Potassium (3.4-5.1) mmol/L Chloride (98-107) mmol/L Carbon Dioxide (22-32) mmol/L BUN (7-17) mg/dL Creatinine (0.52-1.04) mg/dL Estimated GFR (>60) mL/min BUN/Creatinine Ratio (6-22) Glucose (80-110) mg/dL Calcium (8.4-10.2) mg/dL Total Bilirubin (0.2-1.3) mg/dL AST (14-36) IU/L ALT (<35) IU/L Alkaline Phosphatase (38-126) U/L Total Protein (6.3-8.2) g/dL Albumin (3.5-5.0) g/dL Globulin (1.7-4.1) g/dL Albumin/Globulin Ratio (1.0-2.8) Urine Color Yellow Urine Appearance Cloudy Urine pH 6.5 (4.5-8.0) Ur Specific [place] 1.020 (1.000-1.035) Urine Protein Trace H (Negative) Urine Glucose (UA) Trace (Negative) g/dL Urine Ketones Negative (NEGATIVE) Urine Occult Blood 2+ H (Negative) Urine Nitrate Positive H (Negative) Urine Bilirubin Negative (NEGATIVE) Urine Urobilinogen 0.2 (0.2) E.U./dL Ur Leukocyte Esterase 3+ H (NEGATIVE) Urine RBC 5-10/hpf H (0-5/HPF) Urine WBC >100/hpf H (0-5/HPF) Urine Bacteria Many (>30) H (None) Ur Culture Indicated? Specimen cultured U Opiates 300ng/mL cut Negative (Negative) Ur Oxycodone Screen Negative (Negative) Urine Methadone Screen Negative (Negative) Ur Barbiturates Screen Negative (Negative) U Tricyclic Antidepress Negative (Negative) Ur Phencyclidine Scrn Negative (Negative) Ur Amphetamines Screen Negative (Negative) U Methamphetamines Scrn Negative (Negative) Ur MDMA Scrn (Ecstasy) Negative (Negative) U Benzodiazepines Scrn Negative (Negative) Urine Cocaine Screen Negative (Negative) U Marijuana (THC) Screen Negative (Negative) Point of Care Testing Glucose POC [address] scan - head: Radiologist's Impression: [address] [id number] Scan ReportSigned Patient: Shirlene Calvo EMR#: [id number]: [id number]:[id number]/Sex: 80 / FDate of Service: 07/09/20Loc: EDAccession Number: [id number] Procedure: CT head/brain wo con Ordering Provider: Brionna Rothman D.O. PROCEDURE: CT HEAD/BRAIN WO CON INDICATIONS: ? altered mental status, resolved TECHNIQUE: Noncontrast 4.5 mm thick angled axial sections acquired from the foramen magnum to the vertex, with coronal and sagittal reformats. For radiation dose reduction, the following was used: automated exposure control, adjustment of mA and/or kV according to patient size. COMPARISON: [facility], CT, HEAD WITHOUT CONTRAST, 09/02/2014, 9:21. [facility], CR, XR CHEST 1V, 07/09/2020, 15:01. [facility], CT, CT HEAD/BRAIN WO CON, 08/19/2019, 11:02. FINDINGS: Image quality: Excellent. CSF spaces: Basal cisterns are patent. No abnormal extra-axial fluid collections can be seen. Prominence of the extra-axial spaces can be seen, which are consistent with the volume loss. The ventricles are symmetric in size and shape. Brain: No intracranial bleeds or masses. There is cerebral volume loss for age, with resultant ventricular and sulcal prominence. There are periventricular and deep white matter chronic small vessel ischemic changes. There is intracranial internal carotid artery atherosclerosis. Skull and face: Calvarium and visualized facial bones appear intact, without suspicious lesions. Sinuses: Visualized sinuses and mastoids are clear. IMPRESSION: No acute intracranial process is seen. Dictated by: Aba Lozada M.D. on 07/09/2020 at 14:21 Approved by: Aba Lozada M.D. on 07/09/2020 at 14:2 Chest x-ray: Radiologist's Impression: [address] [id number] ReportSigned Patient: Shirlene Calvo EMR#: [id number]: 1940cct:[id number]/Sex: 80 / FDate of Service: 07/09/20Loc: EDAccession Number: [id number] Procedure: XR chest 1V Ordering Provider: Brionna Rothman D.O. PROCEDURE: XR CHEST 1V INDICATIONS: ? altered mental status, resolved TECHNIQUE: One view of the chest was acquired. COMPARISON: [facility], CT, CT HEAD/BRAIN WO CON, 07/09/2020, 14:48. [facility], CR, XR CHEST 1V, 08/19/2019, 13:48. FINDINGS: Surgical changes and devices: None. Lungs and pleura: Lungs are clear, yet hyperexpanded. No pleural effusions or pneumothorax. Mediastinum: The cardiac contours are within normal limits. The aorta demonstrates calcification and tortuosity. Bones and chest wall: No suspicious bony lesions. Age-appropriate bony degenerative changes are seen. Overlying soft tissues appear unremarkable. IMPRESSION: Hyperexpanded lungs, without an acute cardiopulmonary process identified. Dictated by: Aba Lozada M.D. on 07/09/2020 at 14:20 Approved by: Aba Lozada M.D. on 07/09/2020 at 14:20 ECG Data Attestation: I personally reviewed and interpreted this ECG as follows: Prior ECG tracings: available for review Interpretation: Sinus rhythm rate of 72 NH 134 QRS of 74 and QTC of 440. No acute ischemic changes noted. Patient has prior from 09/16/2019 with no significant changes noted. MDM Narrative Medical decision making narrative: This is an 80-year-old female comes emergency department with complaint of possible hypotensive episodes x2 today and altered mental status. EMS saw her twice today the initial time she had her ear plugs in and once they will removed patient was appropriate and able to answer all questions. And patient today on repeat examination was not hypotensive for EMS. She was also alert appropriate for them. Patient does not have any focal changes on exam. She is alert, appropriate and at her baseline mental status. Her sisters at bedside who confirms this. Patient does have Parkinson's but has seen her neurologist recently and has not had any new acute changes. She does have known autonomic dysfunction and has had imaging today to help with her pressure. Patient did not have any acute findings today. She denies any episodes that seemed atypical for her. Patient's labs show chronic changes and actually improvement her hyponatremia. Head CT and chest x-ray did not show any concerning acute changes. Patient had not given a urine sample here but she would like to return home appears alert and competent to make this decision at this time. Patient UA is positive but will wait for culture to start antibiotics as patient does not have any active symptoms at this time. Discharge Plan Departure Patient Disposition: Home Clinical Impression: Feared complaint without diagnosis Activity Restrictions/Additional Instructions: Follow up with your physician for recheck. Your labs show chronic anemia which appears stable, your sodium has improved today comparison to September. Continue your home medications as prescribed. Please return for new or worsening symptoms, altered mental status, severe headaches, new weakness, facial droop, difficulty with speech, new weakness in her extremities, loss of sensation or inability to use your extremities, persistent vomiting, new chest pain or shortness of or other new or concerning symptoms. Prescriptions: No Action vit C,Q-Wx-jydvc-lutein-zeaxan [PreserVision AREDS-2] [id number] zp-awbn-yr-mg capsule 1 tab PO BID Qty: 30 RF: 0 levothyroxine 25 mcg tablet 25 mcg PO QAM Qty: 90 RF: 3 carbidopa-levodopa 50-200 mg tablet extended release 1 tab PO TID Qty: 270 RF: 3 ferrous sulfate 325 mg (65 mg iron) Tablet 325 mg PO DAILY RF: 0 Referrals: Mateusz Bonilla MD [Primary Care Provider] -
--- NOTE | 2020-07-09 14:43 | DI.CT.S_ITS ---
PROCEDURE: CT HEAD/BRAIN WO CON INDICATIONS: ? altered mental status, resolved TECHNIQUE: Noncontrast 4.5 mm thick angled axial sections acquired from the foramen magnum to the vertex, with coronal and sagittal reformats. For radiation dose reduction, the following was used: automated exposure control, adjustment of mA and/or kV according to patient size. COMPARISON: [facility], CT, HEAD WITHOUT CONTRAST, 09/02/2014, 9:21. [facility], CR, XR CHEST 1V, 07/09/2020, 15:01. [facility], CT, CT HEAD/BRAIN WO CON, 08/19/2019, 11:02. FINDINGS: Image quality: Excellent. CSF spaces: Basal cisterns are patent. No abnormal extra-axial fluid collections can be seen. Prominence of the extra-axial spaces can be seen, which are consistent with the volume loss. The ventricles are symmetric in size and shape. Brain: No intracranial bleeds or masses. There is cerebral volume loss for age, with resultant ventricular and sulcal prominence. There are periventricular and deep white matter chronic small vessel ischemic changes. There is intracranial internal carotid artery atherosclerosis. Skull and face: Calvarium and visualized facial bones appear intact, without suspicious lesions. Sinuses: Visualized sinuses and mastoids are clear. IMPRESSION: No acute intracranial process is seen. Dictated by: Aba Lozada M.D. on 07/09/2020 at 14:21 Approved by: Aba Lozada M.D. on 07/09/2020 at 14:22
--- NOTE | 2020-07-09 14:43 | DI.RAD.S_ITS ---
PROCEDURE: XR CHEST 1V INDICATIONS: ? altered mental status, resolved TECHNIQUE: One view of the chest was acquired. COMPARISON: [facility], CT, CT HEAD/BRAIN WO CON, 07/09/2020, 14:48. [facility], CR, XR CHEST 1V, 08/19/2019, 13:48. FINDINGS: Surgical changes and devices: None. Lungs and pleura: Lungs are clear, yet hyperexpanded. No pleural effusions or pneumothorax. Mediastinum: The cardiac contours are within normal limits. The aorta demonstrates calcification and tortuosity. Bones and chest wall: No suspicious bony lesions. Age-appropriate bony degenerative changes are seen. Overlying soft tissues appear unremarkable. IMPRESSION: Hyperexpanded lungs, without an acute cardiopulmonary process identified. Dictated by: Aba Lozada M.D. on 07/09/2020 at 14:20 Approved by: Aba Lozada M.D. on 07/09/2020 at 14:20
[2020-07-09 15:25] LABS: Add Manual Diff / Slide Review NO; Basophils Absolute Auto 0 /uL (0-100); Basophils Percent Auto 0.5 % (0-2); Eosinophils Absolute Auto 0 /uL (0-450); Eosinophils Percent Auto 0.3 % (2-4); Hematocrit 35.7 % (36-46); Hemoglobin 11.9 g/dL (12.0-16.0); Lymphocytes Absolute Auto 1500 /uL (1100-4500); Lymphocytes Percent Auto 19.5 % (25-40); Mean Corpuscular HGB Conc 33.3 % (30-36); Mean Corpuscular Hemoglobin 33.1 PG (26-34); Mean Corpuscular Volume 99.4 fL (80-100); Monocytes Absolute Auto 700 /uL (0-900); Monocytes Percent Auto 9.5 % (3-14); Neutrophils Absolute Auto 5500 /uL (1500-7000); Neutrophils Percent Auto 70.2 % (50-75); Platelet Count 267 X10^3/uL (150-400); Red Blood Cell Count 3.59 X10^6/uL (4.0-5.2); Red Cell Distribution Width 12.9 % (11.6-14.8); White Blood Cell Count 7.8 X10^3/uL (4.5-11.0)
[2020-07-09 15:27] LABS: Prothrombin Time 11.2 SECONDS (10.1-12.7)
[2020-07-09 15:30] LABS: PTT Partial Thromboplastin Tim 28 SECONDS (26.4-36.2)
[2020-07-09 15:32] LABS: Alanine Aminotransferase 6 IU/L (<35); Albumin 4.2 g/dL (3.5-5.0); Albumin Globulin Ratio 1.2 (1.0-2.8); Alkaline Phosphatase 76 U/L (38-126); Aspartate Aminotransferase 33 IU/L (14-36); BUN Creatinine Ratio 29.4 (6-22); Bilirubin Total 0.5 mg/dL (0.2-1.3); Blood Urea Nitrogen 25 mg/dL (7-17); Calcium 9.3 mg/dL (8.4-10.2); Carbon Dioxide 27 mmol/L (22-32); Chloride 102 mmol/L (98-107); Estimated Glomerular Filt Rate > 60.0 mL/min (>60); Globulin 3.5 g/dL (1.7-4.1); Glucose 103 mg/dL (80-110); HEMOLYSIS < 15 (0-50); Potassium 4.4 mmol/L (3.4-5.1); Sodium 136 mmol/L (137-145); Total Protein 7.7 g/dL (6.3-8.2)
[2020-07-09 18:02] LABS: UR Morphine/Opiate cutoff 300 Negative (Negative); Ur Creatinine Normal (Normal); Ur Specific Gravity Normal (Normal); Urine Amphetamines Negative (Negative); Urine Barbiturates Negative (Negative); Urine Benzodiazepines Negative (Negative); Urine Cocaine Negative (Negative); Urine MDMA Negative (Negative); Urine Methadone Negative (Negative); Urine Methamphetamines Negative (Negative); Urine Oxycodone Negative (Negative); Urine Phencyclidine Negative (Negative); Urine Tetrahydrocannabinol Negative (Negative); Urine Tricyclic Antidepressant Negative (Negative); Urine pH Normal (Normal)
[2020-07-09 18:11] LABS: Appearance Urine UA Cloudy; Color Urine UA Yellow; pH Urine UA 6.5 (4.5-8.0)
[2020-07-09 18:12] LABS: Bilirubin Urine UA Negative (NEGATIVE); Glucose Urine UA TRACE g/dL (Negative); Ketones Urine UA NEGATIVE (NEGATIVE); Leukocyte Esterase Urine UA 3+ (NEGATIVE); Nitrite Urine UA POSITIVE (Negative); Occult Blood Urine UA 2+ (Negative); Protein Urine UA TRACE (Negative); Urobilinogen Urine UA 0.2 E.U./dL (0.2)
[2020-07-09 18:17] LABS: RBC Urine 5-10/HPF (0-5/HPF); WBC Urine >100/HPF (0-5/HPF)
[2020-07-09 18:18] LABS: Bacteria Urine Many (>30); Culture Indicated Urine Specimen Cultured
== END 2020-07-09 18:21 | disposition home or self-care (01) ==
PROVIDERS: Emergency Provider Emergency Medicine; PCP Student in an Organized Health Care Education/Training Program
DX: R41.82 Altered mental status, unspecified (principal)
CPT/HCPCS: 36415; 70450; 71045; 80053; 80305; 81001; 85025; 85610; 85730; 87040; 87077; 87086; 87186; 93005; 99284

== ENCOUNTER → 2021-12-01 16:46 | Outpatient (ROUT) | payer MEDICARE, OTHER, SELFPAY ==
[2019-09-20 22:00] VITALS: BMI 20.1
[2021-12-01 17:10] LABS: Add Manual Diff / Slide Review NO; Basophils Absolute Auto 0 /uL (0-100); Basophils Percent Auto 0.2 % (0-2); Eosinophils Absolute Auto 0 /uL (0-450); Eosinophils Percent Auto 0.2 % (2-4); Hemoglobin 10.4 g/dL (12.0-16.0); Lymphocytes Absolute Auto 1000 /uL (1100-4500); Lymphocytes Percent Auto 13.1 % (25-40); Mean Corpuscular HGB Conc 33.7 % (30-36); Mean Corpuscular Hemoglobin 32.6 PG (26-34); Mean Corpuscular Volume 96.7 fL (80-100); Monocytes Absolute Auto 800 /uL (0-900); Monocytes Percent Auto 10.2 % (3-14); Neutrophils Absolute Auto 5700 /uL (1500-7000); Neutrophils Percent Auto 76.3 % (50-75); Platelet Count 246 X10^3/uL (150-400); Red Blood Cell Count 3.21 X10^6/uL (4.0-5.2); Red Cell Distribution Width 13.9 % (11.6-14.8); White Blood Cell Count 7.5 X10^3/uL (4.5-11.0)
[2021-12-01 17:46] LABS: BUN Creatinine Ratio 27.4 (6-22); Blood Urea Nitrogen 20 mg/dL (7-17); Calcium 8.1 mg/dL (8.4-10.2); Carbon Dioxide 24 mmol/L (22-32); Chloride 107 mmol/L (98-107); Estimated Glomerular Filt Rate > 60 mL/min (>60); Glucose 110 mg/dL (80-110); HEMOLYSIS < 15 (0-50); Potassium 4.2 mmol/L (3.4-5.1); Sodium 137 mmol/L (137-145)
== END ==
PROVIDERS: PCP Student in an Organized Health Care Education/Training Program; Visit Provider Internal Medicine
DX: Z13.89 Encounter for screening for other disorder (principal)
CPT/HCPCS: 80048; 85025

== ENCOUNTER 2022-02-21 13:14 | Inpatient (IN) | payer MEDICARE, MEDICAID, OTHER, SELFPAY ==
[2019-09-20 22:00] VITALS: BMI 20.1
[2022-02-21] VITALS (15 sets, daily range): BP systolic 108–200; BP diastolic 55–110; PULSE 69–102; RESP 16–20; TEMP 36.6–36.9; O2SAT 93–100; BMI 20.1
--- NOTE | 2022-02-21 13:26 | ED.AMS ---
HPI - Altered Mental Status General Chief Complaint: Neuro Symptoms/Deficit Stated Complaint: Altered LOC Time Seen by Provider: 02/21/22 13:24 History of Present Illness HPI narrative: 81-year-old female nonsmoker with history of Parkinson's, macular degeneration, hypothyroidism presents by EMS for evaluation of altered mental status and the perception of pain. She comes from a local shelter facility and has been acting abnormally at least today. Patient is a very poor historian and can contribute little to nothing to our exam. She does have known Parkinson's but her tremor seems to be significantly worse today and she is altered. There is no report of trauma or injury. She is had no reported change in medications nor any fever. She is had no reported vomiting or diarrhea. There is no report of focal neurologic findings Related Data Previous Rx's Medication Instructions Recorded vit C 250 mg-vit E 90 mg-zinc 40 1 tab PO BID #30 caps 08/07/17 mg-copper 1 us-fysgvs-egbjna capsule (PreserVision AREDS-2) levothyroxine 25 mcg tablet 25 mcg PO QAM #90 tabs 04/28/19 carbidopa 25 mg-levodopa 100 mg 1 ea PO TID #90 tabs 02/22/22 tablet cefdinir 300 mg capsule 300 mg PO BID 2 days #4 caps 02/22/22 Allergies Allergy/AdvReac Type Severity Reaction Status Date / Time No Known Drug Allergies Allergy Verified 07/09/20 13:17 Review of Systems Review of Systems ROS Unobtainable: Unobtainable due to mental status/LOC Patient History Medical History (Updated 02/21/22 @ 16:14 by Armando Bonilla DO) Chicken pox Chronic back pain (~2013) Colitis Essential tremor (06/26/15) Fatigue (08/29/15) GI (gastrointestinal bleed) Hypothyroidism (acquired) Macular degeneration Measles Rosacea Rubella Shoulder pain (~1988) Surgical History Anesthesia History of tonsillectomy (~194) S/P cataract extraction Status post colonoscopy (~2007) Family History Grandfather Heart disease Grandmother Heart disease Mother Mental health problem Grandfather Stroke Grandmother Cancer Father Cancer Social History marital status: household members: none lives independently: Yes Smoking Status: Never smoker alcohol intake: former substance use type: does not use Smoking Status: Never smoker alcohol intake frequency: holidays/special occasions only Substance Use Type: does not use Exam Narrative Exam Narrative: GENERAL: [81] year old patient appears stated age. Well-developed patient, in mild distress. Tremors, extremities writhing, appears to have dyskenesia, dyskinesia dyskinesia HEAD: Atraumatic. Normocephalic. EYES: Pupils equal round and reactive. Extraocular motions intact. No scleral icterus. No injection or drainage. ENT: Nose without bleeding, purulent drainage. Throat without erythema, tonsillar hypertrophy or exudate. Airway patent. NECK: Trachea midline. Non tender CARDIOVASCULAR: Regular rate and rhythm without murmurs, gallops, or rubs. RESPIRATORY: Clear to auscultation. Breath sounds equal bilaterally. No wheezes, rales, or rhonchi. GASTROINTESTINAL: Abdomen soft, non-tender, nondistended. EXTREMITIES: No edema or joint tenderness. BACK: Nontender without deformity or crepitance. No flank tenderness. NEURO: AOx3. SKIN: No rash or erythema of visible areas Initial Vital Signs Initial Vital Signs: Vital Signs Pulse Rate 69 02/21/22 13:19 Pulse Oximetry 93 02/21/22 13:19 Course Orders Ordered: ED Orders 02/22/22 04:40 BMP [Basic Metabolic Panel] DAILY CBC Auto Diff [Complete Blood Count AUTO DIFF] DAILY 02/22/22 10:00 Urinalysis and Microscopic Stat 02/23/22 05:00 BMP [Basic Metabolic Panel] DAILY CBC Auto Diff [Complete Blood Count AUTO DIFF] DAILY 02/24/22 05:00 BMP [Basic Metabolic Panel] DAILY CBC Auto Diff [Complete Blood Count AUTO DIFF] DAILY Acetaminophen (Acetaminophen 325 Mg Tablet) 650 mg PO Q6H PRN PRN Reason: Fever/Mild Pain (1-3) Carbidopa/Levodopa (Carbidopa-Levodopa 25/100 Tablet) 1 each PO TID [facility] Last Admin: 02/22/22 09:48 Dose: 1 each Documented By: Admin: 02/21/22 20:46 Dose: Not Given Documented By: Enoxaparin Sodium (Enoxaparin 40 Mg/0.4 Ml Syringe) 40 mg SUBCUT DAILY [facility] Last Admin: 02/22/22 09:48 Dose: 40 mg Documented By: SAMANTHA Ceftriaxone Sodium 1,000 mg/ (Sodium Chloride) 100 mls @ 200 mls/hr IV Q24H [facility] Stop: 02/24/22 08:59 Last Infusion: 02/22/22 09:42 Dose: 0 mls/hr Documented By: Admin: 02/22/22 09:05 Dose: 200 mls/hr Documented By: SAMANTHA Levothyroxine Sodium (Levothyroxine 25 Mcg Tablet) 25 mcg PO 0600 [facility] Last Admin: 02/22/22 05:42 Dose: Not Given Documented By: Lorazepam (Lorazepam 2 Mg/Ml Inj) 0.5 mg IV Q4HR PRN PRN Reason: agitation Melatonin (Melatonin 3 Mg Tablet) 6 mg PO BEDTIME PRN PRN Reason: Insomnia Naloxone HCl (Naloxone 0.4 Mg/Ml Vial) 0.2 mg IV Q2MIN PRN PRN Reason: Opiate Reversal Polyethylene Glycol (Polyethylene Glycol 3350 17 Gm Powd.Pack) 17 gm PO DAILY PRN PRN Reason: Constipation Sennosides (Sennosides 8.6 Mg Tablet) 8.6 mg PO BID PRN PRN Reason: Constipation Discontinued Medications Carbidopa/Levodopa (Carbidopa-Levodopa Er 50/200 Tablet) 1 each PO TID [facility] Diphenhydramine HCl (Diphenhydramine 50 Mg/Ml Vial) 25 mg IV NOW ONE Stop: 02/21/22 13:29 Last Admin: 02/21/22 14:19 Dose: 25 mg Documented By: SHARI Hydralazine HCl (Hydralazine 20 Mg/Ml Vial) 10 mg IV NOW ONE Stop: 02/21/22 15:32 Last Admin: 02/21/22 15:47 Dose: 10 mg Documented By: SHARI Lorazepam (Lorazepam 2 Mg/Ml Inj) 1 mg IV NOW ONE Stop: 02/21/22 17:36 Last Admin: 02/21/22 17:46 Dose: 1 mg Documented By: NANCY Melatonin (Melatonin 3 Mg Tablet) 6 mg PO BEDTIME PRN PRN Reason: Insomnia Reevaluation(s) Reevaluation #1: Patient does have improved mental status after reduction of blood pressure with hydralazine suggesting a large component of her encephalopathy likely due to hypertension, perhaps secondary to recent increase in midodrine Consultations Consultation #1: Extensive discussion with patient's son once he arrives. He states that the movement disorder that we are seeing is rather consistent with her exacerbations. Historically she decompensates under stressful circumstances and mentions that she recently got a new roommate that has different sleep patterns and this could be playing a role. Furthermore he states that patient was seen and evaluated by Neurology in [place] on Friday and alterations were made in her Parkinson's medications but is unsure of the specifics Consultation #2: Discussed with on-call Neurology in [place]. After extensive discussion of patient's history and physical examination including labs, vitals we reviewed chart note from visit on Friday. He states that midodrine had been increased from 5 mg 3 times daily to 7.5 mg 3 times daily and that Sinemet had been decreased from 2-1.5 tabs for the mid day dose only. After this discussion he shares he opinion that treatment of blood pressure is appropriate and that patient is best served to be admitted into the hospital for ongoing observation, stabilization modifications. He does recommend decreasing Sinemet to 1.5 TID Vital Signs Vital signs: Vital Signs - 8 hr 02/21/22 13:50 02/21/22 13:19 02/21/22 13:25 Temperature 98.4 F Pulse Rate 80 69 Respiratory Rate 20 Blood Pressure 167/102 H 167/102 H Pulse Oximetry 97 93 Oxygen Delivery Method Room Air 02/21/22 13:25 02/21/22 13:30 02/21/22 13:30 Temperature Pulse Rate 75 80 Respiratory Rate Blood Pressure 164/88 H Pulse Oximetry 97 97 Oxygen Delivery Method 02/21/22 14:00 02/21/22 14:21 02/21/22 14:21 Temperature Pulse Rate 88 88 Respiratory Rate Blood Pressure 141/92 H Pulse Oximetry 96 98 Oxygen Delivery Method 02/21/22 14:30 02/21/22 14:30 02/21/22 15:02 Temperature Pulse Rate 80 85 Respiratory Rate Blood Pressure 181/110 H Pulse Oximetry 99 99 Oxygen Delivery Method 02/21/22 15:08 02/21/22 15:08 Temperature Pulse Rate 91 H Respiratory Rate Blood Pressure 186/105 H Pulse Oximetry Oxygen Delivery Method MDM - Altered Mental Status Lab Data Result diagrams: 02/22/22 04:40 02/22/22 04:40 Labs: Lab Results 02/21/22 02/21/22 02/21/22 Range/Units 13:28 13:45 13:45 WBC 8.1 (4.5-11.0) X10^3/uL RBC 3.76 L (4.0-5.2) X10^6/uL Hgb 11.8 L (12.0-16.0) g/dL Hct 36.1 (36-46) % MCV 96.2 (80-100) fL MCH 31.3 (26-34) PG MCHC 32.5 (30-36) % RDW 14.0 (11.6-14.8) % Plt Count 325 (150-400) X10^3/uL Neut % (Auto) 61.1 (50-75) % Lymph % (Auto) 24.2 L (25-40) % Webb % (Auto) 13.6 (3-14) % Eos % (Auto) 0.4 L (2-4) % Baso % (Auto) 0.7 (0-2) % Neut # (Auto) 5000 (7467-5203) /uL Lymph # (Auto) 2000 (8389-8142) /uL Webb # (Auto) 1100 H (0-900) /uL Eos # (Auto) 0 (0-450) /uL Baso # (Auto) 100 (0-100) /uL Sodium 135 L (137-145) mmol/L Potassium 4.3 (3.4-5.1) mmol/L Chloride 102 (98-107) mmol/L Carbon Dioxide 25 (22-32) mmol/L BUN 18 H (7-17) mg/dL Creatinine 0.64 (0.52-1.04) mg/dL Estimated GFR > 60 (>60) mL/min BUN/Creatinine Ratio 28.1 H (6-22) Glucose 90 (80-110) mg/dL Lactate 2.1 (0.7-2.1) mmol/L Calcium 8.7 (8.4-10.2) mg/dL Magnesium 2.0 (1.6-2.3) mg/dL Total Bilirubin 0.8 (0.2-1.3) mg/dL AST 31 (14-36) IU/L ALT 10 (<35) IU/L Alkaline Phosphatase 79 (38-126) U/L Total Creatine Kinase 210 H (30-135) U/L CK-MB (CK-2) 1.64 (<2.37) ng/mL CK-MB (CK-2) Rel Index 0.8 L (1.5-5.0) % Troponin I < 0.012 (0.01-0.034) ng/mL Total Protein 7.5 (6.3-8.2) g/dL Albumin 4.0 (3.5-5.0) g/dL Globulin 3.5 (1.7-4.1) g/dL Albumin/Globulin Ratio 1.1 (1.0-2.8) Lipase 170 (23-300) U/L TSH (0.47-4.68) uIU/mL Salicylates < 1.0 (<20) mg/dL Acetaminophen 18 (10-30) ug/mL SARS-CoV-2 (PCR) (Negative) 02/21/22 02/21/22 02/21/22 Range/Units 13:45 15:45 16:00 WBC (4.5-11.0) X10^3/uL RBC (4.0-5.2) X10^6/uL Hgb (12.0-16.0) g/dL Hct (36-46) % MCV (80-100) fL MCH (26-34) PG MCHC (30-36) % RDW (11.6-14.8) % Plt Count (150-400) X10^3/uL Neut % (Auto) (50-75) % Lymph % (Auto) (25-40) % Webb % (Auto) (3-14) % Eos % (Auto) (2-4) % Baso % (Auto) (0-2) % Neut # (Auto) (3747-3080) /uL Lymph # (Auto) (4269-5868) /uL Webb # (Auto) (0-900) /uL Eos # (Auto) (0-450) /uL Baso # (Auto) (0-100) /uL Sodium (137-145) mmol/L Potassium (3.4-5.1) mmol/L Chloride (98-107) mmol/L Carbon Dioxide (22-32) mmol/L BUN (7-17) mg/dL Creatinine (0.52-1.04) mg/dL Estimated GFR (>60) mL/min BUN/Creatinine Ratio (6-22) Glucose (80-110) mg/dL Lactate 2.4 H (0.7-2.1) mmol/L Calcium (8.4-10.2) mg/dL Magnesium (1.6-2.3) mg/dL Total Bilirubin (0.2-1.3) mg/dL AST (14-36) IU/L ALT (<35) IU/L Alkaline Phosphatase (38-126) U/L Total Creatine Kinase (30-135) U/L CK-MB (CK-2) (<2.37) ng/mL CK-MB (CK-2) Rel Index (1.5-5.0) % Troponin I (0.01-0.034) ng/mL Total Protein (6.3-8.2) g/dL Albumin (3.5-5.0) g/dL Globulin (1.7-4.1) g/dL Albumin/Globulin Ratio (1.0-2.8) Lipase (23-300) U/L TSH 2.96 (0.47-4.68) uIU/mL Salicylates (<20) mg/dL Acetaminophen (10-30) ug/mL SARS-CoV-2 (PCR) Negative (Negative) MDM Narrative Medical decision making narrative: [81-year-old female with history of Parkinson's presents with altered mental status] Multiple etiologies for patient's symptoms considered including, but not limited to: [Dyskinesia, parkinsonism due to medication changes, hypertensive encephalopathy, electrolyte abnormality, anemia, versus other] Prior Charts reviewed: Including progress notes from admission in September of 2019 Labs reviewed and interpreted by myself: Imaging reviewed: Head CT without evidence of intracranial hemorrhage or other acute finding Consultations: Extensive discussions with son and Neurology as noted above Patient's symptoms improved over duration of stay with above-stated therapies. Initially due to dyskinesia patient was given Benadryl which showed no improvement. Her encephalopathic presentation did seem to improve with blood pressure control using hydralazine Findings and admission diagnosis discussed with patient/family followed by verbalization of understanding Discharge Plan Departure Patient Disposition: Admitted as Observation Clinical Impression: Encephalopathy, hypertensive, Medication reaction Admit Date/Time: 02/21/22 16:15 Admit Provider: Tommy Drew
[2022-02-21 13:54] LABS: Add Manual Diff / Slide Review NO; Basophils Absolute Auto 100 /uL (0-100); Basophils Percent Auto 0.7 % (0-2); Eosinophils Absolute Auto 0 /uL (0-450); Eosinophils Percent Auto 0.4 % (2-4); Hematocrit 36.1 % (36-46); Hemoglobin 11.8 g/dL (12.0-16.0); Lymphocytes Absolute Auto 2000 /uL (1100-4500); Lymphocytes Percent Auto 24.2 % (25-40); Mean Corpuscular HGB Conc 32.5 % (30-36); Mean Corpuscular Hemoglobin 31.3 PG (26-34); Mean Corpuscular Volume 96.2 fL (80-100); Monocytes Absolute Auto 1100 /uL (0-900); Monocytes Percent Auto 13.6 % (3-14); Neutrophils Absolute Auto 5000 /uL (1500-7000); Neutrophils Percent Auto 61.1 % (50-75); Platelet Count 325 X10^3/uL (150-400); Red Blood Cell Count 3.76 X10^6/uL (4.0-5.2); White Blood Cell Count 8.1 X10^3/uL (4.5-11.0)
[2022-02-21 13:58] LABS: Lactate (Lactic Acid) 2.1 mmol/L (0.7-2.1)
[2022-02-21 14:00] LABS: Acetaminophen 18 ug/mL (10-30); Alanine Aminotransferase 10 IU/L (<35); Albumin Globulin Ratio 1.1 (1.0-2.8); Alkaline Phosphatase 79 U/L (38-126); Aspartate Aminotransferase 31 IU/L (14-36); BUN Creatinine Ratio 28.1 (6-22); Bilirubin Total 0.8 mg/dL (0.2-1.3); Blood Urea Nitrogen 18 mg/dL (7-17); Calcium 8.7 mg/dL (8.4-10.2); Carbon Dioxide 25 mmol/L (22-32); Chloride 102 mmol/L (98-107); Creatine Kinase 210 U/L (30-135); Estimated Glomerular Filt Rate > 60 mL/min (>60); Globulin 3.5 g/dL (1.7-4.1); Glucose 90 mg/dL (80-110); Lipase 170 U/L (23-300); Potassium 4.3 mmol/L (3.4-5.1); Salicylate < 1.0 mg/dL (<20); Sodium 135 mmol/L (137-145); Total Protein 7.5 g/dL (6.3-8.2)
--- NOTE | 2022-02-21 14:05 | DI.CT.S_ITS ---
PROCEDURE: CT HEAD/BRAIN WO CON INDICATIONS: altered mental status TECHNIQUE: Noncontrast 4.5 mm thick angled axial sections acquired from the foramen magnum to the vertex, with coronal and sagittal reformats. For radiation dose reduction, the following was used: automated exposure control, adjustment of mA and/or kV according to patient size. COMPARISON: [facility], CT, CT HEAD/BRAIN WO CON, 07/09/2020, 14:48. FINDINGS: Image quality: Motion is present on multiple images limiting areas of fine detail evaluation. CSF spaces: Basal cisterns are patent. No extra-axial fluid collections. The ventricles are symmetric in size and shape. Brain: No intracranial bleeds or masses. There is cerebral volume loss for age, with resultant ventricular and sulcal prominence. There are periventricular and deep white matter chronic small vessel ischemic changes. There is intracranial internal carotid artery atherosclerosis. Unchanged chronic bifrontal subdural hygromas. 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 Skull and face: Calvarium and visualized facial bones appear intact, without suspicious lesions. Sinuses: Visualized sinuses and mastoids are clear. IMPRESSION: 1. No acute intracranial process. 2. Moderate to severe atrophy and chronic microvascular ischemic changes. Dictated by: Mirta Barkley M.D. on 02/21/2022 at 15:32 Approved by: Mirta Barkley M.D. on 02/21/2022 at 15:32
[2022-02-21 14:10] LABS: Troponin I < 0.012 ng/mL (0.01-0.034)
[2022-02-21 14:14] LABS: CKMB % Relative Index 0.8 % (1.5-5.0); Creatine Kinase MB 1.64 ng/mL (<2.37); HEMOLYSIS 23 (0-50)
[2022-02-21] MEDS: diphenhydrAMINE 50 MG/ML VIAL 25 MG IV (14:19)
[2022-02-21 14:39] LABS: TSH w/ Reflex to FT4 2.96 uIU/mL (0.47-4.68)
[2022-02-21] MEDS: HYDRALAZINE 20 MG/ML VIAL 10 MG IV (15:47)
[2022-02-21 15:55] LABS: Reflexed Lactate in 2 Hours Y
--- NOTE | 2022-02-21 16:20 | P.HP_ITS ---
History of Present Illness History of Present Illness Date Patient Seen: 02/21/22 Time Patient Seen: 16:20 Chief complaint: Altered LOC Narrative: Shirlene Calvo is an 81-year-old female with past medical history of Parkinson's disease, hypothyroidism, essential tremor, and hypertension who presents to the ED with encephalopathy and moving all extremities involuntarily. History coming from the son Lito. He states she lives at [facility] and has been there since 2019. He speaks with her every night on the phone and last night she was her normal self and oriented x4. He notes that this past friday on 02/18 her neurologist lowered her sinemet due to increased dyskinesia for past 2 months. This seemed to help her symptoms. However the past few nights she has gotten very little sleep due to a new roommate who screams most of the night. She also had been put on midodrine at the [facility] and the dose recently raised to 7.5mg TID. In the ED blood pressure noted to be up to 200 systolic. Patient given so 10 mg hydralazine with improvement in BP to [address] normal. Patient History Medical History (Updated 02/21/22 @ 16:14 by Armando Bonilla DO) Chicken pox Chronic back pain (~2013) Colitis Essential tremor (06/26/15) Fatigue (08/29/15) GI (gastrointestinal bleed) Hypothyroidism (acquired) Macular degeneration Measles Rosacea Rubella Shoulder pain (~1988) Surgical History Anesthesia History of tonsillectomy (~194) S/P cataract extraction Status post colonoscopy (~2007) Family & Social History Family History Grandfather Heart disease Grandmother Heart disease Mother Mental health problem Grandfather Stroke Grandmother Cancer Father Cancer Social History: household members none lives independently Yes Tobacco & Substance use: Smoking Status Never smoker alcohol intake former alcohol intake frequency holiday/special occasion Substance Use Type does not use Meds Home Medications and Allergies Home Medications Medication Instructions Recorded Confirmed Type vit C 250 mg-vit E 90 mg-zinc 40 1 tab PO BID #30 caps 08/07/17 09/21/19 Rx mg-copper 1 ld-fdyefz-wbyiie capsule (PreserVision AREDS-2) levothyroxine 25 mcg tablet 25 mcg PO QAM #90 tabs 04/28/19 09/21/19 Rx carbidopa ER 50 mg-levodopa 200 mg 1 tab PO TID #270 tabs 06/02/19 09/21/19 Rx tablet,extended release ferrous sulfate 325 mg (65 mg 325 mg PO DAILY 08/19/19 09/21/19 History iron) tablet Allergies Allergy/AdvReac Type Severity Reaction Status Date / Time No Known Drug Allergies Allergy Verified 07/09/20 13:17 Review of Systems Review of Systems Narrative: All other systems reviewed with the patient and are negative unless otherwise stated. Exam Vital Signs (past 8 hours): - 02/21/22 13:50 02/21/22 13:19 02/21/22 13:25 Temperature 98.4 F Pulse Rate 80 69 Respiratory Rate 20 Blood Pressure 167/102 H 167/102 H Pulse Oximetry 97 93 Oxygen Delivery Method Room Air 02/21/22 13:25 02/21/22 13:30 02/21/22 13:30 Temperature Pulse Rate 75 80 Respiratory Rate Blood Pressure 164/88 H Pulse Oximetry 97 97 Oxygen Delivery Method 02/21/22 14:00 02/21/22 14:21 02/21/22 14:21 Temperature Pulse Rate 88 88 Respiratory Rate Blood Pressure 141/92 H Pulse Oximetry 96 98 Oxygen Delivery Method 02/21/22 14:30 02/21/22 14:30 02/21/22 15:02 Temperature Pulse Rate 80 85 Respiratory Rate Blood Pressure 181/110 H Pulse Oximetry 99 99 Oxygen Delivery Method 02/21/22 15:08 02/21/22 15:08 02/21/22 15:47 Temperature Pulse Rate 91 H 88 Respiratory Rate Blood Pressure 186/105 H 200/107 H Pulse Oximetry Oxygen Delivery Method 02/21/22 15:30 02/21/22 15:30 02/21/22 15:58 Temperature Pulse Rate 78 Respiratory Rate Blood Pressure 200/107 H 111/76 Pulse Oximetry 99 Oxygen Delivery Method 02/21/22 15:58 Temperature Pulse Rate 96 H Respiratory Rate Blood Pressure Pulse Oximetry 100 Oxygen Delivery Method Oxygen Delivery Method Room Air Narrative Exam Narrative: GEN: awake, not oriented HEENT: moist mucous membranes, PERRL NECK: trachea midline, no JVD CV: tachycardic, regular rhythm, no murmurs PULM: clear bilaterally ABD: soft, nontender, nondistended, no organomegaly EXT: warm and well perfused with no edema NEURO: involuntarily moving all limbs, face and lips in a parkisonian way Objective Labs Result Diagrams: 02/21/22 13:28 02/21/22 13:45 Labs: Laboratory Results - last 24 hr 02/21/22 02/21/22 02/21/22 13:28 13:45 13:45 WBC 8.1 RBC 3.76 L Hgb 11.8 L Hct 36.1 MCV 96.2 MCH 31.3 MCHC 32.5 RDW 14.0 Plt Count 325 Neut % (Auto) 61.1 Lymph % (Auto) 24.2 L [place] % (Auto) 13.6 Eos % (Auto) 0.4 L Baso % (Auto) 0.7 Neut # (Auto) 5000 Lymph # (Auto) 2000 [place] # (Auto) 1100 H Eos # (Auto) 0 Baso # (Auto) 100 Sodium 135 L Potassium 4.3 Chloride 102 Carbon Dioxide 25 BUN 18 H Creatinine 0.64 Estimated GFR > 60 BUN/Creatinine Ratio 28.1 H Glucose 90 Lactate 2.1 Calcium 8.7 Magnesium 2.0 Total Bilirubin 0.8 AST 31 ALT 10 Alkaline Phosphatase 79 Total Creatine Kinase 210 H CK-MB (CK-2) 1.64 CK-MB (CK-2) Rel Index 0.8 L Troponin I < 0.012 Total Protein 7.5 Albumin 4.0 Globulin 3.5 Albumin/Globulin Ratio 1.1 Lipase 170 TSH Salicylates < 1.0 Acetaminophen 18 02/21/22 13:45 WBC RBC Hgb Hct MCV MCH MCHC RDW Plt Count Neut % (Auto) Lymph % (Auto) [place] % (Auto) Eos % (Auto) Baso % (Auto) Neut # (Auto) Lymph # (Auto) [place] # (Auto) Eos # (Auto) Baso # (Auto) Sodium Potassium Chloride Carbon Dioxide BUN Creatinine Estimated GFR BUN/Creatinine Ratio Glucose Lactate Calcium Magnesium Total Bilirubin AST ALT Alkaline Phosphatase Total Creatine Kinase CK-MB (CK-2) CK-MB (CK-2) Rel Index Troponin I Total Protein Albumin Globulin Albumin/Globulin Ratio Lipase TSH 2.96 Salicylates Acetaminophen Assessment & Plan Assessment & Plan narrative: # acute dyskinesia with acute encephalopathy, present on admission -patient presenting with what appears to be tardive dyskinesia with involuntary movement of all extremities, face and lips -spoke with [facility] neurologist who wondered if she somehow got too high of a dose at her SNF, rec lowering dose -give 1mg ativan IV now, 0.5mg q4h PRN ordered -continue sinemet at lowered dose of 25/100mg TID -head CT normal -check UA for UTI, blood cultures pending -continue rocephin for now until cultures result # hypertensive urgency, present on admission -BP up to 200 systolic in ED, patient apparently given increased dose of midodrine 7.5 t.i.d. -given dose of 10 mg hydralazine IV in ED with improvement to 111 systolic -TSH normal # hypothyroidism, chronic -TSH normal -continue home synthroid # hypertension, chronic -patient apparently filled losartan last month Dec 2021 -unclear why she is on midodrine -holding BP meds for now Code status is DNR. COVID negative. DVT prophylaxis with Lovenox. Proxy is dinah Morse who is POA. I have reviewed home meds and used all available resources to reconcile the home meds. This patient will be admitted as observation and will require less than 2 midnights of hospital time to treat hypertensive encephalopathy. Time Spent With Patient Critical Care time: I spent a total of [] minutes of critical care time on this patient's care today; this time is exclusive of procedural time.
[2022-02-21 16:22] LABS: COVID19 -Nasal RAPID Negative (Negative)
[2022-02-21 16:38] LABS: Lactate 2HR (Lactic Acid Rflx) 2.4 mmol/L (0.7-2.1)
[2022-02-21] MEDS: LORazepam 2 MG/ML INJ 1 MG IV (17:46)
[2022-02-22] VITALS: BP 154/92; PULSE 94; RESP 15; TEMP 36.2; O2SAT 94
[2022-02-22 02:24] LABS: UR Morphine/Opiate cutoff 300 Negative (Negative); Ur Creatinine 20 (Normal); Ur Specific Gravity 1.025 (Normal); Urine Amphetamines Negative (Negative); Urine Barbiturates Negative (Negative); Urine Benzodiazepines Positive (Negative); Urine Cocaine Negative (Negative); Urine MDMA Negative (Negative); Urine Methadone Negative (Negative); Urine Methamphetamines Negative (Negative); Urine Oxycodone Negative (Negative); Urine Phencyclidine Negative (Negative); Urine Tetrahydrocannabinol Negative (Negative); Urine Tricyclic Antidepressant Negative (Negative); Urine pH 5 (Normal)
[2022-02-22 05:20] LABS: Add Manual Diff / Slide Review NO; BUN Creatinine Ratio 23.3 (6-22); Basophils Absolute Auto 200 /uL (0-100); Basophils Percent Auto 2.3 % (0-2); Blood Urea Nitrogen 21 mg/dL (7-17); Calcium 8.5 mg/dL (8.4-10.2); Carbon Dioxide 21 mmol/L (22-32); Chloride 106 mmol/L (98-107); Eosinophils Absolute Auto 0 /uL (0-450); Eosinophils Percent Auto 0.2 % (2-4); Estimated Glomerular Filt Rate > 60 mL/min (>60); Glucose 93 mg/dL (80-110); HEMOLYSIS < 15 (0-50); Hematocrit 36.8 % (36-46); Hemoglobin 12.3 g/dL (12.0-16.0); Lymphocytes Absolute Auto 600 /uL (1100-4500); Lymphocytes Percent Auto 6.6 % (25-40); Mean Corpuscular HGB Conc 33.3 % (30-36); Mean Corpuscular Hemoglobin 31.8 PG (26-34); Mean Corpuscular Volume 95.6 fL (80-100); Monocytes Absolute Auto 900 /uL (0-900); Monocytes Percent Auto 9.4 % (3-14); Neutrophils Absolute Auto 7800 /uL (1500-7000); Neutrophils Percent Auto 81.5 % (50-75); Platelet Count 285 X10^3/uL (150-400); Potassium 4.3 mmol/L (3.4-5.1); Red Blood Cell Count 3.85 X10^6/uL (4.0-5.2); Sodium 136 mmol/L (137-145); White Blood Cell Count 9.6 X10^3/uL (4.5-11.0)
[2022-02-22 06:00] VITALS: BP 155/60; PULSE 87; RESP 15; TEMP 36.4; O2SAT 98
--- NOTE | 2022-02-22 06:16 | PC.NURSE ---
nightshift Pt bladder scanned and got the highest reading of 226, Pt has a purewick in place to measure voids. Pt has had no void entire shift. Provider Mahad was notified and orders are to continue to monitor.
[2022-02-22 07:30] VITALS: BP 164/89; PULSE 96; RESP 16; TEMP 36; O2SAT 96
[2022-02-22] MEDS: cefTRIAXone 1,000 MG in SODIUM CHLORIDE 0.9% 100 ML 200 MG IV (09:05)
--- NOTE | 2022-02-22 09:08 | P.PN_ITS ---
Exam Vital Signs (past 8 hours): - 02/22/22 06:00 02/22/22 07:30 Temperature 97.5 F L 96.8 F L Pulse Rate 87 96 H Respiratory Rate 15 16 Blood Pressure 155/60 H 164/89 H Pulse Oximetry 98 96 Oxygen Flow Rate 0 Oxygen Delivery Method Room Air Oxygen Flow Rate 0 Narrative Exam Narrative: GEN: awake, not oriented HEENT: moist mucous membranes, PERRL NECK: trachea midline, no JVD CV: tachycardic, regular rhythm, no murmurs PULM: clear bilaterally ABD: soft, nontender, nondistended, no organomegaly EXT: warm and well perfused with no edema NEURO: involuntarily moving all limbs, face and lips in a parkisonian way Objective Labs Result Diagrams: 02/22/22 04:40 02/22/22 04:40 Labs: Laboratory Results - last 24 hr 02/21/22 02/21/22 02/21/22 13:28 13:45 13:45 WBC 8.1 RBC 3.76 L Hgb 11.8 L Hct 36.1 MCV 96.2 MCH 31.3 MCHC 32.5 RDW 14.0 Plt Count 325 Neut % (Auto) 61.1 Lymph % (Auto) 24.2 L [place] % (Auto) 13.6 Eos % (Auto) 0.4 L Baso % (Auto) 0.7 Neut # (Auto) 5000 Lymph # (Auto) 2000 [place] # (Auto) 1100 H Eos # (Auto) 0 Baso # (Auto) 100 Sodium 135 L Potassium 4.3 Chloride 102 Carbon Dioxide 25 BUN 18 H Creatinine 0.64 Estimated GFR > 60 BUN/Creatinine Ratio 28.1 H Glucose 90 Lactate 2.1 Calcium 8.7 Magnesium 2.0 Total Bilirubin 0.8 AST 31 ALT 10 Alkaline Phosphatase 79 Total Creatine Kinase 210 H CK-MB (CK-2) 1.64 CK-MB (CK-2) Rel Index 0.8 L Troponin I < 0.012 Total Protein 7.5 Albumin 4.0 Globulin 3.5 Albumin/Globulin Ratio 1.1 Lipase 170 TSH Salicylates < 1.0 U Opiates 300ng/mL cut Ur Oxycodone Screen Urine Methadone Screen Acetaminophen 18 Ur Barbiturates Screen U Tricyclic Antidepress Ur Phencyclidine Scrn Ur Amphetamines Screen U Methamphetamines Scrn Ur MDMA Scrn (Ecstasy) U Benzodiazepines Scrn Urine Cocaine Screen U Marijuana (THC) Screen SARS-CoV-2 (PCR) 02/21/22 02/21/22 02/21/22 13:45 15:45 16:00 WBC RBC Hgb Hct MCV MCH MCHC RDW Plt Count Neut % (Auto) Lymph % (Auto) [place] % (Auto) Eos % (Auto) Baso % (Auto) Neut # (Auto) Lymph # (Auto) [place] # (Auto) Eos # (Auto) Baso # (Auto) Sodium Potassium Chloride Carbon Dioxide BUN Creatinine Estimated GFR BUN/Creatinine Ratio Glucose Lactate 2.4 H Calcium Magnesium Total Bilirubin AST ALT Alkaline Phosphatase Total Creatine Kinase CK-MB (CK-2) CK-MB (CK-2) Rel Index Troponin I Total Protein Albumin Globulin Albumin/Globulin Ratio Lipase TSH 2.96 Salicylates U Opiates 300ng/mL cut Ur Oxycodone Screen Urine Methadone Screen Acetaminophen Ur Barbiturates Screen U Tricyclic Antidepress Ur Phencyclidine Scrn Ur Amphetamines Screen U Methamphetamines Scrn Ur MDMA Scrn (Ecstasy) U Benzodiazepines Scrn Urine Cocaine Screen U Marijuana (THC) Screen SARS-CoV-2 (PCR) Negative 02/21/22 02/22/22 02/22/22 19:00 04:40 04:40 WBC 9.6 RBC 3.85 L Hgb 12.3 Hct 36.8 MCV 95.6 MCH 31.8 MCHC 33.3 RDW 14.0 Plt Count 285 Neut % (Auto) 81.5 H D Lymph % (Auto) 6.6 L [place] % (Auto) 9.4 Eos % (Auto) 0.2 L Baso % (Auto) 2.3 H Neut # (Auto) 7800 H Lymph # (Auto) 600 L [place] # (Auto) 900 Eos # (Auto) 0 Baso # (Auto) 200 H Sodium 136 L Potassium 4.3 Chloride 106 Carbon Dioxide 21 L BUN 21 H Creatinine 0.90 Estimated GFR > 60 BUN/Creatinine Ratio 23.3 H Glucose 93 Lactate Calcium 8.5 Magnesium Total Bilirubin AST ALT Alkaline Phosphatase Total Creatine Kinase CK-MB (CK-2) CK-MB (CK-2) Rel Index Troponin I Total Protein Albumin Globulin Albumin/Globulin Ratio Lipase TSH Salicylates U Opiates 300ng/mL cut Negative Ur Oxycodone Screen Negative Urine Methadone Screen Negative Acetaminophen Ur Barbiturates Screen Negative U Tricyclic Antidepress Negative Ur Phencyclidine Scrn Negative Ur Amphetamines Screen Negative U Methamphetamines Scrn Negative Ur MDMA Scrn (Ecstasy) Negative U Benzodiazepines Scrn Positive H Urine Cocaine Screen Negative U Marijuana (THC) Screen Negative SARS-CoV-2 (PCR) PFSH Medical History (Updated 02/21/22 @ 16:14 by Armando Bonilla DO) Chicken pox Chronic back pain (~2013) Colitis Essential tremor (06/26/15) Fatigue (08/29/15) GI (gastrointestinal bleed) Hypothyroidism (acquired) Macular degeneration Measles Rosacea Rubella Shoulder pain (~1988) Surgical History Anesthesia History of tonsillectomy (~1944) S/P cataract extraction Status post colonoscopy (~2007) Family History Grandfather Heart disease Grandmother Heart disease Mother Mental health problem Grandfather Stroke Grandmother Cancer Father Cancer Social History marital status: household members: none lives independently: Yes Smoking Status: Never smoker alcohol intake: former substance use type: does not use Assessment & Plan Assessment & Plan narrative: # acute dyskinesia with acute encephalopathy, present on admission -patient presenting with what appears to be tardive dyskinesia with involuntary movement of all extremities, face and lips -spoke with [facility] neurologist who wondered if she somehow got too high of a dose at her SNF, rec lowering dose -give 1mg ativan IV now, 0.5mg q4h PRN ordered -continue sinemet at lowered dose of 25/100mg TID -head CT normal -check UA for UTI, blood cultures pending -continue rocephin for now until cultures result # hypertensive urgency, present on admission -BP up to 200 systolic in ED, patient apparently given increased dose of midodrine 7.5 t.i.d. -given dose of 10 mg hydralazine IV in ED with improvement to 111 systolic -TSH normal # hypothyroidism, chronic -TSH normal -continue home synthroid # hypertension, chronic -patient apparently filled losartan last month Dec 2021 -unclear why she is on midodrine -holding BP meds for now Code status is DNR. COVID negative. DVT prophylaxis with Lovenox. Proxy is son Lito who is POA. I have reviewed home meds and used all available resources to reconcile the home meds. This patient will be admitted as observation and will require less than 2 midnights of hospital time to treat hypertensive encephalopathy. Time Spent With Patient Critical Care time: I spent a total of [] minutes of critical care time on this patient's care today; this time is exclusive of procedural time. Quality VTE Deep Vein Thrombosis/Pulmonary Embolism Present on Admission: No
[2022-02-22] MEDS: ENOXAPARIN 40 MG/0.4 ML SYRINGE SUBCUT (09:48)
[2022-02-22] MEDS: CARBIDOPA-LEVODOPA 25/100 TABLET 1 EACH PO (09:48)
[2022-02-22 10:15] LABS: Appearance Urine UA SL CLOUDY; Bilirubin Urine UA NEGATIVE (NEGATIVE); Glucose Urine UA NEGATIVE (Negative); Ketones Urine UA 1+ (NEGATIVE); Leukocyte Esterase Urine UA 1+ (NEGATIVE); Nitrite Urine UA POSITIVE (Negative); Occult Blood Urine UA 1+ (Negative); Protein Urine UA 1+ (Negative); Specific Gravity Urine UA 1.025 (1.000-1.035); Urobilinogen Urine UA 0.2 E.U./dL (0.2)
[2022-02-22 10:53] LABS: Bacteria Urine Many (>30); Culture Indicated Urine Specimen Cultured; RBC Urine 5-10/HPF (0-5/HPF); Squamous Epithelial Cell Urine 1-5 /HPF (0-5/HPF); WBC Urine 30-100/HPF (0-5/HPF)
--- NOTE | 2022-02-22 10:56 | PM.DS.1 ---
History of Present Illness History of Present Illness Date Patient Seen: 02/22/22 Time Patient Seen: 10:56 Chief complaint: Altered LOC Narrative: Shirlene Calvo is an 81-year-old female with past medical history of Parkinson's disease, hypothyroidism, essential tremor, and hypertension who presents to the ED with encephalopathy and moving all extremities involuntarily. History coming from the son Lito. He states she lives at [facility] and has been there since 2019. He speaks with her every night on the phone and last night she was her normal self and oriented x4. He notes that this past friday on 02/18 her neurologist lowered her sinemet due to increased dyskinesia for past 2 months. This seemed to help her symptoms. However the past few nights she has gotten very little sleep due to a new roommate who screams most of the night. She also had been put on midodrine at the [facility] and the dose recently raised to 7.5mg TID. In the ED blood pressure noted to be up to 200 systolic. Patient given so 10 mg hydralazine with improvement in BP to [address] normal. Discharge Providers Provider Date of admission: 02/21/22 16:15 Discharge Date: 02/22/22 Primary care physician: Mateusz Bonilla MD Discharge provider: Tommy Drew DO Summary Hospital Course Discharge Diagnosis: # acute dyskinesia with acute encephalopathy, present on admission -patient presenting with what appears to be tardive dyskinesia with involuntary movement of all extremities, face and lips -spoke with [facility] neurologist who wondered if she somehow got too high of a dose at her SNF, rec lowering dose and checking for UTI -give 1mg ativan IV and patient slept most of night -continue sinemet at lowered dose of 25/100mg TID -head CT normal -check UA for UTI, blood cultures pending -continue rocephin for now until cultures result # UTI -UA with pyuria and culture grew pansens E. coli -received 1 dose rocephin and discharged on 2 more days of po cefdinir # hypertensive urgency, present on admission -BP up to 200 systolic in ED, patient apparently given increased dose of midodrine 7.5 t.i.d. -given dose of 10 mg hydralazine IV in ED with improvement to 111 systolic -TSH normal # hypothyroidism, chronic -TSH normal -continue home synthroid # hypertension, chronic -patient apparently filled losartan last month Dec 2021 -unclear why she is on midodrine -holding BP meds for now Hospital Course: Admitted for acute altered mental status and acute dyskinesia with profound chorea of all extremities, face and head. Unclear what the trigger was but an accidental increased dose of sinemet could present this way. Also apparently got no sleep the past couple nights due to a screaming roommate. UTI may have triggered her encephalopathy. On no other offending meds. Given dose of 1mg ativan and patient calmed and slept through the night. The next morning she is now back to baseline and does not remember any of the prior evening and didn't know she was in the hospital. She is alert and oriented x4. Her home sinemet was lowered per neuro recs and oral iron stopped due to potential interaction with sinemet. She was found to have pansens E. coli UTI and given rocephin and discharged on po cefdinir. Returned to [facility] and should f/u with neurologist to further adjust sinemet as needed. Time Spent with Patient Time spent: Greater than 30 minutes Exam Vital Signs (past 8 hours): - 02/22/22 06:00 02/22/22 07:30 Temperature 97.5 F L 96.8 F L Pulse Rate 87 96 H Respiratory Rate 15 16 Blood Pressure 155/60 H 164/89 H Pulse Oximetry 98 96 Oxygen Flow Rate 0 Oxygen Delivery Method Room Air Oxygen Flow Rate 0 Narrative Exam Narrative: GEN: awake, alert and oriented, flat affect due to parkinsons HEENT: moist mucous membranes, PERRL NECK: trachea midline, no JVD CV: regular rate and rhythm, no murmurs PULM: clear bilaterally ABD: soft, nontender, nondistended, no organomegaly EXT: warm and well perfused with no edema NEURO: dyskinesic symptoms have resolved, no focal deficits Objective Labs Result Diagrams: 02/22/22 04:40 02/22/22 04:40 Labs: Laboratory Results - last 24 hr 02/21/22 02/21/22 02/21/22 13:28 13:45 13:45 WBC 8.1 RBC 3.76 L Hgb 11.8 L Hct 36.1 MCV 96.2 MCH 31.3 MCHC 32.5 RDW 14.0 Plt Count 325 Neut % (Auto) 61.1 Lymph % (Auto) 24.[address] [place] % (Auto) 13.6 Eos % (Auto) 0.4 L Baso % (Auto) 0.7 Neut # (Auto) 5000 Lymph # (Auto) 2000 [place] # (Auto) 1100 H Eos # (Auto) 0 Baso # (Auto) 100 Sodium 135 L Potassium 4.3 Chloride 102 Carbon Dioxide 25 BUN 18 H Creatinine 0.64 Estimated GFR > 60 BUN/Creatinine Ratio 28.1 H Glucose 90 Lactate 2.1 Calcium 8.7 Magnesium 2.0 Total Bilirubin 0.8 AST 31 ALT 10 Alkaline Phosphatase 79 Total Creatine Kinase 210 H CK-MB (CK-2) 1.64 CK-MB (CK-2) Rel Index 0.8 L Troponin I < 0.012 Total Protein 7.5 Albumin 4.0 Globulin 3.5 Albumin/Globulin Ratio 1.1 Lipase 170 TSH Urine Color Urine Appearance Urine pH Ur Specific [place] Urine Protein Urine Glucose (UA) Urine Ketones Urine Occult Blood Urine Nitrate Urine Bilirubin Urine Urobilinogen Ur Leukocyte Esterase Urine RBC Urine WBC Ur Squamous Epith Cells Urine Bacteria Ur Culture Indicated? Salicylates < 1.0 U Opiates 300ng/mL cut Ur Oxycodone Screen Urine Methadone Screen Acetaminophen 18 Ur Barbiturates Screen U Tricyclic Antidepress Ur Phencyclidine Scrn Ur Amphetamines Screen U Methamphetamines Scrn Ur MDMA Scrn (Ecstasy) U Benzodiazepines Scrn Urine Cocaine Screen U Marijuana (THC) Screen SARS-CoV-2 (PCR) 02/21/22 02/21/22 02/21/22 13:45 15:45 16:00 WBC RBC Hgb Hct MCV MCH MCHC RDW Plt Count Neut % (Auto) Lymph % (Auto) [place] % (Auto) Eos % (Auto) Baso % (Auto) Neut # (Auto) Lymph # (Auto) [place] # (Auto) Eos # (Auto) Baso # (Auto) Sodium Potassium Chloride Carbon Dioxide BUN Creatinine Estimated GFR BUN/Creatinine Ratio Glucose Lactate 2.4 H Calcium Magnesium Total Bilirubin AST ALT Alkaline Phosphatase Total Creatine Kinase CK-MB (CK-2) CK-MB (CK-2) Rel Index Troponin I Total Protein Albumin Globulin Albumin/Globulin Ratio Lipase TSH 2.96 Urine Color Urine Appearance Urine pH Ur Specific [place] Urine Protein Urine Glucose (UA) Urine Ketones Urine Occult Blood Urine Nitrate Urine Bilirubin Urine Urobilinogen Ur Leukocyte Esterase Urine RBC Urine WBC Ur Squamous Epith Cells Urine Bacteria Ur Culture Indicated? Salicylates U Opiates 300ng/mL cut Ur Oxycodone Screen Urine Methadone Screen Acetaminophen Ur Barbiturates Screen U Tricyclic Antidepress Ur Phencyclidine Scrn Ur Amphetamines Screen U Methamphetamines Scrn Ur MDMA Scrn (Ecstasy) U Benzodiazepines Scrn Urine Cocaine Screen U Marijuana (THC) Screen SARS-CoV-2 (PCR) Negative 02/21/22 02/22/22 02/22/22 19:00 04:40 04:40 WBC 9.6 RBC 3.85 L Hgb 12.3 Hct 36.8 MCV 95.6 MCH 31.8 MCHC 33.3 RDW 14.0 Plt Count 285 Neut % (Auto) 81.5 H D Lymph % (Auto) 6.[address] [place] % (Auto) 9.4 Eos % (Auto) 0.2 L Baso % (Auto) 2.3 H Neut # (Auto) 7800 H Lymph # (Auto) [address] [place] # (Auto) 900 Eos # (Auto) 0 Baso # (Auto) 200 H Sodium 136 L Potassium 4.3 Chloride 106 Carbon Dioxide 21 L BUN 21 H Creatinine 0.90 Estimated GFR > 60 BUN/Creatinine Ratio 23.3 H Glucose 93 Lactate Calcium 8.5 Magnesium Total Bilirubin AST ALT Alkaline Phosphatase Total Creatine Kinase CK-MB (CK-2) CK-MB (CK-2) Rel Index Troponin I Total Protein Albumin Globulin Albumin/Globulin Ratio Lipase TSH Urine Color Urine Appearance Urine pH Ur Specific [place] Urine Protein Urine Glucose (UA) Urine Ketones Urine Occult Blood Urine Nitrate Urine Bilirubin Urine Urobilinogen Ur Leukocyte Esterase Urine RBC Urine WBC Ur Squamous Epith Cells Urine Bacteria Ur Culture Indicated? Salicylates U Opiates 300ng/mL cut Negative Ur Oxycodone Screen Negative Urine Methadone Screen Negative Acetaminophen Ur Barbiturates Screen Negative U Tricyclic Antidepress Negative Ur Phencyclidine Scrn Negative Ur Amphetamines Screen Negative U Methamphetamines Scrn Negative Ur MDMA Scrn (Ecstasy) Negative U Benzodiazepines Scrn Positive H Urine Cocaine Screen Negative U Marijuana (THC) Screen Negative SARS-CoV-2 (PCR) 02/22/22 10:00 WBC RBC Hgb Hct MCV MCH MCHC RDW Plt Count Neut % (Auto) Lymph % (Auto) [place] % (Auto) Eos % (Auto) Baso % (Auto) Neut # (Auto) Lymph # (Auto) [place] # (Auto) Eos # (Auto) Baso # (Auto) Sodium Potassium Chloride Carbon Dioxide BUN Creatinine Estimated GFR BUN/Creatinine Ratio Glucose Lactate Calcium Magnesium Total Bilirubin AST ALT Alkaline Phosphatase Total Creatine Kinase CK-MB (CK-2) CK-MB (CK-2) Rel Index Troponin I Total Protein Albumin Globulin Albumin/Globulin Ratio Lipase TSH Urine Color Urine Appearance Sl cloudy Urine pH 5.0 Ur Specific [place] 1.025 Urine Protein 1+ H Urine Glucose (UA) Negative Urine Ketones 1+ H Urine Occult Blood 1+ H Urine Nitrate Positive H Urine Bilirubin Negative Urine Urobilinogen 0.2 Ur Leukocyte Esterase 1+ H Urine RBC 5-10/hpf H Urine WBC 30-100/hpf H Ur Squamous Epith Cells 1-5 /hpf D Urine Bacteria Many (>30) H Ur Culture Indicated? Specimen cultured Salicylates U Opiates 300ng/mL cut Ur Oxycodone Screen Urine Methadone Screen Acetaminophen Ur Barbiturates Screen U Tricyclic Antidepress Ur Phencyclidine Scrn Ur Amphetamines Screen U Methamphetamines Scrn Ur MDMA Scrn (Ecstasy) U Benzodiazepines Scrn Urine Cocaine Screen U Marijuana (THC) Screen SARS-CoV-2 (PCR) [facility] Medical History (Updated 02/21/22 @ 16:14 by Armando Bonilla DO) Chicken pox Chronic back pain (~2013) Colitis Essential tremor (06/26/15) Fatigue (08/29/15) GI (gastrointestinal bleed) Hypothyroidism (acquired) Macular degeneration Measles Rosacea Rubella Shoulder pain (~1988) Surgical History Anesthesia History of tonsillectomy (~1945) S/P cataract extraction Status post colonoscopy (~2007) Family History Grandfather Heart disease Grandmother Heart disease Mother Mental health problem Grandfather Stroke Grandmother Cancer Father Cancer Social History marital status: household members: none lives independently: Yes Smoking Status: Never smoker alcohol intake: former substance use type: does not use Discharge Plan Discharge Plan Patient Disposition: SNF Transfer to: [facility] I certify the postop hospital half-way care is medically necessary on a continuing basis for any conditions for which he/ she received care during this hospitalization.: Yes The receiving facility has agreed to accept transfer and provide medical treatment.: Yes Discharge orders & Medications Prescriptions: New carbidopa-levodopa 25-100 mg Tablet 1 ea PO TID Qty: 90 0RF cefdinir 300 mg capsule 300 mg PO BID 2 Days Qty: 4 0RF Rx Instructions: start on 02/23 Continued vit C,S-Dx-vqsuk-lutein-zeaxan [PreserVision AREDS-2] [id number]-[id number]-mg capsule 1 tab PO BID Qty: 30 0RF Rx Instructions: administer with meals levothyroxine 25 mcg tablet 25 mcg PO QAM Qty: 90 3RF Discontinued carbidopa-levodopa 50-200 mg tablet extended release 1 tab PO TID Qty: 270 3RF Label Comments: 0700, noon, 1700 ferrous sulfate 325 mg (65 mg iron) Tablet 325 mg PO DAILY Follow up/Referrals: Mateusz Bonilla MD [Primary Care Provider] - 2 Weeks Visit Report/Discharge Packet Stand Alone Forms: Patient Portal/API, Stroke Signs & Symptoms Discharge Data Primary Care Provider: Mateusz Bonilla Attending Provider: Tommy Drew VTE Deep Vein Thrombosis/Pulmonary Embolism Present on Admission: No
--- NOTE | 2022-02-22 11:31 | PC.NURSE ---
Day shift: Dr Drew informed of gram pos cocci in blood culture at approx 1130.
[2022-02-22 12:10] LABS: Enterococcus species Not Detected (Not Detect); Listeria monocytogenes Not Detected (Not Detect); Staphylococcus species Not Detected (Not Detect)
[2022-02-22 12:11] LABS: Acinetobacter baumannii Not Detected (Not Detect); Candida albicans Not Detected (Not Detect); Candida glabrata Not Detected (Not Detect); Candida krusei Not Detected (Not Detect); Candida parapsilosis Not Detected (Not Detect); Candida tropicalis Not Detected (Not Detect); E. coli Not Detected (Not Detect); Enterobacter cloacae complex Not Detected (Not Detect); Enterobacteriaceae species Not Detected (Not Detect); Haemophilus influenzae Not Detected (Not Detect); Neisseria meningitidis Not Detected (Not Detect); Proteus species Not Detected (Not Detect); Pseudomonas aeruginosa Not Detected (Not Detect); Serratia marcescens Not Detected (Not Detect); Streptococcus agalactiae (Gr B Not Detected (Not Detect); Streptococcus pneumonia Not Detected (Not Detect); Streptococcus pyogenes (Gr A) Not Detected (Not Detect); Streptococcus species Detected (Not Detect)
--- NOTE | 2022-02-22 12:21 | PC.NURSE ---
Day shift: Report given to RN at [facility] at approx 1215. Pt's Son was also called and knows the plan for d/c today.
--- NOTE | 2022-02-22 13:25 | PC.NURSE ---
Day shift: Brief changed and Pt left unit at approx 1315 via WC by transport person from [facility]. Pt has all personal belongings. SNF packet given to transport person.
--- NOTE | 2022-02-22 13:34 | CM.DANOTE ---
Patient is an 81 yo female who was admitted on 02/21/22 for AMS. Pt has [employer] for insurance and her PCP is Dr. Mateusz Bonilla. EMR was reviewed. Per MD, pt with a hx of advancing Parkinson's and admitted with acute dyskinesia with encephalopathy. Pt's UA pending. Pt's Sinimet was held and given Ativan to relax her muscles and then restarted on her Sinimet and now medically stable to discharge and back to baseline. SW called [facility] admissions and confirmed they can accept pt back and pt is a LTC resident there since 2019 due to her advancing Parkinsons. They can provide transport around 1300 today and pt's son Lito and sister are quite involved and supportive and aware. SW updated RN and provided report number to call and updated [employer] and project controls specialist and faxed signed med list, 2 scripts, and d/c summary and orders to review at [facility] and no PASRR needed as pt is a return to custodial care. Plan: Patient to d/c back to [facility] LTC resident today around 1300 via facility van. MAMIE Odonnell Discharge Planning/Care Management CM Discharge Assessment Start: 02/22/22 13:27 Freq: Status: Discharge Protocol: Document 02/22/22 13:28 BF (Rec: 02/22/22 13:30 BF [id number]) Discharge Planning Assessment Assigned Rn Care Manager MAMIE Aguayo DPOA/Assigned Designee Name dinah Calvo Contact Information [phone] Advance Directives? Yes: POLST Advance Directives on File ASKED SISTER TO BRING IN POLST . History Provided By Patient,Family Member,Medical Record Has Patient been admitted in last 30 No days? Prior Living Arrangements Skilled Nurse Facility Household Members none Type of transporation used prior to Relies on Others admit Facility Name Admitted From: [facility] Willing to Return to Facility? Yes Independent with ADL's No Is patient alert and oriented? No Needs Assistance With Bathing,Meal Prep,Managing Medications,Home Chores / Shopping Caregiver for Another No DME Already Rented / Owned Wheelchair,FWW / Walker Patient/Family Preference Detention Facility Barriers to Discharge No Comment Plan is return to [facility] Discharge Plan Detention Facility Transportation Arrangement Likely w/c van Referrals Initiated Detention Additional Comment [facility] confirms they can accept pt back at d/c If patient plan is SNF: Has PASSR been No: not needed, return to SNF completed? Whiteboard Updated in Patient Room with Yes name and ext. # of Rn Care Manager Review Status In Process Please Provide Date Initial DC 02/22/22 Assessment Was Performed Next Review Type Continued Stay Review
== END 2022-02-22 13:26 | disposition home or self-care (01) | DRG 91 ==
LOC: ED 16:14 → AC 02-22 10:13
PROVIDERS: Admitting Provider Student in an Organized Health Care Education/Training Program; Emergency Provider Emergency Medicine; PCP Student in an Organized Health Care Education/Training Program; Referring Provider Emergency Medicine; Visit Provider Student in an Organized Health Care Education/Training Program
DX: G24.01 Drug induced subacute dyskinesia (principal); G92.8 Other toxic encephalopathy; N39.0 Urinary tract infection, site not specified; I16.0 Hypertensive urgency; E03.9 Hypothyroidism, unspecified; B96.20 Unspecified Escherichia coli [E. coli] as the cause of diseases classified elsewhere; G20 Parkinson's disease; Z66 Do not resuscitate; Z20.822 Contact with and (suspected) exposure to COVID-19
CPT/HCPCS: 36415; 70450; 80048; 80053; 80305; 80329; 81001; 82550; 82553; 83605; 83690; 83735; 84443; 84484; 85025; 87040; 87077; 87086; 87150; 87186; 87635; 96374; 96375; 99284; 99285; C9803; G0480; J0360; J0696; J1200; J1650; J2060

== ENCOUNTER 2022-10-24 07:41 | Inpatient (IN) | payer MEDICARE, OTHER, MEDICAID, SELFPAY ==
[2022-02-21 16:33] VITALS: BMI 20.1
[2022-10-24] VITALS (72 sets, daily range): BP systolic 54–134; BP diastolic 24–68; PULSE 95–127; RESP 17–30; TEMP 36.7–38.4; O2SAT 88–100; BMI 23.5
--- NOTE | 2022-10-24 07:50 | DI.RAD.S_ITS ---
PROCEDURE: XR CHEST 1V INDICATIONS: unresponsive, hypotension, off midodrine TECHNIQUE: One view of the chest was acquired. COMPARISON: [facility], CR, XR CHEST 1V, 08/19/2019, 13:48. [facility], CR, XR CHEST 1V, 07/09/2020, 15:01. FINDINGS: Surgical changes and devices: None. Lungs and pleura: Lungs are clear. Mild hyperinflation suggesting COPD. No pleural effusions or pneumothorax. Mediastinum: Mediastinal contours appear normal. Heart size is normal. Bones and chest wall: No suspicious bony lesions. Overlying soft tissues appear unremarkable. IMPRESSION: No acute cardiopulmonary disease. Dictated by: Chris Gannon M.D. on 10/24/2022 at 8:39 Approved by: Chris Gannon M.D. on 10/24/2022 at 8:40
--- NOTE | 2022-10-24 07:50 | DI.CT.S_ITS ---
PROCEDURE: CT HEAD/BRAIN WO CON INDICATIONS: unresponsive, hypotension, off midodrine TECHNIQUE: Noncontrast 4.5 mm thick angled axial sections acquired from the foramen magnum to the vertex, with coronal and sagittal reformats. For radiation dose reduction, the following was used: automated exposure control, adjustment of mA and/or kV according to patient size. COMPARISON: [facility], CT, CT HEAD/BRAIN WO CON, 02/21/2022, 14:58. FINDINGS: Image quality: Good CSF spaces: Basal cisterns are patent. Lateral ventricles are symmetric. Volume: Vascular calcifications. 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 Volume loss is present. These findings are moderate to severe. Suspected chronic trace subdural hygromas in the bifrontal regions again seen. Brain: Possible encephalomalacia in the cerebellum, new compared to prior imaging. No gross loss of lu-white differentiation elsewhere. Chronic appearing lacune is also present. No acute hemorrhage. Craniofacial structures: No displaced fracture. Sinuses are clear. Orbits are intact. IMPRESSION: Compared to prior imaging, new, but nonacute appearing small encephalomalacia of the left cerebellum. No acute intracranial abnormality detected. If there is high concern for parenchymal pathology, consider further evaluation with MRI. Dictated by: Landry Caban M.D. on 10/24/2022 at 8:41 Approved by: Landry Caban M.D. on 10/24/2022 at 8:44
--- NOTE | 2022-10-24 07:53 | ED_ITS ---
HPI - Altered Mental Status General Chief Complaint: Altered Mental Status Stated Complaint: Unresponsive Time Seen by Provider: 10/24/22 07:50 Source: EMS, RN notes reviewed and old records reviewed Mode of arrival: EMS Limitations: altered mental status History of Present Illness HPI narrative: 82-year-old female with history of Parkinson's, macular degeneration, hypothyroidism with autonomic dysfunction on androgen daily. Patient presents with altered mental status last seen normal yesterday by her day shift nurse. She is responsive to painful stimuli, does not open eyes easily or her mouth when attempted. Patient otherwise does not contribute. She is hypotensive in the field has received 250 cc and had increasing improvement of pressure. She has not had her carbidopa levodopa or harm injured in today and unsure if she had yesterday. Facility does not contribute any additional history such as f agus, chest pain or other changes. Patient arrives with paperwork that notes she is DNR/DNI with limited intervention. Related Data Home Medications Medication Instructions Recorded Confirmed PreserVision AREDS 1 tab PO BID 10/24/22 10/24/22 acetaminophen 650 mg PO TID 10/24/22 10/24/22 carbidopa 25 mg-levodopa 100 mg 1.5 tab PO TID 10/24/22 10/24/22 tablet carbidopa ER 50 mg-levodopa 200 mg 1 tab PO ONCE HS 10/24/22 10/24/22 tablet,extended release carboxymethylcellulose sodium 0.5 1 drp EYE-BOTH TID 10/24/22 10/24/22 % eye drops entacapone 200 mg tablet 200 mg PO TID 10/24/22 10/24/22 magnesium oxide 400 mg PO DAILY 10/24/22 10/24/22 midodrine 5 mg tablet 2.5 mg PO TID 10/24/22 10/24/22 polyethylene glycol 3350 17 17 g PO DAILY 10/24/22 10/24/22 gram/dose oral powder (Miralax) simethicone 125 mg tablet 125 mg PO Q4HR PRN Hiccups 10/24/22 10/24/22 Previous Rx's Medication Instructions Recorded levothyroxine 25 mcg tablet 25 mcg PO QAM #90 tabs 04/28/19 Allergies Allergy/AdvReac Type Severity Reaction Status Date / Time No Known Drug Allergies Allergy Verified 07/09/20 13:17 Review of Systems Review of Systems ROS Unobtainable: All systems reviewed & are unremarkable except as noted in HPI and below Patient History Medical History Chicken pox Chronic back pain (~2013) Colitis Essential tremor (06/26/15) Fatigue (08/29/15) GI (gastrointestinal bleed) Hypothyroidism (acquired) Macular degeneration Measles Rosacea Rubella Shoulder pain (~1988) Surgical History Anesthesia History of tonsillectomy (~1944) S/P cataract extraction Status post colonoscopy (~2007) Family History Grandfather Heart disease Grandmother Heart disease Mother Mental health problem Grandfather Stroke Grandmother Cancer Father Cancer Social History marital status: household members: none lives independently: Yes Smoking Status: Never smoker alcohol intake: former substance use type: does not use Smoking Status: Never smoker alcohol intake frequency: holidays/special occasions only Substance Use Type: does not use Exam Narrative Exam Narrative: GEN: well nourished, well appearing female, unresponsive except to painful stimuli, patient appears to be in distress. Patient is warm to touch. HEENT: Atraumatic, pupils are equal round reactive to light, extraocular movements are intact, nares are clear, TMs are clear with no fluid, there is no conjunctival pallor. Throat is clear without any exudates, erythema, tonsillar enlargement or uvular deviation HEART: Regular rate and rhythm without murmur, clicks, rubs. Pulses are equal in upper and lower extremities LUNGS:Lungs clear to auscultation, no wheezes, rales, crackles, chest moves symmetrically ABD:bowel sounds normal, soft, non-tender, no guarding, rebound, rigidity, no masses noted, no hepatosplenomegaly, patient had a large amount of stool in her brief. :No CVA tenderness MSCL: Non-tender, no muscle atrophy, unable to assess muscle strength or movement. Able to move extremities passively but patient does have some rigidity of the lower legs. Mild tremor appreciated. NEURO:CN 2-12 intact, sensation normal, reflexes 2/4 upper and lower extremities. SKIN: No rash, erythema or other skin changes noted. Initial Vital Signs Initial Vital Signs: Vital Signs Pulse Rate 108 H 10/24/22 07:45 Blood Pressure 78/48 L 10/24/22 07:45 Pulse Oximetry 96 10/24/22 07:45 Course Orders Ordered: ED Orders 10/24/22 10:05 Ictotest Urine Stat Urinalysis and Microscopic Stat Urine Culture Stat 10/24/22 10:50 Trop I [Troponin I] Stat 10/24/22 14:10 Consult to Discharge Planning Routine Consult to Hospice Referral Urgent Lorazepam (Lorazepam 2 Mg/Ml Inj) 1 mg IV Q1HR PRN PRN Reason: Agitation/Anxiety Morphine Sulfate (Morphine 2 Mg/Ml Inj) 2 mg IV Q30MIN PRN PRN Reason: Pain/Dyspnea Morphine Sulfate (Morphine 10 Mg/0.5 Ml Oral Syringe) 10 mg PO Q1HR PRN PRN Reason: pain or discomfort Scopolamine (Scopolamine 1 Patch) 1 patch TOP Q72H PRN PRN Reason: Secretions Last Admin: 10/24/22 17:55 Dose: 1 patch Documented By: BT Discontinued Medications Sodium Chloride (Normal Saline 0.9%) 1,000 mls @ 1,000 mls/hr IV BOLUS ONE Stop: 10/24/22 08:50 Last Infusion: 10/24/22 08:30 Dose: 0 mls/hr Documented By: Admin: 10/24/22 08:06 Dose: 1,000 mls/hr Documented By: RB Acetaminophen (Ofirmev) 1,000 mg in 100 mls @ 400 mls/hr IV NOW ONE Stop: 10/24/22 08:16 Last Infusion: 10/24/22 08:30 Dose: 0 mls/hr Documented By: Admin: 10/24/22 08:05 Dose: 400 mls/hr Documented By: RB Sodium Chloride (Normal Saline 0.9%) 1,000 mls @ 1,000 mls/hr IV BOLUS ONE Stop: 10/24/22 09:30 Last Infusion: 10/24/22 09:31 Dose: 0 mls/hr Documented By: Admin: 10/24/22 08:32 Dose: 1,000 mls/hr Documented By: RB Sodium Chloride (Normal Saline 0.9%) 1,000 mls @ 1,000 mls/hr IV BOLUS ONE Stop: 10/24/22 10:02 Last Infusion: 10/24/22 11:08 Dose: 0 mls/hr Documented By: Infusion: 10/24/22 10:10 Dose: 999 mls/hr Documented By: Admin: 10/24/22 09:37 Dose: 799 mls/hr Documented By: RB NOREPINEPHRINE BITARTRATE/D5W (Levophed) 4 mg in 250 mls @ 24.788 mls/hr IV TITRATE SONY; Protocol Last Titration: 10/24/22 13:28 Dose: 0 mcg/kg/min, 0 mls/hr Documented By: Titration: 10/24/22 10:40 Dose: 0.1 mcg/kg/min, 24.788 mls/hr Documented By: Admin: 10/24/22 10:27 Dose: 0.1 mcg/kg/min, 24.788 mls/hr Documented By: SHARI Piperacillin Sod/Tazobactam (Sod 4.5 gm/ Sodium Chloride) 100 mls @ 200 mls/hr IV NOW ONE Stop: 10/24/22 09:04 Last Infusion: 10/24/22 10:10 Dose: 0 mls/hr Documented By: Admin: 10/24/22 09:35 Dose: 200 mls/hr Documented By: RB Sodium Chloride (Normal Saline 0.9%) 1,000 mls @ 150 mls/hr IV CONT SONY Last Infusion: 10/24/22 13:28 Dose: 0 mls/hr Documented By: Infusion: 10/24/22 13:28 Dose: 0 mls/hr Documented By: Admin: 10/24/22 11:21 Dose: 150 mls/hr Documented By: SHARI Vital Signs Vital signs: Vital Signs - 8 hr 10/24/22 10:55 10/24/22 10:55 10/24/22 11:00 Temperature 99.7 F H Pulse Rate 113 H Respiratory Rate 22 Blood Pressure 130/60 134/60 Pulse Oximetry 95 Oxygen Delivery Method Nasal Cannula Oxygen Flow Rate 2 10/24/22 11:00 10/24/22 11:05 10/24/22 11:05 Temperature 99.5 F 99.5 F Pulse Rate 117 H 114 H Respiratory Rate 23 20 Blood Pressure 123/60 Pulse Oximetry 96 96 Oxygen Delivery Method Nasal Cannula Nasal Cannula Oxygen Flow Rate 2 2 10/24/22 11:10 10/24/22 11:10 10/24/22 11:15 Temperature 99.5 F 99.5 F Pulse Rate 127 H 115 H Respiratory Rate 24 21 Blood Pressure 133/61 Pulse Oximetry 96 95 Oxygen Delivery Method Room Air Room Air Oxygen Flow Rate 10/24/22 11:15 10/24/22 11:20 10/24/22 11:20 Temperature 99.5 F Pulse Rate 116 H Respiratory Rate 22 Blood Pressure 121/60 117/57 L Pulse Oximetry 94 Oxygen Delivery Method Nasal Cannula Oxygen Flow Rate 2 10/24/22 11:25 10/24/22 11:25 10/24/22 11:30 Temperature 99.5 F 99.5 F Pulse Rate 116 H 117 H Respiratory Rate 24 24 Blood Pressure 111/57 L Pulse Oximetry 94 95 Oxygen Delivery Method Nasal Cannula Nasal Cannula Oxygen Flow Rate 2 2 10/24/22 11:35 10/24/22 11:35 10/24/22 11:40 Temperature 99.5 F 99.5 F Pulse Rate 118 H 118 H Respiratory Rate 23 24 Blood Pressure 126/60 Pulse Oximetry 95 97 Oxygen Delivery Method Nasal Cannula Nasal Cannula Oxygen Flow Rate 2 2 10/24/22 11:40 10/24/22 11:45 10/24/22 11:45 Temperature 99.5 F Pulse Rate 118 H Respiratory Rate 24 Blood Pressure 121/59 L 123/64 Pulse Oximetry 96 Oxygen Delivery Method Nasal Cannula Oxygen Flow Rate 2 10/24/22 11:50 10/24/22 11:50 10/24/22 11:55 Temperature 99.5 F 99.5 F Pulse Rate 120 H 119 H Respiratory Rate 27 H 25 H Blood Pressure 124/56 L Pulse Oximetry 97 96 Oxygen Delivery Method Nasal Cannula Nasal Cannula Oxygen Flow Rate 2 2 10/24/22 11:55 10/24/22 12:00 10/24/22 12:00 Temperature 99.5 F Pulse Rate 118 H Respiratory Rate 24 Blood Pressure 120/56 L 124/60 Pulse Oximetry 96 Oxygen Delivery Method Nasal Cannula Oxygen Flow Rate 2 10/24/22 12:05 10/24/22 12:05 10/24/22 12:10 Temperature 99.5 F Pulse Rate 118 H Respiratory Rate 22 Blood Pressure 112/61 124/63 Pulse Oximetry 96 Oxygen Delivery Method Nasal Cannula Oxygen Flow Rate 2 10/24/22 12:10 10/24/22 12:15 10/24/22 12:15 Temperature 99.5 F 99.5 F Pulse Rate 118 H 118 H Respiratory Rate 22 22 Blood Pressure 124/62 Pulse Oximetry 96 96 Oxygen Delivery Method Nasal Cannula Nasal Cannula Oxygen Flow Rate 2 2 10/24/22 12:20 10/24/22 12:20 10/24/22 12:25 Temperature 99.5 F 99.7 F H Pulse Rate 119 H 119 H Respiratory Rate 24 26 H Blood Pressure 115/56 L Pulse Oximetry 96 Oxygen Delivery Method Nasal Cannula Oxygen Flow Rate 2 10/24/22 12:25 10/24/22 12:30 10/24/22 12:30 Temperature 99.7 F H Pulse Rate 121 H Respiratory Rate 26 H Blood Pressure 119/58 L 114/56 L Pulse Oximetry 97 Oxygen Delivery Method Nasal Cannula Oxygen Flow Rate 2 10/24/22 12:35 10/24/22 12:35 10/24/22 12:40 Temperature 99.7 F H 99.7 F H Pulse Rate 121 H 119 H Respiratory Rate 27 H 25 H Blood Pressure 118/57 L Pulse Oximetry 97 97 Oxygen Delivery Method Nasal Cannula Nasal Cannula Oxygen Flow Rate 2 2 10/24/22 12:40 10/24/22 12:45 10/24/22 12:45 Temperature 99.9 F H Pulse Rate 120 H Respiratory Rate 27 H Blood Pressure 123/55 L 117/55 L Pulse Oximetry 96 Oxygen Delivery Method Nasal Cannula Oxygen Flow Rate 2 10/24/22 12:50 10/24/22 12:50 10/24/22 12:55 Temperature 99.9 F H 99.9 F H Pulse Rate 119 H 120 H Respiratory Rate 24 25 H Blood Pressure 106/55 L Pulse Oximetry 97 97 Oxygen Delivery Method Nasal Cannula Oxygen Flow Rate 2 10/24/22 12:55 10/24/22 13:00 10/24/22 13:00 Temperature 99.9 F H Pulse Rate 119 H Respiratory Rate 24 Blood Pressure 113/54 L 121/53 L Pulse Oximetry 96 Oxygen Delivery Method Nasal Cannula Oxygen Flow Rate 2 10/24/22 13:05 10/24/22 13:05 10/24/22 13:10 Temperature 100.0 F H 100.0 F H Pulse Rate 118 H 118 H Respiratory Rate 23 23 Blood Pressure 111/54 L Pulse Oximetry 96 97 Oxygen Delivery Method Nasal Cannula Nasal Cannula Oxygen Flow Rate 2 2 10/24/22 13:10 10/24/22 13:15 10/24/22 13:15 Temperature 100.0 F H Pulse Rate 118 H Respiratory Rate 25 H Blood Pressure 119/56 L 102/59 L Pulse Oximetry 97 Oxygen Delivery Method Nasal Cannula Oxygen Flow Rate 2 MDM - Altered Mental Status Lab Data 10/24/22 08:20 10/24/22 08:20 Labs: Lab Results 10/24/22 10/24/22 10/24/22 Range/Units 08:20 08:20 08:20 WBC 13.4 H (4.5-11.0) X10^3/uL RBC 3.20 L (4.0-5.2) X10^6/uL Hgb 10.4 L (12.0-16.0) g/dL Hct 31.7 L (36-46) % MCV 98.9 (80-100) fL MCH 32.4 (26-34) PG MCHC 32.7 (30-36) % RDW 13.9 (11.6-14.8) % Plt Count 117 L (150-400) X10^3/uL Neut % (Auto) Not Reportable Lymph % (Auto) Not Reportable [place] % (Auto) Not Reportable Eos % (Auto) Not Reportable Baso % (Auto) Not Reportable Lymph # (Auto) Not Reportable [place] # (Auto) Not Reportable Baso # (Auto) Not Reportable Total Counted 100 Seg Neutrophils % 74.0 H (38-70) % Band Neutrophils % 11.0 H (3-7) % Atypical Lymphs % 11.0 H ( - 0) % Monocytes % (Manual) 3.0 (2-11) % Eosinophils % (Manual) 1.0 L (2-4) % Neutrophils # (Manual) 30711 H (5819-5168) /uL RBC Morphology Normal morphology PT 13.2 H (10.1-12.7) SECONDS INR 1.2 (0.9-1.3) APTT 30 (26-36) SECONDS Sodium 140 (137-145) mmol/L Potassium 4.1 (3.4-5.1) mmol/L Chloride 111 H (98-107) mmol/L Carbon Dioxide 16 L (22-32) mmol/L BUN 36 H (7-17) mg/dL Creatinine 2.65 H (0.52-1.04) mg/dL Estimated GFR 17 L (>60) mL/min BUN/Creatinine Ratio 13.6 (6-22) Glucose 84 (80-110) mg/dL Lactate (0.7-2.1) mmol/L Calcium 7.9 L (8.4-10.2) mg/dL Magnesium (1.6-2.3) mg/dL Total Bilirubin 0.7 (0.2-1.3) mg/dL AST 103 H (14-36) IU/L ALT 60 H (<35) IU/L Alkaline Phosphatase 112 (38-126) U/L Total Creatine Kinase 131 (30-135) U/L Troponin I 0.089 H (0.01-0.034) ng/mL NT-Pro-B Natriuret Pep 8490 H (<450) pg/mL Total Protein 5.8 L (6.3-8.2) g/dL Albumin 3.0 L (3.5-5.0) g/dL Globulin 2.8 (1.7-4.1) g/dL Albumin/Globulin Ratio 1.1 (1.0-2.8) Procalcitonin 164 H (<0.5) ng/mL TSH (0.47-4.68) uIU/mL Free T4 (0.78-2.19) ng/dL Urine Color Urine Appearance Urine pH (4.5-8.0) Ur Specific [place] (1.000-1.035) Urine Protein (Negative) Urine Glucose (UA) (Negative) g/dL Urine Ketones (NEGATIVE) Urine Occult Blood (Negative) Urine Nitrate (Negative) Urine Bilirubin (NEGATIVE) Ur Bilirubin Confirm (Negative) Urine Urobilinogen (0.2) E.U./dL Ur Leukocyte Esterase (NEGATIVE) Urine RBC (0-5/HPF) Urine WBC (0-5/HPF) Ur Squamous Epith Cells (0-5/HPF) Urine Bacteria (None) Ur Culture Indicated? Chlamy pneumoniae PCR (Not Detect) Adenovirus (PCR) (Not Detect) B. pertussis DNA (PCR) (Not Detecte) B.parapertussis DNA PCR (Not Detecte) Coronavirus OC43 (PCR) (Not Detect) Coronavirus HKU1 (PCR) (Not Detect) Coronavirus 229E (PCR) (Not Detect) SARS-CoV-2 (PCR) (Not Detecte) Coronavirus NL63 (PCR) (Not Detect) Human Metapneumovir PCR (Not Detect) Influenza Type A (PCR) (Not Detect) Influenza Type B (PCR) (Not Detect) M. pneumoniae (PCR) (Not Detect) Parainfluenza 1 (PCR) (Not Detect) Parainfluenza 2 (PCR) (Not Detect) Parainfluenza 3 (PCR) (Not Detect) Parainfluenza 4 (PCR) (Not Detect) RSV (PCR) (Not Detect) Entero/Rhino (PCR) (Not Detect) 10/24/22 10/24/22 10/24/22 Range/Units 08:20 08:20 08:20 WBC (4.5-11.0) X10^3/uL RBC (4.0-5.2) X10^6/uL Hgb (12.0-16.0) g/dL Hct (36-46) % MCV (80-100) fL MCH (26-34) PG MCHC (30-36) % RDW (11.6-14.8) % Plt Count (150-400) X10^3/uL Neut % (Auto) Lymph % (Auto) [place] % (Auto) Eos % (Auto) Baso % (Auto) Lymph # (Auto) [place] # (Auto) Baso # (Auto) Total Counted Seg Neutrophils % (38-70) % Band Neutrophils % (3-7) % Atypical Lymphs % ( - 0) % Monocytes % (Manual) (2-11) % Eosinophils % (Manual) (2-4) % Neutrophils # (Manual) (9084-4044) /uL RBC Morphology PT (10.1-12.7) SECONDS INR (0.9-1.3) APTT (26-36) SECONDS Sodium (137-145) mmol/L Potassium (3.4-5.1) mmol/L Chloride (98-107) mmol/L Carbon Dioxide (22-32) mmol/L BUN (7-17) mg/dL Creatinine (0.52-1.04) mg/dL Estimated GFR (>60) mL/min BUN/Creatinine Ratio (6-22) Glucose (80-110) mg/dL Lactate 9.4 H* (0.7-2.1) mmol/L Calcium (8.4-10.2) mg/dL Magnesium 2.3 (1.6-2.3) mg/dL Total Bilirubin (0.2-1.3) mg/dL AST (14-36) IU/L ALT (<35) IU/L Alkaline Phosphatase (38-126) U/L Total Creatine Kinase (30-135) U/L Troponin I (0.01-0.034) ng/mL NT-Pro-B Natriuret Pep (<450) pg/mL Total Protein (6.3-8.2) g/dL Albumin (3.5-5.0) g/dL Globulin (1.7-4.1) g/dL Albumin/Globulin Ratio (1.0-2.8) Procalcitonin (<0.5) ng/mL TSH 5.00 H (0.47-4.68) uIU/mL Free T4 1.34 (0.78-2.19) ng/dL Urine Color Urine Appearance Urine pH (4.5-8.0) Ur Specific [place] (1.000-1.035) Urine Protein (Negative) Urine Glucose (UA) (Negative) g/dL Urine Ketones (NEGATIVE) Urine Occult Blood (Negative) Urine Nitrate (Negative) Urine Bilirubin (NEGATIVE) Ur Bilirubin Confirm (Negative) Urine Urobilinogen (0.2) E.U./dL Ur Leukocyte Esterase (NEGATIVE) Urine RBC (0-5/HPF) Urine WBC (0-5/HPF) Ur Squamous Epith Cells (0-5/HPF) Urine Bacteria (None) Ur Culture Indicated? Chlamy pneumoniae PCR (Not Detect) Adenovirus (PCR) (Not Detect) B. pertussis DNA (PCR) (Not Detecte) B.parapertussis DNA PCR (Not Detecte) Coronavirus OC43 (PCR) (Not Detect) Coronavirus HKU1 (PCR) (Not Detect) Coronavirus 229E (PCR) (Not Detect) SARS-CoV-2 (PCR) (Not Detecte) Coronavirus NL63 (PCR) (Not Detect) Human Metapneumovir PCR (Not Detect) Influenza Type A (PCR) (Not Detect) Influenza Type B (PCR) (Not Detect) M. pneumoniae (PCR) (Not Detect) Parainfluenza 1 (PCR) (Not Detect) Parainfluenza 2 (PCR) (Not Detect) Parainfluenza 3 (PCR) (Not Detect) Parainfluenza 4 (PCR) (Not Detect) RSV (PCR) (Not Detect) Entero/Rhino (PCR) (Not Detect) 10/24/22 10/24/22 10/24/22 Range/Units 08:47 10:05 10:50 WBC (4.5-11.0) X10^3/uL RBC (4.0-5.2) X10^6/uL Hgb (12.0-16.0) g/dL Hct (36-46) % MCV (80-100) fL MCH (26-34) PG MCHC (30-36) % RDW (11.6-14.8) % Plt Count (150-400) X10^3/uL Neut % (Auto) Lymph % (Auto) [place] % (Auto) Eos % (Auto) Baso % (Auto) Lymph # (Auto) [place] # (Auto) Baso # (Auto) Total Counted Seg Neutrophils % (38-70) % Band Neutrophils % (3-7) % Atypical Lymphs % ( - 0) % Monocytes % (Manual) (2-11) % Eosinophils % (Manual) (2-4) % Neutrophils # (Manual) (2986-2320) /uL RBC Morphology PT (10.1-12.7) SECONDS INR (0.9-1.3) APTT (26-36) SECONDS Sodium (137-145) mmol/L Potassium (3.4-5.1) mmol/L Chloride (98-107) mmol/L Carbon Dioxide (22-32) mmol/L BUN (7-17) mg/dL Creatinine (0.52-1.04) mg/dL Estimated GFR (>60) mL/min BUN/Creatinine Ratio (6-22) Glucose (80-110) mg/dL Lactate (0.7-2.1) mmol/L Calcium (8.4-10.2) mg/dL Magnesium (1.6-2.3) mg/dL Total Bilirubin (0.2-1.3) mg/dL AST (14-36) IU/L ALT (<35) IU/L Alkaline Phosphatase (38-126) U/L Total Creatine Kinase (30-135) U/L Troponin I 0.085 H (0.01-0.034) ng/mL NT-Pro-B Natriuret Pep (<450) pg/mL Total Protein (6.3-8.2) g/dL Albumin (3.5-5.0) g/dL Globulin (1.7-4.1) g/dL Albumin/Globulin Ratio (1.0-2.8) Procalcitonin (<0.5) ng/mL TSH (0.47-4.68) uIU/mL Free T4 (0.78-2.19) ng/dL Urine Color [place] Urine Appearance Cloudy Urine pH 5.5 (4.5-8.0) Ur Specific [place] 1.020 (1.000-1.035) Urine Protein 3+ H (Negative) Urine Glucose (UA) Negative (Negative) g/dL Urine Ketones 1+ H (NEGATIVE) Urine Occult Blood 3+ H (Negative) Urine Nitrate Positive H (Negative) Urine Bilirubin 1+ H (NEGATIVE) Ur Bilirubin Confirm Negative (Negative) Urine Urobilinogen 1.0 (0.2) E.U./dL Ur Leukocyte Esterase 2+ H (NEGATIVE) Urine RBC 30-100/hpf H (0-5/HPF) Urine WBC >100/hpf H (0-5/HPF) Ur Squamous Epith Cells 0-1 /hpf (0-5/HPF) Urine Bacteria Many (>30) H (None) Ur Culture Indicated? Specimen cultured Chlamy pneumoniae PCR Not detected (Not Detect) Adenovirus (PCR) Not detected (Not Detect) B. pertussis DNA (PCR) Not detected (Not Detecte) B.parapertussis DNA PCR Not detected (Not Detecte) Coronavirus OC43 (PCR) Not detected (Not Detect) Coronavirus HKU1 (PCR) Not detected (Not Detect) Coronavirus 229E (PCR) Not detected (Not Detect) SARS-CoV-2 (PCR) Not detected (Not Detecte) Coronavirus NL63 (PCR) Not detected (Not Detect) Human Metapneumovir PCR Not detected (Not Detect) Influenza Type A (PCR) Not detected (Not Detect) Influenza Type B (PCR) Not detected (Not Detect) M. pneumoniae (PCR) Not detected (Not Detect) Parainfluenza 1 (PCR) Not detected (Not Detect) Parainfluenza 2 (PCR) Not detected (Not Detect) Parainfluenza 3 (PCR) Not detected (Not Detect) Parainfluenza 4 (PCR) Not detected (Not Detect) RSV (PCR) Not detected (Not Detect) Entero/Rhino (PCR) Not detected (Not Detect) 10/24/22 Range/Units 10:50 WBC (4.5-11.0) X10^3/uL RBC (4.0-5.2) X10^6/uL Hgb (12.0-16.0) g/dL Hct (36-46) % MCV (80-100) fL MCH (26-34) PG MCHC (30-36) % RDW (11.6-14.8) % Plt Count (150-400) X10^3/uL Neut % (Auto) Lymph % (Auto) [place] % (Auto) Eos % (Auto) Baso % (Auto) Lymph # (Auto) [place] # (Auto) Baso # (Auto) Total Counted Seg Neutrophils % (38-70) % Band Neutrophils % (3-7) % Atypical Lymphs % ( - 0) % Monocytes % (Manual) (2-11) % Eosinophils % (Manual) (2-4) % Neutrophils # (Manual) (7345-9079) /uL RBC Morphology PT (10.1-12.7) SECONDS INR (0.9-1.3) APTT (26-36) SECONDS Sodium (137-145) mmol/L Potassium (3.4-5.1) mmol/L Chloride (98-107) mmol/L Carbon Dioxide (22-32) mmol/L BUN (7-17) mg/dL Creatinine (0.52-1.04) mg/dL Estimated GFR (>60) mL/min BUN/Creatinine Ratio (6-22) Glucose (80-110) mg/dL Lactate 7.6 H* (0.7-2.1) mmol/L Calcium (8.4-10.2) mg/dL Magnesium (1.6-2.3) mg/dL Total Bilirubin (0.2-1.3) mg/dL AST (14-36) IU/L ALT (<35) IU/L Alkaline Phosphatase (38-126) U/L Total Creatine Kinase (30-135) U/L Troponin I (0.01-0.034) ng/mL NT-Pro-B Natriuret Pep (<450) pg/mL Total Protein (6.3-8.2) g/dL Albumin (3.5-5.0) g/dL Globulin (1.7-4.1) g/dL Albumin/Globulin Ratio (1.0-2.8) Procalcitonin (<0.5) ng/mL TSH (0.47-4.68) uIU/mL Free T4 (0.78-2.19) ng/dL Urine Color Urine Appearance Urine pH (4.5-8.0) Ur Specific [place] (1.000-1.035) Urine Protein (Negative) Urine Glucose (UA) (Negative) g/dL Urine Ketones (NEGATIVE) Urine Occult Blood (Negative) Urine Nitrate (Negative) Urine Bilirubin (NEGATIVE) Ur Bilirubin Confirm (Negative) Urine Urobilinogen (0.2) E.U./dL Ur Leukocyte Esterase (NEGATIVE) Urine RBC (0-5/HPF) Urine WBC (0-5/HPF) Ur Squamous Epith Cells (0-5/HPF) Urine Bacteria (None) Ur Culture Indicated? Chlamy pneumoniae PCR (Not Detect) Adenovirus (PCR) (Not Detect) B. pertussis DNA (PCR) (Not Detecte) B.parapertussis DNA PCR (Not Detecte) Coronavirus OC43 (PCR) (Not Detect) Coronavirus HKU1 (PCR) (Not Detect) Coronavirus 229E (PCR) (Not Detect) SARS-CoV-2 (PCR) (Not Detecte) Coronavirus NL63 (PCR) (Not Detect) Human Metapneumovir PCR (Not Detect) Influenza Type A (PCR) (Not Detect) Influenza Type B (PCR) (Not Detect) M. pneumoniae (PCR) (Not Detect) Parainfluenza 1 (PCR) (Not Detect) Parainfluenza 2 (PCR) (Not Detect) Parainfluenza 3 (PCR) (Not Detect) Parainfluenza 4 (PCR) (Not Detect) RSV (PCR) (Not Detect) Entero/Rhino (PCR) (Not Detect) Point of Care Testing Glucose POC [address] scan - head: Radiologist's Impression: Shirlene Calvo? 82? F? 1940 ? ?? Allergy/Adv: No Known Drug Allergies [address] [id number] Scan ReportSigned Patient: Shirlene Calvo EMR#: [id number]: 1940cct:[id number]/Sex: 82 / FDate of Service: 10/24/22Loc: EDAccession Number: [id number]? ? Procedure: CT head/brain wo con Ordering Provider: Brionna Rothman D.O. PROCEDURE:? CT HEAD/BRAIN WO CON ? INDICATIONS:? unresponsive, hypotension, off midodrine ? TECHNIQUE:? Noncontrast 4.5 mm thick angled axial sections acquired from the foramen magnum to the vertex, with coronal and sagittal reformats.? For radiation dose reduction, the following was used:? automated exposure control, adjustment of mA and/or kV according to patient size.? ? COMPARISON:? [facility], CT, CT HEAD/BRAIN WO CON, 02/21/2022, 14:58. ? FINDINGS:? Image quality:? Good ? CSF spaces: Basal cisterns are patent. Lateral ventricles are symmetric. Volume:? Vascular calcifications. 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 Volume loss is present. These findings are moderate to severe. ? 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 ? Brain:? Possible encephalomalacia in the cerebellum, new compared to prior imaging.? No gross loss of lu-white differentiation elsewhere.? Chronic appearing lacune is also present.? No acute hemorrhage. ? Craniofacial structures: No displaced fracture. Sinuses are clear. Orbits are intact. ? IMPRESSION:? Compared to prior imaging, new, but nonacute appearing small encephalomalacia of the left cerebellum.? No acute intracranial abnormality detected.? If there is high concern for parenchymal pathology, consider further evaluation with MRI.? Dictated by: Landry Caban M.D. on 10/24/2022 at 8:41? ?? Approved by: Landry Caban M.D. on 10/24/2022 at 8:44?? Chest x-ray: Radiologist's Impression: [facility] [address] [place] [id number] XRay Report Signed Patient: Shirlene Calvo MR#: [id number] : 1940 Acct:[id number] Age/Sex: 82 / F Date of Service: 10/24/22 Loc: ED Accession Number: [id number] ?? Procedure: XR chest 1V Ordering Provider: Brionna Rothman D.O. PROCEDURE:? XR CHEST 1V ? INDICATIONS:? unresponsive, hypotension, off midodrine ? TECHNIQUE:? One view of the chest was acquired.? ? COMPARISON:? [facility], CR, XR CHEST 1V, 08/19/2019, 13:48.? [facility], CR, XR CHEST 1V, 07/09/2020, 15:01. ? FINDINGS:? ? Surgical changes and devices:? None.? ? Lungs and pleura:? Lungs are clear.? Mild hyperinflation suggesting COPD.? No pleural effusions or pneumothorax.? ? Mediastinum:? Mediastinal contours appear normal.? Heart size is normal.? ? Bones and chest wall:? No suspicious bony lesions.? Overlying soft tissues appear unremarkable.? ? ? IMPRESSION:? No acute cardiopulmonary disease. ? ? Dictated by: Chris Gannon M.D. on 10/24/2022 at 8:39 ? ? Approved by: Chris Gannon M.D. on 10/24/2022 at 8:40?? Ct chest/abd/pelvis: Radiologist's Impression: Shirlene Calvo??82??F??1940 ? Allergy/Adv: No Known Drug Allergies (More??) Close Chest/Abdomen/Pelvis CT (Signed) Landry Caban - 10/24/[address] (Signed) Landry Caban - 10/24/22 Chest X-Ray (Signed) Chris Gannon - 10/24/[address] (Signed) Mirta Barkley - 02/21/[address] (Signed) Aba Lozada - 07/09/20 Chest X-Ray (Signed) Aba Lozada - 07/09/20 Telemetry Strips 09/21/19 Echocardiogram Ultrasound (Signed) Delon Teixeira - 08/20/19 Chest X-Ray (Signed) LópezSeleneMing - 08/19/19 Telemetry Strips 08/19/[address] (Signed) Steve Gillettedidiah - 08/19/19 Knee X-Ray (Signed) SuhailSamy - 08/19/19 Shoulder X-Ray (Signed) Uzair Gillette - 08/19/19 Telemetry Strips 03/16/19 Abdomen/Pelvis CT (Signed) Samy Jang - 03/15/19 Bone Densitometry 05/12/18 Launch?[place] [id number] CT Scan Report Signed Patient: Shirlene Calvo MR#: [id number] : 1940 Acct:[id number] Age/Sex: 82 / F Date of Service: 10/24/22 Loc: ED Accession Number: [id number] ?? Procedure: CT chest abd pel wo con Ordering Provider: Brionna Rothman D.O. PROCEDURE:? CT CHEST ABD PEL WO CON ? INDICATIONS:? unresponsive, fever, low O2 ? TECHNIQUE:? After the administration of oral contrast, 5 mm thick sections acquired from the lung apices to the symphysis pubis.? 5 mm thick coronal and sagittal reformats acquired, with additional 7 mm coronal MIP reformats through the lungs.? For radiation dose reduction, the following was used:? automated exposure control, adjustment of mA and/or kV according to patient size.? ? COMPARISON:? None. ? FINDINGS:? Image quality:? Motion degraded ? Lungs and pleura:? Bibasilar atelectasis.? No dense consolidation, pleural effusion, or pneumothorax.? There are areas of apex scarring and bronchiectasis.? Numerous nodules, some which in a centrilobular pattern or lower lungs, probably infectious/inflammatory. ? Mediastinum, heart, and esophagus:? No hiatal hernia.? Hypoattenuating blood pool suggestive of anemia.? No pathologic lymphadenopathy by size criteria on this noncontrast study. ? Chest wall and thyroid:? Diminutive thyroid.? There is a right breast mass measuring 2.1 cm. ? Solid organs:? Liver is unremarkable.? Distended gallbladder with moderate surrounding inflammation and gallstones. ? There is also suspected biliary ductal wall thickening and mild dilation measuring 1 cm at the CBD.? The pancreatic duct is nondilated.? Mild pancreatic parenchymal atrophy.? No splenomegaly.? No adrenal nodules. ? Mild right hydronephrosis, with urothelial thickening and mild surrounding fat stranding. ?Partially staghorn calculus in the right pelvicaliceal system, measuring up to 1.3 x 0 1.0 by 1.2 cm.? Density is over 400. Multiple smaller surrounding calculi are present. Smaller nonobstructing calculi are present the left calyceal system.? Large left parapelvic cyst. ? Vessels and lymph nodes:? Atherosclerotic calcifications.? Nonaneurysmal aorta.? No pathologic lymph nodes by size criteria. ? Bowel and peritoneum:? No bowel obstruction.? Colonic diverticula.? Moderate distal colonic and rectal fecal loading.? There are colonic diverticula.? No drainable intraperitoneal abscess.? Nonspecific mesenteric fat stranding is present. ? Body wall:? Unremarkable ? Pelvis:? Reproductive organs are not well evaluated on this study.? Suspected c alcified fibroids.? Some gas is seen at the vaginal fornix.? Mild bladder wall thickening, limited evaluation due to under distension.? These findings could be better evaluated ultrasound if necessary. ? Bones:? Degenerative changes, no acute or suspicious finding.? Heterogeneous attenuation of the marrow may be senescent. ? IMPRESSION:? Distended gallbladder with gallstones and surrounding fat st randing.? Mildly dilated CBD.? Correlate with LFTs and consider further imaging with ultrasound and possible MRCP/ERCP for cholecystitis and choledocholithiasis/cholangitis. ? Centrilobular pulmonary nodularity, likely infectious/inflammatory.? Consider future imaging surveillance to assess for resolution. ? Suspected right breast mass.? Correlate with mammography and ultrasound. ? Staghorn right renal collecting system calculus with mild hydronephrosis.? Ureter thickening and mild surrounding fat stranding.? Mild bladder wall thickening.? Correlate with urinalysis.? ? Nonspecific mesenteric fat stranding.? No drainable intra-abdominal fluid collection. ? Other findings as above.? ? Dictated by: Landry Caban M.D. on 10/24/2022 at 9:54 ? ? Approved by: Landry Caban M.D. on 10/24/2022 at 10:05?? ECG Data Attestation: I personally reviewed and interpreted this ECG as follows: Prior ECG tracings: available for review Interpretation: Sinus tachycardia occasional PVC rate of 108 WI 124 QRS of 72 and QTC 442. No acute ST elevations lateral depression V3 through 6. Patient has new ST depression compared to prior. MDM Narrative Medical decision making narrative: Spoke with patient's son who is listed as her guardian/decision maker on POLST. Discussed pressor use he is agreeable he states if there is an easily reversible cause would be okay to intervention. Discussed she does have a POLST form that patient filled out that states DNR/DNI so will respect this, she has had some increasing O2 requirements. She is had persistent hypotension without bedridden would likely not resolve on its, patient did have nor epi started. Discussed with son that he should come to see the patient she is quite ill at this time and concerned that she may not survive. Patient's son did not quite seem to understand but did say he will come. Initial head CT and chest x-ray show no acute change but some new encephalomalacia. Labs show significant change with acute kidney injury, lactic acidosis of 9, chloride of 111 CO2 of 16 with a BUN of 36, calcium 7.9, troponin is indeterminate at 0.089 with a BNP of 8490. Patient has a leukocytosis and a hemoglobin of 10 with platelets of 117, segmented neutrophils are 74. Patient has received 2 L bolus persistently hypotensive norepinephrine was started and 1/3 L obtained although this will likely fluid overload patient. Suspect infection patient is febrile, tachycardic hypotensive likely complicated by her Parkinson's and use of midodrine which she has missed. With patient's significant lactate. CT chest/abd/pelvis: Patient has what appears to be pneumonia, possible breast mass, cholecystitis with gallstones and staghorn calculi with thickening of the urothelium in mild hydro. Urology, Chance: Spoke with Dr. Fletcher he reviewed images does not think that the staghorn is likely obstructing would treat the UTI but would not take f or ureteral stent at this point especially given her level of clinical deterioration. If develops bacteremia or not improving then would proceed with ureteral stent. General Surgery: Hector: Would recommend IV antibiotics. Transfer for cholecystectomy tube. Spoke with family about goals of care: Spoke with patient's son at bedside, his brother Thom over the phone as well as patient's sister who is at bedside. After some discussion they note that patient would not want to be transferred to have surgeries or interventions. Discussed we can keep her here but would be comfort measures only would stop antibiotics, pressors and patient would likely within the next 24 hours. After some discussion with patient and family they elect for comfort measures, discussed. Norepinephrine, antibiotics no other supportive measures. Discussed with Dr. Blank who accepts for admission with expected demise in the next 24 hours or less. Critical Care Time Critical Care Time Critical Care Time: Yes Total Critical Care Time: 45 Attestation: The high probability of a clinically significant, sudden or life threatening deterioration of the [] system(s) required my full and direct attention, intervention and personal management. The aggregate critical care time was [] minutes. This time is in addition to time spent performing reported procedures but includes the following: [x] Data Review and interpretation [x] Patient assessment and monitoring of vital signs [x] Documentation [x] Medication orders and management Discharge Plan Departure Patient Disposition: Admitted As Inpatient Clinical Impression: Pneumonia, Cholelithiasis, Acute cholecystitis, Acute UTI, Septic shock, Staghorn calculus Admit Date/Time: 10/24/22 13:19 Admit Provider: Reji Blank
[2022-10-24] MEDS: ACETAMINOPHEN IV 1,000 MG/100 ML VIAL 400 MG IV (08:05)
[2022-10-24] MEDS: SODIUM CHLORIDE 0.9% 1,000 ML 1000 ML IV ×2 (08:06→08:32)
[2022-10-24 08:56] LABS: Hematocrit 31.7 % (36-46); Hemoglobin 10.4 g/dL (12.0-16.0); Mean Corpuscular HGB Conc 32.7 % (30-36); Mean Corpuscular Hemoglobin 32.4 PG (26-34); Mean Corpuscular Volume 98.9 fL (80-100); Platelet Count 117 X10^3/uL (150-400); Red Cell Distribution Width 13.9 % (11.6-14.8); White Blood Cell Count 13.4 X10^3/uL (4.5-11.0)
[2022-10-24 08:57] LABS: Add Manual Diff / Slide Review YES
[2022-10-24 08:59] LABS: INR 1.2 (0.9-1.3); Prothrombin Time 13.2 SECONDS (10.1-12.7)
[2022-10-24 09:02] LABS: PTT Partial Thromboplastin Tim 30 SECONDS (26-36)
[2022-10-24 09:03] LABS: Albumin Globulin Ratio 1.1 (1.0-2.8); Alkaline Phosphatase 112 U/L (38-126); BUN Creatinine Ratio 13.6 (6-22); Bilirubin Total 0.7 mg/dL (0.2-1.3); Blood Urea Nitrogen 36 mg/dL (7-17); Calcium 7.9 mg/dL (8.4-10.2); Carbon Dioxide 16 mmol/L (22-32); Chloride 111 mmol/L (98-107); Creatine Kinase 131 U/L (30-135); Estimated Glomerular Filt Rate 17 mL/min (>60); Globulin 2.8 g/dL (1.7-4.1); Glucose 84 mg/dL (80-110); HEMOLYSIS < 15 (0-50); Potassium 4.1 mmol/L (3.4-5.1); Sodium 140 mmol/L (137-145); Total Protein 5.8 g/dL (6.3-8.2)
--- NOTE | 2022-10-24 09:06 | DI.CT.S_ITS ---
PROCEDURE: CT CHEST ABD PEL WO CON INDICATIONS: unresponsive, fever, low O2 TECHNIQUE: After the administration of oral contrast, 5 mm thick sections acquired from the lung apices to the symphysis pubis. 5 mm thick coronal and sagittal reformats acquired, with additional 7 mm coronal MIP reformats through the lungs. For radiation dose reduction, the following was used: automated exposure control, adjustment of mA and/or kV according to patient size. COMPARISON: None. FINDINGS: Image quality: Motion degraded Lungs and pleura: Bibasilar atelectasis. No dense consolidation, pleural effusion, or pneumothorax. There are areas of apex scarring and bronchiectasis. Numerous nodules, some which in a centrilobular pattern or lower lungs, probably infectious/inflammatory. Mediastinum, heart, and esophagus: No hiatal hernia. Hypoattenuating blood pool suggestive of anemia. No pathologic lymphadenopathy by size criteria on this noncontrast study. Chest wall and thyroid: Diminutive thyroid. There is a right breast mass measuring 2.1 cm. Solid organs: Liver is unremarkable. Distended gallbladder with moderate surrounding inflammation and gallstones. There is also suspected biliary ductal wall thickening and mild dilation measuring 1 cm at the CBD. The pancreatic duct is nondilated. Mild pancreatic parenchymal atrophy. No splenomegaly. No adrenal nodules. Mild right hydronephrosis, with urothelial thickening and mild surrounding fat stranding. Partially staghorn calculus in the right pelvicaliceal system, measuring up to 1.3 x 0 1.0 by 1.2 cm. Density is over 400. Multiple smaller surrounding calculi are present. Smaller nonobstructing calculi are present the left calyceal system. Large left parapelvic cyst. Vessels and lymph nodes: Atherosclerotic calcifications. Nonaneurysmal aorta. No pathologic lymph nodes by size criteria. Bowel and peritoneum: No bowel obstruction. Colonic diverticula. Moderate distal colonic and rectal fecal loading. There are colonic diverticula. No drainable intraperitoneal abscess. Nonspecific mesenteric fat stranding is present. Body wall: Unremarkable Pelvis: Reproductive organs are not well evaluated on this study. Suspected calcified fibroids. Some gas is seen at the vaginal fornix. Mild bladder wall thickening, limited evaluation due to under distension. These findings could be better evaluated ultrasound if necessary. Bones: Degenerative changes, no acute or suspicious finding. Heterogeneous attenuation of the marrow may be senescent. IMPRESSION: Distended gallbladder with gallstones and surrounding fat stranding. Mildly dilated CBD. Correlate with LFTs and consider further imaging with ultrasound and possible MRCP/ERCP for cholecystitis and choledocholithiasis/cholangitis. Centrilobular pulmonary nodularity, likely infectious/inflammatory. Consider future imaging surveillance to assess for resolution. Suspected right breast mass. Correlate with mammography and ultrasound. Staghorn right renal collecting system calculus with mild hydronephrosis. Ureter thickening and mild surrounding fat stranding. Mild bladder wall thickening. Correlate with urinalysis. Nonspecific mesenteric fat stranding. No drainable intra-abdominal fluid collection. Other findings as above. Dictated by: Landry Caban M.D. on 10/24/2022 at 9:54 Approved by: Landry Caban M.D. on 10/24/2022 at 10:05
[2022-10-24 09:07] LABS: Neutrophils Absolute Manual 11390 /uL (3000-5900); RBC Morphology Normal Morphology; Total Cells Counted 100
[2022-10-24 09:09] LABS: Aspartate Aminotransferase 103 IU/L (14-36)
[2022-10-24 09:10] LABS: Alanine Aminotransferase 60 IU/L (<35)
[2022-10-24 09:12] LABS: Lactate (Lactic Acid) 9.4 mmol/L (0.7-2.1)
[2022-10-24 09:15] LABS: NT-proBNP (BNP-Adult 18+) 8490 pg/mL (<450); Troponin I 0.089 ng/mL (0.01-0.034)
--- NOTE | 2022-10-24 09:21 | PC.NURSE ---
Patient left department with JOSE LUIS duenas.
--- NOTE | 2022-10-24 09:23 | PC.NURSE ---
Patient arrived with report from EMS that the day nurse called 911 due to the change in patient. No staff can verify when her status changed and she began not responding. Patient has known hx of hypotension. Provider and RN unable to open patient eyelid or mouth as patient is actively forcing them shut. Patient will respond to painful stumli but not other forms of stimuli.
[2022-10-24] MEDS: PIPERACILLIN/TAZO 4.5 GM in SODIUM CHLORIDE 0.9% 100 ML IV (09:35)
[2022-10-24] MEDS: SODIUM CHLORIDE 0.9% 1,000 ML 799 ML IV (09:37)
[2022-10-24 09:44] LABS: Procalcitonin 164 ng/mL (<0.5)
[2022-10-24 09:55] LABS: Adenovirus Not Detected (Not Detect); B. parapertussis Not Detected (Not Detecte); Bordetella pertussis Not Detected (Not Detecte); Chlamydophila pneumoniae Not Detected (Not Detect); Coronavirus 229E Not Detected (Not Detect); Coronavirus HKU1 Not Detected (Not Detect); Coronavirus NL 63 Not Detected (Not Detect); Coronavirus OC43 Not Detected (Not Detect); Human Metapneumovirus Not Detected (Not Detect); Human Rhinovirus/Enterovirus Not Detected (Not Detect); Influenza A Not Detected (Not Detect); Influenza B Not Detected (Not Detect); Mycoplasma pneumoniae Not Detected (Not Detect); Parainfluenza Virus 1 Not Detected (Not Detect); Parainfluenza Virus 2 Not Detected (Not Detect); Parainfluenza Virus 3 Not Detected (Not Detect); Parainfluenza Virus 4 Not Detected (Not Detect); Respiratory Syncytial Virus Not Detected (Not Detect); SARS- CoV-2 Not Detected (Not Detecte)
[2022-10-24 10:00] LABS: Free T4, Direct Thyroxine 1.34 ng/dL (0.78-2.19)
--- NOTE | 2022-10-24 10:22 | PC.NURSE ---
DI nurse at bedside to place midline per provider order for norepinephrine administration.
[2022-10-24] MEDS: NOREPINEPHRINE BITARTRATE/D5W 4 MG/250 ML PLAST..BAG 24.788 MG IV (10:27)
[2022-10-24 10:37] LABS: Appearance Urine UA CLOUDY; Bilirubin Urine UA 1+ (NEGATIVE); Color Urine UA ORANGE; Glucose Urine UA NEGATIVE (Negative); Ketones Urine UA 1+ (NEGATIVE); Leukocyte Esterase Urine UA 2+ (NEGATIVE); Nitrite Urine UA POSITIVE (Negative); Occult Blood Urine UA 3+ (Negative); Protein Urine UA 3+ (Negative)
[2022-10-24 10:38] LABS: pH Urine UA 5.5 (4.5-8.0)
[2022-10-24 10:39] LABS: Magnesium 2.3 mg/dL (1.6-2.3)
[2022-10-24 10:40] LABS: Ictotest Urine Negative (Negative)
--- NOTE | 2022-10-24 10:51 | PC.NURSE ---
Son arrived at bedside as DI nurse placed midline. Provider talked to son at bedside.
[2022-10-24 10:52] LABS: Reflexed Lactate in 2 Hours Y
--- NOTE | 2022-10-24 10:55 | PC.NURSE ---
DI nurse discussed with provider and provider gave DI nurse verbal permission to place a midline instead of a pic line. DI nurse is currently unable to chart in medical record. This RN witnessed DI place right upper arm midline that is 8cm, 20G.
[2022-10-24 10:56] LABS: Bacteria Urine Many (>30); Culture Indicated Urine Specimen Cultured; RBC Urine 30-100/HPF (0-5/HPF); Squamous Epithelial Cell Urine 0-1 /HPF (0-5/HPF); WBC Urine >100/HPF (0-5/HPF)
[2022-10-24] MEDS: SODIUM CHLORIDE 0.9% 1,000 ML 150 ML IV (11:21)
[2022-10-24 11:28] LABS: Lactate 2HR (Lactic Acid Rflx) 7.6 mmol/L (0.7-2.1)
[2022-10-24 11:56] LABS: Troponin I 0.085 ng/mL (0.01-0.034)
--- NOTE | 2022-10-24 15:40 | PM.HP.1 ---
History of Present Illness History of Present Illness Date Patient Seen: 10/24/22 Time Patient Seen: 15:00 Chief complaint: Unresponsive Narrative: Shirlene Calvo is an 81-year-old female with past medical history of Parkinson's disease, hypothyroidism, essential tremor, and hypertension who presented with altered mental status this morning from her care facility. Upon arrival she was responsive to painful stimuli but did not open her eyes and was not able to coherently answer questions. She was hypotensive in the field, given IV fluids. Workup in the ER revealed multiple etiologies, including staghorn calculi with UTI, gallbladder with thickening and gallstones, and pneumonia with possible breast mass. Surgery recommended cholecystostomy tube if treatment desired, urology did not recommend any acute interventions. She had worsening hypotension despite 2L fluid bolus and had high levophed requirements. Goals of care were discussed with the family, and family elected for comfort measures only. BP on arrival to the floor was 54/24. She is unable to answer any questions but appears comfortable. Patient's sister is at bedside, had no additional questions at this time. Did endorse continued desire to make sure patient is comfortable. [facility] Medical History Chicken pox Chronic back pain (~2013) Colitis Essential tremor (06/26/15) Fatigue (08/29/15) GI (gastrointestinal bleed) Hypothyroidism (acquired) Macular degeneration Measles Rosacea Rubella Shoulder pain (~1988) Surgical History Anesthesia History of tonsillectomy (~194) S/P cataract extraction Status post colonoscopy (~2007) Family History Grandfather Heart disease Grandmother Heart disease Mother Mental health problem Grandfather Stroke Grandmother Cancer Father Cancer Social History marital status: household members: none lives independently: Yes Smoking Status: Never smoker alcohol intake: former substance use type: does not use Meds Home Medications and Allergies Home Medications Medication Instructions Recorded Confirmed Type levothyroxine 25 mcg tablet 25 mcg PO QAM #90 tabs 04/28/19 10/24/22 Rx PreserVision AREDS 1 tab PO BID 10/24/22 10/24/22 History acetaminophen 650 mg PO TID 10/24/22 10/24/22 History carbidopa 25 mg-levodopa 100 mg 1.5 tab PO TID 10/24/22 10/24/22 History tablet carbidopa ER 50 mg-levodopa 200 mg 1 tab PO ONCE HS 10/24/22 10/24/22 History tablet,extended release carboxymethylcellulose sodium 0.5 1 drp EYE-BOTH TID 10/24/22 10/24/22 History % eye drops entacapone 200 mg tablet 200 mg PO TID 10/24/22 10/24/22 History magnesium oxide 400 mg PO DAILY 10/24/22 10/24/22 History midodrine 5 mg tablet 2.5 mg PO TID 10/24/22 10/24/22 History polyethylene glycol 3350 17 17 g PO DAILY 10/24/22 10/24/22 History gram/dose oral powder (Miralax) simethicone 125 mg tablet 125 mg PO Q4HR PRN Hiccups 10/24/22 10/24/22 History Allergies Allergy/AdvReac Type Severity Reaction Status Date / Time No Known Drug Allergies Allergy Verified 07/09/20 13:17 Review of Systems Review of Systems Narrative: Unable to perform given patients mentation Exam Vital Signs (past 8 hours): - 10/24/22 07:51 10/24/22 07:45 10/24/22 07:45 Temperature 101.1 F H Pulse Rate 106 H 108 H Respiratory Rate 22 Blood Pressure 78/48 L 78/48 L Pulse Oximetry 97 96 Oxygen Delivery Method Room Air Oxygen Flow Rate 10/24/22 08:00 10/24/22 08:00 10/24/22 08:05 Temperature Pulse Rate 103 H Respiratory Rate 25 H Blood Pressure 89/50 L 94/50 L Pulse Oximetry 98 Oxygen Delivery Method Oxygen Flow Rate 10/24/22 08:05 10/24/22 08:10 10/24/22 08:10 Temperature Pulse Rate 101 H 101 H Respiratory Rate 21 21 Blood Pressure 92/54 L Pulse Oximetry 97 93 Oxygen Delivery Method Oxygen Flow Rate 10/24/22 08:15 10/24/22 08:15 10/24/22 08:20 Temperature Pulse Rate 100 H 98 H Respiratory Rate 21 20 Blood Pressure 83/50 L Pulse Oximetry Oxygen Delivery Method Oxygen Flow Rate 10/24/22 08:20 10/24/22 08:25 10/24/22 08:25 Temperature Pulse Rate 97 H Respiratory Rate 20 Blood Pressure 78/49 L 76/37 L Pulse Oximetry Oxygen Delivery Method Oxygen Flow Rate 10/24/22 08:29 10/24/22 08:29 10/24/22 08:30 Temperature Pulse Rate 98 H Respiratory Rate 21 Blood Pressure 74/44 L 74/45 L Pulse Oximetry 91 Oxygen Delivery Method Oxygen Flow Rate 10/24/22 08:30 10/24/22 08:40 10/24/22 08:40 Temperature Pulse Rate 98 H 100 H Respiratory Rate 20 21 Blood Pressure 79/50 L Pulse Oximetry 96 94 Oxygen Delivery Method Oxygen Flow Rate 10/24/22 08:45 10/24/22 08:45 10/24/22 08:50 Temperature Pulse Rate 97 H 97 H Respiratory Rate 20 19 Blood Pressure 75/50 L Pulse Oximetry 88 L Oxygen Delivery Method Room Air Oxygen Flow Rate 10/24/22 08:50 10/24/22 08:55 10/24/22 08:55 Temperature Pulse Rate 96 H Respiratory Rate 19 Blood Pressure 74/49 L 79/47 L Pulse Oximetry 89 L Oxygen Delivery Method Room Air Oxygen Flow Rate 10/24/22 09:00 10/24/22 09:00 10/24/22 09:07 Temperature Pulse Rate 97 H 99 H Respiratory Rate 19 19 Blood Pressure 70/47 L Pulse Oximetry 88 L 92 Oxygen Delivery Method Room Air Nasal Cannula Oxygen Flow Rate 5 10/24/22 09:07 10/24/22 09:10 10/24/22 09:10 Temperature Pulse Rate 99 H Respiratory Rate 20 Blood Pressure 76/51 L 74/46 L Pulse Oximetry 93 Oxygen Delivery Method High Flow Nasal Cannula Oxygen Flow Rate 10/24/22 09:15 10/24/22 09:15 10/24/22 09:30 Temperature Pulse Rate 100 H Respiratory Rate 21 Blood Pressure 76/48 L 84/53 L Pulse Oximetry 93 Oxygen Delivery Method Nasal Cannula Oxygen Flow Rate 5 10/24/22 09:30 10/24/22 09:35 10/24/22 09:35 Temperature 99.6 F Pulse Rate 97 H 96 H Respiratory Rate 21 19 Blood Pressure 81/53 L Pulse Oximetry 99 99 Oxygen Delivery Method Nasal Cannula Nasal Cannula Oxygen Flow Rate 5 5 10/24/22 09:40 10/24/22 09:40 10/24/22 09:49 Temperature Pulse Rate 99 H Respiratory Rate 20 Blood Pressure 83/51 L 80/48 L Pulse Oximetry 100 Oxygen Delivery Method Nasal Cannula Oxygen Flow Rate 5 10/24/22 09:49 10/24/22 09:50 10/24/22 09:50 Temperature Pulse Rate 101 H 98 H Respiratory Rate 17 17 Blood Pressure 74/43 L Pulse Oximetry 98 98 Oxygen Delivery Method Nasal Cannula Nasal Cannula Oxygen Flow Rate 5 5 10/24/22 09:55 10/24/22 09:55 10/24/22 10:00 Temperature Pulse Rate 104 H Respiratory Rate 21 Blood Pressure 90/55 L 76/47 L Pulse Oximetry 99 Oxygen Delivery Method Oxygen Flow Rate 10/24/22 10:00 10/24/22 10:05 10/24/22 10:05 Temperature Pulse Rate 95 H 102 H Respiratory Rate 18 21 Blood Pressure 79/51 L Pulse Oximetry 99 99 Oxygen Delivery Method Oxygen Flow Rate 10/24/22 10:10 10/24/22 10:10 10/24/22 10:15 Temperature 99.0 F Pulse Rate 99 H 99 H Respiratory Rate 20 20 Blood Pressure 72/48 L Pulse Oximetry 100 Oxygen Delivery Method Oxygen Flow Rate 10/24/22 10:15 10/24/22 10:21 10/24/22 10:21 Temperature 99.7 F H Pulse Rate 101 H Respiratory Rate 22 Blood Pressure 69/46 L 73/44 L Pulse Oximetry 95 Oxygen Delivery Method Nasal Cannula Oxygen Flow Rate 4 10/24/22 10:25 10/24/22 10:25 10/24/22 10:30 Temperature 99.9 F H Pulse Rate 100 H Respiratory Rate 19 Blood Pressure 68/38 L 69/39 L Pulse Oximetry 96 Oxygen Delivery Method Nasal Cannula Oxygen Flow Rate 4 10/24/22 10:30 10/24/22 10:35 10/24/22 10:35 Temperature 99.9 F H 99.9 F H Pulse Rate 100 H 105 H Respiratory Rate 18 21 Blood Pressure 84/52 L Pulse Oximetry 95 96 Oxygen Delivery Method Nasal Cannula High Flow Nasal Cannula Oxygen Flow Rate 4 4 10/24/22 10:37 10/24/22 10:37 10/24/22 10:40 Temperature 99.9 F H 99.9 F H Pulse Rate 102 H 108 H Respiratory Rate 18 22 Blood Pressure 103/61 Pulse Oximetry 96 95 Oxygen Delivery Method Nasal Cannula Nasal Cannula Oxygen Flow Rate 4 2 10/24/22 10:40 10/24/22 10:46 10/24/22 10:46 Temperature 99.7 F H Pulse Rate 107 H Respiratory Rate 20 Blood Pressure 127/60 114/57 L Pulse Oximetry 94 Oxygen Delivery Method Nasal Cannula Oxygen Flow Rate 2 10/24/22 10:50 10/24/22 10:50 10/24/22 10:55 Temperature 99.7 F H 99.7 F H Pulse Rate 108 H 113 H Respiratory Rate 22 22 Blood Pressure 127/61 Pulse Oximetry 94 95 Oxygen Delivery Method Nasal Cannula Nasal Cannula Oxygen Flow Rate 2 2 10/24/22 10:55 10/24/22 11:00 10/24/22 11:00 Temperature 99.5 F Pulse Rate 117 H Respiratory Rate 23 Blood Pressure 130/60 134/60 Pulse Oximetry 96 Oxygen Delivery Method Nasal Cannula Oxygen Flow Rate 2 10/24/22 11:05 10/24/22 11:05 10/24/22 11:10 Temperature 99.5 F 99.5 F Pulse Rate 114 H 127 H Respiratory Rate 20 24 Blood Pressure 123/60 Pulse Oximetry 96 96 Oxygen Delivery Method Nasal Cannula Room Air Oxygen Flow Rate 2 10/24/22 11:10 10/24/22 11:15 10/24/22 11:15 Temperature 99.5 F Pulse Rate 115 H Respiratory Rate 21 Blood Pressure 133/61 121/60 Pulse Oximetry 95 Oxygen Delivery Method Room Air Oxygen Flow Rate 10/24/22 11:20 10/24/22 11:20 10/24/22 11:25 Temperature 99.5 F 99.5 F Pulse Rate 116 H 116 H Respiratory Rate 22 24 Blood Pressure 117/57 L Pulse Oximetry 94 94 Oxygen Delivery Method Nasal Cannula Nasal Cannula Oxygen Flow Rate 2 2 10/24/22 11:25 10/24/22 11:30 10/24/22 11:35 Temperature 99.5 F Pulse Rate 117 H Respiratory Rate 24 Blood Pressure 111/57 L 126/60 Pulse Oximetry 95 Oxygen Delivery Method Nasal Cannula Oxygen Flow Rate 2 10/24/22 11:35 10/24/22 11:40 10/24/22 11:40 Temperature 99.5 F 99.5 F Pulse Rate 118 H 118 H Respiratory Rate 23 24 Blood Pressure 121/59 L Pulse Oximetry 95 97 Oxygen Delivery Method Nasal Cannula Nasal Cannula Oxygen Flow Rate 2 2 10/24/22 11:45 10/24/22 11:45 10/24/22 11:50 Temperature 99.5 F 99.5 F Pulse Rate 118 H 120 H Respiratory Rate 24 27 H Blood Pressure 123/64 Pulse Oximetry 96 97 Oxygen Delivery Method Nasal Cannula Nasal Cannula Oxygen Flow Rate 2 2 10/24/22 11:50 10/24/22 11:55 10/24/22 11:55 Temperature 99.5 F Pulse Rate 119 H Respiratory Rate 25 H Blood Pressure 124/56 L 120/56 L Pulse Oximetry 96 Oxygen Delivery Method Nasal Cannula Oxygen Flow Rate 2 10/24/22 12:00 10/24/22 12:00 10/24/22 12:05 Temperature 99.5 F 99.5 F Pulse Rate 118 H 118 H Respiratory Rate 24 22 Blood Pressure 124/60 Pulse Oximetry 96 96 Oxygen Delivery Method Nasal Cannula Nasal Cannula Oxygen Flow Rate 2 2 10/24/22 12:05 10/24/22 12:10 10/24/22 12:10 Temperature 99.5 F Pulse Rate 118 H Respiratory Rate 22 Blood Pressure 112/61 124/63 Pulse Oximetry 96 Oxygen Delivery Method Nasal Cannula Oxygen Flow Rate 2 10/24/22 12:15 10/24/22 12:15 10/24/22 12:20 Temperature 99.5 F 99.5 F Pulse Rate 118 H 119 H Respiratory Rate 22 24 Blood Pressure 124/62 Pulse Oximetry 96 Oxygen Delivery Method Nasal Cannula Oxygen Flow Rate 2 10/24/22 12:20 10/24/22 12:25 10/24/22 12:25 Temperature 99.7 F H Pulse Rate 119 H Respiratory Rate 26 H Blood Pressure 115/56 L 119/58 L Pulse Oximetry 96 Oxygen Delivery Method Nasal Cannula Oxygen Flow Rate 2 10/24/22 12:30 10/24/22 12:30 10/24/22 12:35 Temperature 99.7 F H Pulse Rate 121 H Respiratory Rate 26 H Blood Pressure 114/56 L 118/57 L Pulse Oximetry 97 Oxygen Delivery Method Nasal Cannula Oxygen Flow Rate 2 10/24/22 12:35 10/24/22 12:40 10/24/22 12:40 Temperature 99.7 F H 99.7 F H Pulse Rate 121 H 119 H Respiratory Rate 27 H 25 H Blood Pressure 123/55 L Pulse Oximetry 97 97 Oxygen Delivery Method Nasal Cannula Nasal Cannula Oxygen Flow Rate 2 2 10/24/22 12:45 10/24/22 12:45 10/24/22 12:50 Temperature 99.9 F H 99.9 F H Pulse Rate 120 H 119 H Respiratory Rate 27 H 24 Blood Pressure 117/55 L Pulse Oximetry 96 97 Oxygen Delivery Method Nasal Cannula Nasal Cannula Oxygen Flow Rate 2 2 10/24/22 12:50 10/24/22 12:55 10/24/22 12:55 Temperature 99.9 F H Pulse Rate 120 H Respiratory Rate 25 H Blood Pressure 106/55 L 113/54 L Pulse Oximetry 97 Oxygen Delivery Method Oxygen Flow Rate 10/24/22 13:00 10/24/22 13:00 10/24/22 13:05 Temperature 99.9 F H 100.0 F H Pulse Rate 119 H 118 H Respiratory Rate 24 23 Blood Pressure 121/53 L Pulse Oximetry 96 96 Oxygen Delivery Method Nasal Cannula Nasal Cannula Oxygen Flow Rate 2 2 10/24/22 13:05 10/24/22 13:10 10/24/22 13:10 Temperature 100.0 F H Pulse Rate 118 H Respiratory Rate 23 Blood Pressure 111/54 L 119/56 L Pulse Oximetry 97 Oxygen Delivery Method Nasal Cannula Oxygen Flow Rate 2 10/24/22 13:15 10/24/22 13:15 10/24/22 13:20 Temperature 100.0 F H 100.0 F H Pulse Rate 118 H 118 H Respiratory Rate 25 H 24 Blood Pressure 102/59 L Pulse Oximetry 97 97 Oxygen Delivery Method Nasal Cannula Nasal Cannula Oxygen Flow Rate 2 2 10/24/22 13:20 10/24/22 13:25 10/24/22 13:25 Temperature 100.0 F H Pulse Rate 118 H Respiratory Rate 23 Blood Pressure 105/58 L 112/55 L Pulse Oximetry 97 Oxygen Delivery Method Nasal Cannula Oxygen Flow Rate 2 10/24/22 13:30 10/24/22 13:30 10/24/22 13:35 Temperature 100.0 F H 100.0 F H Pulse Rate 118 H 118 H Respiratory Rate 24 25 H Blood Pressure 112/68 Pulse Oximetry 97 97 Oxygen Delivery Method Nasal Cannula Nasal Cannula Oxygen Flow Rate 2 2 10/24/22 13:35 10/24/22 13:40 10/24/22 13:40 Temperature 100.0 F H Pulse Rate 110 H Respiratory Rate 30 H Blood Pressure 112/55 L 65/44 L Pulse Oximetry 96 Oxygen Delivery Method Nasal Cannula Oxygen Flow Rate 2 10/24/22 13:45 10/24/22 13:45 10/24/22 14:10 Temperature 100.0 F H 98.0 F Pulse Rate 105 H 100 H Respiratory Rate 22 17 Blood Pressure 60/36 L 54/24 L Pulse Oximetry 96 89 L Oxygen Delivery Method Nasal Cannula Oxygen Flow Rate 2 0 Oxygen Delivery Method Nasal Cannula Oxygen Flow Rate 0 Narrative Exam Narrative: Gen: acutely ill appearing elderly female, comfortable, no distress, not responsive CV: tachycardic and regular Pulm: slight tachypnea Abd: non-distended Ext: trace edema bilateral lower extremities. Objective Labs 10/24/22 08:20 10/24/22 08:20 Labs: Laboratory Results - last 24 hr 10/24/22 10/24/22 10/24/22 08:20 08:20 08:20 WBC 13.4 H RBC 3.20 L Hgb 10.4 L Hct 31.7 L MCV 98.9 MCH 32.4 MCHC 32.7 RDW 13.9 Plt Count 117 L Neut % (Auto) Not Reportable Lymph % (Auto) Not Reportable Loving % (Auto) Not Reportable Eos % (Auto) Not Reportable Baso % (Auto) Not Reportable Lymph # (Auto) Not Reportable [place] # (Auto) Not Reportable Baso # (Auto) Not Reportable Total Counted 100 Seg Neutrophils % 74.0 H Band Neutrophils % 11.0 H Atypical Lymphs % 11.0 H Monocytes % (Manual) 3.0 Eosinophils % (Manual) 1.0 L Neutrophils # (Manual) 13217 H RBC Morphology Normal morphology PT 13.2 H INR 1.2 APTT 30 Sodium 140 Potassium 4.1 Chloride 111 H Carbon Dioxide 16 L BUN 36 H Creatinine 2.65 H Estimated GFR 17 L BUN/Creatinine Ratio 13.6 Glucose 84 Lactate Calcium 7.9 L Magnesium Total Bilirubin 0.7 AST 103 H ALT 60 H Alkaline Phosphatase 112 Total Creatine Kinase 131 Troponin I 0.089 H NT-Pro-B Natriuret Pep 8490 H Total Protein 5.8 L Albumin 3.0 L Globulin 2.8 Albumin/Globulin Ratio 1.1 Procalcitonin 164 H TSH Free T4 Urine Color Urine Appearance Urine pH Ur Specific [place] Urine Protein Urine Glucose (UA) Urine Ketones Urine Occult Blood Urine Nitrate Urine Bilirubin Ur Bilirubin Confirm Urine Urobilinogen Ur Leukocyte Esterase Urine RBC Urine WBC Ur Squamous Epith Cells Urine Bacteria Ur Culture Indicated? Chlamy pneumoniae PCR Adenovirus (PCR) B. pertussis DNA (PCR) B.parapertussis DNA PCR Coronavirus OC43 (PCR) Coronavirus HKU1 (PCR) Coronavirus 229E (PCR) SARS-CoV-2 (PCR) Coronavirus NL63 (PCR) Human Metapneumovir PCR Influenza Type A (PCR) Influenza Type B (PCR) M. pneumoniae (PCR) Parainfluenza 1 (PCR) Parainfluenza 2 (PCR) Parainfluenza 3 (PCR) Parainfluenza 4 (PCR) RSV (PCR) Entero/Rhino (PCR) 10/24/22 10/24/22 10/24/22 08:20 08:20 08:20 WBC RBC Hgb Hct MCV MCH MCHC RDW Plt Count Neut % (Auto) Lymph % (Auto) Loving % (Auto) Eos % (Auto) Baso % (Auto) Lymph # (Auto) [place] # (Auto) Baso # (Auto) Total Counted Seg Neutrophils % Band Neutrophils % Atypical Lymphs % Monocytes % (Manual) Eosinophils % (Manual) Neutrophils # (Manual) RBC Morphology PT INR APTT Sodium Potassium Chloride Carbon Dioxide BUN Creatinine Estimated GFR BUN/Creatinine Ratio Glucose Lactate 9.4 H* Calcium Magnesium 2.3 Total Bilirubin AST ALT Alkaline Phosphatase Total Creatine Kinase Troponin I NT-Pro-B Natriuret Pep Total Protein Albumin Globulin Albumin/Globulin Ratio Procalcitonin TSH 5.00 H Free T4 1.34 Urine Color Urine Appearance Urine pH Ur Specific [place] Urine Protein Urine Glucose (UA) Urine Ketones Urine Occult Blood Urine Nitrate Urine Bilirubin Ur Bilirubin Confirm Urine Urobilinogen Ur Leukocyte Esterase Urine RBC Urine WBC Ur Squamous Epith Cells Urine Bacteria Ur Culture Indicated? Chlamy pneumoniae PCR Adenovirus (PCR) B. pertussis DNA (PCR) B.parapertussis DNA PCR Coronavirus OC43 (PCR) Coronavirus HKU1 (PCR) Coronavirus 229E (PCR) SARS-CoV-2 (PCR) Coronavirus NL63 (PCR) Human Metapneumovir PCR Influenza Type A (PCR) Influenza Type B (PCR) M. pneumoniae (PCR) Parainfluenza 1 (PCR) Parainfluenza 2 (PCR) Parainfluenza 3 (PCR) Parainfluenza 4 (PCR) RSV (PCR) Entero/Rhino (PCR) 10/24/22 10/24/22 10/24/22 08:47 10:05 10:50 WBC RBC Hgb Hct MCV MCH MCHC RDW Plt Count Neut % (Auto) Lymph % (Auto) Loving % (Auto) Eos % (Auto) Baso % (Auto) Lymph # (Auto) Loving # (Auto) Baso # (Auto) Total Counted Seg Neutrophils % Band Neutrophils % Atypical Lymphs % Monocytes % (Manual) Eosinophils % (Manual) Neutrophils # (Manual) RBC Morphology PT INR APTT Sodium Potassium Chloride Carbon Dioxide BUN Creatinine Estimated GFR BUN/Creatinine Ratio Glucose Lactate Calcium Magnesium Total Bilirubin AST ALT Alkaline Phosphatase Total Creatine Kinase Troponin I 0.085 H NT-Pro-B Natriuret Pep Total Protein Albumin Globulin Albumin/Globulin Ratio Procalcitonin TSH Free T4 Urine Color [place] Urine Appearance Cloudy Urine pH 5.5 Ur Specific [place] 1.020 Urine Protein 3+ H Urine Glucose (UA) Negative Urine Ketones 1+ H Urine Occult Blood 3+ H Urine Nitrate Positive H Urine Bilirubin 1+ H Ur Bilirubin Confirm Negative Urine Urobilinogen 1.0 Ur Leukocyte Esterase 2+ H Urine RBC 30-100/hpf H Urine WBC >100/hpf H Ur Squamous Epith Cells 0-1 /hpf Urine Bacteria Many (>30) H Ur Culture Indicated? Specimen cultured Chlamy pneumoniae PCR Not detected Adenovirus (PCR) Not detected B. pertussis DNA (PCR) Not detected B.parapertussis DNA PCR Not detected Coronavirus OC43 (PCR) Not detected Coronavirus HKU1 (PCR) Not detected Coronavirus 229E (PCR) Not detected SARS-CoV-2 (PCR) Not detected Coronavirus NL63 (PCR) Not detected Human Metapneumovir PCR Not detected Influenza Type A (PCR) Not detected Influenza Type B (PCR) Not detected M. pneumoniae (PCR) Not detected Parainfluenza 1 (PCR) Not detected Parainfluenza 2 (PCR) Not detected Parainfluenza 3 (PCR) Not detected Parainfluenza 4 (PCR) Not detected RSV (PCR) Not detected Entero/Rhino (PCR) Not detected 10/24/22 10:50 WBC RBC Hgb Hct MCV MCH MCHC RDW Plt Count Neut % (Auto) Lymph % (Auto) Loving % (Auto) Eos % (Auto) Baso % (Auto) Lymph # (Auto) [place] # (Auto) Baso # (Auto) Total Counted Seg Neutrophils % Band Neutrophils % Atypical Lymphs % Monocytes % (Manual) Eosinophils % (Manual) Neutrophils # (Manual) RBC Morphology PT INR APTT Sodium Potassium Chloride Carbon Dioxide BUN Creatinine Estimated GFR BUN/Creatinine Ratio Glucose Lactate 7.6 H* Calcium Magnesium Total Bilirubin AST ALT Alkaline Phosphatase Total Creatine Kinase Troponin I NT-Pro-B Natriuret Pep Total Protein Albumin Globulin Albumin/Globulin Ratio Procalcitonin TSH Free T4 Urine Color Urine Appearance Urine pH Ur Specific [place] Urine Protein Urine Glucose (UA) Urine Ketones Urine Occult Blood Urine Nitrate Urine Bilirubin Ur Bilirubin Confirm Urine Urobilinogen Ur Leukocyte Esterase Urine RBC Urine WBC Ur Squamous Epith Cells Urine Bacteria Ur Culture Indicated? Chlamy pneumoniae PCR Adenovirus (PCR) B. pertussis DNA (PCR) B.parapertussis DNA PCR Coronavirus OC43 (PCR) Coronavirus HKU1 (PCR) Coronavirus 229E (PCR) SARS-CoV-2 (PCR) Coronavirus NL63 (PCR) Human Metapneumovir PCR Influenza Type A (PCR) Influenza Type B (PCR) M. pneumoniae (PCR) Parainfluenza 1 (PCR) Parainfluenza 2 (PCR) Parainfluenza 3 (PCR) Parainfluenza 4 (PCR) RSV (PCR) Entero/Rhino (PCR) Assessment & Plan Assessment & Plan narrative: 1. Septic shock with SALMA, acute metabolic encephalopathy, hypotension, thrombocytopenia, and acute respiratory failure secondary to acute cystitis with staghorn calculi, cholecystitis, and bacterial pneumonia. - initially on levophed in the ER via midline, after goals of care discussions now family elected for comfort measures. Antibiotics (zosyn) were stopped. - continue morphine, ativan, scopalamine patches - given marked hypotension without pressor support or interventions, her passing appears imminent. - suspect urological process is the most contributory with staghorn calculi and SALMA, markedly elevated procalcitonin at 164 typically seen with urological processes. But also with pneumonia on imaging and cholecystitis. 2. Myocardial injury with possible acute heart failure - no further management with goals of care. 3. Lactic acidosis - can stop trending with goals of care now. 4. Parkison's disease / essential tremor - can continue home medications, though patient not likely to recover. 5. hypothroidism - TSH 5 6. Orthostatic hypotension, chronic Code: DNR DNI with limited medical interventions, surrogate is patient's son per POLST form DVT: hold for comfort I have utilized all available immediate resources to obtain, update, or review the patient's current medications. Dispo: Admitted as inpatient. Her passing appears imminent. Will work with care management for hospice at her prior facility should she not in the next 48 hours. Additional history was obtained via discussion with Er provider. I have reveiewed patient's presenting documentation, imaging, and lab values. Quality MIPS - Admit I confirm the patient?s Advance Care Plan is present, Code status is documented, Surrogate decision maker is in patient?s record [If Yes, STOP here]: Yes
[2022-10-24] MEDS: SCOPOLAMINE 1 PATCH TOP (17:55)
[2022-10-24 23:49] LABS: CTX-M Resistance Not Detected (Not Detect)
[2022-10-24 23:50] LABS: Enterococcus faecalis Not Detected (Not Detect); Enterococcus faecium Not Detected (Not Detect); IMP Resistance Not Detected (Not Detect); KPC Resistance Not Detected (Not Detect); Listeria monocytogenes Not Detected (Not Detect); NDM Resistance Not Detected (Not Detect); OXA-48-like Resistance Not Detected (Not Detect); Staphylococcus epidermidis Not Detected (Not Detect); Staphylococcus lugdunensis Not Detected (Not Detect); Staphylococcus species Not Detected (Not Detect); Streptococcus agalactiae (Gr B Not Detected (Not Detect); Streptococcus pneumonia Not Detected (Not Detect); Streptococcus pyogenes (Gr A) Not Detected (Not Detect); Streptococcus species Not Detected (Not Detect); VIM Resistance Not Detected (Not Detect); mcr-1 Resistance Not Detected (Not Detect)
[2022-10-24 23:51] LABS: Acinetobacter calcoa-baumannii Not Detected (Not Detect); Bacteroides fragilis Not Detected (Not Detect); Enterobacter cloacae complex Not Detected (Not Detect); Enterobacterales DETECTED (Not Detect); Klebsiella aerogenes Not Detected (Not Detect)
[2022-10-24 23:52] LABS: Candida albicans Not Detected (Not Detect); Candida auris Not Detected (Not Detect); Candida glabrata Not Detected (Not Detect); Candida krusei Not Detected (Not Detect); Candida parapsilosis Not Detected (Not Detect); Candida tropicalis Not Detected (Not Detect); Cryptococcus neoformans/gatti Not Detected (Not Detect); Haemophilus influenzae Not Detected (Not Detect); Neisseria meningitidis Not Detected (Not Detect); Proteus species Not Detected (Not Detect); Pseudomonas aeruginosa Not Detected (Not Detect); Salmonella species Not Detected (Not Detect); Serratia marcescens Not Detected (Not Detect); Stenotrophomonas maltophilia Not Detected (Not Detect)
[2022-10-25] MEDS: MORPHINE 2 MG/ML INJ IV ×4 (00:06→14:43)
--- NOTE | 2022-10-25 09:34 | PM.PN.1 ---
Subjective Subjective Interval history: 82 F admitted for comfort care with septic shock. Appears comfortable, family at bedside without questions Exam Vital Signs (past 8 hours): Oxygen Delivery Method Nasal Cannula Oxygen Flow Rate 0 Narrative Exam Narrative: Gen: acutely ill appearing elderly female, comfortable, no distress, not responsive CV: tachycardic and regular Pulm: no tachypnea, shallows breathing Abd: non-distended Ext: trace edema bilateral lower extremities. Objective Labs 10/24/22 08:20 10/24/22 08:20 Labs: Laboratory Results - last 24 hr 10/24/22 10/24/22 10/24/22 08:15 08:20 08:20 Lactate Magnesium Troponin I Procalcitonin 164 H TSH 5.00 H Free T4 1.34 Urine Color Urine Appearance Urine pH Ur Specific [place] Urine Protein Urine Glucose (UA) Urine Ketones Urine Occult Blood Urine Nitrate Urine Bilirubin Ur Bilirubin Confirm Urine Urobilinogen Ur Leukocyte Esterase Urine RBC Urine WBC Ur Squamous Epith Cells Urine Bacteria Ur Culture Indicated? A.calcoaceticus-baumannii cmplx PCR Not detected Chlamy pneumoniae PCR Adenovirus (PCR) Bacteroides fragilis Not detected B. pertussis DNA (PCR) B.parapertussis DNA PCR Rosenda albicans (PCR) Not detected Rosenda auris (PCR) Not detected C. glabrata (PCR) Not detected C. krusei (PCR) Not detected C. parapsilosis (PCR) Not detected C. tropicalis (PCR) Not detected Coronavirus OC43 (PCR) Coronavirus HKU1 (PCR) Coronavirus 229E (PCR) SARS-CoV-2 (PCR) Coronavirus NL63 (PCR) C. neoform/gattii (PCR) Not detected Enterobacterales (PCR) Detected H E. cloacae complex PCR Not detected Enterococc faecalis PCR Not detected Enterococc faecium PCR Not detected E. coli (PCR) Detected H H. influenzae (PCR) Not detected Human Metapneumovir PCR Influenza Type A (PCR) Influenza Type B (PCR) Klebsiella aerogenes (PCR) Not detected Klebsiella oxytoca PCR Not detected Klebsiella pneumoniae Not detected List. monocytogenes PCR Not detected M. pneumoniae (PCR) N. meningitidis (PCR) Not detected Parainfluenza 1 (PCR) Parainfluenza 2 (PCR) Parainfluenza 3 (PCR) Parainfluenza 4 (PCR) Proteus species (PCR) Not detected RSV (PCR) Entero/Rhino (PCR) Salmonella spp. (PCR) Not detected Serratia marcescens PCR Not detected Staphylococcus sp PCR Not detected Staph aureus (PCR) Not detected mcr-1 Colistin Res Gene PCR Not detected Staph epidermidis (PCR) Not detected Staph lugdunensis PCR Not detected S. maltophilia (PCR) Not detected Streptococcus sp PCR Not detected Group A Strep (PCR) Not detected Strep agalactiae (PCR) Not detected Strep pneumoniae (PCR) Not detected P. aeruginosa (PCR) Not detected blaIMP Car res Gene PCR Not detected KPC-Carbap Res Gene PCR Not detected blaNDM Car Res Gene PCR Not detected OXA-48 Carbapenem Resis Gene (PCR) Not detected blaVIM Car Res Gene PCR Not detected CTX-M Gene Resistance (PCR) Not detected 10/24/22 10/24/22 10/24/22 08:20 08:47 10:05 Lactate Magnesium 2.3 Troponin I Procalcitonin TSH Free T4 Urine Color [place] Urine Appearance Cloudy Urine pH 5.5 Ur Specific [place] 1.020 Urine Protein 3+ H Urine Glucose (UA) Negative Urine Ketones 1+ H Urine Occult Blood 3+ H Urine Nitrate Positive H Urine Bilirubin 1+ H Ur Bilirubin Confirm Negative Urine Urobilinogen 1.0 Ur Leukocyte Esterase 2+ H Urine RBC 30-100/hpf H Urine WBC >100/hpf H Ur Squamous Epith Cells 0-1 /hpf Urine Bacteria Many (>30) H Ur Culture Indicated? Specimen cultured A.calcoaceticus-baumannii cmplx PCR Chlamy pneumoniae PCR Not detected Adenovirus (PCR) Not detected Bacteroides fragilis B. pertussis DNA (PCR) Not detected B.parapertussis DNA PCR Not detected Rosenda albicans (PCR) Rosenda auris (PCR) C. glabrata (PCR) C. krusei (PCR) C. parapsilosis (PCR) C. tropicalis (PCR) Coronavirus OC43 (PCR) Not detected Coronavirus HKU1 (PCR) Not detected Coronavirus 229E (PCR) Not detected SARS-CoV-2 (PCR) Not detected Coronavirus NL63 (PCR) Not detected C. neoform/gattii (PCR) Enterobacterales (PCR) E. cloacae complex PCR Enterococc faecalis PCR Enterococc faecium PCR E. coli (PCR) H. influenzae (PCR) Human Metapneumovir PCR Not detected Influenza Type A (PCR) Not detected Influenza Type B (PCR) Not detected Klebsiella aerogenes (PCR) Klebsiella oxytoca PCR Klebsiella pneumoniae List. monocytogenes PCR M. pneumoniae (PCR) Not detected N. meningitidis (PCR) Parainfluenza 1 (PCR) Not detected Parainfluenza 2 (PCR) Not detected Parainfluenza 3 (PCR) Not detected Parainfluenza 4 (PCR) Not detected Proteus species (PCR) RSV (PCR) Not detected Entero/Rhino (PCR) Not detected Salmonella spp. (PCR) Serratia marcescens PCR Staphylococcus sp PCR Staph aureus (PCR) mcr-1 Colistin Res Gene PCR Staph epidermidis (PCR) Staph lugdunensis PCR S. maltophilia (PCR) Streptococcus sp PCR Group A Strep (PCR) Strep agalactiae (PCR) Strep pneumoniae (PCR) P. aeruginosa (PCR) blaIMP Car res Gene PCR KPC-Carbap Res Gene PCR blaNDM Car Res Gene PCR OXA-48 Carbapenem Resis Gene (PCR) blaVIM Car Res Gene PCR CTX-M Gene Resistance (PCR) 10/24/22 10/24/22 10:50 10:50 Lactate 7.6 H* Magnesium Troponin I 0.085 H Procalcitonin TSH Free T4 Urine Color Urine Appearance Urine pH Ur Specific [place] Urine Protein Urine Glucose (UA) Urine Ketones Urine Occult Blood Urine Nitrate Urine Bilirubin Ur Bilirubin Confirm Urine Urobilinogen Ur Leukocyte Esterase Urine RBC Urine WBC Ur Squamous Epith Cells Urine Bacteria Ur Culture Indicated? A.calcoaceticus-baumannii cmplx PCR Chlamy pneumoniae PCR Adenovirus (PCR) Bacteroides fragilis B. pertussis DNA (PCR) B.parapertussis DNA PCR Rosenda albicans (PCR) Rosenda auris (PCR) C. glabrata (PCR) C. krusei (PCR) C. parapsilosis (PCR) C. tropicalis (PCR) Coronavirus OC43 (PCR) Coronavirus HKU1 (PCR) Coronavirus 229E (PCR) SARS-CoV-2 (PCR) Coronavirus NL63 (PCR) C. neoform/gattii (PCR) Enterobacterales (PCR) E. cloacae complex PCR Enterococc faecalis PCR Enterococc faecium PCR E. coli (PCR) H. influenzae (PCR) Human Metapneumovir PCR Influenza Type A (PCR) Influenza Type B (PCR) Klebsiella aerogenes (PCR) Klebsiella oxytoca PCR Klebsiella pneumoniae List. monocytogenes PCR M. pneumoniae (PCR) N. meningitidis (PCR) Parainfluenza 1 (PCR) Parainfluenza 2 (PCR) Parainfluenza 3 (PCR) Parainfluenza 4 (PCR) Proteus species (PCR) RSV (PCR) Entero/Rhino (PCR) Salmonella spp. (PCR) Serratia marcescens PCR Staphylococcus sp PCR Staph aureus (PCR) mcr-1 Colistin Res Gene PCR Staph epidermidis (PCR) Staph lugdunensis PCR S. maltophilia (PCR) Streptococcus sp PCR Group A Strep (PCR) Strep agalactiae (PCR) Strep pneumoniae (PCR) P. aeruginosa (PCR) blaIMP Car res Gene PCR KPC-Carbap Res Gene PCR blaNDM Car Res Gene PCR OXA-48 Carbapenem Resis Gene (PCR) blaVIM Car Res Gene PCR CTX-M Gene Resistance (PCR) PFSH Medical History Chicken pox Chronic back pain (~2013) Colitis Essential tremor (06/26/15) Fatigue (08/29/15) GI (gastrointestinal bleed) Hypothyroidism (acquired) Macular degeneration Measles Rosacea Rubella Shoulder pain (~1988) Surgical History Anesthesia History of tonsillectomy (~194) S/P cataract extraction Status post colonoscopy (~2007) Family History Grandfather Heart disease Grandmother Heart disease Mother Mental health problem Grandfather Stroke Grandmother Cancer Father Cancer Social History marital status: household members: none lives independently: Yes Smoking Status: Never smoker alcohol intake: former substance use type: does not use Assessment & Plan Assessment & Plan narrative: 1. Septic shock with SALMA, acute metabolic encephalopathy, hypotension, thrombocytopenia, and acute respiratory failure secondary to acute cystitis with staghorn calculi, cholecystitis, and bacterial pneumonia. - initially on levophed in the ER via midline, after goals of care discussions now family elected for comfort measures. Antibiotics (zosyn) were stopped. - continue morphine, ativan, scopalamine patches for comfort - given marked hypotension without pressor support or interventions, her passing appears imminent. - suspect urological process is the most contributory with staghorn calculi and SALMA, markedly elevated procalcitonin at 164 typically seen with urological processes. But also with pneumonia on imaging and cholecystitis. 2. Myocardial injury with possible acute heart failure - no further management with goals of care. 3. Lactic acidosis - stopped trending with goals of care now. 4. Parkison's disease / essential tremor - can continue home medications if she wakes, though patient not likely to recover. 5. hypothroidism - TSH 5 6. Orthostatic hypotension, chronic Code: DNR DNI with limited medical interventions now fully comfort, surrogate is patient's son per POLST form DVT: hold for comfort Dispo: Admitted as inpatient. Her passing appears imminent. Will work with care management for hospice at her prior facility Additional history was obtained via discussion with Er provider. I have reveiewed patient's presenting documentation, imaging, and lab values.
--- NOTE | 2022-10-25 11:17 | PM.DS.1 ---
History of Present Illness History of Present Illness Date Patient Seen: 10/25/22 Time Patient Seen: 09:30 Chief complaint: Unresponsive Narrative: Shirlene Calvo is an 81-year-old female with past medical history of Parkinson's disease, hypothyroidism, essential tremor, and hypertension who presented with altered mental status this morning from her care facility. Upon arrival she was responsive to painful stimuli but did not open her eyes and was not able to coherently answer questions. She was hypotensive in the field, given IV fluids. Workup in the ER revealed multiple etiologies, including staghorn calculi with UTI, gallbladder with thickening and gallstones, and pneumonia with possible breast mass. Surgery recommended cholecystostomy tube if treatment desired, urology did not recommend any acute interventions. She had worsening hypotension despite 2L fluid bolus and had high levophed requirements. Goals of care were discussed with the family, and family elected for comfort measures only. BP on arrival to the floor was 54/24. She is unable to answer any questions but appears comfortable. Patient's sister is at bedside, had no additional questions at this time. Did endorse continued desire to make sure patient is comfortable. Discharge Providers Provider Date of admission: 10/24/22 13:19 Discharge Date: 10/25/22 Primary care physician: Mateusz Bonilla MD Consults: 10/24/22 14:10 Consult to Discharge Planning Routine Comment: Consult to Hospice Referral Urgent Comment: 10/24/22 14:29 Consult to Pastoral Services Routine Comment: comfort care, pt attends [facility] Discharge provider: Reji Blank DO Summary Hospital Course Discharge Diagnosis: Please see hospital course by problem list noted below: Hospital Course: 1. Septic shock with SALMA, acute metabolic encephalopathy, hypotension, thrombocytopenia, and acute respiratory failure secondary to acute cystitis with staghorn calculi, cholecystitis, and bacterial pneumonia. ?- initially on levophed in the ER via midline, after goals of care discussions family elected for comfort measures. Antibiotics (zosyn) were stopped. She did not pass as quickly as expected. Care management was able to arrange transport back to her living facility ([facility]) when she did not overnight. ?- continue morphine, ativan, scopalamine patches for comfort at halfway facility. ?- suspect urological process is the most contributory with staghorn calculi and SALMA, markedly elevated procalcitonin at 164 typically seen with urological processes. But also with pneumonia on imaging and cholecystitis. 2. Myocardial injury with possible acute heart failure ?- no further management with goals of care. 3. Lactic acidosis ?- stopped trending with goals of care now. 4. Parkison's disease / essential tremor ?- can continue home medications if she wakes, though patient not likely to recover. 5. hypothroidism ?- TSH 5. 6. Orthostatic hypotension, chronic - home midodrine held Code: DNR DNI with limited medical interventions now fully comfort, surrogate is patient's son per POLST form DVT: hold for comfort Time Spent with Patient Time spent: Greater than 30 minutes Exam Vital Signs (past 8 hours): Oxygen Delivery Method Nasal Cannula Oxygen Flow Rate 0 Narrative Exam Narrative: Gen: acutely ill appearing elderly female, comfortable, no distress, not responsive CV: tachycardic and regular Pulm: no tachypnea, shallows breathing Abd: non-distended Ext: trace edema bilateral lower extremities. Objective Labs 10/24/22 08:20 10/24/22 08:20 Labs: Laboratory Results - last 24 hr 10/24/22 10/24/22 10/24/22 08:15 10:50 10:50 Lactate 7.6 H* Troponin I 0.085 H A.calcoaceticus-baumannii cmplx PCR Not detected Bacteroides fragilis Not detected Rosenda albicans (PCR) Not detected Rosenda auris (PCR) Not detected C. glabrata (PCR) Not detected C. krusei (PCR) Not detected C. parapsilosis (PCR) Not detected C. tropicalis (PCR) Not detected C. neoform/gattii (PCR) Not detected Enterobacterales (PCR) Detected H E. cloacae complex PCR Not detected Enterococc faecalis PCR Not detected Enterococc faecium PCR Not detected E. coli (PCR) Detected H H. influenzae (PCR) Not detected Klebsiella aerogenes (PCR) Not detected Klebsiella oxytoca PCR Not detected Klebsiella pneumoniae Not detected List. monocytogenes PCR Not detected N. meningitidis (PCR) Not detected Proteus species (PCR) Not detected Salmonella spp. (PCR) Not detected Serratia marcescens PCR Not detected Staphylococcus sp PCR Not detected Staph aureus (PCR) Not detected mcr-1 Colistin Res Gene PCR Not detected Staph epidermidis (PCR) Not detected Staph lugdunensis PCR Not detected S. maltophilia (PCR) Not detected Streptococcus sp PCR Not detected Group A Strep (PCR) Not detected Strep agalactiae (PCR) Not detected Strep pneumoniae (PCR) Not detected P. aeruginosa (PCR) Not detected blaIMP Car res Gene PCR Not detected KPC-Carbap Res Gene PCR Not detected blaNDM Car Res Gene PCR Not detected OXA-48 Carbapenem Resis Gene (PCR) Not detected blaVIM Car Res Gene PCR Not detected CTX-M Gene Resistance (PCR) Not detected PFSH Medical History Chicken pox Chronic back pain (~2013) Colitis Essential tremor (06/26/15) Fatigue (08/29/15) GI (gastrointestinal bleed) Hypothyroidism (acquired) Macular degeneration Measles Rosacea Rubella Shoulder pain (~1988) Surgical History Anesthesia History of tonsillectomy (~1944) S/P cataract extraction Status post colonoscopy (~2007) Family History Grandfather Heart disease Grandmother Heart disease Mother Mental health problem Grandfather Stroke Grandmother Cancer Father Cancer Social History marital status: household members: none lives independently: Yes Smoking Status: Never smoker alcohol intake: former substance use type: does not use Discharge Plan Discharge Plan Patient Disposition: Hospice - Home Provider Discharge Comment: 82 F with septic shock due to UTI with staghorn calculus, cholecystitis, pneumonia. Transitioned to comfort care. Return to [facility] on hospice. Medications for pain / anxiety and secretions printed. Discharge orders & Medications Prescriptions: New scopolamine base [Transderm-Scop] 1 mg over 3 days Patch 3 Day 1 patch topical Q72H PRN (Reason: Secretions) 10 Days Qty: 4 0RF lorazepam [Lorazepam Intensol] 2 mg/mL concentrate 1 mg PO Q1H PRN (Reason: anxiety) 7 Days Qty: 30 0RF morphine concentrate 10 mg/0.5 mL syringe 10 mg PO Q4H PRN (Reason: pain or dyspnea) Qty: 50 0RF Discontinued levothyroxine 25 mcg tablet 25 mcg PO QAM Qty: 90 3RF carbidopa-levodopa 50-200 mg Tablet Extended Release 1 tab PO ONCE HS midodrine 5 mg Tablet 2.5 mg PO TID Rx Instructions: With meals, hold for SBP>110 entacapone 200 mg Tablet 200 mg PO TID carboxymethylcellulose sodium 0.5 % Drops 1 drp EYE-BOTH TID polyethylene glycol 3350 [Miralax] 17 gram/dose Powder 17 g PO DAILY simethicone 125 mg Tablet 125 mg PO Q4HR PRN (Reason: Hiccups) carbidopa-levodopa 25-100 mg Tablet 1.5 tab PO TID magnesium oxide 400 mg magnesium Tablet 400 mg PO DAILY PreserVision AREDS 1 tab tablet 1 tab PO BID acetaminophen 325 mg tablet 650 mg PO TID Follow up/Referrals: Mateusz Bonilla MD [Primary Care Provider] - Diet/Activity/Treatments Diet: Diet as Tolerated and Regular Diet comment: Diet for comfort if awake Activity: No restrictions, comfort Catheter: 2-way Alvarez Visit Report/Discharge Packet Stand Alone Forms: Patient Portal/API, Stroke Signs & Symptoms Discharge Data Primary Care Provider: Mateusz Bonilla
--- NOTE | 2022-10-25 14:34 | CM.DPNOTE ---
DCP Note Patient admitted for comfort measures. Spoke w/patient's son and DPLOPEZ Morse, his partner and patient's sister Jenniffer, reviewed plan Patient lives at [facility], resident since 2019, and family feels patient should return to [facility] if they can take care of her for end of life care Placed call to July at [facility] who confirmed they could take patient back today. BLS was then arranged for [id number] lease picker, DR Blank and LAURA Smith updated on plan Discharge orders and completed and signed med list were sent to [facility] . LAURA Smith to complete RN to RN report Updated family who continued to agree to plan and appreciative for the coordination Plan: Discharge back to [facility] via BLS, BLS form completed and signed, left on chart w/POLST and demo sheet JW
== END 2022-10-25 15:00 | disposition hospice, home (50) | DRG 871 ==
LOC: ED 09:43 → AC 13:20
PROVIDERS: Admitting Provider Internal Medicine; Emergency Provider Emergency Medicine; PCP Student in an Organized Health Care Education/Training Program; Referring Provider Emergency Medicine; Visit Provider Internal Medicine
DX: A41.9 Sepsis, unspecified organism (principal); G93.41 Metabolic encephalopathy; R65.21 Severe sepsis with septic shock; J96.01 Acute respiratory failure with hypoxia; J15.9 Unspecified bacterial pneumonia; N30.00 Acute cystitis without hematuria; N17.9 Acute kidney failure, unspecified; I5A Non-ischemic myocardial injury (non-traumatic); G20 Parkinson's disease; E03.9 Hypothyroidism, unspecified; I95.1 Orthostatic hypotension; Z66 Do not resuscitate; Z51.5 Encounter for palliative care; K81.9 Cholecystitis, unspecified; N20.0 Calculus of kidney; N63.0 Unspecified lump in unspecified breast; I50.9 Heart failure, unspecified
CPT/HCPCS: 36415; 70450; 71045; 71250; 74176; 80053; 81001; 82550; 83605; 83735; 83880; 84145; 84439; 84443; 84484; 85007; 85025; 85610; 85730; 87040; 87077; 87086; 87154; 87186; 87633; 93005; 93010; 96361; 96365; 96366; 96367; 99285; 99291; J0131; J2270; J2543